=== PATIENT | male | born 1940 | race Caucasian/White ===

== ENCOUNTER → 2017-03-16 | Outpatient (CLI) | payer OTHER ==
[~2017-03-16] MED LIST: ACET-1256 PO; AMLO-114 PO; ASCAUNK PO; ASPI81TA21 PO; ATOR-24 PO; ATV/1 PO; CALCTAB5 PO; CYAN500T13 PO; FLUT0.0529 NAE; FURO20TA PO; GARL705C PO; LISI-789 PO; LPR25 PO; METF-384 PO; MULT1CHW18 PO; PANT1TAB48 PO; RRNITROTAB SL; RXC5 PO; SPIR25TA89 PO; TAMS0.4C59 PO; VITA100C4 PO; WARF10TA PO; cinnamon PO; tizanidine PO
== END | disposition home or self-care (01) ==
LOC: C.LAB 09:38
PROVIDERS: ATTEND Urology
DX: N13.9 Obstructive and reflux uropathy, unspecified (principal)

== ENCOUNTER → 2018-02-18 | Outpatient (CLI) | payer OTHER ==
[~2018-02-18] MED LIST changes: +ASPI-319 PO; -ASPI81TA21 PO; +PANT1TAB3 PO; -PANT1TAB48 PO
== END | disposition home or self-care (01) ==
LOC: C.LAB 07:58
PROVIDERS: ATTEND Urology
DX: N39.0 Urinary tract infection, site not specified (principal)

== ENCOUNTER → 2018-03-16 | Outpatient (CLI) | payer OTHER ==
--- NOTE | 2018-03-16 08:35 | DIAGNOSTIC IMAGING REPORT ---
KUB CLINICAL HISTORY: N20.1 [id number] [id number] BPH COMPARISON STUDY: 11/21/2013 FINDINGS: There are postsurgical changes of a total left hip arthroplasty. There are postsurgical changes of the lower lumbar spine. There is no pathologic bowel dilatation. No urinary tract calculi are visualized. Pelvic basin calcifications are felt to represent phleboliths. IMPRESSION: 1. No evidence of pathologic bowel dilatation 2. No urinary tract calculi identified Electronically signed by: Yariel Ibarra M.D. 03/16/2018 8:33 AM Dictated Date/Time: 03/16/2018 8:32 AM
== END | disposition home or self-care (01) ==
LOC: C.RAD 07:50
PROVIDERS: ATTEND Urology
DX: N40.1 Benign prostatic hyperplasia with lower urinary tract symptoms (principal); N39.0 Urinary tract infection, site not specified; R30.0 Dysuria; R35.0 Frequency of micturition; R39.15 Urgency of urination; B96.4 Proteus (mirabilis) (morganii) as the cause of diseases classified elsewhere

== ENCOUNTER 2019-07-16 23:34 | Inpatient (IN) ==
[2019-07-17] MEDS ORDERED: LIDOCAINE HCL 4% w/ Afrin 4 ML VIAL ONE (00:11)
--- NOTE | 2019-07-17 00:24 | Emergency Department Note ---
History of Present Illness General Chief complaint: Nose Bleed (Major) Stated complaint: NOSE BLEED - CANT GET TO STOP Time Seen by Provider: 07/17/19 00:03 History of Present Illness This is a 79-year-old male the presents to the emergency department via private vehicle with complaints of "nosebleed, cannot get to stop". The patient states that around 11:15 PM without any trauma or injury he began with a spontaneous left-sided nosebleed. He notes that it is going down the back of his throat and also out of his nose. He notes he is on Coumadin for A. fib but also notes that he has some sort of blockage as well. He follows locally with Dr. Velasco. He denies any pain at this time. He does not that he felt quite warm as he began to lose blood and some minimal dizziness. Home Medications Home Medications Medication Instructions Recorded Confirmed Type ascorbic acid (vitamin C) [Vitamin 500 mg PO DAILY 07/17/19 07/17/19 History C] aspirin 81 mg PO DAILY 07/17/19 07/17/19 History atorvastatin 80 mg PO DAILY 07/17/19 07/17/19 History celecoxib 200 mg PO DAILY PRN 07/17/19 07/17/19 History cinnamon bark [Cinnamon] 500 mg PO BID 07/17/19 07/17/19 History cyanocobalamin (vitamin B-12) 500 mcg PO DAILY 07/17/19 07/17/19 History [Vitamin B-12] finasteride 5 mg PO DAILY 07/17/19 07/17/19 History fluticasone propionate [Flonase 2 spray INTRANASAL DAILY PRN 07/17/19 07/17/19 History Allergy Relief] furosemide [Lasix] 40 mg PO DAILY 07/17/19 07/17/19 History garlic 500 mg PO DAILY 07/17/19 07/17/19 History glimepiride 1 mg PO QAM 07/17/19 07/17/19 History glucose 4 g PO DIRECTED PRN 07/17/19 07/17/19 History lisinopril 2.5 mg PO DAILY 07/17/19 07/17/19 History magnesium oxide 400 mg PO DAILY 07/17/19 07/17/19 History metformin 1,000 mg PO BID 07/17/19 07/17/19 History metoprolol tartrate 12.5 mg PO BID 07/17/19 07/17/19 History multivitamin 1 tab PO DAILY 07/17/19 07/17/19 History nitroglycerin 0.4 mg SUBLINGUAL DIRECTED PRN 07/17/19 07/17/19 History pantoprazole 40 mg PO BID 07/17/19 07/17/19 History sildenafil [Viagra] 50 mg PO DAILY PRN 07/17/19 07/17/19 History spironolactone 25 mg PO DAILY 07/17/19 07/17/19 History tamsulosin 0.4 mg PO DAILY 07/17/19 07/17/19 History tizanidine 4 mg PO TID PRN 07/17/19 07/17/19 History tramadol 50 mg PO Q6H PRN 07/17/19 07/17/19 History warfarin 5 mg PO DAILY 07/17/19 07/17/19 History Allergies Allergy/AdvReac Type Severity Reaction Status Date / Time No Known Allergies Allergy Unknown Verified 07/17/19 00:54 Past Med/Surg History Medical History Anemia Diastolic heart failure Hx of coronary artery disease Type 2 diabetes mellitus Surgical History History of lithotripsy Social History Preferred Language: Syriac Communication Ability: Effective Sewage Screen Operator Required: No Beliefs That Will Affect Care: None Current Living Situation: Spouse Other Information That Helps Us Care for You: No Feels Safe at Home: Yes Safety Concerns: Feels Safe At This Time Smoking Status: Former smoker Do You Dip or Chew Tobacco: No ; Second Hand Exposure: No ; Tobacco Cessation Education Requested by Patient: No Hx Alcohol Use: Yes Hx Substance Use: No Review of Systems A total of 10 systems reviewed and were otherwise negative Physical Exam Vital Signs Vital Signs - 24 hr 07/16/19 23:46 07/17/19 00:58 07/17/19 02:13 Temperature 36.9 C Temperature Source Oral Sepsis Recent Fever Within 48 Hours No Sepsis Action Taken by Nursing No Action Required Pulse Rate 82 71 Pulse Rate [Right Finger] 73 68 Respiratory Rate 18 20 20 Respiratory Effort / Characteristics Non-Labored Spontaneous Non-Labored Spontaneous Non-Labored Spontaneous Respiratory Depth Normal Normal Normal Respiratory Pattern Regular Regular Regular Blood Pressure 159/84 H Blood Pressure [Right Arm] 126/73 132/76 Blood Pressure Mean 109 Blood Pressure Mean [Right Arm] 90 94 Blood Pressure Position Sitting Pulse Oximetry 94 94 94 Oxygen Delivery Method Room Air Room Air Room Air 07/17/19 04:03 Temperature Temperature Source Sepsis Recent Fever Within 48 Hours Sepsis Action Taken by Nursing Pulse Rate Pulse Rate [Right Finger] 71 Respiratory Rate 20 Respiratory Effort / Characteristics Non-Labored Spontaneous Respiratory Depth Normal Respiratory Pattern Regular Blood Pressure Blood Pressure [Right Arm] 98/61 L Blood Pressure Mean Blood Pressure Mean [Right Arm] 73 Blood Pressure Position Pulse Oximetry 95 Oxygen Delivery Method Room Air VITAL SIGNS - Vital signs and nursing notes were reviewed. Stable and afebrile. GENERAL - 79-year-old male appearing his stated age who is in no acute distress. Communicates well with provider and answers questions appropriately. SKIN - Without rashes. HEAD - NC/AT. EYES - PERRL with EOMI bilaterally. Sclera anicteric. EARS - No deformities of external structures noted on gross examination bilaterally. NOSE - Midline and without cyanosis. Left-sided arterial vessel on the septal region posteriorly that is actively pulsating and bleeding. MOUTH/OROPHARYNX - Without perioral cyanosis. Buccal mucosa pink and moist and without leukoplakia. NECK - Neck with FROM. Supple to palpation. No lymphadenopathy noted. No nuchal rigidity. LUNGS: CTA. EXTREMITIES - No clubbing or peripheral cyanosis+5/5 strength noted in UE/LE bilaterally. NEUROLOGIC - Cranial nerves II through XII grossly intact. Sensory intact to light touch throughout. PSYCH - A&Ox3 and cooperates fully with examiner. Pt is very pleasant and interacts well with examiner. Course Administered Medications Discontinued Medications Phytonadione 2.5 mg/ Sodium (Chloride) 50.25 mls @ 100.5 mls/hr IV ONE ONE Stop: 07/17/19 04:02 Last Infusion: 07/17/19 04:31 Dose: 0 mls/hr Documented by: [id number] Admin: 07/17/19 04:01 Dose: 100.5 mls/hr Documented by: [id number] Sodium Chloride (Nss) 250 mls @ 250 mls/hr IV .Q1H ONE Stop: 07/17/19 05:32 Last Admin: 07/17/19 05:29 Dose: Not Given Documented by: [id number] Lidocaine HCl (Afrin W/Lidocaine 4%) Confirm Administered Dose 4 ml .ROUTE .STK- MED ONE Stop: 07/17/19 00:12 Last Admin: 07/17/19 00:14 Dose: 4 ml Documented by: [id number] Medical Decision Making Laboratory Data Result diagrams: 07/17/19 07:10 07/17/19 00:12 Lab Results 07/17/19 07/17/19 07/17/19 Range/Units 00:12 00:12 00:12 WBC 6.72 (4.8-10.8) K/uL RBC 4.10 L (4.7-6.1) M/uL Hgb 13.5 L (14.0-18.0) g/dL Hct 40.4 L (42-52) % MCV 98.5 (80-100) fL MCH 32.9 (25-34) pg MCHC 33.4 (32-36) g/dL RDW Std Deviation 48.8 H (36.4-46.3) fL RDW Coeff of [place] 13.8 (11.5-14.5) % Plt Count 146 (130-400) K/uL MPV 9.9 (7.4-10.4) fL Immature Gran % (Auto) 0.1 % Neut % (Auto) 58.9 % Lymph % (Auto) 27.1 % Ray % (Auto) 7.9 % Eos % (Auto) 5.4 % Baso % (Auto) 0.6 % Immature Gran # (Auto) 0.01 (0.00-0.02) K/uL Neut # (Auto) 3.96 (1.4-6.5) K/uL Lymph # (Auto) 1.82 (1.2-3.4) K/uL Ray # (Auto) 0.53 (0.11-0.59) K/uL Eos # (Auto) 0.36 (0-0.5) K/uL Baso # (Auto) 0.04 (0-0.2) K/uL PT 43.4 H (9.0-12.0) Seconds INR 4.7 H (0.9-1.1) APTT 39.1 H (21.0-31.0) Seconds PTT Ratio 1.4 Sodium 142 (136-145) mmol/L Potassium 3.7 (3.5-5.1) mmol/L Chloride 105 (98-107) mmol/L Carbon Dioxide 30 (21-32) mmol/L Anion Gap 7.0 (3-11) BUN 26 H (7-18) mg/dl Creatinine 1.13 (0.6-1.4) mg/dl Est Cr Clr Drug Dosing 53.2 ml/min Est GFR ( Amer) 71.8 Est GFR (Non-Af Amer) 61.9 BUN/Creatinine Ratio 22.6 H (10-20) Glucose 232 H (70-99) mg/dl Calcium 8.9 (8.5-10.1) mg/dl Magnesium 1.7 L (1.8-2.4) mg/dl Total Bilirubin 0.5 (0.2-1) mg/dl AST 20 (15-37) U/L ALT 36 (12-78) U/L Alkaline Phosphatase 75 (45-117) U/L Total Protein 6.8 (6.4-8.2) gm/dl Albumin 3.6 (3.4-5.0) gm/dl Globulin 3.2 (2.5-4.0) gm/dl Albumin/Globulin Ratio 1.1 (0.9-2) MDM Narrative Patient was seen and evaluated as above in room C5. Review was performed of nursing notes and vital signs. After obtaining a thorough history and physical examination the above work up was performed. He presents to us today with spontaneous epistaxis. He is actively bleeding upon my examination in the room. This is an arterial bleed from the left nostril. Consent was obtained. Afrin and lidocaine was sprayed in the left nostril. A 7.5 cm rapid Rhino was placed in the left nostril without any difficulty. This was inflated with 8 cc of air. There was still a very small amount of posterior pharyngeal trickle of blood from the nose, and decision was then made at that time with and his INR was found to be supratherapeutic to provide 2.5 mg of vitamin K. CBC reveals no leukocytosis. There is an anemia noted but he does not need to be transfused at this time. INR is supratherapeutic at 4.7. No emergent metabolic disturbance. I then discussed this with the on-call ENT doctor, Dr. Dillon. We agreed that decreasing the INR from its supratherapeutic state would be of benefit and will likely successfully achieve hemostasis. I reevaluated the patient after providing medication to lower the INR and there was decrease of blood but still minimal persistence. He was observed here for several hours and then Dr. Dillon came to evaluate the patient and there was successful hemostasis. Given the patient's complex past medical history, need for vitamin K, the size of the initial bleed, I do believe that he would benefit from inpatient management to trend his lab values and ensure hemostasis. Case discussed with the hospitalist. Please refer to further documentation regarding his stay. Case was discussed with the attending physician. I attest that I have personally reviewed the patient medication list. I attest that I have reviewed the patient's blood pressure and it was found to be elevated likely secondary to presentation here today. He will be admitted. GCS: 15 In the evaluation and treatment of this patient the following differential diagnoses were entertained: Trauma, injury, supratherapeutic INR, among others Impression & Plan Epistaxis, Supratherapeutic INR Discharge Plan Visit Data *Final* Discharge Date/Time: 07/17/19 07:00 Chief Complaint: Nose Bleed (Major) Stated Complaint: NOSE BLEED - CANT GET TO STOP ED Provider: Maritza Adam ED Midlevel Provider: Yogi Reveles Discharge Problem: Epistaxis, Supratherapeutic INR Patient Disposition: Admitted As Inpatient Condition: Good Discharge Instructions Interventions: ED Discharge Assessment Last Done: 07/17/19 07:00
[2019-07-17 00:27] LABS: Basophils # (auto) 0.04 K/uL (0-0.2); Basophils % (auto) 0.6 %; Eosinophils # (auto) 0.36 K/uL (0-0.5); Eosinophils % (auto) 5.4 %; Hematocrit (blood only) 40.4 % (42-52); Hemoglobin 13.5 g/dL (14.0-18.0); Immature Granulocytes # (auto) 0.01 K/uL (0.00-0.02); Immature Granulocytes % (auto) 0.1 %; Lymphocytes # (auto) 1.82 K/uL (1.2-3.4); Lymphocytes % (auto) 27.1 %; Mean Corpuscular Hgb Conc 33.4 g/dL (32-36); Mean Corpuscular Volume 98.5 fL (80-100); Mean Platelet Volume 9.9 fL (7.4-10.4); Monocytes # (auto) 0.53 K/uL (0.11-0.59); Monocytes % (auto) 7.9 %; Neutrophils # (auto) 3.96 K/uL (1.4-6.5); Neutrophils % (auto) 58.9 %; Platelet Count 146 K/uL (130-400); RDW Coefficient of Variation 13.8 % (11.5-14.5); RDW Standard Deviation 48.8 fL (36.4-46.3); White Blood Count 6.72 K/uL (4.8-10.8)
[2019-07-17 00:42] LABS: Partial Thromboplastin Ratio 1.4; Partial Thromboplastin Time 39.1 Seconds (21.0-31.0); Prothrombin Time 43.4 Seconds (9.0-12.0)
[2019-07-17 00:49] LABS: Albumin Level 3.6 gm/dl (3.4-5.0); BUN Creatinine Ratio 22.6 (10-20); Calcium 8.9 mg/dl (8.5-10.1); Creatinine Clr Calc Pharmacy 53.2 ml/min; Est GFR (African American) 71.8; Est GFR (Non-African American) 61.9; INR 4.7 (0.9-1.1); Potassium 3.7 mmol/L (3.5-5.1)
[2019-07-17 00:51] LABS: Albumin Globulin Ratio 1.1 (0.9-2); Bilirubin,Total 0.5 mg/dl (0.2-1); Globulin 3.2 gm/dl (2.5-4.0); Total Protein 6.8 gm/dl (6.4-8.2)
[2019-07-17] MEDS ORDERED: PHYTONADIONE 2.5 MG in SODIUM CHLORIDE 0.9% 50 ML IV ONE (03:33)
[2019-07-17] MEDS ORDERED: SODIUM CHLORIDE 0.9% 250 ML IV ONE (04:33)
[2019-07-17 04:45] LABS: Magnesium 1.7 mg/dl (1.8-2.4)
--- NOTE | 2019-07-17 05:03 | History & Physical Report ---
Date of Service July 17, 2019 Assessment & Plan (1) Coagulopathy: hx PAF status post pulmonary vein isolation on Coumadin Patient NSR INR supratherapeutic chronic diastolic heart failure (EF 55 to 60%, TTE 2018), patient euvolemic to dry hx CAD status post unsuccessful PCI on aspirin hypertension, BP on the lower side DM 2 on oral medications, well-controlled as of recent outpatient hemoglobin A1c of 6.09 Mar 2019 chronic anemia, hemoglobin at baseline history oropharyngeal dysphagia on aspiration precautions past tobacco abuse Medical telemetry Appropriate to hold Coumadin, aspirin for now until bleeding controlled and hemoglobin stable Trend H&H, transfuse PRBC if hemoglobin less than 8 and/or for symptomatic anemia May need additional vitamin K to reverse INR if with significant hemoglobin drop from baseline. Maintain nasal packing done at the ER, Augmentin course for antibacterial prophylaxis ENT consultation Re: Epistaxis status post packing (ER provider already in touch with Dr. Dillon.) ISS BG goal 1 40-1 80 DVT prophylaxis. SCDs if INR less than 2 while Coumadin on hold RE epistaxis Full code History of Present Illness Chief Complaint: epistaxis Primary Care Provider: Giacomo Morgan, DO History obtained from patient, family, and records. Medical history significant for chronic diastolic heart failure (EF 55 to 60%, TTE 2018), CAD status post unsuccessful PCI, PAF status post pulmonary vein isolation on Coumadin, hypertension, hyperlipidemia, DM 2 on oral medications, chronic anemia baseline hemoglobin of 13, history oropharyngeal dysphagia, past tobacco abuse. Recent confinement 2013 under Orthopedics service for elective left hip surgery. Last night, patient experienced cough/runny nose symptoms which sometimes happens with food/water intake. Patient subsequently noted epistaxis from the left nares. No unusual headache symptoms. No chest pain. Some shortness of breath, denies fluid retention. At the ER, topical decongestant administered intranasally followed by anterior/posterior packing of the left nasal cavity. Vitamin K administered for INR of 4.7. Decreased epistaxis as per patient. Medical History as above Surgical History : Cataract surgery, back surgery, hip surgery, knee surgery Family History : Leukemia, heart disease Personal/Social history : Past tobacco abuse, occasional EtOH intake Allergies Allergy/AdvReac Type Severity Reaction Status Date / Time No Known Allergies Allergy Unknown Verified 07/17/19 00:54 Home Medications Home Medications Medication Instructions Recorded Confirmed Type ascorbic acid (vitamin C) [Vitamin 500 mg PO DAILY 07/17/19 07/17/19 History C] aspirin 81 mg PO DAILY 07/17/19 07/17/19 History atorvastatin 80 mg PO DAILY 07/17/19 07/17/19 History celecoxib 200 mg PO DAILY PRN 07/17/19 07/17/19 History cinnamon bark [Cinnamon] 500 mg PO BID 07/17/19 07/17/19 History cyanocobalamin (vitamin B-12) 500 mcg PO DAILY 07/17/19 07/17/19 History [Vitamin B-12] finasteride 5 mg PO DAILY 07/17/19 07/17/19 History fluticasone propionate [Flonase 2 spray INTRANASAL DAILY PRN 07/17/19 07/17/19 History Allergy Relief] furosemide [Lasix] 40 mg PO DAILY 07/17/19 07/17/19 History garlic 500 mg PO DAILY 07/17/19 07/17/19 History glimepiride 1 mg PO QAM 07/17/19 07/17/19 History glucose 4 g PO DIRECTED PRN 07/17/19 07/17/19 History lisinopril 2.5 mg PO DAILY 07/17/19 07/17/19 History magnesium oxide 400 mg PO DAILY 07/17/19 07/17/19 History metformin 1,000 mg PO BID 07/17/19 07/17/19 History metoprolol tartrate 12.5 mg PO BID 07/17/19 07/17/19 History multivitamin 1 tab PO DAILY 07/17/19 07/17/19 History nitroglycerin 0.4 mg SUBLINGUAL DIRECTED PRN 07/17/19 07/17/19 History pantoprazole 40 mg PO BID 07/17/19 07/17/19 History sildenafil [Viagra] 50 mg PO DAILY PRN 07/17/19 07/17/19 History spironolactone 25 mg PO DAILY 07/17/19 07/17/19 History tamsulosin 0.4 mg PO DAILY 07/17/19 07/17/19 History tizanidine 4 mg PO TID PRN 07/17/19 07/17/19 History tramadol 50 mg PO Q6H PRN 07/17/19 07/17/19 History warfarin 5 mg PO DAILY 07/17/19 07/17/19 History Past Med/Surg History Medical History Anemia Diastolic heart failure Hx of coronary artery disease Type 2 diabetes mellitus Surgical History History of lithotripsy Social History Preferred Language: Slovenian Communication Ability: Effective Chief Supply Chain Officer Required: No Beliefs That Will Affect Care: None Current Living Situation: Spouse Other Information That Helps Us Care for You: No Feels Safe at Home: Yes Safety Concerns: Feels Safe At This Time Smoking Status: Former smoker Do You Dip or Chew Tobacco: No ; Second Hand Exposure: No ; Tobacco Cessation Education Requested by Patient: No Hx Alcohol Use: Yes Hx Substance Use: No Review of Systems Review of Systems: As per HPI, all 10 systems reviewed, all other ROS negative Physical Exam Physical Exam: GENERAL: Comfortable, obese, no respiratory distress SKIN: Pallor, warm HEENT: Alopecia, pale palpebral conjunctivae, no ptosis, nasal packing left anterior nasal cavity, dry buccal mucosa with dried blood clots per orem NECK : Supple, short, no tenderness CHEST : CTA, no tenderness HEART : RRR, systolic murmurs ABDOMEN: distention, nontender EXTREMITIES : No LE swelling/tenderness, no other conspicuous deformities noted NEUROLOGIC : Coherent, no facial asymmetry, no other gross focality Results & Data Vital Signs (Past 12 Hours) Vital Signs Temp Pulse Pulse Resp BP BP Pulse Ox 07/17/19 04:03 71 20 98/61 L 95 07/17/19 02:13 68 20 132/76 94 07/17/19 00:58 71 73 20 126/73 94 07/16/19 23:46 36.9 C 82 18 159/84 H 94 Laboratory Results Laboratory Results WBC 6.72 K/uL (4.8-10.8) 07/17/19 00:12 RBC 4.10 M/uL (4.7-6.1) L 07/17/19 00:12 Hgb 13.5 g/dL (14.0-18.0) L 07/17/19 00:12 Hct 40.4 % (42-52) L 07/17/19 00:12 MCV 98.5 fL (80-100) 07/17/19 00:12 MCH 32.9 pg (25-34) 07/17/19 00:12 MCHC 33.4 g/dL (32-36) 07/17/19 00:12 RDW Std Deviation 48.8 fL (36.4-46.3) H 07/17/19 00:12 RDW Coeff of [place] 13.8 % (11.5-14.5) 07/17/19 00:12 Plt Count 146 K/uL (130-400) 07/17/19 00:12 MPV 9.9 fL (7.4-10.4) 07/17/19 00:12 Immature Gran % (Auto) 0.1 % 07/17/19 00:12 Neut % (Auto) 58.9 % 07/17/19 00:12 Lymph % (Auto) 27.1 % 07/17/19 00:12 [place] % (Auto) 7.9 % 07/17/19 00:12 Eos % (Auto) 5.4 % 07/17/19 00:12 Baso % (Auto) 0.6 % 07/17/19 00:12 Immature Gran # (Auto) 0.01 K/uL (0.00-0.02) 07/17/19 00:12 Neut # (Auto) 3.96 K/uL (1.4-6.5) 07/17/19 00:12 Lymph # (Auto) 1.82 K/uL (1.2-3.4) 07/17/19 00:12 [place] # (Auto) 0.53 K/uL (0.11-0.59) 07/17/19 00:12 Eos # (Auto) 0.36 K/uL (0-0.5) 07/17/19 00:12 Baso # (Auto) 0.04 K/uL (0-0.2) 07/17/19 00:12 PT 43.4 Seconds (9.0-12.0) H 07/17/19 00:12 INR 4.7 (0.9-1.1) H 07/17/19 00:12 APTT 39.1 Seconds (21.0-31.0) H 07/17/19 00:12 PTT Ratio 1.4 07/17/19 00:12 Sodium 142 mmol/L (136-145) 07/17/19 00:12 Potassium 3.7 mmol/L (3.5-5.1) 07/17/19 00:12 Chloride 105 mmol/L (98-107) 07/17/19 00:12 Carbon Dioxide 30 mmol/L (21-32) 07/17/19 00:12 Anion Gap 7.0 (3-11) 07/17/19 00:12 BUN 26 mg/dl (7-18) H 07/17/19 00:12 Creatinine 1.13 mg/dl (0.6-1.4) 07/17/19 00:12 Est Cr Clr Drug Dosing 53.2 ml/min 07/17/19 00:12 Est GFR ( Amer) 71.8 07/17/19 00:12 Est GFR (Non-Af Amer) 61.9 07/17/19 00:12 BUN/Creatinine Ratio 22.6 (10-20) H 07/17/19 00:12 Glucose 232 mg/dl (70-99) H 07/17/19 00:12 Calcium 8.9 mg/dl (8.5-10.1) 07/17/19 00:12 Magnesium 1.7 mg/dl (1.8-2.4) L 07/17/19 00:12 Total Bilirubin 0.5 mg/dl (0.2-1) 07/17/19 00:12 AST 20 U/L (15-37) 07/17/19 00:12 ALT 36 U/L (12-78) 07/17/19 00:12 Alkaline Phosphatase 75 U/L (45-117) 07/17/19 00:12 Total Protein 6.8 gm/dl (6.4-8.2) 07/17/19 00:12 Albumin 3.6 gm/dl (3.4-5.0) 07/17/19 00:12 Globulin 3.2 gm/dl (2.5-4.0) 07/17/19 00:12 Albumin/Globulin Ratio 1.1 (0.9-2) 07/17/19 00:12 Diagnostic Findings Chest x-ray as per my interpretation cardiomegaly, atelectasis EKG as per my interpretation rate 70, NSR, RBBB, T wave abnormalities inferior leads,
--- NOTE | 2019-07-17 07:04 | ENT Consultation ---
Date of Consultation July 17, 2019 Assessment & Plan (1) Epistaxis: No further bleeding after vitamin K , packing in good position, comfortable, would leave packing in x 48 hours, hold coumadin if OK with medical History of Present Illness Reason for Consultation: epistaxis History of Present Illness 79 yo with sudden onset episaxis last night, on coumadin, INR 4.7, for afib. Allergies Allergy/AdvReac Type Severity Reaction Status Date / Time No Known Allergies Allergy Unknown Verified 07/17/19 00:54 Home Medications Home Medications Medication Instructions Recorded Confirmed Type ascorbic acid (vitamin C) [Vitamin 500 mg PO DAILY 07/17/19 07/17/19 History C] aspirin 81 mg PO DAILY 07/17/19 07/17/19 History atorvastatin 80 mg PO DAILY 07/17/19 07/17/19 History celecoxib 200 mg PO DAILY PRN 07/17/19 07/17/19 History cinnamon bark [Cinnamon] 500 mg PO BID 07/17/19 07/17/19 History cyanocobalamin (vitamin B-12) 500 mcg PO DAILY 07/17/19 07/17/19 History [Vitamin B-12] finasteride 5 mg PO DAILY 07/17/19 07/17/19 History fluticasone propionate [Flonase 2 spray INTRANASAL DAILY PRN 07/17/19 07/17/19 History Allergy Relief] furosemide [Lasix] 40 mg PO DAILY 07/17/19 07/17/19 History garlic 500 mg PO DAILY 07/17/19 07/17/19 History glimepiride 1 mg PO QAM 07/17/19 07/17/19 History glucose 4 g PO DIRECTED PRN 07/17/19 07/17/19 History lisinopril 2.5 mg PO DAILY 07/17/19 07/17/19 History magnesium oxide 400 mg PO DAILY 07/17/19 07/17/19 History metformin 1,000 mg PO BID 07/17/19 07/17/19 History metoprolol tartrate 12.5 mg PO BID 07/17/19 07/17/19 History multivitamin 1 tab PO DAILY 07/17/19 07/17/19 History nitroglycerin 0.4 mg SUBLINGUAL DIRECTED PRN 07/17/19 07/17/19 History pantoprazole 40 mg PO BID 07/17/19 07/17/19 History sildenafil [Viagra] 50 mg PO DAILY PRN 07/17/19 07/17/19 History spironolactone 25 mg PO DAILY 07/17/19 07/17/19 History tamsulosin 0.4 mg PO DAILY 07/17/19 07/17/19 History tizanidine 4 mg PO TID PRN 07/17/19 07/17/19 History tramadol 50 mg PO Q6H PRN 07/17/19 07/17/19 History warfarin 5 mg PO DAILY 07/17/19 07/17/19 History Patient History Social History Feels Safe at Home: Yes Smoking Status: Former smoker Physical Exam Constitutional: WD/WN, vitals as above Eyes: PERRL, conjunctivae normal, anicteric sclerae ENMT: Nose: + nasal mucous membrane abnormality (left nostril packing in place) and + nasal discharge (bleeding has stopped with IV vitamin K) Neck: trachea midline, no thyromegaly Respiratory: normal respiratory effort, lungs clear to auscultation Results & Data Vital Signs (Past 12 Hours) Vital Signs Temp Pulse Pulse Resp BP BP Pulse Ox 07/17/19 04:03 71 20 98/61 L 95 07/17/19 02:13 68 20 132/76 94 07/17/19 00:58 71 73 20 126/73 94 07/16/19 23:46 36.9 C 82 18 159/84 H 94
[2019-07-17 07:20] LABS: Hematocrit (blood only) 36.4 % (42-52)
--- NOTE | 2019-07-17 07:24 | XRay Report ---
XR chest 1V portable CLINICAL HISTORY: sob COMPARISON STUDY: Chest radiograph July 27, 2014. FINDINGS: The lungs are normal. There is no pneumothorax or pleural effusion. There is no consolidati on or evidence for pulmonary edema. Moderate cardiomegaly is noted. IMPRESSION: No acute cardiopulmonary findings. Moderate cardiomegaly. Electronically signed by: Keagan Atkinson M.D. 07/17/2019 7:23 AM
[2019-07-17] MEDS ORDERED: PHYTONADIONE 5 MG in SODIUM CHLORIDE 0.9% 50 ML IV ONE (08:00)
[2019-07-17] MEDS ORDERED: TRAMADOL HCL 50 MG TABLET PO PRN (08:03)
[2019-07-17] MEDS ORDERED: GLUCOSE 40% GEL 15 GM TUBE PO PRN (08:03)
[2019-07-17] MEDS ORDERED: GLUCOSE 10 TABS/TUBE PO PRN (08:03)
[2019-07-17] MEDS ORDERED: CARBOHYDRATES FOR HYPOGLYCEMIA PO PRN (08:03)
[2019-07-17] MEDS ORDERED: GLUCAGON FOR INJ 1 MG VIAL SQ PRN (08:03)
[2019-07-17] MEDS ORDERED: SODIUM CHLORIDE 0.9% 500 ML IV ONE (08:03)
[2019-07-17] MEDS ORDERED: TIZANIDINE HCL 4 MG TABLET PO PRN (08:03)
[2019-07-17] MEDS ORDERED: DEXTROSE 50% 50 ML SYRINGE IV PRN (08:03)
[2019-07-17] MEDS ORDERED: PROMETHAZINE HCL 12.5 MG in SODIUM CHLORIDE 0.9% 50 ML IV PRN (08:03)
[2019-07-17] MEDS ORDERED: ACETAMINOPHEN 325 MG TAB PO PRN (08:03)
[2019-07-17] MEDS ORDERED: NITROGLYCERIN SL 0.4 MG/TAB TAB SL PRN ×2 (08:03)
[2019-07-17] MEDS ORDERED: INSULIN GLARGINE SOLOSTAR 100 UNITS/ML 3 ML PEN SQ STA (08:08)
[2019-07-17] MEDS ORDERED: MAGNESIUM SULFATE / D5W 1 GM/100 ML BAG IV ONE ×2 (08:14→08:15)
[2019-07-17] MEDS: AMOXICILLIN/CLAVULANATE 875 MG TAB PO SCH ×2 (08:59→18:10)
[2019-07-17] MEDS: INSULIN ASPART 100 UNITS/ML 3 ML PEN SC SCH ×4 (09:01→21:17)
[2019-07-17] MEDS: FINASTERIDE 5 MG TAB PO SCH (09:12)
[2019-07-17] MEDS: CYANOCOBALAMIN 500 MCG TABLET (VITAMIN B-12) PO SCH (09:13)
[2019-07-17] MEDS: TAMSULOSIN HCL 0.4 MG CAP PO SCH (09:13)
[2019-07-17] MEDS: MULTIVITAMIN TAB PO SCH (09:13)
[2019-07-17] MEDS: PANTOprazole 40 MG TAB PO SCH ×2 (09:13→21:15)
[2019-07-17] MEDS: METOPROLOL TARTRATE 25 MG TAB PO SCH ×2 (09:15→21:15)
[2019-07-17] MEDS: LISINOPRIL 2.5 MG TAB PO SCH (09:16)
[2019-07-17 12:20] LABS: Hematocrit (blood only) 35.7 % (42-52); Hemoglobin 11.8 g/dL (14.0-18.0)
[2019-07-17 12:30] LABS: INR 2.1 (0.9-1.1); Prothrombin Time 20.3 Seconds (9.0-12.0)
--- NOTE | 2019-07-17 15:23 | Hospitalist Progress Note ---
Date of Service July 17, 2019 Assessment & Plan (1) Epistaxis: Present on admission spontaneous left-sided nosebleed. Mostly related to coumadin with supratherapeutic INR in the setting of Celebrex and Aspirin INR on admission 4.7 and received Vit K 2.5 mg IV Repeat INR 2.1 Hgb on admssion 13.5, dropped to 11.8 S/P left nostril packing done in the ER ENT dr. Dillon on board recommended to leave packing in x 48 hours Will continue hold coumadin and aspirin for now Continue Augmentin for prophylaxis Continue monitor H/H Supratherapeutic INR INR 4.7 on admission Received Vit K INR 2.1 for now Elevated Lactic acid Possible related no Epistaxis vs Metformin Lactic acid on admission 3.1 No sign of infection ( Afebrile and no leukocytosis) Repeat lactic acid 2.1 Continue holding Metformin Monitor lactic acid Chronic diastolic heart failure No sign of fluid overload Last ECHO in 2018 showed EF 55-60% Will resume lasix and spironolactone in am DM type 2 Last Hemoglobin A1c of 6.09 Mar 2019 Oral DM on hold Continue lantus and insulin sliding scale HbA1c pending CAD Denies any chest pain Continue metoprololol and statin Aspirin on hold due to epistaxis Hypomagnesemia Mg 1.7 , replaced Monitor Mag level Paroxysmal Afib rate control with metoprolol Coumadin and aspinrin on hold due to Epistaxis Continue monitor chronic anemia Hemoglobin on admission 13.5 hemoglobin today 11.8 Monitor H/H DVT px on SCDs due to Epistaxis CODE STATUS FULL CODE Subjective Pt was seen and examined. Lying in bed with no distress Pt said that he has been on coumadin and aspirin for about 10yrs with no episode of nose bleeding. He said he was prescribed celebrex that he has been taking for pain He said that he feels ok now He denies any fever, SOB, palpitation, dizziness and chest pain Physical Exam Physical Exam: General- No acute distress Head- atraumatic Eyes- PERRL, EOMI, ENT- left nostril packing in place Neck- supple, no JVD Lungs- clear to auscultation Heart- regular rhythm Abdomen- normal bowel sounds, soft, nontender Extremities- no calf tenderness Neuro- alert, oriented x 3; PERRL, EOMI; no facial palsy; no dysarthria Skin- warm & dry Results & Data Vital Signs (Past 12 Hours) Vital Signs Temp Pulse Resp BP BP Pulse Ox 07/17/19 11:41 36.6 C 79 18 158/79 H 92 07/17/19 07:00 130/79 95 07/17/19 06:58 95 07/17/19 06:30 127/80 94 07/17/19 04:03 71 20 98/61 L 95
[2019-07-17] MEDS ORDERED: HydrALAZINE HCL 20 MG/ML VIAL IV PRN (18:01)
[2019-07-17] MEDS: INSULIN GLARGINE SOLOSTAR 100 UNITS/ML 3 ML PEN SQ SCH (21:16)
[2019-07-18 06:51] LABS: Basophils # (auto) 0.03 K/uL (0-0.2); Basophils % (auto) 0.4 %; Eosinophils # (auto) 0.38 K/uL (0-0.5); Eosinophils % (auto) 4.7 %; Hematocrit (blood only) 35.3 % (42-52); Hemoglobin 11.8 g/dL (14.0-18.0); Immature Granulocytes # (auto) 0.01 K/uL (0.00-0.02); Immature Granulocytes % (auto) 0.1 %; Lymphocytes # (auto) 1.86 K/uL (1.2-3.4); Mean Corpuscular Hgb Conc 33.4 g/dL (32-36); Mean Corpuscular Volume 97.8 fL (80-100); Mean Platelet Volume 9.7 fL (7.4-10.4); Monocytes # (auto) 0.76 K/uL (0.11-0.59); Monocytes % (auto) 9.4 %; Neutrophils # (auto) 5.06 K/uL (1.4-6.5); Neutrophils % (auto) 62.4 %; Platelet Count 130 K/uL (130-400); RDW Coefficient of Variation 13.9 % (11.5-14.5); RDW Standard Deviation 49.7 fL (36.4-46.3); Red Blood Count 3.61 M/uL (4.7-6.1)
[2019-07-18 07:00] LABS: INR 1.3 (0.9-1.1); Prothrombin Time 12.8 Seconds (9.0-12.0)
[2019-07-18 07:14] LABS: Estimated Average Glucose 163 mg/dl; Hemoglobin A1C 7.3 % (4.5-5.6)
[2019-07-18] MEDS: INSULIN ASPART 100 UNITS/ML 3 ML PEN SC SCH ×3 (08:15→17:26)
[2019-07-18] MEDS: INSULIN GLARGINE SOLOSTAR 100 UNITS/ML 3 ML PEN SQ SCH (08:16)
[2019-07-18] MEDS: CYANOCOBALAMIN 500 MCG TABLET (VITAMIN B-12) PO SCH (08:17)
[2019-07-18] MEDS: METOPROLOL TARTRATE 25 MG TAB PO SCH (08:17)
[2019-07-18] MEDS: PANTOprazole 40 MG TAB PO SCH (08:17)
[2019-07-18] MEDS: AMOXICILLIN/CLAVULANATE 875 MG TAB PO SCH ×2 (08:18→16:18)
[2019-07-18] MEDS: FINASTERIDE 5 MG TAB PO SCH (08:18)
[2019-07-18] MEDS: TAMSULOSIN HCL 0.4 MG CAP PO SCH (08:18)
[2019-07-18] MEDS: LISINOPRIL 2.5 MG TAB PO SCH (08:18)
[2019-07-18] MEDS: MULTIVITAMIN TAB PO SCH (08:18)
[2019-07-18] MEDS ORDERED: INSULIN GLARGINE SOLOSTAR 100 UNITS/ML 3 ML PEN SQ SCH (09:00)
[2019-07-18] MEDS ORDERED: FUROSEMIDE 40 MG TAB PO SCH (09:00)
[2019-07-18] MEDS ORDERED: SPIRONOLACTONE 25 MG TAB PO SCH (14:00)
--- NOTE | 2019-07-18 17:26 | Hospitalist Progress Note ---
Date of Service July 18, 2019 Assessment & Plan (1) Epistaxis: Present on admission spontaneous left-sided nosebleed. Mostly related to coumadin with supratherapeutic INR in the setting of Celebrex and Aspirin INR on admission 4.7 and received Vit K 2.5 mg IV INR 1.3 today Hgb stable at 11.8 today S/P left nostril packing done in the ER ENT dr. Dillon on board recommended to leave packing in x 48 hours case discussed with Santana Rueda recommended to discharge with the nose packing today Follow up with ENT dr. Dillon on Thursday for packing removal Will resume coumadin tomorrow Continue to hold aspirin Continue Augmentin for prophylaxis Supratherapeutic INR INR 4.7 on admission Received Vit K INR 1.3 for today Follow up with the coumadin clinic Elevated Lactic acid Possible related no Epistaxis vs Metformin Lactic acid on admission 3.1 No sign of infection ( Afebrile and no leukocytosis) Repeat lactic acid 2.1 Continue holding Metformin Monitor lactic acid Chronic diastolic heart failure No sign of fluid overload Last ECHO in 2017 showed EF 55-60% Continue lasix and spironolactone DM type 2 Recent Hemoglobin A1c 7.3 Continue lantus and insulin sliding scale will resume oral diabetes me CAD Denies any chest pain Continue metoprololol and statin Aspirin on hold due to epistaxis Hypomagnesemia Mg 2.1 today Stable Paroxysmal Afib rate control with metoprolol Coumadin and aspinrin on hold due to Epistaxis Ok to resume coumadin Continue monitor chronic anemia Hemoglobin on admission 13.5 hemoglobin today 11.8 Monitor H/H Stable DVT px on SCDs due to Epistaxis CODE STATUS FULL CODE Disposition Follow up with your primary care provider Follow up with Dr. Torrez on 07/22 @ 10:45 AM Call to schedule for a follow up with Dr. Dillon on Thursday or earlier. (Call to schedule for the appt @ [phone]) Subjective Pt was seen and examined. Lying in bed with no distress Pt said that he feels fine. He said that he did not sleep well last night He said that too much activities in his room last night Denies any chest pain, palpitation, dizziness and SOB Physical Exam Physical Exam: General- No acute distress Head- atraumatic Eyes- PERRL, EOMI, ENT- left nostril packing in place Neck- supple, no JVD Lungs- clear to auscultation Heart- regular rhythm Abdomen- normal bowel sounds, soft, nontender Extremities- no calf tenderness Neuro- alert, oriented x 3; PERRL, EOMI; no facial palsy; no dysarthria Skin- warm & dry Results & Data Vital Signs (Past 12 Hours) Vital Signs Temp Pulse Pulse Resp BP Pulse Ox 07/18/19 16:10 36.6 C 69 20 117/76 95 07/18/19 15:06 74 07/18/19 11:22 36.9 C 72 16 158/85 H 97 07/18/19 07:22 36.5 C 62 16 142/79 H 97
--- NOTE | 2019-07-19 10:21 | Discharge Summary ---
Date of Service July 19, 2019 Admission HPI Per Admitting Provider History obtained from patient, family, and records. Medical history significant for chronic diastolic heart failure (EF 55 to 60%, TTE 2018), CAD status post unsuccessful PCI, PAF status post pulmonary vein isolation on Coumadin, hypertension, hyperlipidemia, DM 2 on oral medications, chronic anemia baseline hemoglobin of 13, history oropharyngeal dysphagia, past tobacco abuse. Recent confinement 2013 under Orthopedics service for elective left hip surgery. Last night, patient experienced cough/runny nose symptoms which sometimes happens with food/water intake. Patient subsequently noted epistaxis from the left nares. No unusual headache symptoms. No chest pain. Some shortness of breath, denies fluid retention. At the ER, topical decongestant administered intranasally followed by anterior/posterior packing of the left nasal cavity. Vitamin K administered for INR of 4.7. Decreased epistaxis as per patient. Medical History as above Surgical History : Cataract surgery, back surgery, hip surgery, knee surgery Family History : Leukemia, heart disease Personal/Social history : Past tobacco abuse, occasional EtOH intake Admission Exam Per Admitting Provider GENERAL: Comfortable, obese, no respiratory distress SKIN: Pallor, warm HEENT: Alopecia, pale palpebral conjunctivae, no ptosis, nasal packing left anterior nasal cavity, dry buccal mucosa with dried blood clots per [place]rem NECK : Supple, short, no tenderness CHEST : CTA, no tenderness HEART : RRR, systolic murmurs ABDOMEN: distention, nontender EXTREMITIES : No LE swelling/tenderness, no other conspicuous deformities noted NEUROLOGIC : Coherent, no facial asymmetry, no other gross focality Principal Diagnosis Epistaxis Supratherapeutic INR Elevated Lactic acid Chronic diastolic heart failure DM type 2 CAD Hypomagnesemia Paroxysmal Atrial fibrillation chronic anemia Discharge Exam General- No acute distress Head- atraumatic Eyes- PERRL, EOMI, ENT- left nostril packing in place Neck- supple, no JVD Lungs- clear to auscultation Heart- regular rhythm Abdomen- normal bowel sounds, soft, nontender Extremities- no calf tenderness Neuro- alert, oriented x 3; PERRL, EOMI; no facial palsy; no dysarthria Skin- warm & dry Discharge Data Allergies Allergy/AdvReac Type Severity Reaction Status Date / Time No Known Allergies Allergy Unknown Verified 07/17/19 00:54 Consultations 07/17/19 04:27 ED Decision to Admit Stat 07/17/19 08:03 Consult Otolaryngology (Head and Neck) Routine Ordered Studies XR chest 1V portable CLINICAL HISTORY: sob COMPARISON STUDY: Chest radiograph July 27, 2014. FINDINGS: The lungs are normal. There is no pneumothorax or pleural effusion. There is no consolidation or evidence for pulmonary edema. Moderate cardiomegaly is noted. IMPRESSION: No acute cardiopulmonary findings. Moderate cardiomegaly. Electronically signed by: Keagan Atkinson M.D. 07/17/2019 7:23 AM Dictated: 07/17/19721 Transcribed: 07/17/19721 Hospital Course (1) Epistaxis: Present on admission spontaneous left-sided nosebleed. Mostly related to coumadin with supratherapeutic INR in the setting of Celebrex and Aspirin INR on admission 4.7 and received Vit K 2.5 mg IV INR 1.3 today Hgb stable at 11.8 today S/P left nostril packing done in the ER ENT dr. Dillon on board recommended to leave packing in x 48 hours case discussed with Santana Rueda recommended to discharge with the nose packing today Follow up with ENT dr. Dillon on Thursday for packing removal Will resume coumadin tomorrow Continue to hold aspirin Continue Augmentin for prophylaxis Supratherapeutic INR INR 4.7 on admission Received Vit K INR 1.3 for today Follow up with the coumadin clinic Elevated Lactic acid Possible related no Epistaxis vs Metformin Lactic acid on admission 3.1 No sign of infection ( Afebrile and no leukocytosis) Repeat lactic acid 2.1 Continue holding Metformin Monitor lactic acid Chronic diastolic heart failure No sign of fluid overload Last ECHO in 2017 showed EF 55-60% Continue lasix and spironolactone DM type 2 Recent Hemoglobin A1c 7.3 Continue lantus and insulin sliding scale will resume oral diabetes me CAD Denies any chest pain Continue metoprololol and statin Aspirin on hold due to epistaxis Hypomagnesemia Mg 2.1 today Stable Paroxysmal Afib rate control with metoprolol Coumadin and aspinrin on hold due to Epistaxis Ok to resume coumadin Continue monitor chronic anemia Hemoglobin on admission 13.5 hemoglobin today 11.8 Monitor H/H Stable DVT px on SCDs due to Epistaxis CODE STATUS FULL CODE Disposition Follow up with your primary care provider Follow up with Dr. Torrez on 07/22 @ 10:45 AM Call to schedule for a follow up with Dr. Dillon on Thursday or earlier. (Call to schedule for the appt @ [phone]) Total Time Total Time Spent Total Time Spent (In Minutes): 35 minutes Total Time Includes: Examination of the Patient, Discharge Planning, Medication Reconciliation, Communication With Other Providers and Other Discharge Plan Discharge Items Patient Disposition: Home - Self-Care Reason For Visit: COAGULOPATHY,SOB Discharge Diagnosis: Epistaxis Supratherapeutic INR Elevated Lactic acid Chronic diastolic heart failure DM type 2 CAD Hypomagnesemia Paroxysmal Atrial fibrillation chronic anemia Condition on Discharge: Good Activity: Resume your previous activity Activity Comment: As tolerated Non-emergency contact: Primary Care Provider and Specialist Call non-emergency contact if: your temperature is above 101 Follow-up/Referrals: Giacomo Morgan, DO [Primary Care Provider] - Diet: Carb Consistent or DM2 and Heart Healthy Addtl Attending Provider Instructions: Follow up with your primary care provider Dr. Torrez on 07/22 @ 10:45 AM Call to schedule for a follow up with Otolaryngology Dr. Dillon on Thursday or earlier. (Call to schedule for the appt @ [phone]) Follow up with the coumadin clinic OK to resume coumadin tomorrow (Check INR on or Thursday) Hold Aspirin for now (Your physician will instruct you when to resume it). Please ask your physician or your cardiology when to resume the aspirin Hold Flonase for now Complete antibiotic course Discontinue Celebrex Avoid any NSAIDS such as (Aleve, Naproxen, Motrin, Advil, Ibuprofen, Celebrex, Meloxicam) due to increase risk of bleeding Coumadin decreased from 5 mg to 4 mg ( Please follow coumadin clinic instructions) Pending Studies at Discharge: No Stand-Alone Forms: My [facility] [employer] Medications and DC Order Prescriptions: New amoxicillin-pot clavulanate 875-125 mg Tablet 1 tab PO BIDM 7 Days Qty: 14 RF: 0 warfarin [Coumadin] 4 mg tablet 4 mg PO DAILY Qty: 30 RF: 0 Continued glucose 4 gram Tablet,Chewable 4 g PO DIRECTED PRN (Reason: low sugar) RF: 0 nitroglycerin 0.4 mg Tablet, Sublingual 0.4 mg sublingual DIRECTED PRN (Reason: Chest Pain) RF: 0 sildenafil [Viagra] 50 mg Tablet 50 mg PO DAILY PRN (Reason: Erectile Dysfunction) RF: 0 finasteride 5 mg Tablet 5 mg PO DAILY RF: 0 fluticasone propionate [Flonase Allergy Relief] 50 mcg/actuation [place],Suspension 2 spray INTRANASAL DAILY PRN (Reason: dryness) RF: 0 cyanocobalamin (vitamin B-12) [Vitamin B-12] 500 mcg Tablet 500 mcg PO DAILY RF: 0 cinnamon bark [Cinnamon] 500 mg Capsule 500 mg PO BID RF: 0 ascorbic acid (vitamin C) [Vitamin C] 500 mg Tablet 500 mg PO DAILY RF: 0 multivitamin Tablet,Chewable 1 tab PO DAILY RF: 0 garlic 500 mg Capsule 500 mg PO DAILY RF: 0 tamsulosin 0.4 mg Capsule 0.4 mg PO DAILY RF: 0 metoprolol tartrate 25 mg Tablet 12.5 mg PO BID RF: 0 magnesium oxide 400 mg magnesium Tablet 400 mg PO DAILY RF: 0 glimepiride 1 mg Tablet 1 mg PO QAM RF: 0 metformin 1,000 mg Tablet 1,000 mg PO BID RF: 0 pantoprazole 40 mg Tablet,Delayed Release (Dr/Ec) 40 mg PO BID RF: 0 furosemide [Lasix] 40 mg Tablet 40 mg PO DAILY RF: 0 lisinopril 2.5 mg Tablet 2.5 mg PO DAILY RF: 0 spironolactone 25 mg Tablet 25 mg PO DAILY RF: 0 atorvastatin 80 mg Tablet 80 mg PO DAILY RF: 0 tramadol 50 mg Tablet 50 mg PO Q6H PRN (Reason: Pain) RF: 0 tizanidine 4 mg Tablet 4 mg PO TID PRN (Reason: muscle spasms) RF: 0 Discontinued aspirin 81 mg Tablet,Delayed Release (Dr/Ec) 81 mg PO DAILY RF: 0 celecoxib 200 mg Capsule 200 mg PO DAILY PRN (Reason: Pain) RF: 0 warfarin 5 mg Tablet 5 mg PO DAILY RF: 0 Discharge Orders: Discharge Order (Routine); Ordered 07/18/19 Ordered By: Lenard Gardner Admission Data Admit Date/Time: 07/17/19 05:07 Attending Provider: Lenard Gardner Admit Provider: Raul Huerta Primary Care Provider: Giacomo Morgan Other Providers: Raul Huerta ; Santana,Sinhala How Other Interventions: Discharge Summary Assessment (RN) Last Done: 07/18/19 18:05 DC Date/Time DO NOT enter until pt leaves facility: 07/18/19 18:40
== END 2019-07-18 18:40 | disposition home or self-care (01) | DRG 813 ==
LOC: ED 23:34 → 2N 07-17 05:07

== ENCOUNTER 2025-01-22 03:49 | Inpatient (IN) ==
--- OUTSIDE RECORDS SUMMARY | 2025-01-22 03:53 | External Medical Summary | Summary of Care ---
Author Name Unknown Organization [facility] Address [address] [place] [address] Phone [phone] Care Team Providers Care Marriage Therapist Name Role Phone Giacomo Morgan DO Primary Care Provider [phone] Reason for Visit * Reason Onset Date Comments Advice 01/20/2025 Encounter Details Date Type Department Care Team (Late st Contact Info) Description 01/20/2025 Telephone Family Practice [facility] [address] [place] [phone] Giacomo Morgan [address] [place], [place] [phone] Advice Allergies Active Allergy Reactions Criticality Noted Date Comments Lisinopril Cough 06/19/2020 documented as of this encounter (statuses as of 01/20/2025) Medications VITAMIN B-12 500 MCG PO TABS Take 1 Tablet by mouth in the morning. Active ASPIRIN 81 MG PO TABS Take 1 Tablet by mouth in the morning. Active Blood Glucose Monitoring Suppl (ONETOUCH ULTRA SYSTEM) w/Device KITIndications:DM type 2 nursing care encounter (HCC) Test once daily; dx E11.9 1 Kit 12/23/19 18 Active Vitamin D3 250 MCG (41985 UT) Oral Capsule Take 1,000 Units by mouth in the morning. Active ONETOUCH DELICA LANCETS 33G MISCIndications:Ty pe 2 diabetes mellitus with hemoglobin A1c goal of less than 8.0% ([facility]) Test once daily; dx E11.9 100 Each 11 08/18/20 Active Acetaminophen 325 MG Oral Tablet (TYLENOL) Take 3 Tabs by mouth every 6 hours. 30 Tab 08/09/20 Active Additional Information Patient taking differently: 650 mgOralDaily(AM), Reported on 01/17/2025 Apixaban 5 MG Oral Tablet (ELIQUIS) Take 1 Tablet by mouth in the morning and 1 Tablet before bedtime. 06/21/20 Active Vitamin C 1000 MG Oral Tablet Take 1 Tablet by mouth in the morning. 03/20/20 Active Garlic 1000 MG Oral Capsule Take 1 Capsule by mouth daily. 03/20/20 Active Neuriva Oral Capsule Take 1 Capsule by mouth in the morning. 06/22/20 Active Ondansetron HCl 4 MG Oral TabletIndications: Gastroenteritis Take 1 Tablet by mouth every 8 hours as needed for Nausea. 15 Tablet 12/10/19 24 Active Fluticasone Propionate 50 MCG/ACT Nasal Suspension (Flonase) administer 1 spray intranasally twice a day for dryness 48 g 3 4 12:47 PM EST 12/24/19 24 Active Glimepiride 1 MG Oral Tablet (Amaryl) Take 1 Tablet by mouth in the morning and 1 Tablet before bedtime. with the meals. 200 Tablet 3 5 5:47 PM EST 01/22/20 24 Active Pantoprazole Sodium 40 MG Oral Tablet Delayed Release (Protonix) Take 1 Tablet by mouth 2 times a day. 180 Tablet 3 5 8:39 AM EST 02/29/20 24 Active Magnesium Oxide -Mg Supplement 400 (240 Mg) MG Oral Tablet (Mag-Ox) Take 1 Tablet by mouth daily. 90 Tablet 3 03/20/20 24 Active Atorvastatin Calcium 80 MG Oral Tablet (Lipitor)Indicatio ns:Dyslipidemia, goal LDL below 100 take one tablet by mouth daily 100 Tablet 3 4 4:11 PM EST 04/05/20 24 Active Metoprolol Succinate ER 25 MG Oral Tablet Extended Release 24 Hour (toPROL XL) TAKE ONE TABLET BY MOUTH EVERY DAY IN THE MORNING (REPLACES METOPROLOL TARTRATE) 100 Tablet 3 4 1:56 PM EST 04/10/20 24 025 Active Finasteride 5 MG Oral Tablet (Proscar)Indicatio ns:BPH with obstruction/lower urinary tract symptoms Take 1 Tablet by mouth in the morning. 90 Tablet 2 08/10/20 24 Active Tamsulosin HCl 0.4 MG Oral Capsule (Flomax) Take 1 Capsule by mouth daily. 90 Capsule 2 08/26/20 24 Active Gabapentin 600 MG Oral Tablet (Neurontin) Take 1 Tablet by mouth in the morning and 1 Tablet at noon and 1 Tablet before bedtime. 08/23/20 24 Active Mirabegron ER 50 MG Oral Tablet Extended Release 24 Hour (Myrbetriq) Take 1 Tablet by mouth. 08/12/20 24 Active Nystatin-Triamcino lone 809670-5.1 UNIT/GM-% External Cream (Mycolog) Apply topically to affected area. 08/12/20 24 Active traMADol HCl 50 MG Oral Tablet (Ultram)Indication s:Degeneration of intervertebral disc of lumbar region with discogenic back pain and lower extremity pain Take 1 Tablet by mouth every 6 hours as needed for Pain, Severe. 30 Tablet 08/26/20 24 Active Empagliflozin 25 MG Oral Tablet (Jardiance)Indicat ions:Type 2 diabetes mellitus with hemoglobin A1c goal of less than 8.0% ([facility]) Take 1 Tablet by mouth in the morning. 100 Tablet 3 08/30/20 24 Active Carpal Tunnel Wrist Stabilizer Bl per va 09/15/20 24 Active Glucose Blood In Vitro StripIndications:D M type 2 nursing care encounter ([facility]) Test once daily 100 Strip 3 10/04/20 24 Active metFORMIN HCl 1000 MG Oral Tablet (Glucophage) TAKE ONE TABLET BY MOUTH TWO TIMES A DAY 180 Tablet 3 5 4:37 PM EST 12/21/19 25 026 Active tiZANidine HCl 4 MG Oral Tablet (Zanaflex) Take 1 Tablet by mouth every 8 hours as needed. 10/17/20 24 Active Amoxicillin-Pot Clavulanate 875-125 MG Oral Tablet (Augmentin)Indicat ions:Upper respiratory tract infection, unspecified type Take 1 Tablet by mouth in the morning and 1 Tablet before bedtime. Do all this for 10 days. 20 Tablet 01/15/20 25 025 Active documented as of this encounter (statuses as of 01/20/2025) Active Problems Problem Noted Date Diagnosed Date LVH (left ventricular hypertrophy) 10/02/2024 Normocytic normochromic anemia 10/02/2024 Thyroid nodule 10/02/2024 Renal cyst, right 10/02/2024 Atherosclerosis of aorta 10/02/2024 Right inguinal hernia 10/02/2024 Diverticulosis of large intestine without hemorr elvia 10/02/2024 Dysphagia 10/02/2024 Essential tremor 10/02/2024 Lumbar degenerative disc disease 03/20/2023 History of lumbar spinal fusion 03/20/2023 Moderate aortic valve stenosis 03/20/2023 Carpal tunnel syndrome of right wrist 12/11/2021 Paroxysmal atrial fibrillation 04/18/2019 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 Type 2 diabetes mellitus wit h hemoglobin A1c goal of less than 8.0% 08/30/2009 Overview (02/28/2016): Per Diabetes Taxonomy. ICD-10 update of inactive term long term care phlebotomist current use of anticoagulant therapy 0 11/10/2003 Overview (08/03/2017): ICD-10 update of inactive term documented as of this encounter (statuses as of 01/20/2025) Resolved Problems Problem Noted Date Diagnosed Date Resolved Date Trace tricuspid regurgitatio n by prior echocardiogram 10/02/2024 01/17/2025 Trace mitral regurgitation b y prior echocardiogram 10/02/2024 01/17/2025 Pulmonary nodules 10/02/2024 12/28/2024 Fall 08/09/2020 06/22/2023 Radius fracture 08/09/2020 06/22/2023 Osteoarthritis of left hip 07/19/2014 0 07/22/2019 SOB (shortness of breath) 01/18/2013 Pulmonary vein stenosis 01/18/201301/31 Cough 01/11/2013 06/14/2014 ACEI/ARB contraindicated 01/11/2013 Overview (01/11/2013): Cough with ACEI and Losartan Sinus bradycardia 09/16/2012 10/02/2024 HTN, goal below 140/80 01/28/201211/06 Impotence of organic origin 02/23/2008 04/15/2017 Benign neoplasm of colon 11/25/2007 Overview (12/02/2007): 1-2mm polyps--adenomatous polyps and carcinoid lesion (EUS recommended) Type 2 diabetes mellitus wit h hemoglobin A1c goal of less than 7.0% 05/02/2005 08/30/2009 Overview (02/26/2016): Per Diabetes Taxonomy. ICD-10 update of inactive term ADVANCE DIRECTIVE INFORMATION 04/09/2005 04/15/2017 Overview (01/03/2009): No, Advance Directive brochure offered , patient declined. 12/17/07 No, Advance Directive brochure given to patient at prior appointment. PURE HYPERCHOLESTEROLEM 10/21/200410/02 Overview (10/11/2009): Per Lipid Taxonomy. Acute bronchitis, antibiotics not indicated 09/20/2004 02/23/2008 Atrial fibrillation 03/10/2003 04/18/20 Anticoagulation management encounter 02/16/2003 01/13/2024 HYPERTENSION NOS 09/25/2009 Overview (09/25/2009): Modified per HTN protocol #16. Hemorrhoids 04/18/2019 documented as of this encounter (statuses as of 01/20/2025) Immunizations Name Administration Dates Next Due COVID-19 mRNA, LNP-s, No Pre serve, 2-Dose Series (Incuboom) 09/19/2021,12/31/2020,12/08/2020 COVID-19, LNP-s, No Preserve , Harshal-sucrose, Ages 12+ (Pfizer) 06/06/2022 COVID-19, MRNA-LNP, PF, 30 M CG/0.3 mL, 12 YRS AND ABOVE, IM ([facility] 08/21/2023 Covid-19, Mrna, Lnp-s, Pf, B ivalent, 30 Mcg, IM, 12 yrs and above (Incuboom) 09/17/2022 H1N1 2009 Influenza, IM 11/15/2009 Pneumococcal Conjugate Vacc, 13 Valent (Prevnar) 03/14/2015 Pneumococcal Conjugate Vacci ne, 20-valent ([id number]) 12/28/2024 Pneumococcal Polysaccharide PPV23 (Pneumovax) 10/25/2007 RSV Vac., Recomb, Adjuvant, PF,0.5 Ml (Arexvy) 11/11/2024 Seasonal Influenza Vac., MDV , IM, 0.5 mL (Fluzone) 07/21/2017,07/03/2015,07/19/2014,07/20,07/28/2012,07/22/2011,07/24/2010 ,07/04/2009,08/24/2008,08/05/2007 Seasonal Influenza Virus Vac cine, Unspecified Formulation 08/02/2022,08/02/2021,06/02/2019 Seasonal Influenza, High Dos e, Trivalent, PF, IM (Fluzone HD) 07/19/2024 Seasonal Influenza, PF, 6 M & above, IM , (FluLaval or Fluzone) 07/14/2023,08/24/2018 Seasonal Influenza, Quadriva lent Hd, 65+ Yrs 07/24/2020 Seasonal Influenza, Quadriva lent, No Preserve, IM 07/16/2016 Seasonal Influenza, Trivalen t, Adjuvanted, 65+ YRS, PF, (Fluad) 07/22/2019 TD - Tetanus/Diptheria (ADULT) 11/13/2022,2007 TDAP (age 10 and older)(Boostrix) 03/16/2013 Varicella Zoster Vaccine (Adult) 06/02/2012 Zoster Vaccine Recombinant (Shingrix) 06/18/2021 ,06/19/2020 documented as of this encounter Social History Tobacco Use Types Packs/Day Years Used Date Smoking Tobacco: Former Cigarettes 0 01/09/1968 - 01/09/1988 Passive Smoke Exposure: Past Smokeless Tobacco: Never Alcohol Use Standard Drinks/Week Comments Yes 0 (1 standard drink = 0.6 oz pur e alcohol) social PHQ-2 Answer Date Recorded PHQ Adult Total Score 0 10/02/2024 Hunger Vital Sign Answer Date Recorded Within the past 12 months, y ou worried that your food would run out before you got the money to buy more. Never true 10/02/20 24 Within the past 12 months, t he food you bought just didn't last and you didn't have money to get more. Never true 10/02/2024 Childcare Answer Date Recorded Do you feel overwhelmed with taking care of a child, family member or friend? No 10/02/2024 Does your family need help f inding childcare? (Household - for ages 0-17 years) Not on file 10/02/2024 Clothing Answer Date Recorded Have you been unable to get clothing when it was really needed? No 10/02/2024 Is your family able to get c lothes or diapers when needed? (Household - for ages 0-17 years) Not on file 10/02/2024 Personal Safety Answer Date Recorded Do you feel unsafe or have concerns for your saf ety? No 10/02/2024 Do you have concerns for you r family's safety? (Household - for ages 0-17 years) Not on file 10/02/2024 Utilities Answer Date Recorded Do you have trouble paying y our heating, water, or electric bill? No 10/02/2024 Is your family able to pay t he heat, water, or electric bill? (Household - for ages 0-17 years) Not on file 10/02/2024 Does your family have access to good internet? (Household - for ages 0-17 years) Not on file 10/02/2024 Employment Status Answer Date Recorded Are you unemployed or without regular income? No 10/02/2024 Does the household have a re gular source of income? (Household - for ages 0-17 years) Not on file 10/02/2024 Social Connections Answer Date Recorded How often do you feel lonely or isolated from th ose around you? Never 10/02/2024 Financial Resource Strain Answer Date R ecorded Do you have any trouble payi ng for your medications, or do you think you might in the future? No 10/02/2024 Does your family have troubl e paying for medicine? (Household - for ages 0-17 years) Not on file 10/02/2024 Transportation Needs Answer Date Record ed Do you have trouble getting a ride to medical visits or work? (Adult - for ages 18 years and over) Not on file 10/02/2024 Does your family have a hard time getting a ride to doctors visits? (Household - for ages 0-17 years) Not on file 10/02/2024 Has lack of transportation k ept you from medical appointments, meetings, work, or from getting things needed for daily living? Check all that apply. No 10/02/2024 Do you (or your family) have trouble finding or paying for a ride (transportation)? (Household - for ages 0-17 years) Not on file 10/02/2024 Housing Stability Answer Date Recorded Do you currently live in a s helter or have no steady place to sleep at night? No 10/02/2024 Do you think you are at risk of becoming homeless? (Adult - for ages 18 years and over) Not on file 10/02/2024 Does your family worry about paying for your home or becoming homeless? (Household - for ages 0-17 years) Not on file 1 12/03/2023 Are you homeless or worried that you might be in the future? No 10/02/2024 Are you (or your family) zamzam eless or worried that you might be in the future? (Household - for ages 0-17 years) Not on file Food Insecurity Answer Date Recorded Do you need food for this week? No 10/02/2024 Are you able to get enough f ood for your family? (Household - for ages 0-17 years) Not on file 10/02/2024 Does your family need food t his week? (Household - for ages 0-17 years) Not on file 10/02/2024 Do you always have enough fo od for your family? (Household - for ages 0-17 years) Not on file 10/02/2024 Food Insecurity Answer Date Recorded Within the past 12 months, y ou worried that your food would run out before you got the money to buy more. Never true 10/02/20 24 Within the past 12 months, t he food you bought just didn't last and you didn't have money to get more. Never true 10/02/2024 Do you need food for this week? No 10/02/2024 Education Answer Date Recorded What is the highest level of school you have completed or the highest degree you have received? 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 Answer Date of Assessment Author No 08/08/2020 6:14 AM Kelli Rico RN * Are you blind or do you have serious difficulty seeing, even when wearing glasses? Answer Date of Assessment Author No 08/08/2020 6:14 AM Kelli Rico RN * Do you have serious difficulty walking or climbing stairs? (5 years old or older) Answer Date of Assessment Author No 08/08/2020 6:14 AM Kelli Rico RN * Do you have difficulty dressing or bathing? (5 years old or older) Answer Date of Assessment Author No 08/08/2020 6:14 AM Kelli Rico RN * Because of a physical, mental, or emotional condition, do you have difficulty doing errands alone such as visiting a doctors office or shopping? (15 years old or older) Answer Date of Assessment Author No 08/08/2020 6:14 AM Kelli Rico RN documented as of this encounter Mental Status * Because of a physical, mental, or emotional condition, do you have serious difficulty concentrating, remembering, or making decisions? (5 years old or older) Answer Entry Date Author No 08/08/2020 6:14 AM EDT Kelli Harrison RN documented in this encounter Miscellaneous Notes * Telephone Encounter - Kelli Chapa LPN - 01/20/2025 11:24 AM EDT Patient requested appt today, placed Dr Canas, * Telephone Encounter - Giacomo Morgan DO - 01/20/2025 9:31 AM EDT Tizanidine can cause dizziness as well as Gabapentin See if patient is taking Tizanidine. See if patient is agreeable to decreasing gabapentin. Schedule visit. * Telephone Encounter - Kelli Chapa LPN - 01/20/2025 8:23 AM EDT States dizziness has shown no improvement, states dizziness happens anytime. States happens anytime, not necessarily when standing. States was recently diagnosed with parkinson's disease. When he gets dizzy is it fleeting. Sates is sob. Thank you * Telephone Encounter - Yodit Cardenas OSA - 01/20/2025 8:09 AM EDT Dizziness DIZZINESS: Yes Additional Comment(s) Additional Comments: Patient has been having dizziness x2wks. He says he's on medication for it butits not working. He wants to talk with Kelli and says " tell her not to take all day to get back to me, this is serious" Patient Request Patient Requesting: Advice documented in this encounter Plan of Treatment Upcoming Encounters Date Type Department Care Team (Late st Contact Info) Description 01/23/2025 10:40 AM EDT Office Visit Family Practice [facility] [address] [place] [phone] College, Pharmacist [address] [place] [address] 01/23/2025 1:00 PM EDT Scheduled Telephone Family Practice [facility] [address] [place] [phone] College, Nurse Fam Prac [address] [place] [address] 04/27/2025 9:20 AM EDT Office Visit Family Practice [facility] [address] [place] [phone] Giacomo Morgan, [address] [place] [address] 07/26/2025 10:40 AM EDT Office Visit Neurology [facility] [address] [facility] [place] [place] [address] Katie Aranda MD [address] [facility] [place] [place] [address] 09/27/2025 9:00 AM EST Home Visit Care at Home [address] [place] [address] Sandra Villarreal PA-C [address], [place] [phone] Health Maintenance Due Date Last Done Comments COVID-19 Vaccine ( season) 2025 08/21/2023, 09/17/2022, 06/06/2022, Additional history exists Postponed from 07/03/2024 (Patient Declined After Education) HbA1c 07/16/2025 01/13/2025, 02/2 04/2025, 08/26/2024, Additional history exists Albumin/Creatinine Ratio 08/26/202508/26/2 024, 09/02/2023, 05/04/2023, Additional history exists Diabetic Foot Exam 08/26/2025 08/26/2024, 0 03/20/2023, 07/22/2019, Additional history exists Adult Wellness Visit 09/28/2025 09/28/2024, 08/03/20 23 Depression Screening 10/02/2025 10/02/2024 Diabetic Eye Exam 12/28/2025 12/28/2024, , 11/11/2023, Additional history exists GFR 01/13/2026 01/13/2025, 09/02, 08/26/2024, Additional history exists DTap/Tdap Vaccines (3 - Td or Tdap) 11/13/2032 11/13/2022, 03/16/2013, 02/23/2008 Zoster Vaccines Completed 06/18/2021, 06/02, 06/02/2012 Influenza Vaccine (FLU shot) Completed 07/19/2024, 07/14/2023, 08/02/2022, Additional history exists B-12 Discontinued 09/19/2024, 07/0 12/2022, 04/19/2019, Additional history exists Pneumococcal Vaccine: 50+ Years Completed 12/28/2024, 03/14/2015, 10/25/2007, Additional history exists HPV (Gardasil) Vaccine Aged Out No lo nger eligible based on patient's age to complete this topic Hepatitis B Vaccine Aged Out No longe r eligible based on patient's age to complete this topic MENINGOCOCCAL (MENACTRA/MENVEO) Aged Out No longer eligible based on patient's age to complete this topic Meningitis B Vaccine (Bexsero/Trumemba) Aged Out No longer eligible based on patient's age to complete this topic documented as of this encounter Medical Devices Implanted Type Area Php Lamp Developer Device Identifier Shelf Expiration Date Model / Serial / Lot Lens 24.5 Mx60e - [id number] - [id number] Implanted:Qty: 1 on 03/31/2019 by Pablo Diaz MD at OR [facility] Right: Eye [employer] 09/01/2020 [id number]-34.5 / [id number] / [id number] Lens 24.5 Mx60e - [id number] - [id number] Implanted:Qty: 1 on 04/14/2019 by Pablo Diaz MD at OR [facility] Left: Eye [employer] 06/01/2021 [id number]-52.5 / [id number] / [id number] Plate Lcp Metap 3.5mm 7h - [id number] Implanted:Qty: 1 on 08/08/2020 by Pineda Bob [place] [facility] [place] Lower Arm SYNTHES 223.407 / / Description:from set Screw Selftap 3.5x16 204.816 - [id number] Implanted:Qty: 4 on 08/08/2020 by Pineda Bob [place] [facility]: Lower Arm SYNTHES 204.816 / / Description:from set documented as of this encounter Visit Diagnoses Diagnosis SOB (shortness of breath)- Primary Shortness of breath documented in this encounter Advance Directives * Limited Code (Latest Code Status on File) Date Activated Date Inactivated Comments 08/08/2020 1:18 AM 08/10/2020 2:34 AM Patient okay with resuscitation measures if would be for possible reversible causes Question Answer Comments Discussion of Advance Directives occurred with: Patient Bag Valve Device? Yes Intubation? Yes Cardiac Compressions? Yes Defibrillation? Yes Synchronized Cardioversion? Yes External Pacemaker? Yes Cardiac Drugs? Yes * Full Code Date Activated Date Inactivated Comments 12/15/2012 2:06 PM 12/16/2012 2:18 PM This order r eflects the patients wishes and were consensually agreed upon. Question Answer Comments Discussion of Advance Directives occurred with: Not Discussed Does the patient have a Living Will? No Does the patient have Health Care Power of Attor magali? No Care Teams Marriage Therapist Relationship Specialty Start Date End Date Giacomo Morgan DO [address] [facility] [place] [address] PCP - General Internal Medicine 05/06/24 documented as of this encounter
--- OUTSIDE RECORDS SUMMARY | 2025-01-22 03:53 | External Medical Summary | Summary of Care ---
Author Name Unknown Organization [facility] Address [address] [place] [address] Phone [phone] Care Team Providers Care Vacuum Extractor Operator Name Role Phone Giacomo Morgan DO Primary Care Provider [phone] Reason for Visit * Reason Onset Date Comments Referral 12/29/2024 [facility] DM Encounter Details Date Type Department Care Team (Late st Contact Info) Description 12/29/2024 Telephone Family Practice [facility] [address] [place] [phone] College, Pharmacist [address] [phone] Referral ([facility] DM) Allergies Active Allergy Reactions Criticality Noted Date Comments Lisinopril Cough 06/19/2020 documented as of this encounter (statuses as of 01/17/2025) Medications VITAMIN B-12 500 MCG PO TABS Take 1 Tablet by mouth in the morning. Active ASPIRIN 81 MG PO TABS Take 1 Tablet by mouth in the morning. Active Blood Glucose Monitoring Suppl (ONETOUCH ULTRA SYSTEM) w/Device KITIndications:DM type 2 nursing care encounter (HCC) Test once daily; dx E11.9 1 Kit 12/23/19 Active Vitamin D3 250 MCG (78640 UT) Oral Capsule Take 1,000 Units by mouth in the morning. Active ONETOUCH DELICA LANCETS 33G MISCIndications:Ty pe 2 diabetes mellitus with hemoglobin A1c goal of less than 8.0% ([facility]) Test once daily; dx E11.9 100 Each 11 08/18/20 Active Acetaminophen 325 MG Oral Tablet (TYLENOL) Take 3 Tabs by mouth every 6 hours. 30 Tab 08/09/20 Active Additional Information Patient taking differently: 650 mgOralDaily(AM), Reported on 01/14/2025 Apixaban 5 MG Oral Tablet (ELIQUIS) Take [...] by mouth. 08/12/20 24 Active Nystatin-Triamcino lone 819627-2.1 UNIT/GM-% External Cream (Mycolog) Apply topically to [...] hemoglobin A1c goal of less than 8.0% ([facility]) Take 1 Tablet by mouth in the morning. 100 Tablet 3 08/30/20 24 Active Carpal Tunnel Wrist Stabilizer Bl per va 09/15/20 24 Active Glucose Blood In Vitro StripIndications:D M type 2 nursing care encounter ([facility]) Test once daily 100 Strip 3 10/04/20 24 Active metFORMIN HCl 1000 MG Oral Tablet (Glucophage) TAKE ONE TABLET BY MOUTH TWO TIMES A DAY 180 Tablet 3 5 4:37 PM EST 12/21/19 25 026 Active tiZANidine HCl 4 MG Oral Tablet (Zanaflex) Take 1 Tablet by mouth every 8 hours as needed. 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 Hemorrhoids 04/18/2019 documented as of this encounter (statuses as of 01/17/2025) Immunizations Name Administration Dates Next Due COVID-19 mRNA, LNP-s, No Pre serve, 2-Dose Series ([employer]) 09/19/2021,12/31/2020,12/08/2020 COVID-19, LNP-s, No Preserve , Harshal-sucrose, Ages 12+ (Pfizer) 06/06/2022 COVID-19, MRNA-LNP, PF, 30 M CG/0.3 mL, 12 YRS AND ABOVE, IM ([facility]) 08/21/2023 Covid-19, Mrna, Lnp-s, Pf, B ivalent, 30 Mcg, IM, 12 yrs and above (Pfizer) 09/17/2022 H1N1 2009 Influenza, IM 11/15/2009 Pneumococcal Conjugate Vacc, 13 Valent (Prevnar) 03/14/2015 Pneumococcal Conjugate Vacci ne, 20-valent ([id number]) 12/28/2024 Pneumococcal Polysaccharide PPV23 (Pneumovax) 10/25/2007 RSV [...] 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 Sen Valdez, JANIECP Clinical Pharmacist [address] [facility] 01/16/2025, 4:02 PM . [phone] * Telephone Encounter - Geena Dunn RP - 01/03/2025 9:33 PM EST [facility] - [facility] before [facility]. Sen Valdez, BRENDEN Clinical Pharmacist [address] [facility] 01/03/2025, 9:33 PM . [phone] * Telephone Encounter - Nano Gautam CPhT - 12/29/2024 2:14 PM EST Procedure: PHARMACIST MEDS THERAPY MGMT REFERRAL OP Status: Needs Scheduling (Qpwn-ys-Tarcxhj Pending) Requested appt date: Authorizing: Giacomo Morgan DO in [address] Referral: [id number] (Pending Review) Priority: Within 10 days (routine) Diagnosis: Type 2 diabetes mellitus with hemoglobin A1c goal of less than 8.0% ([facility]) [E11.9... Comments Pharmacist Medication Therapy Management: Minimum frequency patient should be seen in person for medication management: as appropriate per clinical condition and patient status By my signature, I understand that my patient Doron Perez will have his medication therapy managed by the [facility] Medication Therapy Disease [facility] Clinic ([facility]) per established policies, procedures, and protocols. I also certify that this referral may serve as an initiation of service for the management of drug therapy in the above noted patient. [facility] providers will be responsible for scheduling patient visits, obtaining appropriate laboratory studies, and adjusting medication management therapy per patient's need, in addition to those roles spelled out in the clinic policy, procedures, and drug management protocols. I understand that the service provided by the [facility] is voluntary and have informed patient that they can refuse the service at their discretion. I am aware that the [facility] Clinic will provide me with a copy of the patient encounter via my [employer]. I authorize the [facility] Clinic to carry out these activities on my behalf. I consider this program to be a necessary part of the patient's medical care. Pretty Treviño LPN Order Specific Questions Referral Priority Within 10 days (routine) Where should this appointment be scheduled? [facility] Referring Provider Role: Primary Care Reason for Referral: DM Target A1c: < 8 documented in this encounter Plan of Treatment Upcoming Encounters Date Type Department Care Team (Late st Contact Info) Description 01/17/2025 11:20 AM EDT Office Visit Family [address] [place] [address] Giacomo Morgan, [address] [place] [phone] 04/27/2025 9:20 AM EDT Office Visit [address] [place] [address] Giacomo Morgan, DO [address] [place] [address] 07/26/2025 10:40 AM EDT Office Visit Neurology [facility] [address] [facility] [place] [address] Katie Aranda MD [address] [facility] [place] [address] 09/27/2025 9:00 AM EST Home Visit Care at Home [address], [place] [phone] Sandra Villarreal PA-C [address], [place] [phone] Health Maintenance Due Date Last Done Comments COVID-19 Vaccine ( season) 2024 08/21/2023, 09/17/2022, 06/06/2022, Additional history exists HbA1c 07/16/2025 01/13/2025, 0204/2025, 08/26/2024, Additional history exists Albumin/Creatinine Ratio 08/26/2025 024, 09/02/2023, 05/04/2023, Additional history exists Diabetic [...] this encounter Medical Devices Implanted Type Area Graduate Nurse Device Identifier Shelf Expiration Date Model / Serial / Lot Lens 24.5 Mx60e - [id number] - [id number] Implanted:Qty: 1 on 03/31/2019 by Pablo Diaz MD at [facility] Right: Eye [employer] 09/01/2020 PU11T-05.5 / [id number] / [id number] Lens 24.5 Mx60e - [id number] - [id number] Implanted:Qty: 1 on 04/14/2019 by Pablo Diaz MD at OR [facility] Left: Eye [employer] 06/01/2021 AX13D-97.5 / [id number] / [id number] Plate Lcp Metap 3.5mm 7h - [id number] Implanted:Qty: 1 on 08/08/2020 by Pineda Bob MD [place] [facility] [place]: Lower Arm SYNTHES 223.407 / / Description:from set Screw Selftap 3.5x16 204.816 - [id number] Implanted:Qty: 4 on 08/08/2020 by Pineda Bob MD [place] [facility] [place]: Lower Arm SYNTHES 204.816 / / Description:from set documented as of this encounter Advance Directives * Limited Code [...] Power of Attor magali? No Care Teams Vacuum Extractor Operator Relationship Specialty Start Date End Date Giacomo Morgan DO [address] [place] [address] PCP - General Internal Medicine 05/06/24 documented as of this encounter
--- OUTSIDE RECORDS SUMMARY | 2025-01-22 03:53 | External Medical Summary | Summary of Care ---
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 [facility] Referring Provider Role: Primary Care Reason for Referral: DM Target A1c: < 8 Comments Pharmacist Medication Therapy Management: Minimum frequency patient should be seen in person for medication management: as appropriate per clinical condition and patient status By my signature, I understand that my patient Doron Perez will have his medication therapy managed by the [facility] ([facility]) per established policies, procedures, and protocols. I also certify that this referral may serve as an initiation of service for the management of drug therapy in the above noted patient. [facility] providers will be responsible for scheduling patient visits, obtaining appropriate laboratory studies, and adjusting medication management therapy per patient's need, in addition to those roles spelled out in the clinic policy, procedures, and drug management protocols. I understand that the service provided by the [facility] is voluntary and have informed patient that they can refuse the service at their discretion. I am aware that the [facility] Clinic will provide me with a copy of the patient encounter via my [employer] In[employer]-Bot[employer]. I authorize the [facility] to carry out these activities on my behalf. I consider this program to be a necessary part of the patient's medical care. 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, without long-term current use of insulin ([facility]); Paroxysmal atrial fibrillation ([facility]); BPH with obstruction/lower urinary tract symptoms; Moderate aortic valve stenosis; Coronary artery disease involving [place] coronary artery of [place] heart without angina pectoris; DM peripheral angiopathy ([facility]); Dyslipidemia, goal LDL below 100; Essential tremor; Gastroesophageal reflux disease without esophagitis; History of lumbar spinal fusion; HTN, goal below 140/90; Risk and functional assessment Allergies Active Allergy Reactions Criticality Noted Date [...] Kit 12/23/19 Active Vitamin D3 250 MCG (73457 UT) Oral Capsule Take 1,000 Units by mouth in the morning. Active ONETOUCH DELICA LANCETS 33G MISCIndications:Ty pe 2 diabetes mellitus with hemoglobin A1c goal of less than 8.0% ([facility]) Test once daily; dx E11.9 100 [...] Take 1 Capsule by mouth daily. 03/20/20 23 Active Neuriva Oral Capsule Take 1 Capsule by mouth in the morning. 06/22/20 23 Active Ondansetron HCl 4 MG Oral TabletIndications: [...] tablet by mouth daily 100 Tablet 3 12/17/202 4 4:11 PM EST 04/05/20 24 Active [...] by mouth. 08/12/20 24 Active Nystatin-Triamcino lone 672035-9.1 UNIT/GM-% External Cream (Mycolog) Apply topically to [...] hemoglobin A1c goal of less than 8.0% ([facility]) Take 1 Tablet by mouth in the morning. 100 Tablet 3 08/30/20 24 Active Carpal Tunnel Wrist Stabilizer Bl per [place] 09/15/20 24 Active Glucose Blood In Vitro StripIndications:D M type 2 nursing care encounter ([facility]) Test once daily 100 Strip 3 [...] Diabetes Taxonomy. ICD-10 update of inactive term nursing home current use of anticoagulant therapy 0 11/10/2003 [...] mRNA, LNP-s, No Pre serve, 2-Dose Series ([employer]) 09/19/2021,12/31/2020,12/08/2020 COVID-19, LNP-s, No Preserve , Harshal-sucrose, Ages 12+ ([employer]) 06/06/2022 COVID-19, MRNA-LNP, PF, 30 M CG/0.3 mL, 12 YRS AND ABOVE, IM ([facility]) 08/21/2023 Covid-19, Mrna, Lnp-s, Pf, B ivalent, 30 Mcg, IM, 12 yrs and above ([employer]) 09/17/2022 H1N1 2009 Influenza, IM 11/15/2009 Pneumococcal Conjugate Vacc, 13 Valent (Prevnar) 03/14/2015 Pneumococcal Conjugate Vacci ne, 20-valent ([id number]) 12/28/2024 Pneumococcal Polysaccharide PPV23 (Pneumovax) 10/25/2007 RSV [...] Passive Smoke Exposure: Past Smokeless Tobacco: Never Tobacco Cessation:Counseling Given: Yes Alcohol Use Standard Drinks/Week Comments Yes 0 [...] 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 Not on file Not on file Not on file documented as of this encounter Last Filed Vital Signs Vital Sign Reading Time Taken Comments Blood Pressure 128/72 01/17/2025 11:36 AM EDT Pulse 72 01/17/2025 11:36 AM EDT Temperature 35.9 C (96.7 F) 01/17/2025 11:36 AM E DT Respiratory Rate 16 01/17/2025 11:36 AM EDT Oxygen Saturation 93% 01/17/2025 11:36 AM EDT Inhaled Oxygen Concentration - - Weight 81.2 kg (179 lb 1.6 oz) 01/17/2025 11:36 AM EDT Height 162.6 cm (5' 4") 01/17/2025 11:36 AM EDT Body Mass Index 30.74 01/17/2025 11:36 AM EDT documented in this encounter Functional Status * Are you deaf or do you have serious difficulty hearing? Answer Date of Assessment Author No 08/08/2020 6:14 AM EDT Kelli Harrison RN * Are you blind or do you have serious difficulty seeing, even when wearing glasses? Answer Date of Assessment Author No 08/08/2020 6:14 AM DOMENICAT Kelli Harrison RN * Do you have serious difficulty walking or climbing stairs? (5 years old or older) Answer Date of Assessment Author No 08/08/2020 6:14 AM DOMENICAT Kelli Harrison RN * Do you have difficulty dressing or bathing? (5 years old or older) Answer Date of Assessment Author No 08/08/2020 6:14 AM DOMENICAT Kleli Harrison RN * Because of a physical, mental, or emotional condition, do you have difficulty doing errands alone such as visiting a doctors office or shopping? (15 years old or older) Answer Date of Assessment Author No 08/08/2020 6:14 AM DOMENICAT Kelli Harrison RN documented as of this encounter Mental Status * Because of a physical, mental, or emotional condition, do you have serious difficulty concentrating, remembering, or making decisions? (5 years old or older) Answer Entry Date Author No 08/08/2020 6:14 AM DOMENICAT Kelli Harrison RN documented in this encounter Patient Instructions * Patient Instructions* Kelli Chapa, NICOLE - 01/17/2025 11:33 AM EDT Patient Instructions - Fall Prevention (This education is for all patients over 65 regardless of symptoms) Remember to take your current medications as prescribed. In order to prevent falls, you are encouraged to: Exercise Utilize assistive/adaptive devices Avoid multifocal lenses when walking Avoid hazards in home Maintain a regular toileting schedule Any questions please contact our office. Preventing Falls in the Home (This education is for all patients over 65 regardless of symptoms) As you get older, falls are more likely. Thats because your reaction time slows. Your muscles and joints may also get stiffer, making them less flexible. Illness, medications, and vision changes can also affect your balance. A fall could leave you unable to live on your own. To make your home safer, follow these tips: Floors Put nonskid pads under area rugs Remove throw rugs Replace worn floor coverings Tack carpets firmly to each step on carpeted stairs. Put nonskid strips on the edges of uncarpeted stairs Keep floors and stairs free of clutter and cords Arrange furniture so there are clear pathways Clean up any spills right away Bathrooms Install grab bars in the tub or shower Apply nonskid strips or put a nonskid rubber mat in the tub or shower Sit on a bath chair to bathe Use bathmats with nonskid backing Lighting Keep a flashlight in each room Put a nightlight along the pathway between the bedroom and the bathroom [employer] Patient Education Copyright 2008 - 2010 [employer] except where otherwise noted Preventing Falls: Exercises to Improve Balance, Flexibility, Strength, and Staying Power (This education is for all patients over 65 regardless of symptoms) Certain types of exercises may help make you less likely to fall. Try the ones below. Or do other exercises that your healthcare provider suggests. Depending on your health, you may need to start slowly. Dont let that stop you. Even small amounts of exercise can help you. Be sure to talk to yourhealthcare provider before starting any exercise program. Improve Balance Many types of exercise can help improve balance. José Miguel chi and yoga are good examples. Heres another one to try. You can do it anytime and almost anywhere. Stand next to a counter or solid support. Push yourself up onto your tiptoes. Hold for 5 seconds. If you start to lose your balance, hold on to the counter. Rest and repeat 5 times. Work up to holding for 20 to 30 seconds, if you can. Increase Flexibility Being more flexible makes it easier for you to move around safely. Try exercises like the seated hamstring stretch. Sit in a chair and put one foot on a stool. Straighten your leg and reach with both hands down either side of your leg. Reach as far down your leg as you can. Hold for about 20 seconds. Go back to the starting position. Then repeat 5 times. Switch legs. Build Strength Resistance exercises help build strength. You can do them without equipment. Or you can use weights, elastic bands, or special machines. One such exercise is called the biceps curl. You can hold a 1 pound weight or even a can of soup. Do this exercise at least 3 times a week. Strive for everyday. Sit up straight in a chair. Keep your elbow close to your body and your wrist straight. Bend your arm, moving your hand up to your shoulder. Then slowly lower your arm. Repeat 5 times. Switch to the other arm. Build Your Staying Power Aerobic exercises make your heart and lungs stronger so you can keep moving longer. Walking and swimming are two of the best types of exercises you can do. Using a stationary bike is great, too. Find an aerobic exercise that you enjoy. Start slowly and build up. Even 5 minutes is helpful. Aimfor a goal of 30 minutes, at least 3 times a week. You dont have to do 30 minutes in one session. Break it up and walk a little throughout the day. More Helpful Tips Start easy. Slowly work up to doing more. Talk with your healthcare provider about the best exercises for you. Call senior centers or health clubs about exercise programs. If needed, have a family member watch you walk every so often to check your stability. Exercise with a friend. Choose an activity you both enjoy. Try exercises that you can do anytime, anywhere. Here are two examples. Have someone with you when you first try these: Practice walking by placing one foot right in front of the other. Stand up and sit down 10 times. Repeat this throughout the day. [employer] Patient Education Copyright 2008 - 2010 [employer] except where otherwise noted. Preventing Falls: Moving Safely Using a Cane or Walker (This education is for all patients over 65 regardless of symptoms) Keep the cane away from your feet so you dont trip. A walking aid, such as a cane or walker, can help you stay more independent and avoid falls. Remember to keep your walking aid within easy reach when youre in a chair or in bed. And learn how to use it safely so you dont injure yourself. Using a Cane If you have a stronger side, hold the cane on that side. Get your balance. Move the cane and your weaker leg forward. Support your weight on both the cane and your weaker side. Step with your stronger leg. Start again from step 1. If youre using a folding walker, be sure you know how to lock it open. Check that its locked open before each use. Using a Walker Roll the walker (or lift it, if youre using one without wheels) forward about 12 inches. Step forward with your weaker leg first. Use the walker to help keep your balance. Bring your other foot forward to the center of the walker. Start again from step 1. Helpful Tips Check with your healthcare provider about the right walking aid to use. Ask about a walker with a seat attached. Check the tips of your cane or walker to make sure they have nonskid covers. Move slowly from room to room. Dont horton. Sit down to get dressed. Use a prema pack or backpack to keep your hands free. Get help for jobs that mean climbing, even on a stepstool. [employer] Patient Education Copyright 2008 - 2010 [employer] except where otherwise noted. Treating Urinary Incontinence in Men (This education is for all patients over 65 regardless of symptoms) You can't always control the release of urine. You may leak urine. Or you may not be able to hold your urine until you can get to a bathroom. This is called urinary incontinence. The problem can be managed. Talk to your doctor about your treatment options. Taking Medications Prescription medications may help you. They may: Help the sphincter to work better. (This is the muscle that closes to keep urine from leaking out of the bladder.) Help stop the bladder from nereyda too often to push urine out. Help the bladder muscles contract with more force. Help relax the sphincter muscle and allow urine to flow more freely. Making Changes to Your Routine Certain changes in your daily routine may help. These include: Avoiding caffeine and alcohol. Using timed voiding. This is following a schedule for drinking fluids and urinating. Doing Kegel exercises daily. These exercises involve tightening the muscles in your sphincter and around your bladder to help strengthen them. Your doctor can explain how to do them. Using a Catheter A catheter is a narrow tube that is inserted through the urethra into the bladder. It drains urine.A condom catheter covers the penis. It channels urine into a collection bag. It is worn most of thetime. Intermittent catheterization means inserting a catheter to drain the bladder, then removing it. This is done on a regular schedule. Having Surgery If other options don't work, surgery may be recommended. If surgery is an option, your healthcare provider can discuss it with you and explain its risks and benefits. Healing After Prostate Surgery Surgery on the prostate gland can cause incontinence. Most often, the incontinence is only for a short time. It clears up when healing is complete. Very rarely, prostate surgery can result in permanent incontinence. documented in this encounter Progress Notes * Giacomo Morgan DO - 01/17/2025 12:56 PM EDT SUBJECTIVE: Doron Perez is a 84 year old male. Chief Complaint Patient presents with Acute HPI: Patient is an 84 year old male with a history of atrial fibrillation, PVI in 12/2022, coronary artery disease, GERD, DM type II, PVD, HTN, hyperlipidemia, BPH, moderate aortic valve stenosis, tremor, and lumbar disc disease that is seen for follow up on respiratory infection. The patient has cough and dizziness for 6 weeks. He was seen at [facility] on 01/13/2025 and CXR was negative. He was seen on01/14 at weekend clinic and Augmentin was started. Cough is improving and dizziness has improved. Appetite is fair and weight is stable. No chest pain or shortness of breath are present. Right hand tremor is unchanged. 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 Type 2 diabetes mellitus with hemoglobin A1c goal of less than 8.0% ([facility]) Dyslipidemia, goal LDL below 100 Obesity, Class I, BMI 30-34.9 CAD (coronary artery disease) Pulmonary nodule GERD (gastroesophageal reflux disease) History of tobacco use HTN, goal below 140/90 BPH with obstruction/lower urinary tract symptoms Erectile dysfunction DM peripheral angiopathy (HCC) Paroxysmal atrial fibrillation (HCC) Type 2 diabetes mellitus with mild nonproliferative diabetic retinopathy without macular edema, left eye (HCC) Carpal tunnel syndrome of right wrist Lumbar degenerative disc disease History of lumbar spinal fusion Moderate aortic valve stenosis LVH (left ventricular hypertrophy) Normocytic normochromic anemia Thyroid nodule Renal cyst, right Atherosclerosis of aorta (HCC) Right inguinal hernia Diverticulosis of large intestine without hemorrhage Dysphagia Essential tremor Current Outpatient Medications Medication Sig Dispense Refill VITAMIN B-12 500 MCG PO TABS Take 1 Tablet by mouth in the morning. ASPIRIN 81 MG PO TABS Take 1 Tablet by mouth in the morning. Vitamin D3 250 MCG (68125 UT) Oral Capsule Take 1,000 Units by mouth in the morning. Acetaminophen 325 MG Oral Tablet (TYLENOL) Take 3 Tabs by mouth every 6 hours. (Patient taking differently: Take 2 Tablets by mouth in the morning.) 30 Tab 0 Apixaban 5 MG Oral Tablet (ELIQUIS) Take 1 Tablet by mouth in the morning and 1 Tablet before bedtime. Vitamin C 1000 MG Oral Tablet Take 1 Tablet by mouth in the morning. Garlic 1000 MG Oral Capsule Take 1 Capsule by mouth daily. Neuriva Oral Capsule Take 1 Capsule by mouth in the morning. Ondansetron HCl 4 MG Oral Tablet Take 1 Tablet by mouth every 8 hours as needed for Nausea. 15 Tablet 0 Fluticasone Propionate 50 MCG/ACT Nasal Suspension (Flonase) administer 1 spray intranasally twice a day for dryness 48 g 3 Glimepiride 1 MG Oral Tablet (Amaryl) Take 1 Tablet by mouth in the morning and 1 Tablet before bedtime. with the meals. 200 Tablet 3 Pantoprazole Sodium 40 MG Oral Tablet Delayed Release (Protonix) Take 1 Tablet by mouth 2 times a day. 180 Tablet 3 Atorvastatin Calcium 80 MG Oral Tablet (Lipitor) take one tablet by mouth daily 100 Tablet 3 Metoprolol Succinate ER 25 MG Oral Tablet Extended Release 24 Hour (toPROL XL) TAKE ONE TABLET BY MOUTH EVERY DAY IN THE MORNING (REPLACES METOPROLOL TARTRATE) 100 Tablet 3 Finasteride 5 MG Oral Tablet (Proscar) Take 1 Tablet by mouth in the morning. 90 Tablet 2 Tamsulosin HCl 0.4 MG Oral Capsule (Flomax) Take 1 Capsule by mouth daily. 90 Capsule 2 Gabapentin 600 MG Oral Tablet (Neurontin) Take 1 Tablet by mouth in the morning and 1 Tablet at noon and 1 Tablet before bedtime. Mirabegron ER 50 MG Oral Tablet Extended Release 24 Hour (Myrbetriq) Take 1 Tablet by mouth. traMADol HCl 50 MG Oral Tablet (Ultram) Take 1 Tablet by mouth every 6 hours as needed for Pain, Severe. 30 Tablet 0 Empagliflozin 25 MG Oral Tablet (Jardiance) Take 1 Tablet by mouth in the morning. 100 Tablet 3 metFORMIN HCl 1000 MG Oral Tablet (Glucophage) TAKE ONE TABLET BY MOUTH TWO TIMES A DAY 180 Tablet 3 tiZANidine HCl 4 MG Oral Tablet (Zanaflex) Take 1 Tablet by mouth every 8 hours as needed. Amoxicillin-Pot Clavulanate 875-125 MG Oral Tablet (Augmentin) Take 1 Tablet by mouth in the morning and 1 Tablet before bedtime. Do all this for 10 days. 20 Tablet 0 Blood Glucose Monitoring Suppl ([employer] SYSTEM) w/Device KIT Test once daily; dx E11.9 1 Kit0 ONETOUCH DELICA LANCETS 33G MISC Test once daily; dx E11.9 100 Each 11 Magnesium Oxide -Mg Supplement 400 (240 Mg) MG Oral Tablet (Mag-Ox) Take 1 Tablet by mouth daily. 90 Tablet 3 Nystatin-Triamcinolone 483544-8.1 UNIT/GM-% External Cream (Mycolog) Apply topically to affected area. Carpal Tunnel Wrist Stabilizer Bl per ar Glucose Blood In Vitro Strip Test once daily 100 Strip 3 No current facility-administered medications for this visit. The patient's medication list was reviewed and updated as needed. Past Medical History: Diagnosis Date Atrial fibrillation (HCC) Benign neoplasm of colon 11/25/07 1-2mm polyps--adenomatous polyps and rectal polyp showed carcinoid lesion (EUS recommended) BPH with obstruction/lower urinary tract symptoms 03/14/2015 CAD (coronary artery disease) 09/08/2012 DM type 2, goal A1C below 8.0 08/30/2009 Per Diabetes Taxonomy. Dyslipidemia, goal LDL below 100 10/11/2009 Per Lipid Taxonomy. Erectile dysfunction 06/22/2015 GERD (gastroesophageal reflux disease) 01/21/2013 Hemorrhoids History of lumbar spinal fusion 03/20/2023 History of tobacco use 07/23/2013 HTN, goal below 140/80 01/28/2012 HTN, goal below 140/90 09/14/2013 Lumbar degenerative disc disease 03/20/2023 Moderate aortic valve stenosis 03/20/2023 Pain medication agreement Past Surgical History: Procedure Laterality Date ANESTH, UPPER GI ENDOSCOPIC PROCS 01/03/09 ANESTHESIA FOR UPPER GI ENDOSCOPIC PROCEDURES (ERCP OR UPPER GI) performed by CODY TORRES at [facility] CARPAL TUNNEL SURGERY Right 01/29/2022 NEUROPLASTY MEDIAN NERVE AT CARPAL TUNNEL performed by Jean Maldonado MD at [facility] COLONOSCOPY 03/18/2002 hemorrhoids/kiya COLONOSCOPY W/ BIOPSY (RECTUM) 11/25/07 1-2mm polyps--adenomatous polyps and rectal polyp showed carcinoid lesion (EUS recommended) COLONOSCOPY, DIAGNOSTIC (RECTUM) 01/09/2014 COLONOSCOPY FLEXIBLE PROXIMAL DIAGNOSTIC performed by Den Espinoza MD at ENDOSCOPY [facility] COLONOSCOPY, DIAGNOSTIC (RECTUM) 03/23/2019 diverticulosis/COLONOSCOPY FLEXIBLE PROXIMAL DIAGNOSTIC performed by Den Espinoza MD at ENDOSCOPY [facility] EGD, FLEXIBLE, DIAGNOSTIC 12/06/2013 ESOPHAGOGASTRODUODENOSCOPY (EGD), FLEXIBLE, TRANSORAL, DIAGNOSTIC performed by Gregorio Saleh MD at ENDOSCOPY [facility] EGD, FLEXIBLE, DIAGNOSTIC 05/19/2019 normal bx / ESOPHAGOGASTRODUODENOSCOPY (EGD), FLEXIBLE, TRANSORAL, DIAGNOSTIC performed by Den Lara MD at ENDOSCOPY [facility] ELECTROPHYSIOLOGY EVAL, ATRIAL FIB, PULMONARY VEIN ISOL 12/15/2012 ELECTROPHYSIOLOGY EVAL, ATRIAL FIB, PULMONARY VEIN ISOL performed by Shelia Vigil IV, MD at [facility] MISCELLANEOUS ORDER ([facility] ONLY) Knee replacement RADIUS OR ULNA FX W/FIXATION Right 08/08/2020 OPEN TREATMENT OF RADIUS performed by Pineda Bob MD at OR [facility] REMOVE CATARACT, INSERT LENS PROSTH Right 03/31/2019 right EXTRACAPSULAR CATARACT REMOVAL WITH INTRAOCULAR LENS performed by Pablo Diaz MD at [facility] REMOVE CATARACT, INSERT LENS PROSTH Left 04/14/2019 left EXTRACAPSULAR CATARACT REMOVAL WITH INTRAOCULAR LENS performed by Pablo Diaz MD at [facility] SPINAL FUSION, LUMBAR, COMBINED 12/12/2013 Dr. Horton TOTAL HIP REPLACEMENT & PROSTHESIS 08/11/2014 Left hip - Dr. Chawla Review of patient's allergies indicates: Allergen Reactions Lisinopril Cough Review of Systems Constitutional: Positive for fatigue. Negative for appetite change, chills, fever and unexpected weight change. HENT: Positive for congestion and postnasal drip. Negative for sinus pressure, sore throat and trouble swallowing. Respiratory: Positive for cough. Negative for shortness of breath and wheezing. Cardiovascular: Negative for chest pain, palpitations and leg swelling. Gastrointestinal: Negative for abdominal pain, blood in stool, constipation, diarrhea, nausea and vomiting. Genitourinary: Negative for dysuria and hematuria. Musculoskeletal: Positive for back pain and gait problem (ambulates with a cane). Neurological: Positive for dizziness and tremors. Negative for seizures, syncope and weakness. Psychiatric/Behavioral: Negative for confusion, decreased concentration and sleep disturbance. OBJECTIVE: BP 128/72 | Pulse 72 | Temp 96.7 F (35.9 C) | Resp 16 | Ht 5' 4" (1.626 m) | Wt 179 lb 1.6 oz (81.2 kg) | SpO2 93% | BMI 30.74 kg/m | BSA 1.92 m Physical Exam Vitals and nursing note reviewed. Constitutional: General: He is not in acute distress. Appearance: Normal appearance. He is not toxic-appearing. HENT: Head: Normocephalic and atraumatic. Cardiovascular: Rate and Rhythm: Normal rate and regular rhythm. Heart sounds: Murmur heard. Systolic murmur is present with a grade of 2/6. No gallop. Pulmonary: Effort: Pulmonary effort is normal. Breath sounds: Normal breath sounds. No wheezing, rhonchi or rales. Abdominal: General: Bowel sounds are normal. There is no distension. Palpations: Abdomen is soft. Tenderness: There is no abdominal tenderness. Musculoskeletal: Right lower leg: No edema. Left lower leg: No edema. Neurological: Mental Status: He is alert and oriented to person, place, and time. Mental status is at baseline. Motor: No weakness. Gait: Gait abnormal. Psychiatric: Mood and Affect: Mood normal. Behavior: Behavior normal. Thought Content: Thought content normal. Component Latest Ref Rng 01/13/2025 BUN 6 - 20 mg/dL 20 CREATININE 0.6 - 1.2 mg/dL 0.7 EGFR >=60 mL/min >90 SODIUM 135 - 146 mmol/L 138 POTASSIUM 3.5 - 5.1 mmol/L 4.3 CHLORIDE 98 - 107 mmol/L 101 CO2 22 - 32 mmol/L 26 ANION GAP 7 - 15 mmol/L 11 GLUCOSE 70 - 120 mg/dL 322 (H) Albumin 3.8 - 5.0 g/dL 3.9 AST 10 - 50 U/L 20 Alkaline Phosphatase 35 - 130 U/L 88 Bilirubin, Total <=1.2 mg/dL 0.5 CALCIUM 8.4 - 10.2 mg/dL 9.3 Protein 6.0 - 8.3 g/dL 6.5 ALT 10 - 50 U/L 24 WBC 4.00 - 10.80 K/uL 10.43 Neutrophils % 40.0 - 75.0 % 72.4 Lymphocytes % 18.0 - 42.0 % 18.3 Monocytes % 1.0 - 11.0 % 5.8 Eosinophils % 0.0 - 6.0 % 2.8 Basophils % 0.0 - 2.0 % 0.5 Immature Granulocytes % 0.0 - 2.0 % 0.2 Absolute Neutrophils 1.80 - 7.70 K/uL 7.56 Absolute Lymphocytes 1.00 - 4.80 K/ul 1.91 Absolute Monocytes 0.00 - 1.10 K/uL 0.60 Absolute Eosinophils 0.00 - 0.70 K/uL 0.29 Absolute Basophils 0.00 - 0.20 K/uL 0.05 Absolute Immature Granulocytes 0.00 - 0.20 K/uL 0.02 WBC 4.00 - 10.80 K/uL 10.43 RBC 4.50 - 5.25 M/uL 4.23 HGB 14.0 - 16.8 g/dL 12.1 (L) HCT 40.0 - 48.4 % 39.8 (L) MCV 82.0 - 99.5 fL 94.1 MCH 27.0 - 34.0 pg 28.6 MCHC 32.0 - 36.0 g/dL 30.4 RDW 11.5 - 15.5 % 15.9 PLT 140 - 400 K/uL 206 MPV 6.6 - 11.1 fL 10.3 nRBCs <=0 /100 WBCs 0 Hemoglobin A1C 4.0 - 5.6 % 9.0 (H) Estimated Average Glucose <126 mg/dL 212 (H) Legend: (H) High (L) Low PLAN AND ASSESSMENT: Bronchitis, complicated (Primary) Finish Augmentin Improving 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 Coronary artery disease involving [place] coronary artery of [place] heart without angina pectoris Continue ASA, Metoprolol ER, DM peripheral angiopathy ([facility]) - PHARMACIST MEDS THERAPY MGMT REFERRAL OP Dyslipidemia, goal LDL below 100 Continue Atorvastatin Essential tremor Gastroesophageal reflux disease without esophagitis Continue Pantoprazole History of lumbar spinal fusion HTN, goal below 140/90 Risk and functional assessment Follow Up: Return in about 3 months (around 04/27/2025), or if symptoms worsen or fail to improve. Giacomo Morgan DO 12:56 PM 01/17/2025 documented in this encounter Nursing Notes * Kelli Chapa LPN - 01/17/2025 11:35 AM EDT Here to follow up on augmentin treatment, was seen at [facility]. documented in this encounter Plan of Treatment Upcoming Encounters Date Type Department Care Team (Late st Contact Info) Description 04/27/2025 9:20 AM EDT Office Visit Family Practice [address] [facility] [address] [place] [address] Giacomo Morgan DO [address] [place] [address] 07/26/2025 10:40 AM EDT Office Visit Neurology [facility] [address] [place] [address] Katie Aranda MD [address] [place] [address] 09/27/2025 9:00 AM EST Home Visit Care at Home [address], [place] [phone] Sandra Villarreal PA-C [address] [place], [place] [phone] Scheduled Referrals Name Type Priority Associated Diagnoses Orde r Schedule PHARMACIST MEDS THERAPY MGMT REFERRAL OP Referral Within 10 days (routine) 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, without long-term current use of insulin (HCC) DM peripheral angiopathy (HCC) Ordered: 01/17/2025 Health Maintenance Due Date Last Done Comments COVID-19 Vaccine ( season) 2024 08/21/2023, 09/17/2022, 06/06/2022, Additional history exists HbA1c 07/16/2025 01/13/2025, 12/04, 08/26/2024, Additional history exists Albumin/Creatinine Ratio 08/26/2025 [...] 08/02/2022, Additional history exists B-12 Discontinued 09/19/2024, 07/12/2022, 04/19/2019, Additional history exists Pneumococcal Vaccine: 50+ [...] this encounter Medical Devices Implanted Type Area Medical Aides Teacher Device Identifier Shelf Expiration Date Model / Serial / Lot Lens 24.5 Mx60e - [id number] - [id number] Implanted:Qty: 1 on 03/31/2019 by Pablo Diaz MD at OR [facility] Right: Eye [employer] LOMB 09/01/2020 [id number]-95.5 / [id number] / [id number] Lens 24.5 Mx60e - [id number] - [id number] Implanted:Qty: 1 on 04/14/2019 by Pablo Diaz MD at OR [facility] Left: Eye [employer]CH [employer] LOMB 06/01/2021 [id number]-56.5 / [id number] / [id number] Plate Lcp Metap 3.5mm 7h - [id number] Implanted:Qty: 1 on 08/08/2020 by Pineda Bob MD at OR [facility] Right: Lower Arm SYNTHES 223.407 / / Description:from set Screw Selftap 3.5x16 204.816 - [id number] Implanted:Qty: 4 on 08/08/2020 by Pineda Bob MD at OR [facility] Right: Lower Arm SYNTHES 204.816 / / Description:from set documented as of this encounter Visit Diagnoses Diagnosis Bronchitis, complicated- Primary Bronchitis, not specified as acute or chronic 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, without long-term current use of insulin (HCC) Paroxysmal atrial fibrillation (HCC) Atrial fibrillation BPH with obstruction/lower urinary tract symptoms Hypertrophy of prostate with urinary obstruction and other lower urinary tract symptoms (LUTS) Moderate aortic valve stenosis Aortic valve disorders Coronary artery disease involving [place] coronary artery of [place] heart without angina pectoris DM peripheral angiopathy (HCC) Type II or unspecified type diabetes mellitus with peripheral circulatory disorders, not stated as uncontrolled Dyslipidemia, goal LDL below 100 Other and unspecified hyperlipidemia Essential tremor Essential and other specified forms of tremor Gastroesophageal reflux disease without esophagitis Esophageal reflux History of lumbar spinal fusion HTN, goal below 140/90 Unspecified essential hypertension Risk and functional assessment Screening for unspecified condition documented in this encounter Advance Directives * [...] Power of Attor magali? No Care Teams Dianeticist Relationship Specialty Start Date End Date Giacomo Morgan DO [address] [place] [address] PCP - General Internal Medicine 05/06/24 documented as of this encounter
--- OUTSIDE RECORDS SUMMARY | 2025-01-22 03:54 | External Medical Summary | Summary of Care ---
Author Name Unknown Organization [facility] Address [address] [place] [address] Phone [phone] Care Team Providers Care Rehab Department Manager Name Role Phone Giacomo Morgan DO Primary Care Provider [phone] Reason for Visit * Reason Comments Outpatient Testing Encounter Details Date Type Department Care Team (Late st Contact Info) Description 01/13/2025 12:20 PM EDT Laboratory Laboratory, [facility] [address] [place] [address] [facility] [address] [place] [address] LRTI (lower respiratory tract infection); Acute sinusitis, recurrence not specified, unspecified location Allergies Active Allergy Reactions Criticality Noted Date Comments Lisinopril Cough 06/19/2020 documented as of this encounter (statuses as of 01/13/2025) Medications VITAMIN B-12 500 MCG PO TABS Take 1 Tablet by mouth in the morning. Active ASPIRIN 81 MG PO TABS Take 1 Tablet by mouth in the morning. Active Blood Glucose Monitoring Suppl (Alchimer ULTRA SYSTEM) w/Device KITIndications:DM type 2 nursing care encounter (HCC) Test once daily; dx E11.9 1 Kit 12/23/19 18 Active Vitamin D3 250 MCG (77304 UT) Oral Capsule Take 1,000 Units by mouth in the morning. Active JESUSTOUCH PAOLO LANCMERVAT 33G MISCIndications:Ty pe 2 diabetes mellitus with hemoglobin A1c goal of less than 8.0% ([facility]) Test once daily; dx E11.9 100 Each 11 08/18/20 Active Additional Information Patient not taking.Informant: Pharmacy, Reported on 01/13/2025 Acetaminophen 325 MG Oral Tablet (TYLENOL) Take 3 Tabs by mouth every 6 hours. 30 Tab 08/09/20 Active Additional Information Patient taking differently: 650 mgOralDaily(AM), Reported on 01/13/2025 Apixaban 5 MG Oral Tablet (ELIQUIS) Take [...] by mouth. 08/12/20 24 Active Nystatin-Triamcino lone 093694-0.1 UNIT/GM-% External Cream (Mycolog) Apply topically to [...] hemoglobin A1c goal of less than 8.0% ([facility]) Take 1 Tablet by mouth in the morning. 100 Tablet 3 08/30/20 24 Active Carpal Tunnel Wrist Stabilizer Bl per va 09/15/20 24 Active Glucose Blood In Vitro StripIndications:D M type 2 nursing care encounter ([facility]) Test once daily 100 Strip 3 10/04/20 [...] as of this encounter (statuses as of 01/13/2025) Active Problems Problem Noted Date Diagnosed Date [...] Diabetes Taxonomy. ICD-10 update of inactive term [facility] current use of anticoagulant therapy 0 11/10/2003 Overview (08/03/2017): ICD-10 update of inactive term documented as of this encounter (statuses as of 01/13/2025) Resolved Problems Problem Noted Date Diagnosed Date [...] as of this encounter (statuses as of 01/13/2025) Immunizations Name Administration Dates Next Due COVID-19 mRNA, LNP-s, No Pre serve, 2-Dose Series (Dynex) 09/19/2021,12/31/2020,12/08/2020 COVID-19, LNP-s, No Preserve , Harshal-sucrose, Ages 12+ (Pfizer) 06/06/2022 COVID-19, MRNA-LNP, PF, 30 M CG/0.3 mL, 12 YRS AND ABOVE, IM ([facility]Comirnat) 08/21/2023 Covid-19, Mrna, Lnp-s, Pf, B ivalent, 30 Mcg, IM, 12 yrs and above (Pfizer) 09/17/2022 H1N1 2009 Influenza, IM 11/15/2009 Pneumococcal Conjugate Vacc, 13 Valent (Prevnar) 03/14/2015 Pneumococcal Conjugate Vacci ne, 20-valent ([id number]) 12/28/2024 Pneumococcal Polysaccharide PPV23 (Pneumovax) 10/25/2007 RSV [...] 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 Not on file Not on file Not [...] Kelli Rico RN documented in this encounter Plan of Treatment Upcoming Encounters Date Type Department Care Team (Late st Contact Info) Description 01/14/2025 10:40 AM EDT Office Visit Family [facility] [address] [place] [address] Betty Robbins DO [address] [address] 04/27/2025 9:20 AM EDT Office Visit [facility] [address] [place] [address] Giacomo Morgan, [address] [place] [address] 07/26/2025 10:40 AM EDT Office Visit Neurology [facility] [address] [place] [address] Katie Aranda MD [address] [place] [address] 09/27/2025 9:00 AM EST Home Visit Care at Home [address] [place] [address] Sandra Villarrela PA-C [address] [place], [place] [phone] Pending Results Name Type Priority Associated Diagnoses Date /Time COMPREHENSIVE METABOLIC PANEL Lab Routine LRTI (lower respiratory tract infection) Acute sinusitis, recurrence not specified, unspecified location 01/13/2025 12:17 PM EDT HEMOGLOBIN A1C Lab Routine LRTI (lower respiratory tract infection) Acute sinusitis, recurrence not specified, unspecified location 01/13/2025 12:17 PM EDT CULTURE, URINE, QUANTITATIVE Lab STAT LRTI (lower respiratory tract infection) Acute sinusitis, recurrence not specified, unspecified location 01/13/2025 12:17 PM EDT Health Maintenance Due Date Last Done Comments COVID-19 Vaccine ( season) 2024 08/21/2023, 09/17/2022, 06/06/2022, Additional history exists HbA1c 06/27/2025 12/28/2024, 08/03, 01/21/2024, Additional history exists Albumin/Creatinine Ratio 08/26/2025 024, 09/02/2023, 05/04/2023, Additional history exists Diabetic Foot Exam 08/26/2025 08/26/2024, 0 03/20/2023, 07/22/2019, Additional history exists GFR 09/19/2025 09/19/2024, 08/03, 09/22/2023, Additional history exists Adult Wellness Visit 09/28/2025 09/28/2024, 08/03/20 Depression Screening 10/02/2025 10/02/2024 Diabetic Eye Exam 12/28/2025 12/28/2024, , 11/11/2023, Additional history exists DTap/Tdap Vaccines (3 - [...] this encounter Medical Devices Implanted Type Area Unemployment Specialist Device Identifier Shelf Expiration Date Model / Serial / Lot Lens 24.5 Mx60e - [id number] - [id number] Implanted:Qty: 1 on 03/31/2019 by Pablo Diaz MD at OR [facility] Right: Eye [employer]USCH [employer] LOMB 09/01/2020 [id number]-81.5 / [id number] / [id number] Lens 24.5 Mx60e - [id number] - [id number] Implanted:Qty: 1 on 04/14/2019 by Pablo Diaz MD at OR [facility] Left: Eye BAUSCH & LOMB 06/01/2021 [id number]-35.5 / [id number] / [id number] Plate Lcp Metap 3.5mm 7h - [id number] Implanted:Qty: 1 on 08/08/2020 by Pineda Bob MD [place] [facility] [place]: Lower Arm SYNTHES 223.407 / / Description:from set Screw Selftap 3.5x16 204.816 - [id number] Implanted:Qty: 4 on 08/08/2020 by Pineda Bob MD [place] [facility] Right: Lower Arm SYNTHES 204.816 / / Description:from set documented as of this encounter Procedures Procedure Name Priority Date/Time Associated Diagnosis Comments URINALYSIS, REFLEX TO CULTURE STAT 01/13/2025 12:17 PM EDT LRTI (lower respiratory tract infection) Acute sinusitis, recurrence not specified, unspecified location URINALYSIS, REFLEX TO CULTURE (CUP ONLY) STAT 01/13/2025 12:17 PM EDT LRTI (lower respiratory tract infection) Acute sinusitis, recurrence not specified, unspecified location DIFFERENTIAL, AUTOMATED Routine 01/13/2025 12:17 PM EDT LRTI (lower respiratory tract infection) Acute sinusitis, recurrence not specified, unspecified location URINALYSIS, REFLEX TO CULTURE (NOT FOR NEUTROPENIC PATIENTS) STAT 01/13/2025 12:17 PM EDT LRTI (lower respiratory tract infection) Acute sinusitis, recurrence not specified, unspecified location CBC Routine 01/13/2025 12:17 PM EDT LRTI (lower respiratory tract infection) Acute sinusitis, recurrence not specified, unspecified location CBC Routine 01/13/2025 12:17 PM EDT LRTI (lower respiratory tract infection) Acute sinusitis, recurrence not specified, unspecified location documented in this encounter Results * (ABNORMAL) URINALYSIS, REFLEX TO CULTURE (01/13/2025 12:17 PM EDT) Color, Urine Light Yellow Colorless, Light Yellow, Yellow, Dark Yellow 01/13/2025 10:06 PM EDT LABORATORY C Clarity, Urine Clear Clear 01/13/2025 10:06 PM EDT LABORATORY C Glucose, Urine >=1000(A) Negative mg/dL 01/13/2025 10:06 PM EDT LABORATORY [facility] Bilirubin, Urine Negative Negative 01/13/2025 10:06 PM EDT LABORATORY C Ketone, Urine Negative Negative mg/dL 01/13/2025 10:06 PM EDT LABORATORY [facility] Specific [place], Urine 1.024 1.003 - 1.030 01/13/2025 10:06 PM EDT LABORATORY [facility] Blood, Urine Small(A) Negative 01/13/2025 10:06 PM EDT LABORATORY [facility] pH, Urine 6.0 5.0 - 7.5 Units 01/13/2025 10:06 PM EDT LABORATORY [facility] Protein, Urine Negative Negative mg/dL 01/13/2025 10:06 PM EDT LABORATORY [facility] Urobilinogen, Urine Normal Normal mg/dL 01/13/2025 10:06 PM EDT LABORATORY [facility] Nitrite, Urine Negative Negative 01/13/2025 10:06 PM EDT LABORATORY C Esterase, Urine Trace(A) Negative 01/13/2025 10:06 PM EDT LABORATORY C RBC, Urine 3-5(A) 0 - 2 /HPF 01/13/2025 10:06 PM EDT LABORATORY [facility] WBC, Urine 10-19(A) 0 - 2 /HPF 01/13/2025 10:06 PM EDT LABORATORY C Bacteria, Urine 51-100(A) 0 - 25 /HPF 01/13/2025 10:06 PM EDT LABORATORY C Yeast, Urine Present(A) None /HPF 01/13/2025 10:06 PM EDT LABORATORY [facility] Culture, Urine 01/13/2025 10:06 PM EDT LABORATORY [facility] Comment:Quantitative urine c ulture to be performed Urine Urine specimen obtained by clean catch procedure / Unknown Non-blood Collection / Unknown 01/13/2025 12:17 PM EDT 01/13/2025 12:17 PM EDT Kelvin Morales PA-C LAB URINE ORDERABLES Final Result Performing Organization Address [facility] Co de Phone Number LABORATORY [facility] [address] [place] [address] * URINALYSIS, REFLEX TO CULTURE (CUP ONLY) (01/13/2025 12:17 PM EDT) Urinalysis, Reflex to Culture Specimen Specimen collected and received 01/13/2025 2:01 PM EDT LABORATORY [facility] Urine Urine specimen obtained by clean catch procedure / Unknown Non-blood Collection / Unknown 01/13/2025 12:17 PM EDT 01/13/2025 12:17 PM EDT Kelvin Morales PA-C LAB URINE ORDERABLES Final Result Performing Organization Address [facility] Co de Phone Number LABORATORY [address] [address] * DIFFERENTIAL, AUTOMATED (01/13/2025 12:17 PM EDT) WBC 10.43 4.00 - 10.80 K/uL 01/13/2025 10:32 PM EDT LABORATORY [facility] Neutrophils % 72.4 40.0 - 75.0 % 01/13/2025 10:32 PM EDT LABORATORY [facility] Lymphocytes % 18.3 18.0 - 42.0 % 01/13/2025 10:32 PM EDT LABORATORY [facility] Monocytes % 5.8 1.0 - 11.0 % 01/13/2025 10:32 PM EDT LABORATORY [facility] Eosinophils % 2.8 0.0 - 6.0 % 01/13/2025 10:32 PM EDT LABORATORY [facility] Basophils % 0.5 0.0 - 2.0 % 01/13/2025 10:32 PM EDT LABORATORY [facility] Immature Granulocytes % 0.2 0.0 - 2.0 % 01/13/2025 10:32 PM EDT LABORATORY [facility] Absolute Neutrophils 7.56 1.80 - 7.70 K/uL 01/13/2025 10:32 PM EDT LABORATORY [facility] Absolute Lymphocytes 1.91 1.00 - 4.80 K/ul 01/13/2025 10:32 PM EDT LABORATORY [facility] Absolute Monocytes 0.60 0.00 - 1.10 K/uL 01/13/2025 10:32 PM EDT LABORATORY [facility] Absolute Eosinophils 0.29 0.00 - 0.70 K/uL 01/13/2025 10:32 PM EDT LABORATORY [facility] Absolute Basophils 0.05 0.00 - 0.20 K/uL 01/13/2025 10:32 PM EDT LABORATORY [facility] Absolute Immature Granulocytes 0.02 0.00 - 0.20 K/uL 01/13/2025 10:32 PM EDT LABORATORY [facility] Blood Venous blood specimen / Unknown Venipuncture / Unknown 01/13/2025 12:17 PM EDT 01/13/2025 12:17 PM EDT Kelvin Morales PA-C LAB BLOOD ORDERABLES Final Result LABORATORY [facility] [address] [place], [place] [id number] * (ABNORMAL) CBC (01/13/2025 12:17 PM EDT) Pathologist [facility] WBC 10.43 4.00 - 10.80 K/uL 01/13/2025 10:32 PM EDT LABORATORY [facility] RBC 4.23 4.50 - 5.25 M/uL 01/13/2025 10:32 PM EDT LABORATORY [facility] HGB 12.1(L) 14.0 - 16.8 g/dL 01/13/2025 10:32 PM EDT LABORATORY [facility] HCT 39.8(L) 40.0 - 48.4 % 01/13/2025 10:32 PM EDT LABORATORY [facility] MCV 94.1 82.0 - 99.5 fL 01/13/2025 10:32 PM EDT LABORATORY [facility] MCH 28.6 27.0 - 34.0 pg 01/13/2025 10:32 PM EDT LABORATORY [facility] MCHC 30.4 32.0 - 36.0 g/dL 01/13/2025 10:32 PM EDT LABORATORY [facility] RDW 15.9 11.5 - 15.5 % 01/13/2025 10:32 PM EDT LABORATORY [facility] PLT 206 140 - 400 K/uL 01/13/2025 10:32 PM EDT LABORATORY [facility] MPV 10.3 6.6 - 11.1 fL 01/13/2025 10:32 PM EDT LABORATORY [facility] nRBCs 0 <=0 /100 WBCs 01/13/2025 10:32 PM EDT LABORATORY [facility] Blood Venous blood specimen / Unknown Venipuncture / Unknown 01/13/2025 12:17 PM EDT 01/13/2025 12:17 PM EDT Kelvin Morales PA-C LAB BLOOD ORDERABLES Final Result LABORATORY [facility] [address] [place], [place] [phone] documented in this encounter Visit Diagnoses Diagnosis LRTI (lower respiratory tract infection) Other diseases of respiratory system, not elsewhere classified Acute sinusitis, recurrence not specified, unspecified location documented in this encounter Advance Directives * [...] Power of Attor magali? No Care Teams Rehab Department Manager Relationship Specialty Start Date End Date Giacomo Morgan DO [address] [place] [address] PCP - General Internal Medicine 05/06/24 documented as of this encounter
--- OUTSIDE RECORDS SUMMARY | 2025-01-22 03:54 | External Medical Summary ---
Author Name Unknown Address Unknown Organization [id number]:[facility]ATORY [facility] - [address] [facility] [id number] Laboratory Report Ordering Provider Test Date Status JHOANA COLVIN 01/13/2025 12:17:13 Final Observation Date Value Abnormality Reference (Units ) Status HbA1C 01/13/2025 12:17:13 9.0 Above high normal 4. 0-5.6 (%) Final The use of HbA1c to monitor glycemic status is based on normal hemoglobin and HbA composition. This test should not be used in patients with abnormal hemoglobin that affects the half life of the red blood cell or the in vivo glycation rates. Glucose, estimated average 01/13/2025 12:17:13 212 Above high normal <126 (mg/dL) Chepe moran Performing Location LAB[facility]ATORY [facility] - [address] [facility] [id number]
--- OUTSIDE RECORDS SUMMARY | 2025-01-22 03:54 | External Medical Summary ---
Author Name Unknown Address Unknown Organization [id number]:[facility] [place] [address] [facility] [address] Laboratory Report Ordering Provider Test Date Status JHOANA COLVIN 01/13/2025 12:17:13 Final Observation Date Value Abnormality Reference (Units ) Status Color of Urine by Auto 01/13/2025 12:17:13 Light Yellow Colorless, Light Yellow, Yellow, Dark Yellow Final Clarity, Urine 01/13/2025 12:17:13 Clear Clear Final Glucose [Mass/volume] in Urine by Automated test strip 01/13/2025 12:17:13 >=1000 Abnormal Negative (mg/dL) Final Bilirubin.total [Presence] in Urine by Automated test strip 01/13/2025 12:17:13 Negative Negative Final Ketones [Mass/volume] in Urine by Automated test strip 01/13/2025 12:17:13 Negative Negative (mg/dL) Final Specific gravity, Urine 01/13/2025 12:17:13 1.024 1.003-1.030 Final Hemoglobin [Presence] in Urine by Automated test strip 01/13/2025 12:17:13 Small Abnormal Negative Final pH, Urine 01/13/2025 12:17:13 6.0 5.0-7.5 (Units) Final Protein [Mass/volume] in Urine by Automated test strip 01/13/2025 12:17:13 Negative Negative (mg/dL) Final Urobilinogen [Mass/volume] in Urine by Automated test strip 01/13/2025 12:17:13 Normal Normal (mg/dL) Final Nitrite [Presence] in Urine by Automated test strip 01/13/2025 12:17:13 Negative Negative Final Leukocyte esterase [Presence] in Urine by Automated test strip 01/13/2025 12:17:13 Trace Abnormal Negative Final RBC, Urine 01/13/2025 12:17:13 3-5 Abnormal 0-2 (/HPF) Final WBC, Urine 01/13/2025 12:17:13 10-19 Abnormal 0-2 (/HPF) Final Bacteria [#/area] in Urine sediment by Microscopy high power field 01/13/2025 12:17:13 51-100 Abnormal 0-25 (/HPF) Final Yeast [#/area] in Urine sediment by Microscopy high power field 01/13/2025 12:17:13 Present Abnormal None (/HPF) Final CULTURE, URINE - [facility] 01/13/2025 12:17:13 Final Quantitative urine culture t o be performed Performing Location LABORATORY [facility] - [address] [facility] [address]
--- OUTSIDE RECORDS SUMMARY | 2025-01-22 03:54 | External Medical Summary | Summary of Care ---
Author Name Unknown Organization [facility] Address [address] [place] [address] Phone [phone] Care Team Providers Care Relief Salesperson Name Role Phone Giacomo Morgan DO Primary Care Provider [phone] Reason for Visit * Reason Onset Date Comments Other Intermittent per iods of dizziness/flashes of light over past week Congestion Chest congestion x 3 weeks with some cough Cough Cold Symptoms Sinus congestion as well Cold Symptoms 01/13/2025 Encounter Details Date Type Department Care Team (Latest Contact Info) Description 01/13/2025 11:00 AM EDT Convenient Care Visit [facility] [address] [place] [address] Kelvin Morales PA-C [address] [place] [address] LRTI (lower respiratory tract infection)*; Acute sinusitis, recurrence not specified, unspecified location [...] 12/23/19 18 Active Vitamin D3 250 MCG (07690 UT) Oral Capsule Take 1,000 Units by mouth in the morning. Active ONETOUCH DELICA LANCETS 33G MISCIndications:Ty pe 2 diabetes mellitus with hemoglobin A1c goal of less than 8.0% ([facility]) Test once daily; dx E11.9 100 [...] Tablet by mouth in the morning. 03/20/20 23 Active Garlic 1000 MG Oral Capsule Take [...] by mouth. 08/12/20 24 Active Nystatin-Triamcino lone 726736-0.1 UNIT/GM-% External Cream (Mycolog) Apply topically to [...] goal of less than 8.0% ([facility]) Take 1 Tablet by mouth in the morning. 100 Tablet 3 08/30/20 24 Active Carpal Tunnel Wrist Stabilizer Bl per va 09/15/20 24 Active Glucose Blood In Vitro StripIndications:D M type 2 nursing care encounter ([facility]) Test once daily 100 Strip 3 [...] Diabetes Taxonomy. 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 use of anticoagulant therapy 0 11/10/2003 [...] mRNA, LNP-s, No Pre serve, 2-Dose Series ([employer]) 09/19/2021,12/31/2020,12/08/2020 COVID-19, LNP-s, No Preserve , Harshal-sucrose, Ages 12+ (Pfizer) 06/06/2022 COVID-19, MRNA-LNP, PF, 30 M CG/0.3 mL, 12 YRS AND ABOVE, IM ([facility]) 08/21/2023 Covid-19, Mrna, Lnp-s, Pf, B ivalent, 30 Mcg, IM, 12 yrs and above ([employer]) 09/17/2022 H1N1 2009 Influenza, IM 11/15/2009 Pneumococcal Conjugate Vacc, 13 Valent (Prevnar) 03/14/2015 Pneumococcal Conjugate Vacci ne, 20-valent ([id number]) 12/28/2024 Pneumococcal Polysaccharide PPV23 (Pneumovax) 10/25/2007 RSV [...] Past Smokeless Tobacco: Never Tobacco Cessation:Counseling Given: Not Answered Alcohol Use Standard Drinks/Week Comments Yes 0 [...] 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 Not on file Not on file Not on file documented as of this encounter Last Filed Vital Signs Vital Sign Reading Time Taken Comments Blood Pressure 152/80 01/13/2025 10:57 AM EDT Pulse 75 01/13/2025 10:57 AM EDT Temperature 36.3 C (97.3 F) 01/13/2025 10:57 AM E DT Respiratory Rate 16 01/13/2025 10:57 AM EDT Oxygen Saturation 96% 01/13/2025 10:57 AM EDT Inhaled Oxygen Concentration - - Weight 83 kg (183 lb) 01/13/2025 10:57 AM EDT Height 162.6 cm (5' 4") 01/13/2025 10:57 AM EDT Body Mass Index 31.41 01/13/2025 10:57 AM EDT documented in this encounter Functional Status * Are you deaf or do you have serious difficulty hearing? Answer Date of Assessment Author No 08/08/2020 6:14 AM EDT Kelli Harrison RN * Are you blind or do you have serious difficulty seeing, even when wearing glasses? Answer Date of Assessment Author No 08/08/2020 6:14 AM EDT Kelli Harrison RN * Do you have serious difficulty walking or climbing stairs? (5 years old or older) Answer Date of Assessment Author No 08/08/2020 6:14 AM EDT Kelli Harrison RN * Do you have difficulty dressing or bathing? (5 years old or older) Answer Date of Assessment Author No 08/08/2020 6:14 AM EDT Kelli Harrison RN * Because of a physical, mental, or emotional condition, do you have difficulty doing errands alone such as visiting a doctors office or shopping? (15 years old or older) Answer Date of Assessment Author No 08/08/2020 6:14 AM EDT Kelli Harrison RN documented as of this encounter Mental Status * Because of a physical, mental, or emotional condition, do you have serious difficulty concentrating, remembering, or making decisions? (5 years old or older) Answer Entry Date Author No 08/08/2020 6:14 AM EDT Kelli Harrison RN documented in this encounter Patient Instructions * Patient Instructions* Kelvin Morales PA-C - 01/13/2025 11:37 AM EDT Start Augmentin today. Stop at lab for labwork and urine. Check your sugar over the next few days. If you are seeing continually increasing sugars and/or your symptoms worsen, go to ER. Start a daily nasal spray such as Flonase, Nasacort, OR Nasonex. They work best if used consistently. In addition to one of these medicated nasal sprays use saline nasal spray to avoid dryness and thinout mucous Over the Counter (OTC) antihistamine (claritin, zyrtec, xyzal or alena) can also be helpful for sinus symptoms. OTC decongestants: Sudafed, Mucinex-D (may have to get from behind pharmacy counter; you have to show your ID) can be used for nasal/sinus congestion for just a few days. If you have high blood pressure, you can use Coricidin. OTC cough suppressants as needed, including delsym, robitussin, cough drops, honey. Continue supportive measures: Increase clear, non-sugary fluid intake. Get plenty of rest Use a cool mist vaporizer or humidifier daily and you can take hot showers for steam therapy. Do warm salt water gargles and/or chloraseptic throat spray, throat lozenges (Cepacol) for any sorethroat. Honey, if not concerned about diabetes or elevated blood sugar levels, can also be very helpful forsorethroat. You may also use ibuprofen or acetaminophen OTC for relief of pain or fevers. If you had a negative rapid strep test, we will inform you if your PCR ("the send out") comes back positive, and start you on antibiotics. Otherwise, you may assume the PCR was also negative. If you had a viral swab (e.g. COVID, Flu, RSV, or otherwise), we will notify you if you test positive. If you do not hear from us, assume your test was negative. Follow up with PCP or return if no improvement in a 3 days, or sooner if worse. Go to the ED if any severe symptoms appear acutely documented in this encounter Progress Notes * Kelvin Morales PA-C - 01/13/2025 11:32 AM EDT Nursing Notes: Cathleen lBake LPN 01/13/25 1108 Signed Doron Perez is a 84 year old male who presents to walk-in clinic today complaining of Chief Complaint Patient presents with Other Intermittent periods of dizziness/flashes of light over past week Congestion Chest congestion x 3 weeks with some cough Cough Cold Symptoms Sinus congestion as well OTC treatments tried:coricidin/cough syrup Effectiveness: temporary relief Patient is accompanied by no one for today's visit. Doron Perez is a 84 year old male with a PMH of DM2, DLD, CAD, atherosclerosis, h/o tobacco use, LVH, GERD, ho presents with upper and lower respiratory symptoms for 3 week(s) Patient was accompanied by Self. HPI Severity of Symptoms: Moderate Modifying Factors (what was done since onset of symptoms): see nurse note Timing (how often does it occur): constant Quality (feels like): sinus, cough, sputum that he can't get up, lightheaded spells Other associated Signs and Symptoms: head pressure, worse when bends forward. Denies n/v/d/c, sob, wheezing, cp, palp, f/s/ch His sugars have been around 200 or less at home. ROS See HPI HISTORY Past Medical History: Diagnosis Date Atrial fibrillation [...] UPPER GI) performed by CODY TORRES at [facility] CARPAL TUNNEL SURGERY Right 01/29/2022 NEUROPLASTY MEDIAN NERVE AT CARPAL TUNNEL performed by Jean Maldonado MD at [facility] COLONOSCOPY 03/18/2002 hemorrhoids/kiya COLONOSCOPY W/ BIOPSY (RECTUM) 11/25/07 1-2mm polyps--adenomatous polyps and rectal polyp showed carcinoid lesion (EUS recommended) COLONOSCOPY, DIAGNOSTIC (RECTUM) 01/09/2014 COLONOSCOPY FLEXIBLE PROXIMAL DIAGNOSTIC performed by Den Espinoza MD at [facility] COLONOSCOPY, DIAGNOSTIC (RECTUM) 03/23/2019 diverticulosis/COLONOSCOPY FLEXIBLE PROXIMAL DIAGNOSTIC performed by Den Espinoza MD at [facility] EGD, FLEXIBLE, DIAGNOSTIC 12/06/2013 ESOPHAGOGASTRODUODENOSCOPY (EGD), FLEXIBLE, TRANSORAL, DIAGNOSTIC performed by Gregorio Saleh MD at [facility] EGD, FLEXIBLE, DIAGNOSTIC 05/19/2019 normal bx / ESOPHAGOGASTRODUODENOSCOPY (EGD), FLEXIBLE, TRANSORAL, DIAGNOSTIC performed by Den Lara MD at [facility] ELECTROPHYSIOLOGY EVAL, ATRIAL FIB, PULMONARY VEIN ISOL 12/15/2012 ELECTROPHYSIOLOGY EVAL, ATRIAL FIB, PULMONARY VEIN ISOL performed by Shelia Vigil IV, MD at [facility]ISCELLANEOUS ORDER ([facility] ONLY) Knee replacement RADIUS OR ULNA FX W/FIXATION Right 08/08/2020 OPEN TREATMENT OF RADIUS performed by Pineda Bob MD at [facility] REMOVE CATARACT, INSERT LENS PROSTH Right 03/31/2019 right EXTRACAPSULAR CATARACT REMOVAL WITH INTRAOCULAR LENS performed by Pablo Diaz MD at [facility] REMOVE CATARACT, INSERT LENS PROSTH Left 04/14/2019 left EXTRACAPSULAR CATARACT REMOVAL WITH INTRAOCULAR LENS performed by Pablo Diaz MD at [facility] SPINAL FUSION, LUMBAR, COMBINED 12/12/2013 Dr. Horton TOTAL HIP REPLACEMENT & PROSTHESIS 08/11/2014 Left hip - Dr. Chawla Social History Tobacco Use Smoking status: Former Current packs/day: 0.00 Types: Cigarettes Start date: 01/09/1968 Quit date: 01/09/1988 Years since quittin.0 Passive exposure: Past Smokeless tobacco: Never Substance Use Topics Alcohol use: Yes Comment: social Vaping/E-Cigarette Use Vaping/E-Cigarette Use Never User Vaping/E-Cigarette Substances Vaping/E-Cigarette Devices Current Outpatient Medications Medication Sig Dispense Refill VITAMIN B-12 500 MCG PO TABS Take 1 Tablet by mouth in the morning. ASPIRIN 81 MG PO TABS Take 1 Tablet by mouth in the morning. Vitamin D3 250 MCG (29493 UT) Oral Capsule Take 1,000 Units by [...] 2 times a day. 180 Tablet 3 Magnesium Oxide -Mg Supplement 400 (240 Mg) MG Oral Tablet (Mag-Ox) Take 1 Tablet by mouth daily. 90 Tablet 3 Atorvastatin Calcium 80 MG Oral [...] Hour (Myrbetriq) Take 1 Tablet by mouth. Nystatin-Triamcinolone 009206-0.1 UNIT/GM-% External Cream (Mycolog) Apply topically to affected area. traMADol HCl 50 MG Oral Tablet (Ultram) Take 1 Tablet by mouth every 6 hours as needed for Pain, Severe. 30 Tablet 0 Empagliflozin 25 MG Oral Tablet (Jardiance) Take 1 Tablet by mouth in the morning. 100 Tablet 3 metFORMIN HCl 1000 MG Oral Tablet (Glucophage) TAKE ONE TABLET BY MOUTH TWO TIMES A DAY 180 Tablet 3 Blood Glucose Monitoring Suppl ([employer] ULTRA SYSTEM) w/Device KIT Test once daily; dx E11.9 1 Kit0 PixtronixUCH DELICA LANCETS 33G MISC Test once daily; dx E11.9 (Patient not taking: Reported on 01/13/2025) 100 Each 11 Carpal Tunnel Wrist Stabilizer Bl per de Glucose Blood In Vitro Strip Test once daily 100 Strip 3 tiZANidine HCl 4 MG Oral Tablet (Zanaflex) Take 1 Tablet by mouth every 8 hours as needed. No current facility-administered medications for this visit. Review of patient's allergies indicates: Allergen Reactions Lisinopril Cough Family History Problem Relation Name Age of Onset Cancer Mother leukemia Cancer Father Heart Disorder Father Parkinsonism Brother Other (respiratory failure) Brother OBJECTIVE BP 152/80 | Pulse 75 | Temp 36.3 C (97.3 F) (Tympanic) | Resp 16 | Ht 1.626 m (5' 4") | Wt 83 kg (183 lb) | SpO2 96% | BMI 31.41 kg/m | BSA 1.94 m Wt Readings from Last 1 Encounters: 01/13/25 83 kg (183 lb) General Appearance: awake, alert, no apparent distress HEENT: perrl and eomi tms - clear, normal light reflex, no erythema oral pharynx clear, mucus membranes moist + sinus tenderness Pain and pressure and LH with leaning forward/down No turbinate engorgement or discharge Neck: normal, supple, no adenopathy Respiratory: clear to auscultation, no rhonchi, no wheezes, and no crackles Heart: regular rate, regular rhythm, no rubs, no gallops, and +systolic murmur Skin: skin color, texture, turgor are normal, no rashes or significant lesions Neuro: CN intact, no facial droop, negative rhomberg, negative pronator drift, coordination normal,gait WNL, no tremors, no confusion, no amnesia Patient Instructions Start Augmentin today. Stop at lab for labwork and urine. Check your sugar over the next few days. If you are seeing continually increasing sugars and/or your symptoms worsen, go to ER. Start a daily nasal spray such as Flonase, Nasacort, OR Nasonex. They work best if used consistently. In addition to one of these medicated nasal sprays use saline nasal spray to avoid dryness and thinout mucous Over the Counter (OTC) antihistamine (claritin, zyrtec, xyzal or alena) can also be helpful for sinus symptoms. OTC decongestants: Sudafed, Mucinex-D (may have to get from behind pharmacy counter; you have to show your ID) can be used for nasal/sinus congestion for just a few days. If you have high blood pressure, you can use Coricidin. OTC cough suppressants as needed, including delsym, robitussin, cough drops, honey. Continue supportive measures: Increase clear, non-sugary fluid intake. Get plenty of rest Use a cool mist vaporizer or humidifier daily and you can take hot showers for steam therapy. Do warm salt water gargles and/or chloraseptic throat spray, throat lozenges (Cepacol) for any sorethroat. Honey, if not concerned about diabetes or elevated blood sugar levels, can also be very helpful forsorethroat. You may also use ibuprofen or acetaminophen OTC for relief of pain or fevers. If you had a negative rapid strep test, we will inform you if your PCR ("the send out") comes back positive, and start you on antibiotics. Otherwise, you may assume the PCR was also negative. If you had a viral swab (e.g. COVID, Flu, RSV, or otherwise), we will notify you if you test positive. If you do not hear from us, assume your test was negative. Follow up with PCP or return if no improvement in a 3 days, or sooner if worse. Go to the ED if any severe symptoms appear acutely ASSESSMENT AND PLAN LRTI (lower respiratory tract infection) (Primary) - GLUCOSE METER, POINT OF CARE (ENTER/EDIT) - XR CHEST 2 VIEWS - CBC WITH WBC DIFFERENTIAL; Future; Expected date: 01/13/2025 - COMPREHENSIVE METABOLIC PANEL; Future; Expected date: 01/13/2025 - HEMOGLOBIN A1C; Future; Expected date: 01/13/2025 - BLOOD GAS, VENOUS; Future; Expected date: 01/13/2025 - URINALYSIS, REFLEX TO CULTURE (NOT FOR NEUTROPENIC PATIENTS); Future; Expected date: 01/13/2025 Acute sinusitis, recurrence not specified, unspecified location - GLUCOSE METER, POINT OF CARE (ENTER/EDIT) - XR CHEST 2 VIEWS - CBC WITH WBC DIFFERENTIAL; Future; Expected date: 01/13/2025 - COMPREHENSIVE METABOLIC PANEL; Future; Expected date: 01/13/2025 - HEMOGLOBIN A1C; Future; Expected date: 01/13/2025 - BLOOD GAS, VENOUS; Future; Expected date: 01/13/2025 - URINALYSIS, REFLEX TO CULTURE (NOT FOR NEUTROPENIC PATIENTS); Future; Expected date: 01/13/2025 Results for orders placed or performed in visit on 01/13/25 GLUCOSE METER, POINT OF CARE (ENTER/EDIT) Result Value Ref Range Glucose - POCT 288 (A) 70 - 120 mg/dL *Note: Due to a large number of results and/or encounters for the requested time period, some results have not been displayed. A complete set of results can be found in Results Review. Suspect sinusitis is causing some lh/dizziness Not positional Lungs with diffuse rales. Will get CXR and start meds PCP follow-up on Thursday POC glucose 288 He is in stable condition with stable labs. Elevated sugar may be d/t DM vs his infection or both. Follow-up: Return if symptoms worsen or fail to improve. | Check-out note: If symtoms worsen or fail to improve Patient goals for plan of care were discussed Kelvin Morales PA-C [facility] [address] [facility] [facility] [place] [address] documented in this encounter Nursing Notes * Cathleen Blake LPN - 01/13/2025 11:07 AM EDT Doron Perez is a 84 year old male who presents to walk-in clinic today complaining of Chief Complaint Patient presents with Other Intermittent periods of dizziness/flashes of light over past week Congestion Chest congestion x 3 weeks with some cough Cough Cold Symptoms Sinus congestion as well OTC treatments tried:coricidin/cough syrup Effectiveness: temporary relief Patient is accompanied by no one for today's visit. documented in this encounter Plan of Treatment Upcoming Encounters Date Type Department Care Team (Late st Contact Info) Description 01/14/2025 10:40 AM EDT Office Visit [facility] [address] [facility] [place] [address] Betty Robbins, DO [address] [place] [address] 04/27/2025 9:20 AM EDT Office Visit Family Practice [address] [place] [address] [address] [facility] [place] [address] Giacomo Morgan, DO [address] [facility] [place] [address] 07/26/2025 10:40 AM EDT Office Visit [facility] [address] [facility] [place] [address] Katie Aranda MD [address] [place] [address] 09/27/2025 9:00 AM EST Home Visit Care at Home [address], [place] [id number] Sandra Villarreal PA-C [address], [place] [id number] Pending Results Name Type Priority Associated Diagnoses Date /Time CBC WITH WBC DIFFERENTIAL Lab Routine LRTI (lower respiratory tract infection) Acute sinusitis, recurrence not specified, unspecified location 01/13/2025 12:17 PM EDT COMPREHENSIVE METABOLIC PANEL Lab Routine LRTI (lower respiratory tract infection) Acute sinusitis, recurrence not specified, unspecified location 01/13/2025 12:17 PM EDT HEMOGLOBIN A1C Lab Routine LRTI (lower respiratory tract infection) Acute sinusitis, recurrence not specified, unspecified location 01/13/2025 12:17 PM EDT URINALYSIS, REFLEX TO CULTURE (NOT FOR NEUTROPENIC PATIENTS) Lab STAT LRTI (lower respiratory tract infection) Acute sinusitis, recurrence not specified, unspecified location 01/13/2025 12:17 PM EDT Scheduled Orders Name Type Priority Associated Diagnoses Orde r Schedule CBC WITH WBC DIFFERENTIAL Lab Routine LRTI (lower respiratory tract infection) Acute sinusitis, recurrence not specified, unspecified location Expected: 01/13/2025, Expires: 01/13/2026 COMPREHENSIVE METABOLIC PANEL Lab Routine LRTI (lower respiratory tract infection) Acute sinusitis, recurrence not specified, unspecified location Expected: 01/13/2025, Expires: 01/13/2026 HEMOGLOBIN A1C Lab Routine LRTI (lower respiratory tract infection) Acute sinusitis, recurrence not specified, unspecified location Expected: 01/13/2025, Expires: 01/13/2026 BLOOD GAS, VENOUS Lab Routine LRTI (lower respiratory tract infection) Acute sinusitis, recurrence not specified, unspecified location Expected: 01/13/2025, Expires: 01/13/2026 URINALYSIS, REFLEX TO CULTURE (NOT FOR NEUTROPENIC PATIENTS) Lab STAT LRTI (lower respiratory tract infection) Acute sinusitis, recurrence not specified, unspecified location Expected: 01/13/2025, Expires: 02/13/2025 Health Maintenance Due Date Last Done Comments [...] this encounter Medical Devices Implanted Type Area Equipment Maintenance Technician Device Identifier Shelf Expiration Date Model / Serial / Lot Lens 24.5 Mx60e - [id number] - [id number] Implanted:Qty: 1 on 03/31/2019 by Pablo Diaz MD at [facility] Right: Eye [employer]CH [employer] LOMB 09/01/2020 [id number]-68.5 / [id number] / [id number] Lens 24.5 Mx60e - [id number] - [id number] Implanted:Qty: 1 on 04/14/2019 by Pablo Diaz MD at [facility] Left: Eye BAUSCH [employer] LOMB 06/01/2021 SN31O-44.5 / [id number] / [id number] Plate Lcp Metap 3.5mm 7h - [id number] Implanted:Qty: 1 on 08/08/2020 by Pineda Bob MD at [facility] Right: Lower Arm SYNTHES 223.407 / / Description:from set Screw Selftap 3.5x16 204.816 - [id number] Implanted:Qty: 4 on 08/08/2020 by Pineda Bob MD at [facility] Right: Lower Arm SYNTHES 204.816 / / Description:from set documented as of this encounter Procedures Procedure Name Priority Date/Time Associated Diagnosis Comments XR CHEST 2 VIEWS STAT 01/13/2025 11:5 0 AM EDT LRTI (lower respiratory tract infection) Acute sinusitis, recurrence not specified, unspecified location GLUCOSE METER, POINT OF CARE (ENTER/EDIT) Routine 01/13/2025 11:35 AM EDT LRTI (lower respiratory tract infection) Acute sinusitis, recurrence not specified, unspecified location documented in this encounter Results * XR CHEST 2 VIEWS (01/13/2025 11:50 AM EDT) Anatomical Region Laterality Modality Chest Digital Radiogra phy 01/13/2025 12:0 0 PM EDT Impressions 01/13/2025 11:57 AM EDT IMPRESSION No active cardiopulmonary disease seen. Narrative 01/13/2025 11:57 AM EDT EXAM XR CHEST 2 VIEWS - 01/13/2025 11:50 am HISTORY rales bilat, cough, sputum production TECHNIQUE Frontal and lateral radiographs of the chest were obtained. COMPARISON CT 08/08/2020. FINDINGS FOREIGN BODIES, SUPPORT TUBES, LINES, DEVICES: None. LUNGS, PLEURA: No consolidation. No pneumothorax or effusion. CARDIOVASCULAR, MEDIASTINUM: Stable cardiomediastinal silhouette. Atherosclerotic calcifications. OTHER: Severe osteoarthritis of the glenohumeral joints. The bones appear demineralized. Procedure Note Javon Burden MD - 01/13/2025 EXAM XR CHEST 2 VIEWS - 01/13/2025 11:50 am HISTORY rales bilat, cough, sputum production TECHNIQUE Frontal and lateral radiographs of the chest were obtained. COMPARISON CT 08/08/2020. FINDINGS FOREIGN BODIES, SUPPORT TUBES, LINES, DEVICES: None. LUNGS, PLEURA: No consolidation. No pneumothorax or effusion. CARDIOVASCULAR, MEDIASTINUM: Stable cardiomediastinal silhouette.Atherosclerotic calcifications. OTHER: Severe osteoarthritis of the glenohumeral joints. The bones appeardemineralized. IMPRESSION IMPRESSION No active cardiopulmonary disease seen. Kelvin Morales PA-C RADIOLOGY (RAD GENER AL) Final Result * (ABNORMAL) GLUCOSE METER, POINT OF CARE (ENTER/EDIT) (01/13/2025 11:35 AM EDT) Glucose - POCT 288(A) 70 - 120 mg/dL Blood 01/13/2025 11:3 5 AM EDT Kelvin Morales PA-C LAB POINT OF CARE TEST ENTER/EDIT ORDERABLES Final Result documented in this encounter Visit Diagnoses Diagnosis LRTI (lower respiratory tract infection)- Primary Other diseases of respiratory system, not elsewhere classified Acute sinusitis, recurrence not specified, unspecified location documented in this encounter Advance Directives * Limited Code (Latest Code Status on File) Date Activated Date Inactivated Comments 08/08/2020 1:18 AM 08/10/2020 2:34 AM Patient oka y with resuscitation measures if would be for [...] Power of Attor magali? No Care Teams Relief Salesperson Relationship Specialty Start Date End Date Giacomo Morgan DO [address] [facility] [place] [address] PCP - General Internal Medicine 05/06/24 documented as of this encounter
--- OUTSIDE RECORDS SUMMARY | 2025-01-22 03:54 | External Medical Summary | Summary of Care ---
Author Name Unknown Organization [facility] Address [address] [place] [address] Phone [phone] Care Team Providers Care Centrifugal Extractor Operator Name Role Phone Giacomo Morgan DO Primary Care Provider [phone] Reason for Visit * Reason Onset Date Comments Referral 12/29/2024 [facility] DM Encounter Details Date Type Department Care Team (Late st Contact Info) Description 12/29/2024 Telephone Family Practice [facility] [address] [place] [phone] College, Pharmacist [address] [phone] Referral ([facility] DM) Allergies Active Allergy Reactions Criticality Noted [...] Kit 12/23/19 Active Vitamin D3 250 MCG (07074 UT) Oral Capsule Take 1,000 Units by mouth in the morning. Active ONETOUCH DELICA LANCETS 33G MISCIndications:Ty pe 2 diabetes mellitus with hemoglobin A1c goal of less than 8.0% ([facility]) Test once daily; dx E11.9 100 [...] by mouth. 08/12/20 24 Active Nystatin-Triamcino lone 713201-7.1 UNIT/GM-% External Cream (Mycolog) Apply topically to [...] hemoglobin A1c goal of less than 8.0% ([facility]) Take 1 Tablet by mouth in the morning. 100 Tablet 3 08/30/20 24 Active Carpal Tunnel Wrist Stabilizer Bl per [place] 09/15/20 24 Active Glucose Blood In Vitro StripIndications:D M type 2 nursing care encounter ([facility]) Test once daily 100 Strip 3 [...] mRNA, LNP-s, No Pre serve, 2-Dose Series ([email or web address]) 09/19/2021,12/31/2020,12/08/2020 COVID-19, LNP-s, No Preserve , Harshal-sucrose, Ages 12+ (Pfizer) 06/06/2022 COVID-19, MRNA-LNP, PF, 30 M CG/0.3 mL, 12 YRS AND ABOVE, IM ([facility]) 08/21/2023 Covid-19, Mrna, Lnp-s, Pf, B ivalent, 30 Mcg, IM, 12 yrs and above (Pfizer) 09/17/2022 H1N1 2009 Influenza, IM 11/15/2009 Pneumococcal Conjugate Vacc, 13 Valent (Prevnar) 03/14/2015 Pneumococcal Conjugate Vacci ne, 20-valent ([id number]) 12/28/2024 Pneumococcal Polysaccharide PPV23 (Pneumovax) 10/25/2007 RSV [...] 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 Sen Valdez, JANIECP Clinical Pharmacist [address] [facility] 01/16/2025, 4:02 PM . [phone] * Telephone Encounter - Geena Dunn RP - 01/03/2025 9:33 PM EST Patient reports [facility] - [facility] with [facility] before accepting referral. Sen Valdez, BRENDEN Clinical Pharmacist [address] [facility] 01/03/2025, 9:33 PM . [phone] * Telephone Encounter - Nano Gautam CPhT - 12/29/2024 2:14 PM EST Procedure: PHARMACIST MEDS THERAPY MGMT REFERRAL OP Status: Needs Scheduling (Huhf-[id number]-[id number] Pending) Requested appt date: Authorizing: Giacomo Morgan DO in [address] Referral: [id number] (Pending Review) Priority: Within 10 days (routine) Diagnosis: Type 2 diabetes mellitus with hemoglobin A1c goal of less than 8.0% ([facility]) [E11.9... Comments Pharmacist Medication Therapy Management: Minimum frequency patient should be seen in person for medication management: as appropriate per clinical condition and patient status By my signature, I understand that my patient Doron Perez will have his medication therapy managed by the [facility] Medication Therapy Disease Management [facility] ([facility]) per established policies, procedures, and protocols. I also certify that this referral may serve as an initiation of service for the management of drug therapy in the above noted patient. [facility] providers will be responsible for scheduling patient visits, obtaining appropriate laboratory studies, and adjusting medication management therapy per patient's need, in addition to those roles spelled out in the clinic policy, procedures, and drug management protocols. I understand that the service provided by the [facility] is voluntary and have informed patient that they can refuse the service at their discretion. I am aware that the [facility] Clinic will provide me with a copy of the patient encounter via my eReceipts InExosect. I authorize the [facility] Clinic to carry out these activities on [...] 01/17/2025 11:20 AM EDT Office Visit Family [address] [place] [address] Giacomo Morgan, [address] [place] [address] 04/27/2025 9:20 AM EDT Office Visit [address] [place] [address] Giacomo Morgan, DO [address] [place] [address] 07/26/2025 10:40 AM EDT Office Visit Neurology [facility] 200 [facility] [place] [address] Katie Aranda MD 200 [facility] [place] [address] 09/27/2025 9:00 AM EST Home Visit Care at Home [address] [place], [place] [phone] Sandra Villarreal PA-C [address] [place], [place] [phone] Health Maintenance Due Date Last Done Comments [...] this encounter Medical Devices Implanted Type Area Gym Supervisor Device Identifier Shelf Expiration Date Model / Serial / Lot Lens 24.5 Mx60e - [id number] - [id number] Implanted:Qty: 1 on 03/31/2019 by Pablo Diaz MD at OR [facility] Right: Eye BAUSCH & LOMB 09/01/2020 [id number]-06.5 / [id number] / [id number] Lens 24.5 Mx60e - [id number] - [id number] Implanted:Qty: 1 on 04/14/2019 by Pablo Diaz MD at OR [facility] Left: Eye BAUSCH & LOMB 06/01/2021 [id number]-63.5 / [id number] / [id number] Plate Lcp Metap 3.5mm 7h - [id number] Implanted:Qty: 1 on 08/08/2020 by Pineda Bob MD at [place] [facility] Right: Lower Arm SYNTHES 223.407 / / Description:from set Screw Selftap 3.5x16 204.816 - [id number] Implanted:Qty: 4 on 08/08/2020 by Pineda Bob MD at [place] [facility] Right: Lower Arm SYNTHES 204.816 / / [...] Power of Attor magali? No Care Teams Centrifugal Extractor Operator Relationship Specialty Start Date End Date Giacomo Morgan DO [address] [place] [address] PCP - General Internal Medicine 05/06/24 documented as of this encounter
--- OUTSIDE RECORDS SUMMARY | 2025-01-22 03:54 | External Medical Summary | Summary of Care ---
Author Name Unknown Organization [facility] Address [address] [place] [address] Phone [phone] Care Team Providers Care Action Installer Name Role Phone Giacomo Morgan DO Primary Care Provider [phone] Reason for Visit * Reason Comments Outpatient Testing Encounter Details Date Type Department Care Team (Late st Contact Info) Description 01/13/2025 12:20 PM EDT Laboratory Laboratory, [facility] [address] [place] [address] [facility] [address] [place] [address] LRTI (lower respiratory tract infection); Acute sinusitis, [...] the morning. Active Blood Glucose Monitoring Suppl (UTOPY ULTRA SYSTEM) w/Device KITIndications:DM type 2 nursing care encounter (HCC) Test once daily; dx E11.9 1 Kit 12/23/19 18 Active Vitamin D3 250 MCG (15078 UT) Oral Capsule Take 1,000 Units by mouth in the morning. Active JESUSTOUCH PAOLO LANCMERVAT 33G MISCIndications:Ty pe 2 diabetes mellitus with hemoglobin A1c goal of less than 8.0% ([facility]) Test once daily; dx E11.9 100 [...] by mouth. 08/12/20 24 Active Nystatin-Triamcino lone 143000-4.1 UNIT/GM-% External Cream (Mycolog) Apply topically to [...] hemoglobin A1c goal of less than 8.0% ([facility]) Take 1 Tablet by mouth in the morning. 100 Tablet 3 08/30/20 24 Active Carpal Tunnel Wrist Stabilizer Bl per [place] 09/15/20 24 Active Glucose Blood In Vitro StripIndications:D M type 2 nursing care encounter ([facility]) Test once daily 100 Strip 3 [...] Diabetes Taxonomy. ICD-10 update of inactive term custodial current use of anticoagulant therapy 0 11/10/2003 [...] mRNA, LNP-s, No Pre serve, 2-Dose Series ([employer]) 09/19/2021,12/31/2020,12/08/2020 COVID-19, LNP-s, No Preserve , Harshal-sucrose, Ages 12+ (Pfizer) 06/06/2022 COVID-19, MRNA-LNP, PF, 30 M CG/0.3 mL, 12 YRS AND ABOVE, IM ([facility]) 08/21/2023 Covid-19, Mrna, Lnp-s, Pf, B ivalent, 30 Mcg, IM, 12 yrs and above (Pfizer) 09/17/2022 H1N1 2009 Influenza, IM 11/15/2009 Pneumococcal Conjugate Vacc, 13 Valent (Prevnar) 03/14/2015 Pneumococcal Conjugate Vacci ne, 20-valent ([id number]) 12/28/2024 Pneumococcal Polysaccharide PPV23 (Pneumovax) 10/25/2007 RSV [...] 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 65 [facility] 293 [place] [address] Giacomo Morgan, 293 [place] [address] 07/26/2025 10:40 AM EDT Office Visit Neurology [facility] 200 [facility] [place] [address] Katie Aranda MD 200 [facility] [place] [address] 09/27/2025 9:00 AM EST Home Visit Care at Home [address] [place] [address] Sandra Villarreal PA-C [address] [place], [place] [phone] Pending Results Name Type Priority Associated Diagnoses [...] specified, unspecified location 01/13/2025 12:17 PM EDT CBC Lab Routine LRTI (lower respiratory tract infection) Acute sinusitis, recurrence not specified, unspecified location 01/13/2025 12:17 PM EDT DIFFERENTIAL, AUTOMATED Lab Routine LRTI (lower respiratory tract infection) Acute sinusitis, recurrence not specified, unspecified location 01/13/2025 12:17 PM EDT URINALYSIS, REFLEX TO CULTURE Lab STAT LRTI (lower respiratory tract infection) [...] this encounter Medical Devices Implanted Type Area Dedicated Regional Driver Device Identifier Shelf Expiration Date Model / Serial / Lot Lens 24.5 Mx60e - [id number] - [id number] Implanted:Qty: 1 on 03/31/2019 by Pablo Diaz MD at OR [facility] Right: Eye BAUSCH & LOMB 09/01/2020 [id number]-39.5 / [id number] / [id number] Lens 24.5 Mx60e - [id number] - [id number] Implanted:Qty: 1 on 04/14/2019 by Pablo Diaz MD at OR [facility] Left: Eye BAUSCH & LOMB 06/01/2021 [id number]-93.5 / [id number] / [id number] Plate Lcp Metap 3.5mm 7h - [id number] Implanted:Qty: 1 on 08/08/2020 by Pineda Bob MD at [place] [facility] Right: Lower Arm SYNTHES 223.407 / / Description:from set Screw Selftap 3.5x16 204.816 - [id number] Implanted:Qty: 4 on 08/08/2020 by Pineda Bob MD at [place] [facility] [place] Right: Lower Arm SYNTHES 204.816 / / Description:from set documented as of this encounter Procedures Procedure Name Priority Date/Time Associated Diagnosis Comments URINALYSIS, REFLEX TO CULTURE (CUP ONLY) STAT 01/13/2025 12:17 PM EDT LRTI (lower respiratory tract infection) Acute sinusitis, recurrence not specified, unspecified location documented in this encounter Results * URINALYSIS, REFLEX TO CULTURE (CUP ONLY) (01/13/2025 12:17 PM EDT) Urinalysis, Reflex to Culture Specimen Specimen collected and received 01/13/2025 2:01 PM EDT LABORATORY GM Urine Urine specimen obtained by clean catch procedure / Unknown Non-blood Collection / Unknown 01/13/2025 12:17 PM EDT 01/13/2025 12:17 PM EDT Kelvin Morales PA-C LAB URINE ORDERABLES Final Result Performing Organization Address City/State/[facility] Co de Phone Number LABORATORY [facility] [address] [place] [address] documented in this encounter Visit Diagnoses Diagnosis [...] Power of Attor magali? No Care Teams Action Installer Relationship Specialty Start Date End Date Giacomo Morgan DO [address] [place] [address] PCP - General Internal Medicine 05/06/24 documented as of this encounter
--- OUTSIDE RECORDS SUMMARY | 2025-01-22 03:54 | External Medical Summary | Summary of Care ---
Author Name Unknown Organization [facility] Address [address] [place] [address] Phone [phone] Care Team Providers Care Truck Body Builder Apprentice Name Role Phone Giacomo Morgan DO Primary Care Provider [phone] Reason for Visit * Reason Onset Date Comments Dizziness 01/16/2025 Encounter Details Date Type Department Care Team (Late st Contact Info) Description 01/16/2025 Telephone Family Practice 65 [facility] [address] [place] [phone] Giacomo Morgan DO [address] [place], [place] [phone] Dizziness Allergies Active Allergy Reactions Criticality Noted Date Comments Lisinopril Cough 06/19/2020 documented as of this encounter (statuses as of 01/16/2025) Medications VITAMIN B-12 500 MCG PO TABS Take 1 Tablet by mouth in the morning. Active ASPIRIN 81 MG PO TABS Take 1 Tablet by mouth in the morning. Active Blood Glucose Monitoring Suppl (ONETOUCH ULTRA SYSTEM) w/Device KITIndications:DM type 2 nursing care encounter (HCC) Test once daily; dx E11.9 1 Kit 12/23/19 18 Active Vitamin D3 250 MCG (39310 UT) Oral Capsule Take 1,000 Units by [...] by mouth. 08/12/20 24 Active Nystatin-Triamcino lone 969426-0.1 UNIT/GM-% External Cream (Mycolog) Apply topically to [...] as of this encounter (statuses as of 01/16/2025) Active Problems Problem Noted Date Diagnosed Date [...] Diabetes Taxonomy. ICD-10 update of inactive term detention current use of anticoagulant therapy 0 11/10/2003 Overview (08/03/2017): ICD-10 update of inactive term documented as of this encounter (statuses as of 01/16/2025) Resolved Problems Problem Noted Date Diagnosed Date Resolved Date Pulmonary nodules 10/02/2024 12/28/2024 Fall 08/09/2020 06/22/2023 Radius fracture 08/09/2020 06/22/2023 Osteoarthritis of left hip 07/19/2014 0 07/22/2019 SOB (shortness of breath) 01/18/2013 Pulmonary vein stenosis 01/18/2013 0404/2014 Cough 01/11/2013 06/14/2014 ACEI/ARB contraindicated 01/11/2013 Overview [...] as of this encounter (statuses as of 01/16/2025) Immunizations Name Administration Dates Next Due COVID-19 mRNA, LNP-s, No Pre serve, 2-Dose Series ([employer]There) 09/19/2021,12/31/2020,12/08/2020 COVID-19, LNP-s, No Preserve , Harshal-sucrose, Ages 12+ (Pfizer) 06/06/2022 COVID-19, MRNA-LNP, PF, 30 M CG/0.3 mL, 12 YRS AND ABOVE, IM (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 Thank you * Telephone Encounter - Giacomo Morgan DO - 01/16/2025 1:18 PM EDT Schedule visit * Telephone Encounter - Kelli New RN - 01/16/2025 10:04 AM EDT Spoke with pt-states he went to [facility] on Thursday in [place]. He was having intermittentperiods of dizziness/flashes of lightheadedness for past week. On going cough for about 3 weeks. Cough productive of yellow muc. Was using coricidin and cough syrup with only temporary relief. They did a CXR and it was negative for pneumonia. His glucose was elevated. Urine showed yeast and sugar-culture was negative. URI and lower respiratory infections. He was told to f/u in weekend clinic on Thursday. He saw Dr Robbins on Thursday, Dr Major sent in Augmentin 875-125 mg bid x 10 days. Pt continues with ongoing dizziness/lightheadedness-states is almost constant now. Feels off balance-dis cussed safety measures and to use cane/walker at all times. He is eating and drinking and no known fever. SOB at times. He is taking the Augmentin as ordered. Coughing on and off-productive of yellowish muc. . Pt was to call Dr Morgan for on going dziiness/lightheadedness. MTM referral was placed for his diabetes. Pt using flonase at home. Message forwarded to Dr Morgan for his recommendations. * Telephone Encounter - Rosetta Stringer OSA - 01/16/2025 9:53 AM EDT Pt calling complaining of being lightheaded and dizzy. States that it comes and goes about every 5 minutes. documented in this encounter Plan of Treatment Upcoming Encounters Date Type Department Care Team (Late st Contact Info) Description 01/17/2025 11:20 AM EDT Office Visit Family Practice [address] [place] [address] [address] [place] [phone] Giacomo Morgan, [address] [place] [address] 04/27/2025 9:20 AM EDT Office Visit [address] [place] [address] Giacomo Morgan, [address] [place] [address] 07/26/2025 10:40 AM EDT Office Visit Neurology [facility] [address] [place] [address] Katie Aranda MD [address] [place] [address] 09/27/2025 9:00 AM EST Home Visit Care at Home [address] [place], [place] [phone] Sandra Villarreal PA-C [address] [place], [place] [phone] Health Maintenance Due Date Last Done Comments COVID-19 Vaccine (2023- season) 2024 08/21/2023, 09/17/2022, 06/06/2022, Additional history exists HbA1c 07/16/2025 01/13/2025, 022 04/2025, 08/26/2024, Additional history exists Albumin/Creatinine Ratio 08/26/2025 [...] this encounter Medical Devices Implanted Type Area Health Informatics Instructor Device Identifier Shelf Expiration Date Model / Serial / Lot Lens 24.5 Mx60e - [id number] - [id number] Implanted:Qty: 1 on 03/31/2019 by Pablo Diaz MD at OR [facility] Right: Eye BAUSCH & LOMB 09/01/2020 FG81G-40.5 / [id number] / [id number] Lens 24.5 Mx60e - [id number] - [id number] Implanted:Qty: 1 on 04/14/2019 by Pablo Diaz MD at OR [facility] Left: Eye BAUSCH & LOMB 06/01/2021 [id number]-45.5 / [id number] / [id number] Plate Lcp Metap 3.5mm 7h - [id number] Implanted:Qty: 1 on 08/08/2020 by Pineda Bob MD [place] [facility] Right: Lower Arm SYNTHES 223.407 / / Description:from set Screw Selftap 3.5x16 204.816 - [id number] Implanted:Qty: 4 on 08/08/2020 by Pineda Bob MD [place] [facility] Right: Lower Arm SYNTHES 204.816 / / [...] Power of Attor magali? No Care Teams Truck Body Builder Apprentice Relationship Specialty Start Date End Date Giacomo Morgan DO [address] [place] [address] PCP - General Internal Medicine 05/06/24 documented as of this encounter
--- OUTSIDE RECORDS SUMMARY | 2025-01-22 03:54 | External Medical Summary ---
Author Name Unknown Address Unknown Organization [id number]:[facility] [place] [address] [place] [address] Laboratory Report Ordering Provider Test Date Status JHOANA COLVIN 01/13/2025 12:17:13 Final Observation Date Value Abnormality Reference (Units) Status Bacteria identified in Specimen by Culture 01/13/2025 12:17:13 No significant growth Final Test: Culture, Urine, Quanti tative
Specimen Source: Urine, Clean Catch
Specimen Type: Urine
Specimen Date: 01/13/2025 1217
Result Date: 01/14/2025 1717
Result Status: Final result
Resulting Lab: [facility]
[address]
[place] [address]

CULTURE

No significant growth

null Performing Location [facility] [address] [place] [address]
--- OUTSIDE RECORDS SUMMARY | 2025-01-22 03:54 | External Medical Summary ---
Author Name Unknown Address Unknown Organization [id number]:[facility] - 100 [facility] [address] Laboratory Report Ordering Provider Test Date Status JHOANA COLVIN 01/13/2025 12:17:13 Final Observation Date Value Abnormality Reference (Units ) Status SYNC LEUKOCYTES IN BLOOD BY AUTOMATED COUNT 01/13/2025 12:17:13 10.43 4.00-10.80 (K/uL) Final Segs 01/13/2025 12:17:13 72.4 40.0-75.0 (%) Final Lymphs % 01/13/2025 12:17:13 18.3 18.0-42.0 (%) Final Monos 01/13/2025 12:17:13 5.8 1.0-11.0 (%) Final Eosinophils 01/13/2025 12:17:13 2.8 0.0-6.0 (%) Final Basos 01/13/2025 12:17:13 0.5 0.0-2.0 (%) Final Immature Granulocyte, Percent 01/13/2025 12:17:13 0.2 0.0-2.0 (%) Final Absolute Segs 01/13/2025 12:17:13 7.56 1.80-7.70 (K/uL) Final Lymphs, absolute 01/13/2025 12:17:13 1.91 1.00-4.80 (K/ul) Final Monos, Abs 01/13/2025 12:17:13 0.60 0.00-1.10 (K/uL) Final Eos, Abs 01/13/2025 12:17:13 0.29 0.00-0.70 (K/uL) Final Basos, Abs 01/13/2025 12:17:13 0.05 0.00-0.20 (K/uL) Final Immature Granulocytes, Number 01/13/2025 12:17:13 0.02 0.00-0.20 (K/uL) Final Performing Location LABOR[facility]ORY [facility] - [facility] [address] [facility] [address]
--- OUTSIDE RECORDS SUMMARY | 2025-01-22 03:54 | External Medical Summary | Summary of Care ---
Author Name Unknown Organization [facility] Address [address] [place] [address] Phone [phone] Care Team Providers Care Client Support Administrator Name Role Phone Giacomo Morgan DO Primary Care Provider [phone] Reason for Visit * Reason Comments Outpatient Testing Encounter Details Date Type Department Care Team (Late st Contact Info) Description 01/13/2025 12:20 PM EDT Laboratory Laboratory, [facility] [address] [place] [address] [facility] [address] [place] [address] LRTI (lower respiratory tract infection); Acute sinusitis, [...] the morning. Active Blood Glucose Monitoring Suppl (Overwolf ULTRA SYSTEM) w/Device KITIndications:DM type 2 nursing care encounter (HCC) Test once daily; dx E11.9 1 Kit 12/23/19 18 Active Vitamin D3 250 MCG (50648 UT) Oral Capsule Take 1,000 Units by mouth in the morning. Active JESUSTOUCH PAOLO LANCMERVAT 33G MISCIndications:Ty pe 2 diabetes mellitus with hemoglobin A1c goal of less than 8.0% ([facility]) Test once daily; dx E11.9 100 Each [...] by mouth. 08/12/20 24 Active Nystatin-Triamcino lone 356182-0.1 UNIT/GM-% External Cream (Mycolog) Apply topically to [...] hemoglobin A1c goal of less than 8.0% ([facility]) Take 1 Tablet by mouth in the morning. 100 Tablet 3 08/30/20 24 Active Carpal Tunnel Wrist Stabilizer Bl per [place] 09/15/20 24 Active Glucose Blood In Vitro StripIndications:D M type 2 nursing care encounter ([facility]) Test once daily 100 Strip 3 10/04/20 [...] Diabetes Taxonomy. ICD-10 update of inactive term FCI current use of anticoagulant therapy 0 11/10/2003 [...] mRNA, LNP-s, No Pre serve, 2-Dose Series ([employer]) 09/19/2021,12/31/2020,12/08/2020 COVID-19, LNP-s, No Preserve , Harshal-sucrose, Ages 12+ (Pfizer) 06/06/2022 COVID-19, MRNA-LNP, PF, 30 M CG/0.3 mL, 12 YRS AND ABOVE, IM (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 on file Not on file [...] 01/14/2025 10:40 AM EDT Office Visit Family [facility] [address] [place] [address] Betty Robbins DO [address] [place] [address] 04/27/2025 9:20 AM EDT Office Visit Community [facility] [address] [facility] [address] [place] [address] Giacomo Morgan, [address] [place] [address] 07/26/2025 10:40 AM EDT Office Visit Neurology [facility] [address] [place] [address] Katie Aranda MD [address] [place] [address] 09/27/2025 9:00 AM EST Home Visit Care at Home [address] [place] [address] Sandra Villarreal PA-C [address], [place] [phone] Pending Results Name Type Priority Associated Diagnoses [...] this encounter Medical Devices Implanted Type Area Music Cataloguer Device Identifier Shelf Expiration Date Model / Serial / Lot Lens 24.5 Mx60e - [id number] - [id number] Implanted:Qty: 1 on 03/31/2019 by Pablo Diaz MD at OR [facility] Right: Eye BAUSCH & LOMB 09/01/2020 IQ75T-40.5 / [id number] / [id number] Lens 24.5 Mx60e - [id number] - [id number] Implanted:Qty: 1 on 04/14/2019 by Pablo Diaz MD at OR [facility] Left: Eye BAUSCH & LOMB 06/01/2021 [id number]-09.5 / [id number] / [id number] Plate Lcp Metap 3.5mm 7h - [id number] Implanted:Qty: 1 on 08/08/2020 by Pineda Bob MD at [place] [facility] Right: Lower Arm SYNTHES 223.407 / / Description:from set Screw Selftap 3.5x16 204.816 - [id number] Implanted:Qty: 4 on 08/08/2020 by Pineda Bob MD at [place] [facility] Right: Lower Arm SYNTHES 204.816 / / [...] Negative mg/dL 01/13/2025 10:06 PM EDT LABORATORY [facility] Bilirubin, Urine Negative Negative 01/13/2025 10:06 PM EDT LABORATORY C Ketone, Urine Negative Negative mg/dL 01/13/2025 10:06 PM EDT LABORATORY [facility] Specific [place], Urine 1.024 1.003 - 1.030 01/13/2025 10:06 PM EDT LABORATORY [facility] Blood, Urine Small(A) Negative 01/13/2025 10:06 PM EDT LABORATORY [facility] pH, Urine 6.0 5.0 - 7.5 Units 01/13/2025 10:06 PM EDT LABORATORY [facility] Protein, Urine Negative Negative mg/dL 01/13/2025 10:06 PM EDT LABORATORY [facility] Urobilinogen, Urine Normal Normal mg/dL 01/13/2025 10:06 PM EDT LABORATORY [facility] Nitrite, Urine Negative Negative 01/13/2025 10:06 PM [...] Culture, Urine 01/13/2025 10:06 PM EDT LABORATORY [facility] Comment:Quantitative urine c ulture to be performed Urine Urine specimen obtained by clean catch procedure / Unknown Non-blood Collection / Unknown 01/13/2025 12:17 PM EDT 01/13/2025 12:17 PM EDT Kelvin Morales PA-C LAB URINE ORDERABLES Final Result Performing Organization Address [facility] Co de Phone Number LABORATORY [facility] [address] [place] [address] * URINALYSIS, REFLEX TO CULTURE (CUP ONLY) (01/13/2025 12:17 PM EDT) Urinalysis, Reflex to Culture Specimen Specimen collected and received 01/13/2025 2:01 PM EDT LABORATORY [facility] Urine Urine specimen obtained by clean catch procedure / Unknown Non-blood Collection / Unknown 01/13/2025 12:17 PM EDT 01/13/2025 12:17 PM EDT Kelvin Morales PA-C LAB URINE ORDERABLES Final Result Performing Organization Address [facility] Co de Phone Number LABORATORY [address] [address] * DIFFERENTIAL, AUTOMATED (01/13/2025 12:17 PM EDT) [...] BLOOD ORDERABLES Final Result LABORATORY [facility] [address] [place], [place] [phone] * (ABNORMAL) CBC (01/13/2025 12:17 PM EDT) Pathologist [facility] WBC 10.43 4.00 - 10.80 K/uL 01/13/2025 10:32 PM EDT LABORATORY [facility] RBC 4.23 4.50 - 5.25 M/uL 01/13/2025 10:32 PM EDT LABORATORY [facility] HGB 12.1(L) 14.0 - 16.8 g/dL 01/13/2025 10:32 PM EDT LAB[facility]ATORY [facility] HCT 39.8(L) 40.0 - 48.4 % 01/13/2025 10:32 PM EDT LAB[facility]ATORY [facility] MCV 94.1 82.0 - 99.5 fL 01/13/2025 10:32 PM EDT LABORATORY [facility] MCH 28.6 27.0 - 34.0 pg 01/13/2025 10:32 PM EDT LABORATORY [facility] MCHC 30.4 32.0 - 36.0 g/dL 01/13/2025 10:32 PM EDT LABORATORY [facility] RDW 15.9 11.5 - 15.5 % 01/13/2025 10:32 PM EDT LABORATORY [facility] PLT 206 140 - 400 K/uL 01/13/2025 10:32 PM EDT LABORATORY [facility] MPV 10.3 6.6 - 11.1 fL 01/13/2025 10:32 PM EDT LABORATORY [facility] nRBCs 0 <=0 /100 WBCs 01/13/2025 10:32 PM EDT LABORATORY [facility] Blood Venous blood specimen / Unknown Venipuncture / Unknown 01/13/2025 12:17 PM EDT 01/13/2025 12:17 PM EDT Kelvin Morales PA-C LAB BLOOD ORDERABLES Final Result LABORATORY [facility] [address], [place] [phone] documented in this encounter Visit Diagnoses Diagnosis [...] Power of Attor magali? No Care Teams Client Support Administrator Relationship Specialty Start Date End Date Giacomo Morgan DO [address] [place] [address] PCP - General Internal Medicine 05/06/24 documented as of this encounter
--- OUTSIDE RECORDS SUMMARY | 2025-01-22 03:54 | External Medical Summary | Summary of Care ---
Author Name Unknown Organization [facility] Address [address] [place] [address] Phone [phone] Care Team Providers Care Content Administrator Name Role Phone Giacomo Morgan DO Primary Care Provider [phone] Reason for Visit * Reason Comments Dizzy/Weakness Cough Encounter Details Date Type Department Care Team (Late st Contact Info) Description 01/14/2025 10:40 AM EDT Office Visit Family Practice [facility] [address] [facility] [place] [address] Betty Robbins DO [address] [facility] [place] [phone] Upper respiratory tract infection, unspecified type*; Type 2 diabetes mellitus with hemoglobin A1c goal of less than 8.0% ([facility]); HTN, goal below 140/90 Allergies Active Allergy Reactions Criticality Noted Date Comments Lisinopril Cough 06/19/2020 documented as of this encounter (statuses as of 01/14/2025) Medications VITAMIN B-12 500 MCG PO TABS Take 1 Tablet by mouth in the morning. Active ASPIRIN 81 MG PO TABS Take 1 Tablet by mouth in the morning. Active Blood Glucose Monitoring Suppl (EMOSpeech ULTRA SYSTEM) w/Device KITIndications:DM type 2 nursing care encounter (HCC) Test once daily; dx E11.9 1 Kit 02/21/20 18 Active Vitamin D3 250 MCG (60003 UT) Oral Capsule Take 1,000 Units by mouth in the morning. Active JESUSRADHATAMARA CAMARILLO 33G MISCIndications:Ty pe 2 diabetes mellitus with hemoglobin A1c goal of less than 8.0% ([facility]) Test once daily; dx E11.9 100 Each 11 08/18/20 19 Active Acetaminophen 325 MG Oral Tablet (TYLENOL) [...] by mouth. 08/12/20 24 Active Nystatin-Triamcino lone 137337-8.1 UNIT/GM-% External Cream (Mycolog) Apply topically to [...] hemoglobin A1c goal of less than 8.0% ([facility]) Take 1 Tablet by mouth in the morning. 100 Tablet 3 08/30/20 24 Active Carpal Tunnel Wrist Stabilizer Bl per va 09/15/20 24 Active Glucose Blood In Vitro StripIndications:D M type 2 nursing care encounter ([facility]) Test once daily 100 Strip [...] as of this encounter (statuses as of 01/14/2025) Active Problems Problem Noted Date Diagnosed Date [...] Diabetes Taxonomy. 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 Hemorrhoids 04/18/2019 documented as of this encounter (statuses as of 01/14/2025) Immunizations Name Administration Dates Next Due COVID-19 mRNA, LNP-s, No Pre serve, 2-Dose Series ([employer]) 09/19/2021,12/31/2020,12/08/2020 COVID-19, LNP-s, No Preserve , Harshal-sucrose, Ages 12+ (Pfizer) 06/06/2022 COVID-19, MRNA-LNP, PF, 30 M CG/0.3 mL, 12 YRS AND ABOVE, IM ([facility] 08/21/2023 Covid-19, Mrna, Lnp-s, Pf, B ivalent, 30 Mcg, IM, 12 yrs and above ([employer]) 09/17/2022 H1N1 2009 Influenza, IM 11/15/2009 Pneumococcal Conjugate Vacc, 13 Valent (Prevnar) 03/14/2015 Pneumococcal Conjugate Vacci ne, 20-valent (Infljsm03) 12/28/2024 Pneumococcal Polysaccharide PPV23 (Pneumovax) 10/25/2007 RSV [...] 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 Not on file Not on file documented as of this encounter Last Filed Vital Signs Vital Sign Reading Time Taken Comments Blood Pressure 130/66 01/14/2025 10:24 AM EDT Pulse 70 01/14/2025 10:24 AM EDT Temperature 36.6 C (97.8 F) 01/14/2025 10:24 AM E DT Respiratory Rate 16 01/14/2025 10:24 AM EDT Oxygen Saturation - - Inhaled Oxygen Concentration - - Weight 82.3 kg (181 lb 6.4 oz) 01/14/2025 10:24 AM EDT Height - - Body Mass Index 31.14 01/13/2025 10:57 AM EDT documented in this [...] Kelli Harrison RN documented in this encounter Progress Notes * Betty Robbins, - 01/14/2025 10:34 AM EDT Subjective: Doron Perez is a 84 year old male. Chief Complaint Patient presents with Dizzy/Weakness Cough HPI: 84 year old male presents today at weekend clinic for cough, and dizziness. He has hx of type 2 diabetes, HTN, Aortic stenosis, Atrial fibrillation, on Eliquis, and BPH. He was seen at the urgent care yesterday. For URI symptoms over 3 weeks. He was prescribed Augmentin. Although it was never sent in. He has not started this. He has a chest xray completed and this was negative for pneumonia. Labs completed and significant for a glucose of 322. Yeast and sugar in his urine. Culture is pending. For his diabetes he is on Jardiance, Metformin, Amaryl, and he reports he is taking them. He is mixing 3 sugar cereals in the am. And he states these are high in sugars. 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 Type 2 diabetes mellitus with hemoglobin A1c goal of less than 8.0% (HCC) Dyslipidemia, goal LDL below 100 Obesity, Class [...] aortic valve stenosis LVH (left ventricular hypertrophy) Trace tricuspid regurgitation by prior echocardiogram Trace mitral regurgitation by prior echocardiogram Normocytic normochromic anemia Thyroid nodule Renal cyst, right Atherosclerosis of aorta (HCC) Right inguinal hernia Diverticulosis of large intestine without hemorrhage Dysphagia Essential tremor Current Outpatient Medications Medication Sig Dispense Refill VITAMIN B-12 500 MCG PO TABS Take 1 Tablet by mouth in the morning. ASPIRIN 81 MG PO TABS Take 1 Tablet by mouth in the morning. Blood Glucose Monitoring Suppl (EMOSpeech ULTRA SYSTEM) w/Device KIT Test once daily; dx E11.9 1 Kit0 Vitamin D3 250 MCG (09686 UT) Oral Capsule Take 1,000 Units by mouth in the morning. [place] Shellfish[employer] DELICA LANCETS 33G MISC Test once daily; dx E11.9 100 Each 11 Acetaminophen 325 MG Oral Tablet (TYLENOL) Take [...] mouth in the morning. 90 Tablet 2 Gabapentin 600 MG Oral Tablet (Neurontin) Take 1 Tablet by mouth in the morning and 1 Tablet at noon and 1 Tablet before bedtime. Mirabegron ER 50 MG Oral Tablet Extended Release 24 Hour (Myrbetriq) Take 1 Tablet by mouth. Nystatin-Triamcinolone 752921-5.1 UNIT/GM-% External Cream (Mycolog) Apply topically to affected area. Empagliflozin 25 MG Oral Tablet (Jardiance) Take 1 Tablet by mouth in the morning. 100 Tablet 3 Carpal Tunnel Wrist Stabilizer Bl per co Glucose Blood In Vitro Strip Test once daily 100 Strip 3 metFORMIN HCl 1000 MG Oral Tablet (Glucophage) TAKE ONE TABLET BY MOUTH TWO TIMES A DAY 180 Tablet 3 tiZANidine HCl 4 MG Oral Tablet (Zanaflex) Take 1 Tablet by mouth every 8 hours as needed. Tamsulosin HCl 0.4 MG Oral Capsule (Flomax) Take 1 Capsule by mouth daily. 90 Capsule 2 traMADol HCl 50 MG Oral Tablet (Ultram) Take 1 Tablet by mouth every 6 hours as needed for Pain, Severe. 30 Tablet 0 No current facility-administered medications for this visit. Review of patient's allergies indicates: Allergen Reactions Lisinopril Cough Objective: BP 130/66 | Pulse 70 | Temp 97.8 F (36.6 C) | Resp 16 | Wt 181 lb 6.4 oz (82.3 kg) | BMI 31.14 kg/m | BSA 1.93 m Physical Exam: General: alert, healthy, and no distress Ears: External ears normal, Canals clear, TM's Normal Heart: regular rate & rhythm and 3/6 GILMAR at LSB. Lungs: chest symmetric with normal AP diameter, no chest deformities noted, no chest wall tenderness, lungs clear to auscultation Extremities: no edema ASSESSMENT/PLAN: Upper respiratory tract infection, unspecified type (Primary) - Amoxicillin-Pot Clavulanate 875-125 MG Oral Tablet (Augmentin); Take 1 Tablet by mouth in the morning and 1 Tablet before bedtime. Do all this for 10 days. Sent med in. To start Ongoing dizziness to call his PCP. Type 2 diabetes mellitus with hemoglobin A1c goal of less than 8.0% (HCC) Looks like a referral was sent for MTM at 66 forward. To get this arranged. BG is elevated. HTN, goal below 140/90 --stable. Betty Robbins DO documented in this encounter Nursing Notes * Maggie Whyte LPN - 01/14/2025 10:23 AM EDT Chief Complaint Patient presents with Dizzy/Weakness Cough Sugar was 300, then 288, yesterday 160 documented in this encounter Plan of Treatment Upcoming Encounters Date Type Department Care Team (Late st Contact Info) Description 04/27/2025 9:20 AM EDT Office Visit Family Practice [address] [place] [address] [address] [place] [address] Giacomo Morgan DO [address] [place] [address] 07/26/2025 10:40 AM EDT Office Visit Neurology [facility] [address] [place] [address] Katie Aranda MD [address] [place] [address] 09/27/2025 9:00 AM EST Home Visit Care at Home [address] [place] [address] Sandra Villarreal PA-C [address] [place], [place] [phone] Health Maintenance Due Date Last Done Comments [...] this encounter Medical Devices Implanted Type Area Packing Tractor Machine Operator Device Identifier Shelf Expiration Date Model / Serial / Lot Lens 24.5 Mx60e - [id number] - [id number] Implanted:Qty: 1 on 03/31/2019 by Pablo Diaz MD at OR [facility] Right: Eye BAUSCH & LOMB 09/01/2020 [id number]-30.5 / [id number] / [id number] Lens 24.5 Mx60e - [id number] - [id number] Implanted:Qty: 1 on 04/14/2019 by Pablo Diaz MD at OR [facility] Left: Eye BAUSCH & LOMB 06/01/2021 RM70Y-55.5 / [id number] / [id number] Plate Lcp Metap 3.5mm 7h - [id number] Implanted:Qty: 1 on 08/08/2020 by Pineda Bob MD at OR [facility] Right: Lower Arm SYNTHES 223.407 / / Description:from set Screw Selftap 3.5x16 204.816 - [id number] Implanted:Qty: 4 on 08/08/2020 by Pineda Bob MD at OR [facility] Right: Lower Arm SYNTHES 204.816 / / Description:from set documented as of this encounter Visit Diagnoses Diagnosis Upper respiratory tract infection, unspecified type- Primary Type 2 diabetes mellitus with hemoglobin A1c goal of less than 8.0% (HCC) HTN, goal below 140/90 Unspecified essential hypertension documented in this encounter Advance Directives * [...] Power of Attor magali? No Care Teams Content Administrator Relationship Specialty Start Date End Date Giacomo Morgan DO [address] [place] [address] PCP - General Internal Medicine 05/06/24 documented as of this encounter"
--- OUTSIDE RECORDS SUMMARY | 2025-01-22 03:54 | External Medical Summary ---
Author Name Unknown Address Unknown Organization K01:[facility] [address] [facility] [address] Laboratory Report Ordering Provider Test Date Status JHOANA COLVIN 01/13/2025 12:17:13 Final Observation Date Value Abnormality Reference (Units ) Status WBC, Total 01/13/2025 12:17:13 10.43 4.00-10.80 (K/uL) Final RBC 01/13/2025 12:17:13 4.23 4.50-5.25 (M/uL) Final Hemoglobin 01/13/2025 12:17:13 12.1 Below low normal 14.0-16.8 (g/dL) Final HCT 01/13/2025 12:17:13 39.8 Below low normal 40.0-48.4 (%) Final MCV 01/13/2025 12:17:13 94.1 82.0-99.5 (fL) Final MCH 01/13/2025 12:17:13 28.6 27.0-34.0 (pg) Final MCHC 01/13/2025 12:17:13 30.4 32.0-36.0 (g/dL) Final RDW 01/13/2025 12:17:13 15.9 11.5-15.5 (%) Final Platelets 01/13/2025 12:17:13 206 140-400 (K/uL) Final MPV 01/13/2025 12:17:13 10.3 6.6-11.1 (fL) Final Nucleated erythrocytes/100 leukocytes [Ratio] in Blood by Automated count 01/13/2025 12:17:13 0 <=0 (/100 WBCs) Final Performing Location [facility] - [address] [place] [address]
--- OUTSIDE RECORDS SUMMARY | 2025-01-22 03:55 | External Medical Summary | Summary of Care ---
Author Name Unknown Organization [facility] Address [address] [place] [address] Phone [phone] Care Team Providers Care Ferry Terminal Agent Name Role Phone Giacomo Morgan DO Primary Care Provider [phone] Reason for Visit * Reason Onset Date Comments Advice 12/08/2024 Encounter Details Date Type Department Care Team (Late st Contact Info) Description 12/08/2024 Telephone Family Practice [address] [facility] [address] [place] [phone] Giacomo Morgan [address] [place], [place] [id number] Advice Allergies Active Allergy Reactions Criticality Noted Date Comments Lisinopril Cough 06/19/2020 documented as of this encounter (statuses as of 12/08/2024) Medications VITAMIN B-12 500 MCG PO TABS Take 1 Tablet by mouth in the morning. Active ASPIRIN 81 MG PO TABS Take 1 Tablet by mouth in the morning. Active Blood Glucose Monitoring Suppl (ONETOUCH ULTRA SYSTEM) w/Device KITIndications:DM type 2 nursing care encounter (HCC) Test once daily; dx E11.9 1 Kit 12/23/19 18 Active Vitamin D3 250 MCG (46790 UT) Oral Capsule Take 1,000 Units by mouth in the morning. Active ONETOUCH DELICA LANCETS 33G MISCIndications:Ty pe 2 diabetes mellitus with hemoglobin A1c goal of less than 8.0% ([facility]) Test once daily; dx E11.9 100 Each 11 08/18/20 Active Acetaminophen 325 MG Oral Tablet (TYLENOL) Take 3 Tabs by mouth every 6 hours. 30 Tab 08/09/20 Active Additional Information Patient taking differently: 650 mgOralDaily(AM), Reported on 09/26/2024 Apixaban 5 MG Oral Tablet (ELIQUIS) Take 1 Tablet by mouth in the morning and 1 Tablet before bedtime. 06/21/20 Active Oxybutynin Chloride ER 5 MG Oral Tablet Extended Release 24 Hour (Ditropan XL) Take 1 Tablet by mouth at bedtime. 05/27/20 Active Vitamin C 1000 MG Oral Tablet [...] 4 12:47 PM EST 12/24/19 24 Active metFORMIN HCl 1000 MG Oral Tablet (Glucophage) TAKE ONE TABLET BY MOUTH TWO TIMES A DAY 180 Tablet 3 4 7:19 AM EST 01/01/20 24 025 Active Glimepiride 1 MG Oral Tablet (Amaryl) [...] by mouth. 08/12/20 24 Active Nystatin-Triamcino lone 048687-4.1 UNIT/GM-% External Cream (Mycolog) Apply topically to [...] goal of less than 8.0% ([facility]) Take 1 Tablet by mouth in the morning. 100 Tablet 3 08/30/20 24 Active Carpal Tunnel Wrist Stabilizer Bl per [place] 09/15/20 24 Active Glucose Blood In Vitro StripIndications:D M type 2 nursing care encounter ([facility]) Test once daily 100 Strip 3 10/04/20 24 Active documented as of this encounter (statuses as of 12/08/2024) Active Problems Problem Noted Date Diagnosed Date LVH (left ventricular hypertrophy) 10/02/2024 Trace tricuspid regurgitation by prior echocardi ogram 10/02/2024 Trace mitral regurgitation by prior echocardiogr am 10/02/2024 Normocytic normochromic anemia 10/02/2024 Thyroid nodule 10/02/2024 Pulmonary nodules 10/02/2024 Renal cyst, right 10/02/2024 Atherosclerosis of [...] Diabetes Taxonomy. ICD-10 update of inactive term group home current use of anticoagulant therapy 0 11/10/2003 Overview (08/03/2017): ICD-10 update of inactive term documented as of this encounter (statuses as of 12/08/2024) Resolved Problems Problem Noted Date Diagnosed Date Resolved Date Fall 08/09/2020 06/22/2023 Radius fracture 08/09/2020 06/22/2023 [...] as of this encounter (statuses as of 12/08/2024) Immunizations Name Administration Dates Next Due COVID-19 mRNA, LNP-s, No Pre serve, 2-Dose Series ([employer]) 09/19/2021,12/31/2020,12/08/2020 COVID-19, LNP-s, No Preserve , Harshal-sucrose, Ages 12+ ([employer]) 06/06/2022 COVID-19, MRNA-LNP, PF, 30 M CG/0.3 mL, 12 YRS AND ABOVE, IM ([facility]) 08/21/2023 Covid-19, Mrna, Lnp-s, Pf, B ivalent, 30 Mcg, IM, 12 yrs and above (Pfizer) 09/17/2022 H1N1 2009 Influenza, IM 11/15/2009 Pneumococcal Conjugate Vacc, 13 Valent (Prevnar) 03/14/2015 Pneumococcal Polysaccharide PPV23 (Pneumovax) 10/25/2007 Seasonal Influenza Vac., MDV , IM, 0.5 [...] 10/02/2024 Does the household have a re lar source of income? 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 Cough, productive at times. Unsure if fever. Denies N/V/D. Gets a little sob when coughing. Advised nasal saline, flonase, mucinex. Thank you documented in this encounter Plan of Treatment Upcoming Encounters Date Type Department Care Team (Late st Contact Info) Description 12/28/2024 10:40 AM EST Office Visit Family Practice [facility] [address] [place] [address] Giacomo Morgan, [address] [place] [address] 01/12/2025 9:20 AM EDT Office Visit Neurology [facility] [address] [facility] [place] [address] Katie Aranda MD [address] [place] [address] 09/27/2025 9:00 AM EST Home Visit Care at Home [address] [place] [address] Sandra Villarreal PA-C [address] [place] [address] Health Maintenance Due Date Last Done Comments COVID-19 Vaccine ( season) 2024 08/21/2023, 09/17/2022, 06/06/2022, Additional history exists Diabetic Eye Exam 11/11/2024 11/11/2023, , 10/21/2022, Additional history exists HbA1c 02/24/2025 08/26/2024, 0311/2023, 09/22/2023, Additional history exists Albumin/Creatinine Ratio 08/26/2025 024, 09/02/2023, 05/04/2023, Additional history exists Diabetic Foot Exam 08/26/2025 08/26/2024, 0 03/20/2023, 07/22/2019, Additional history exists GFR 09/19/2025 09/19/2024, 10/2 03/2024, 09/22/2023, Additional history exists Adult Wellness Visit 09/28/2025 09/28/2024, 08/03/20 23 Depression Screening 10/02/2025 10/02/2024 DTap/Tdap Vaccines (3 - Td or Tdap) 11/13/2032 11/13/2022, 03/16/2013, 02/23/2008 Pneumococcal Vaccine: 50+ Years Completed 03/14/2015, 10/25/2007, 10/31/2004 Zoster Vaccines Completed 06/18/2021, 06/02, 06/02/2012 Influenza Vaccine (FLU shot) Completed 07/19/2024, 07/14/2023, 08/02/2022, Additional history exists B-12 Discontinued 09/19/2024, 07/0 12/2022, 04/19/2019, Additional history exists HPV (Gardasil) Vaccine Aged Out No lo nger eligible based on patient's age to complete this topic Hepatitis B Vaccine Aged Out No longe r eligible based on patient's age to complete this topic MENINGOCOCCAL (MENACTRA/MENVEO) Aged Out No longer eligible based on patient's age to complete this topic documented as of this encounter Medical Devices Implanted Type Area Bank Teller Device Identifier Shelf Expiration Date Model / Serial / Lot Lens 24.5 Mx60e - [id number] - [id number] Implanted:Qty: 1 on 03/31/2019 by Pablo Diaz MD at OR [facility] Right: Eye [employer]USCH [employer] LOMB 09/01/2020 [id number]-61.5 / [id number] / [id number] Lens 24.5 Mx60e - [id number] - [id number] Implanted:Qty: 1 on 04/14/2019 by Pablo Diaz MD at OR [facility] Left: Eye BAUSCH [employer] LOMB 06/01/2021 [id number]-44.5 / [id number] / [id number] Plate Lcp Metap 3.5mm 7h - [id number] Implanted:Qty: 1 on 08/08/2020 by Pineda Bob MD at OR [facility] Right: Lower Arm SYNTHES 223.407 / / Description:from set Screw Selftap 3.5x16 204.816 - [id number] Implanted:Qty: 4 on 08/08/2020 by Pineda Bob MD at OR [facility] Right: Lower Arm SYNTHES [...] Power of Attor magali? No Care Teams Ferry Terminal Agent Relationship Specialty Start Date End Date Giacomo Morgan DO [address] [place] [address] PCP - General Internal Medicine 05/06/24 documented as of this encounter
--- OUTSIDE RECORDS SUMMARY | 2025-01-22 03:55 | External Medical Summary | Summary of Care ---
Author Name Unknown Organization [facility] Address [address] [place] [address] Phone [phone] Care Team Providers Care Email Operations Manager Name Role Phone Eliud Morgan DO Primary Care Provider [phone] Reason for Visit * Reason Comments Medication Refill Encounter Details Date Type Department Care Team (Late st Contact Info) Description 12/20/2024 Refill Family Practice [address] [facility] [place] [address] [place] [address] Eliud Morgan, [address] [place] [address] Allergies Active Allergy Reactions Criticality Noted Date Comments Lisinopril Cough 06/19/2020 documented as of this encounter (statuses as of 12/21/2024) Medications VITAMIN B-12 500 MCG PO TABS Take 1 Tablet by mouth in the morning. Active ASPIRIN 81 MG PO TABS Take 1 Tablet by mouth in the morning. Active Blood Glucose Monitoring Suppl (AsokaUCH ULTRA SYSTEM) w/Device KITIndications:DM type 2 nursing care encounter (HCC) Test once daily; dx E11.9 1 Kit 12/23/19 18 Active Vitamin D3 250 MCG (26631 UT) Oral Capsule Take 1,000 Units by [...] by mouth. 08/12/20 24 Active Nystatin-Triamcino lone 473260-4.1 UNIT/GM-% External Cream (Mycolog) Apply topically to [...] TWO TIMES A DAY 180 Tablet 3 12/21/19 25 026 Active metFORMIN HCl 1000 MG Oral Tablet (Glucophage) TAKE ONE TABLET BY MOUTH TWO TIMES A DAY 180 Tablet 3 4 7:19 AM EST 01/01/20 24 025 Discontin ued(Refil l) documented as of this encounter (statuses as of 12/21/2024) Active Problems Problem Noted Date Diagnosed Date [...] Taxonomy. ICD-10 update of inactive term termite renewal inspector current use of anticoagulant therapy 0 11/10/2003 Overview (08/03/2017): ICD-10 update of inactive term documented as of this encounter (statuses as of 12/21/2024) Resolved Problems Problem Noted Date Diagnosed Date [...] as of this encounter (statuses as of 12/21/2024) Immunizations Name Administration Dates Next Due COVID-19 mRNA, LNP-s, No Pre serve, 2-Dose Series ([employer]) 09/19/2021,12/31/2020,12/08/2020 COVID-19, LNP-s, No Preserve , Harshal-sucrose, Ages 12+ (Pfizer) 06/06/2022 COVID-19, MRNA-LNP, PF, 30 M CG/0.3 mL, 12 YRS AND ABOVE, IM (PFIZER-Comirnat) 08/21/2023 Covid-19, Mrna, Lnp-s, Pf, B ivalent, [...] 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 - 12/21/2024 8:35 AM ESTSigned Prescriptions: Disp Refills metFORMIN HCl 1000 MG Oral Tablet (Glucoph*180 Ta*3 Sig: TAKE ONE TABLET BY MOUTH TWO TIMES A DAYAuthorizing Provider: ELIUD MORGAN AOrdering User: VERONICA GRIJALVA Electronically signed by Veronica Grijalva [facility], [facility] at 12/21/2024 8:35 AM EST documented in this encounter Plan of Treatment Upcoming Encounters Date Type Department Care Team (Late st Contact Info) Description 12/28/2024 10:40 AM EST Office Visit Family Practice [address] [place] [address] [address] [place] [address] Eliud Morgan, [address] [place] [address] 01/12/2025 9:20 AM EDT Office Visit Neurology [facility] [address] [place] [address] Katie Aranda MD [address] [place] [address] 09/27/2025 9:00 AM EST Home Visit Care at Home [address] [place], [place] [id number] Sandra Villarreal PA-C [address] [place] [address] Health Maintenance Due Date Last Done Comments COVID-19 Vaccine ( season) 2024 08/21/2023, 09/17/2022, 06/06/2022, Additional history exists Diabetic Eye Exam 11/11/2024 11/11/2023, , 10/21/2022, Additional history exists HbA1c 02/24/2025 08/26/2024, 03/2 11/2023, 09/22/2023, Additional history exists Albumin/Creatinine Ratio 08/26/2025 [...] this encounter Medical Devices Implanted Type Area Audio Visual Production Specialist Device Identifier Shelf Expiration Date Model / Serial / Lot Lens 24.5 Mx60e - [id number] - [id number] Implanted:Qty: 1 on 03/31/2019 by Pablo Diaz MD at OR [facility] Right: Eye [employer]USCH [employer] LOMB 09/01/2020 [id number]-15.5 / [id number] / [id number] Lens 24.5 Mx60e - [id number] - [id number] Implanted:Qty: 1 on 04/14/2019 by Pablo Diaz MD at OR [facility] Left: Eye BAUSCH & LOMB 06/01/2021 [id number]-52.5 / [id number] / [id number] Plate Lcp Metap 3.5mm 7h - [id number] Implanted:Qty: 1 on 08/08/2020 by Pineda Bob MD at OR [facility] Right: Lower Arm SYNTHES 223.407 / / Description:from set Screw Selftap 3.5x16 204.816 - [id number] Implanted:Qty: 4 on 08/08/2020 by Pineda Bob MD at OR [facility] Right: Lower Arm SYNTHES 204.816 / / [...] Power of Attor magali? No Care Teams Email Operations Manager Relationship Specialty Start Date End Date Eliud Morgan DO [address] [place] [address] PCP - General Internal Medicine 05/06/24 documented as of this encounter
--- OUTSIDE RECORDS SUMMARY | 2025-01-22 03:55 | External Medical Summary | Summary of Care ---
Author Name Unknown Organization [facility] Address [address] [place] [address] Phone [phone] Care Team Providers Care Direct Sales Representative Name Role Phone Giacomo Morgan DO Primary Care Provider [phone] Reason for Visit * Reason Comments Return Neuro Encounter Details Date Type Department Care Team (Late st Contact Info) Description 01/12/2025 9:20 AM EDT Office Visit Neurology [facility] [address] [facility] [place] [address] Katie Aranda MD [address] [place] [address] Tremor* Allergies Active Allergy Reactions Criticality Noted Date Comments Lisinopril Cough 06/19/2020 documented as of this encounter (statuses as of 01/12/2025) Medications VITAMIN B-12 500 MCG PO TABS Take 1 Tablet by mouth in the morning. Active ASPIRIN 81 MG PO TABS Take 1 Tablet by mouth in the morning. Active Blood Glucose Monitoring Suppl (PCS EdventuresUCH ULTRA SYSTEM) w/Device KITIndications:DM type 2 nursing care encounter (HCC) Test once daily; dx E11.9 1 Kit 12/23/19 18 Active Vitamin D3 250 MCG (64051 UT) Oral Capsule Take 1,000 Units by mouth in the morning. Active ONETOUCH DELICA LANCETS 33G MISCIndications:Ty pe 2 diabetes mellitus with hemoglobin A1c goal of less than 8.0% ([facility]) Test once daily; dx E11.9 100 Each 11 08/18/20 Active Acetaminophen 325 MG Oral Tablet (TYLENOL) Take 3 Tabs by mouth every 6 hours. 30 Tab 08/09/20 Active Additional Information Patient taking differently: 650 mgOralDaily(AM), Reported on 12/28/2024 Apixaban 5 MG Oral Tablet (ELIQUIS) Take [...] (Myrbetriq) Take 1 Tablet by mouth. 08/12/20 Active Nystatin-Triamcino lone 771096-4.1 UNIT/GM-% External Cream (Mycolog) Apply topically to [...] hemoglobin A1c goal of less than 8.0% ([facility]) Take 1 Tablet by mouth in the morning. 100 Tablet 3 08/30/20 24 Active Carpal Tunnel Wrist Stabilizer Bl per va 09/15/20 24 Active Glucose Blood In Vitro StripIndications:D M type 2 nursing care encounter ([facility]) Test once daily 100 Strip [...] as of this encounter (statuses as of 01/12/2025) Active Problems Problem Noted Date Diagnosed Date [...] Diabetes Taxonomy. ICD-10 update of inactive term alf current use of anticoagulant therapy 0 11/10/2003 Overview (08/03/2017): ICD-10 update of inactive term documented as of this encounter (statuses as of 01/12/2025) Resolved Problems Problem Noted Date Diagnosed Date [...] as of this encounter (statuses as of 01/12/2025) Immunizations Name Administration Dates Next Due COVID-19 mRNA, LNP-s, No Pre serve, 2-Dose Series ([employer]) 09/19/2021,12/31/2020,12/08/2020 COVID-19, LNP-s, No Preserve , Harshal-sucrose, Ages 12+ ([employer]) 06/06/2022 COVID-19, MRNA-LNP, PF, 30 M CG/0.3 mL, 12 YRS AND ABOVE, IM (PFIZER-Comirnaty) 08/21/2023 Covid-19, Mrna, Lnp-s, Pf, B ivalent, 30 Mcg, IM, 12 yrs and above (Pfizer) 09/17/2022 H1N1 2009 Influenza, IM 11/15/2009 Pneumococcal Conjugate Vacc, 13 Valent (Prevnar) 03/14/2015 Pneumococcal Conjugate Vacci ne, 20-valent ([id number]) 12/28/2024 Pneumococcal Polysaccharide PPV23 (Pneumovax) 10/25/2007 RSV [...] Job 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.] documented in this encounter Progress Notes * Katie Aranda MD - 01/12/2025 9:34 AM EDT Progress Note [place] [address] NAME: Doron Perez Date of : 1940 Date of Visit: 01/12/25 Chief Complaint: Chief Complaint Patient presents with Return Neuro Subjective: f/u tremor Neuro ROS: neg for stroke sx HOME MEDICATIONS : Current Outpatient Medications Medication Sig Dispense Refill VITAMIN B-12 500 MCG PO TABS Take 1 Tablet by mouth in the morning. ASPIRIN 81 MG PO TABS Take 1 Tablet by mouth in the morning. Blood Glucose Monitoring Suppl (Dragon [employer]s ULTRA SYSTEM) w/Device KIT Test once daily; dx E11.9 1 Kit0 Vitamin D3 250 MCG (10789 UT) Oral Capsule Take 1,000 Units by mouth in the morning. ONETOUCH DELICA LANCETS 33G MISC Test once [...] (Myrbetriq) Take 1 Tablet by mouth. Nystatin-Triamcinolone 732145-2.1 UNIT/GM-% External Cream (Mycolog) Apply topically to affected area. traMADol HCl 50 MG Oral Tablet (Ultram) Take 1 Tablet by mouth every 6 hours as needed for Pain, Severe. 30 Tablet 0 Empagliflozin 25 MG Oral Tablet (Jardiance) Take 1 Tablet by mouth in the morning. 100 Tablet 3 Carpal Tunnel Wrist Stabilizer Bl per vt Glucose Blood In Vitro Strip Test once daily 100 Strip 3 metFORMIN HCl 1000 MG Oral Tablet (Glucophage) TAKE ONE TABLET BY MOUTH TWO TIMES A DAY 180 Tablet 3 tiZANidine HCl 4 MG Oral Tablet (Zanaflex) Take 1 Tablet by mouth every 8 hours as needed. No current facility-administered medications for this visit. Review of patient's allergies indicates: Allergen Reactions Lisinopril Cough PHYSICAL EXAMINATION: Vital Signs: BP 136/80 | Pulse 83 | Temp 35.7 C (96.3 F) (Tympanic) | Resp 16 | Wt 80.7 kg (177 lb 14.4 oz) | SpO2 94% | BMI 31.76 kg/m | BSA 1.89 m EXAM: Constitutional: appearance normally developed, well nourished. Head and Face: normocephalic and atraumatic Cardiovascular: heart sounds 4/6 shankar. Rhythm is sinus NEUROLOGIC EXAM Higher integrative is obviously intact. Cranial Nerves: CN 2 - no visual defect on confrontation and pupils round, equal, reactive to light CN 3, 4, 6 - extra-ocular movements intact and no nystagmus CN 7 - no facial asymmetry CN 9, 10 - palate symmetric CN 12 - tongue midline Motor: Normal, without pronator drift Coordination: Normal finger to nose and rapid alternating movement of lower extremities Gait: turns 3-4 steps; no pulsion PD tremor rue IMPRESSION / PLAN: Parkinson's ds; stable; no meds; RTO 6 mo documented in this encounter Nursing Notes * Alice Magaña MED ASSIST - 01/12/2025 9:23 AM EDT Chief Complaint Patient presents with Return Neuro documented in this encounter Plan of Treatment Upcoming Encounters Date Type Department Care Team (Late st Contact Info) Description 04/27/2025 9:20 AM EDT Office Visit Family Practice [address] [place] [address] [address] [place] [address] Giacomo Morgan DO [address] [place] [address] 07/26/2025 10:40 AM EDT Office Visit Neurology [facility] [address] [facility] [place] [address] Katie Aranda MD [address] [facility] [address] 09/27/2025 9:00 AM EST Home Visit Care at Home [address] [place], [place] [address] Sandra Villarreal PA-C [address] [place] [address] Health Maintenance Due Date Last Done Comments COVID-19 Vaccine (7 - 2024-25 season) 2024 08/21/2023, 09/17/2022, 06/06/2022, Additional history [...] this encounter Medical Devices Implanted Type Area Company Miner Blasting Device Identifier Shelf Expiration Date Model / Serial / Lot Lens 24.5 Mx60e - [id number] - [id number] Implanted:Qty: 1 on 03/31/2019 by Pablo Diaz MD at OR [facility] Right: Eye BAUSCH & LOMB 09/01/2020 [id number]-56.5 / [id number] / [id number] Lens 24.5 Mx60e - [id number] - [id number] Implanted:Qty: 1 on 04/14/2019 by Pablo Diaz MD at OR [facility] Left: Eye BAUSCH & LOMB 06/01/2021 [id number]-14.5 / [id number] / [id number] Plate Lcp Metap 3.5mm 7h - [id number] Implanted:Qty: 1 on 08/08/2020 by Pineda Bob MD at OR [facility] Right: Lower Arm SYNTHES 223.407 / / Description:from set Screw Selftap 3.5x16 204.816 - [id number] Implanted:Qty: 4 on 08/08/2020 by Pineda Bob MD at OR [facility] Right: Lower Arm SYNTHES 204.816 / / Description:from set documented as of this encounter Visit Diagnoses Diagnosis Tremor- Primary Abnormal involuntary movements documented in this encounter Advance Directives * [...] 2:06 PM 12/16/2012 2:18 PM This order reflects the patients wishes and were consensually agreed upon. Question Answer Comments Discussion of Advance Directives occurred with: Not Discussed Does the patient have a Living Will? No Does the patient have Health Care Power of Attor magali? No Care Teams Direct Sales Representative Relationship Specialty Start Date End Date Giacomo Morgan DO [address] [place] [address] PCP - General Internal Medicine 05/06/24 documented as of this encounter"
--- OUTSIDE RECORDS SUMMARY | 2025-01-22 03:55 | External Medical Summary | Summary of Care ---
Author Name Unknown Organization [facility] Address [address] [place] [address] Phone [phone] Care Team Providers Care Development Professional Name Role Phone Giacomo Morgan DO Primary Care Provider [phone] Reason for Referral * Evaluate & Treat - Unlimited Visits (Within 10 days (routine)) - Pending Review Specialty Diagnoses / Procedures Referred By Contderian t Referred To Contact Pharmacist / Pharmacy Diagnoses Type 2 diabetes mellitus with hemoglobin A1c goal of less than 8.0% ([facility]) Giacomo Morgan DO [address] [place] [address] Phone: tel: fax: Referral ID Status Reason Start Date Expiration Date Visits Requested Visits Authorized [id number] Pending Review Specialty Services Required 12/29/2024 06/27/2025 99 99 Question Answer Referral Priority Within 10 days (routine) Where should this [facility] be scheduled? [facility] Referring Provider Role: Primary Care Reason for Referral: DM Target A1c: < 8 Comments Pharmacist Medication Therapy Management: Minimum frequency patient should be seen in person for medication management: as appropriate per clinical condition and patient status By my signature, I understand that my patient Doron Perez will have his medication therapy managed by the [facility] ([facility]) per established policies, procedures, and protocols. I also certify that this referral may serve as an initiation of service for the management of drug therapy in the above noted patient. [facility] providers will be responsible for scheduling patient visits, obtaining appropriate laboratory studies, and adjusting medication management therapy per patient's need, in addition to those roles spelled out in the clinic policy, procedures, and drug management protocols. I understand that the service provided by the [facility] is voluntary and have informed patient that they can refuse the service at their discretion. I am aware that the [facility] Clinic will provide me with a copy of the patient encounter via my [employer] InBasket. I authorize the [facility] to carry out these activities on my behalf. I consider this program to be a necessary part of the patient's medical care. Pretty Treviño LPN Reason for Visit * Reason Onset Date Comments Test Results 12/29/202412/29 Encounter Details Date Type Department Care Team (Late st Contact Info) Description 12/29/2024 [facility]phone [facility] [address] [place] [phone] Giacomo Morgan DO [address] [place] [address] Test Results (12/29) Allergies Active Allergy Reactions Criticality Noted Date Comments Lisinopril Cough 06/19/2020 documented as of this encounter (statuses as of 12/31/2024) Medications VITAMIN B-12 500 MCG PO TABS Take 1 Tablet by mouth in the morning. Active ASPIRIN 81 MG PO TABS Take 1 Tablet by mouth in the morning. Active Blood Glucose Monitoring Suppl (ONETOShipping Easy ULTRA SYSTEM) w/Device KITIndications:DM type 2 nursing care encounter (HCC) Test once daily; dx E11.9 1 Kit 12/23/19 18 Active Vitamin D3 250 MCG (71699 UT) Oral Capsule Take 1,000 Units by mouth in the morning. Active ONETOUCH DELICA LANCETS 33G MISCIndications:Ty pe 2 diabetes mellitus with hemoglobin A1c goal of less than 8.0% (HCC) Test once daily; dx E11.9 100 Each [...] Active Atorvastatin Calcium 80 MG Oral Tablet (Lipitor)Vivianao ns:Dyslipidemia, goal LDL below 100 take one tablet by mouth daily 100 Tablet 3 4 4:11 PM EST 04/05/20 24 Active Metoprolol Succinate ER 25 MG Oral Tablet Extended Release 24 Hour (toPROL XL) TAKE ONE TABLET BY MOUTH EVERY DAY IN THE MORNING (REPLACES METOPROLOL TARTRATE) 100 Tablet 3 4 1:56 PM EST 04/10/20 24 025 Active Finasteride 5 MG Oral Tablet (Proscar)Vivianao ns:BPH with obstruction/lower urinary tract symptoms Take [...] Tablet by mouth. 08/12/20 Active Nystatin-Triamcino lone 988662-5.1 UNIT/GM-% External Cream (Mycolog) Apply topically to affected area. 08/12/20 Active traMADol HCl 50 MG Oral Tablet (Ultram)Indication s:Degeneration of intervertebral disc of lumbar region with discogenic back pain and lower extremity pain Take 1 Tablet by mouth every 6 hours as needed for Pain, Severe. 30 Tablet 08/26/20 24 Active Empagliflozin 25 MG Oral Tablet (Jardiance)Indicat ions:Type 2 diabetes mellitus with hemoglobin A1c goal of less than 8.0% ([facility]) Take 1 Tablet by mouth in the morning. 100 Tablet 3 08/30/20 24 Active Carpal Tunnel Wrist Stabilizer Bl per va 09/15/20 24 Active Glucose Blood In Vitro StripIndications:D M type 2 nursing care encounter ([facility]) Test once daily 100 Strip 3 [...] as of this encounter (statuses as of 12/31/2024) Active Problems Problem Noted Date Diagnosed Date [...] as of this encounter (statuses as of 12/31/2024) Resolved Problems Problem Noted Date Diagnosed Date [...] as of this encounter (statuses as of 12/31/2024) Immunizations Name Administration Dates Next Due COVID-19 mRNA, LNP-s, No Pre serve, 2-Dose Series (Catavolt) 09/19/2021,12/31/2020,12/08/2020 COVID-19, LNP-s, No Preserve , Harshal-sucrose, Ages 12+ (Pfizer) 06/06/2022 COVID-19, MRNA-LNP, PF, 30 M CG/0.3 mL, 12 YRS AND ABOVE, IM ([facility]) 08/21/2023 Covid-19, Mrna, Lnp-s, Pf, B ivalent, 30 Mcg, IM, 12 yrs and above (Pfizer) 09/17/2022 H1N1 2009 Influenza, IM 11/15/2009 Pneumococcal Conjugate Vacc, 13 Valent (Prevnar) 03/14/2015 Pneumococcal Conjugate Vacci ne, 20-valent ([id number]) 12/28/2024 Pneumococcal Polysaccharide PPV23 (Pneumovax) 10/25/2007 RSV [...] 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 * Telephone Encounter - Pretty Treviño LPN - 12/29/2024 12:39 PM EST Call placed to patient and relayed information from Dr. Morgan. Pt acknowledged understanding. MTM referral pended. desk representative - please reach out and check to see if he follows with [facility] for [facility] before scheduling. * Telephone Encounter - Pretty Treviño LPN - 12/29/2024 12:34 PM EST ----- Message from Giacomo Morgan DO sent at 12/29/2024 7:54 AM EST ----- Hgba1c has worsened. DM is poorly controlled Refer to MTM documented in this encounter Plan of Treatment Upcoming Encounters Date Type Department Care Team (Late st Contact Info) Description 01/12/2025 9:20 AM EDT Office Visit Neurology [facility] [address] [place] [address] Katie Aranda MD [address] [place] [address] 04/27/2025 9:20 AM EDT Office Visit Family Practice [address] [facility] [address] [place] [address] Giacomo Morgan DO [address] [place] [address] 09/27/2025 9:00 AM EST Home Visit Care at Home [address] [place] [address] Sandra Villarreal PA-C [address] [place] [address] Scheduled Referrals Name Type Priority Associated Diagnoses Orde r Schedule PHARMACIST MEDS THERAPY MGMT REFERRAL OP Referral Within 10 days (routine) Type 2 diabetes mellitus with hemoglobin A1c goal of less than 8.0% ([facility]) Ordered: 12/29/2024 Health Maintenance Due Date Last Done Comments [...] 10/02/2024 Diabetic Eye Exam 12/28/2025 12/28/2024, , 10/13/2023, Additional history exists DTap/Tdap Vaccines (3 - [...] this encounter Medical Devices Implanted Type Area Chlorination Operator Device Identifier Shelf Expiration Date Model / Serial / Lot Lens 24.5 Mx60e - [id number] - [id number] Implanted:Qty: 1 on 03/31/2019 by Pablo Diaz MD at OR [facility] Right: Eye [employer]CH [employer] LOMB 09/01/2020 [id number]-81.5 / [id number] / [id number] Lens 24.5 Mx60e - [id number] - [id number] Implanted:Qty: 1 on 04/14/2019 by Pablo Diaz MD at OR [facility] Left: Eye BAUSCH & LOMB 06/01/2021 [id number]-15.5 / [id number] / [id number] Plate Lcp Metap 3.5mm 7h - [id number] Implanted:Qty: 1 on 08/08/2020 by Pineda Bob MD at [place] [facility] Right: Lower Arm SYNTHES 223.407 / / Description:from set Screw Selftap 3.5x16 204.816 - [id number] Implanted:Qty: 4 on 08/08/2020 by Pineda Bob MD at [place] [facility] Right: Lower Arm SYNTHES 204.816 / / Description:from set documented as of this encounter Visit Diagnoses Diagnosis Type 2 diabetes mellitus with hemoglobin A1c goal of less than 8.0% (HCC)- Primary documented in this encounter Advance Directives * [...] Power of Attor magali? No Care Teams Development Professional Relationship Specialty Start Date End Date Giacomo Morgan DO [address] [place] [address] PCP - General Internal Medicine 05/06/24 documented as of this encounter
--- OUTSIDE RECORDS SUMMARY | 2025-01-22 03:55 | External Medical Summary | Summary of Care ---
Author Name Unknown Organization [facility] Address [address] [place] [address] Phone [phone] Care Team Providers Care Visual Communications Instructor Name Role Phone Giacomo Morgan DO Primary Care Provider [phone] Encounter Details Date Type Department Care Team (Late st Contact Info) Description 01/09/2025 Orders Only Family Practice [facility] [address] [place] [address] Giacomo Morgan DO [address] [place] [address] Allergies Active Allergy Reactions Criticality Noted Date Comments Lisinopril Cough 06/19/2020 documented as of this encounter (statuses as of 01/10/2025) Medications VITAMIN B-12 500 MCG PO TABS Take 1 Tablet by mouth in the morning. Active ASPIRIN 81 MG PO TABS Take 1 Tablet by mouth in the morning. Active Blood Glucose Monitoring Suppl (TaggableTOUCH ULTRA SYSTEM) w/Device KITIndications:DM type 2 nursing care encounter (HCC) Test once daily; dx E11.9 1 Kit 12/23/19 18 Active Vitamin D3 250 MCG (98577 UT) Oral Capsule Take 1,000 Units by mouth in the morning. Active ONETOUCH DELICA LANCETS 33G MISCIndications:Ty pe 2 diabetes mellitus with hemoglobin A1c goal of less than 8.0% ([facility]) Test once daily; dx E11.9 100 [...] by mouth. 08/12/20 24 Active Nystatin-Triamcino lone 038588-0.1 UNIT/GM-% External Cream (Mycolog) Apply topically to [...] goal of less than 8.0% ([facility]) Take 1 Tablet by mouth in the morning. 100 Tablet 3 08/30/20 24 Active Carpal Tunnel Wrist Stabilizer Bl per [place] 09/15/20 24 Active Glucose Blood In Vitro StripIndications:D M type 2 nursing care encounter ([facility]) Test once daily 100 Strip 3 [...] as of this encounter (statuses as of 01/10/2025) Active Problems Problem Noted Date Diagnosed Date [...] Diabetes Taxonomy. 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 0 11/10/2003 Overview (08/03/2017): ICD-10 update of inactive term documented as of this encounter (statuses as of 01/10/2025) Resolved Problems Problem Noted Date Diagnosed Date [...] as of this encounter (statuses as of 01/10/2025) Immunizations Name Administration Dates Next Due COVID-19 mRNA, LNP-s, No Pre serve, 2-Dose Series (Quri) 09/19/2021,12/31/2020,12/08/2020 COVID-19, LNP-s, No Preserve , Harshal-sucrose, Ages 12+ (Quri) 06/06/2022 COVID-19, MRNA-LNP, PF, 30 M CG/0.3 mL, 12 YRS AND ABOVE, IM (PFIZER-Comirnaty) 08/21/2023 Covid-19, Mrna, Lnp-s, Pf, B ivalent, 30 Mcg, IM, 12 yrs and above (Pfizer) 09/17/2022 H1N1 2009 Influenza, IM 11/15/2009 Pneumococcal Conjugate Vacc, 13 Valent (Prevnar) 03/14/2015 Pneumococcal Conjugate Vacci ne, 20-valent ([id number]) 12/28/2024 Pneumococcal Polysaccharide PPV23 (Pneumovax) 10/25/2007 RSV [...] 6:14 AM DOMENICAT Kelli Harrison RN * Are you blind or do you have serious difficulty seeing, even when wearing glasses? Answer Date of Assessment Author No 08/08/2020 6:14 AM Kelli iRco RN * Do you have serious difficulty walking or climbing stairs? (5 years old or older) Answer Date of Assessment Author No 08/08/2020 6:14 AM Kelli Rico RN * Do you have difficulty dressing or bathing? (5 years old or older) Answer Date of Assessment Author No 08/08/2020 6:14 AM DOMENICAT Kelli Harrison RN * Because of a [...] 01/12/2025 9:20 AM EDT Office Visit Neurology [facility] [place] [address] [facility] [place] [address] Katie Aranda MD [address] [facility] [place] [address] 04/27/2025 9:20 AM EDT Office Visit Family Practice [address] [place] [address] [facility] [place] [phone] Giacomo Morgan, [address] [place] [address] 09/27/2025 9:00 AM EST Home Visit Care at Home [address] [place] [address] Sandra Villarreal PA-C [address] [place] [address] Health Maintenance Due Date Last [...] 08/02/2022, Additional history exists B-12 Discontinued 09/19/2024, 12/2022, 04/19/2019, Additional history exists Pneumococcal Vaccine: [...] this encounter Medical Devices Implanted Type Area Library Page Device Identifier Shelf Expiration Date Model / Serial / Lot Lens 24.5 Mx60e - [id number] - [id number] Implanted:Qty: 1 on 03/31/2019 by Pablo Diaz MD at OR [facility] Right: Eye [employer]CH [employer] LOMB 09/01/2020 [id number]-99.5 / [id number] / [id number] Lens 24.5 Mx60e - [id number] - [id number] Implanted:Qty: 1 on 04/14/2019 by Pablo Diaz MD at OR [facility] Left: Eye BAUSCH & LOMB 06/01/2021 [id number]-87.5 / [id number] / [id number] Plate Lcp Metap 3.5mm 7h - [id number] Implanted:Qty: 1 on 08/08/2020 by Pineda Bob MD at [place] [facility] [place] Right: Lower Arm SYNTHES 223.407 / / Description:from set Screw Selftap 3.5x16 204.816 - [id number] Implanted:Qty: 4 on 08/08/2020 by Pineda Bob MD at [place] [facility] [place] Right: Lower Arm SYNTHES 204.816 / / Description:from set documented as of this encounter Procedures Procedure Name Priority Date/Time Associated Diagnosis Comments DIABETIC EYE EXAM Routine 10/04/2024 documented in this encounter Results * DIABETIC EYE EXAM (10/04/2024) 10/04/2024 us History Per Patient OTHER Final Result OUTSIDE LAB (SEE SCANNED REPORT) documented in this encounter Advance Directives * [...] Power of Attor magali? No Care Teams Visual Communications Instructor Relationship Specialty Start Date End Date Giacomo Morgan DO [address] [place] [address] PCP - General Internal Medicine 05/06/24 documented as of this encounter
--- OUTSIDE RECORDS SUMMARY | 2025-01-22 03:55 | External Medical Summary | Summary of Care ---
Author Name Unknown Organization [facility] Address [address] [place] [address] Phone [phone] Care Team Providers Care School Cleaner Name Role Phone Giacomo Morgan DO Primary Care Provider [phone] Reason for Referral * Evaluate & Treat - Unlimited Visits (Within 30 days (routine)) - Pending Review Specialty Diagnoses / Procedures Referred By Keely chaidez Referred To Contact Ophthalmology Diagnoses Type 2 diabetes mellitus with mild nonproliferative diabetic retinopathy without macular edema, left eye (HCC) Giacomo Morgan DO [address] [place] [address] Phone: tel: fax: Referral ID Status Reason Start Date Expiration Date Visits Requested Visits Authorized [id number] Pending Review Specialty Services Required 12/28/2024 1 1 Question Answer Referring for: Ophthalmology Conditions Ophthalmology Conditions Other Ophthalmology (comment) Referral Priority Within 30 days (routine) Where should this appointment be scheduled? External Comments Diabetic retinopathy [facility] Reason for Visit * Reason Comments Follow Up Encounter Details Date Type Department Care Team (Latest Contact Info) Description 12/28/2024 10:40 AM EST Office Visit Family Practice [facility] [address] [place] [address] Giacomo Morgan DO [address] [place] [address] 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, without long-term current use of insulin ([facility])*; Paroxysmal atrial fibrillation (HCC); Coronary artery disease involving [place] coronary artery of [place] heart without angina pectoris; HTN, goal below 140/90; Thyroid nodule; Dyslipidemia, goal LDL below 100; Type 2 diabetes mellitus with hemoglobin A1c goal of less than 8.0% ([facility]); DM peripheral angiopathy ([facility]); Essential tremor; History of lumbar spinal fusion; Gastroesophageal reflux disease without esophagitis; Moderate aortic valve stenosis; BPH with obstruction/lower urinary tract symptoms; Need for pneumococcal vaccination; Risk and functional assessment; DM type 2 nursing care encounter ([facility]) Allergies Active Allergy Reactions Criticality Noted Date Comments Lisinopril Cough 06/19/2020 documented as of this encounter (statuses as of 12/28/2024) Medications VITAMIN B-12 500 MCG PO TABS Take 1 Tablet by mouth in the morning. Active ASPIRIN 81 MG PO TABS Take 1 Tablet by mouth in the morning. Active Blood Glucose Monitoring Suppl ([employer] ULTRA SYSTEM) w/Device KITIndications:DM type 2 nursing care encounter ([facility]) Test once daily; dx E11.9 1 Kit 018 Active Vitamin D3 250 MCG (37294 UT) Oral Capsule Take 1,000 Units by mouth in the morning. Active ONETOUCH DELICA LANCETS 33G MISCIndications:T ype 2 diabetes mellitus with hemoglobin A1c goal of less than 8.0% ([facility]) Test once daily; dx E11.9 100 Each 11 019 Active Acetaminophen 325 MG Oral Tablet (TYLENOL) Take 3 Tabs by mouth every 6 hours. 30 Tab 020 Active Additional Information Patient taking differently: 650 mgOralDaily(AM), Reported on 12/28/2024 Apixaban 5 MG Oral Tablet (ELIQUIS) Take 1 Tablet by mouth in the morning and 1 Tablet before bedtime. 020 Active Vitamin C 1000 MG Oral Tablet Take 1 Tablet by mouth in the morning. 023 Active Garlic 1000 MG Oral Capsule Take 1 Capsule by mouth daily. Active Neuriva Oral Capsule Take 1 Capsule by mouth in the morning. Active Ondansetron HCl 4 MG Oral TabletIndications :Gastroenteritis Take 1 Tablet by mouth every 8 hours as needed for Nausea. 15 Tablet Active Fluticasone Propionate 50 MCG/ACT Nasal Suspension (Flonase) administer 1 spray intranasally twice a day for dryness 48 g 3 09/14/20 24 12:47 PM EST Active Glimepiride 1 MG Oral Tablet (Amaryl) Take 1 Tablet by mouth in the morning and 1 Tablet before bedtime. with the meals. 200 Tablet 3 11/14/19 5:47 PM EST Active Pantoprazole Sodium 40 MG Oral Tablet Delayed Release (Protonix) Take 1 Tablet by mouth 2 times a day. 180 Tablet 3 11/23/19 8:39 AM EST Active Magnesium Oxide -Mg Supplement 400 (240 Mg) MG Oral Tablet (Mag-Ox) Take 1 Tablet by mouth daily. 90 Tablet 3 024 Active Atorvastatin Calcium 80 MG Oral Tablet (Lipitor)Indicati ons:Dyslipidemia, goal LDL below 100 take one tablet by mouth daily 100 Tablet 3 10/18/20 24 4:11 PM EST Active Metoprolol Succinate ER 25 MG Oral Tablet Extended Release 24 Hour (toPROL XL) TAKE ONE TABLET BY MOUTH EVERY DAY IN THE MORNING (REPLACES METOPROLOL TARTRATE) 100 Tablet 3 10/25/20 24 1:56 PM EST 024 2024 Active Finasteride 5 MG Oral Tablet (Proscar)Indicati ons:BPH with obstruction/lower urinary tract symptoms Take 1 Tablet by mouth in the morning. 90 Tablet 2 Active Tamsulosin HCl 0.4 MG Oral Capsule (Flomax) Take 1 Capsule by mouth daily. 90 Capsule 2 024 Active Gabapentin 600 MG Oral Tablet (Neurontin) Take 1 Tablet by mouth in the morning and 1 Tablet at noon and 1 Tablet before bedtime. Active Mirabegron ER 50 MG Oral Tablet Extended Release 24 Hour (Myrbetriq) Take 1 Tablet by mouth. 10/11/2 024 Active Nystatin-Triamcin olone 880670-4.1 UNIT/GM-% External Cream (Mycolog) Apply topically to affected area. 024 Active traMADol HCl 50 MG Oral Tablet (Ultram)Indicatio ns:Degeneration of intervertebral disc of lumbar region with discogenic back pain and lower extremity pain Take 1 Tablet by mouth every 6 hours as needed for Pain, Severe. 30 Tablet 024 Active Empagliflozin 25 MG Oral Tablet (Jardiance)Indica tions:Type 2 diabetes mellitus with hemoglobin A1c goal of less than 8.0% ([facility]) Take 1 Tablet by mouth in the morning. 100 Tablet 3 024 Active Carpal Tunnel Wrist Stabilizer Bl per va 024 Active Glucose Blood In Vitro StripIndications: DM type 2 nursing care encounter ([facility]) Test once daily 100 Strip 3 024 Active metFORMIN HCl 1000 MG Oral Tablet (Glucophage) TAKE ONE TABLET BY MOUTH TWO TIMES A DAY 180 Tablet 3 12/23/19 25 4:37 PM EST 025 2025 Active tiZANidine HCl 4 MG Oral Tablet (Zanaflex) Take 1 Tablet by mouth every 8 hours as needed. 024 Active Oxybutynin Chloride ER 5 MG Oral Tablet Extended Release 24 Hour (Ditropan XL) Take 1 Tablet by mouth at bedtime. 022 2024 Discontinued documented as of this encounter (statuses as of 12/28/2024) Active Problems Problem Noted Date Diagnosed Date [...] Diabetes Taxonomy. ICD-10 update of inactive term [facility] current use of anticoagulant therapy 0 11/10/2003 Overview (08/03/2017): ICD-10 update of inactive term documented as of this encounter (statuses as of 12/28/2024) Resolved Problems Problem Noted Date Diagnosed Date Resolved Date Pulmonary nodules 10/02/2024 12/28/2024 Fall 08/09/2020 06/22/2023 Radius fracture 08/09/2020 06/22/2023 Osteoarthritis of left hip 07/19/2014 0 07/22/2019 SOB (shortness of breath) 01/18/2013 Pulmonary vein stenosis 01/18/2013 04/04/2014 Cough 01/11/2013 06/14/2014 ACEI/ARB contraindicated 01/11/2013 Overview [...] as of this encounter (statuses as of 12/28/2024) Immunizations Name Administration Dates Next Due COVID-19 mRNA, LNP-s, No Pre serve, 2-Dose Series ([employer]) 09/19/2021,12/31/2020,12/08/2020 COVID-19, LNP-s, No Preserve , Harshal-sucrose, Ages 12+ (Pfizer) 06/06/2022 COVID-19, MRNA-LNP, PF, 30 M CG/0.3 mL, 12 YRS AND ABOVE, IM ([facility] 08/21/2023 Covid-19, Mrna, Lnp-s, Pf, B ivalent, 30 Mcg, IM, 12 yrs and above ([employer]) 09/17/2022 H1N1 2009 Influenza, IM 11/15/2009 Pneumococcal Conjugate Vacc, 13 Valent (Prevnar) 03/14/2015 Pneumococcal Conjugate Vacci ne, 20-valent ([id number]) 12/28/2024 Pneumococcal Polysaccharide PPV23 (Pneumovax) 10/25/2007 RSV [...] 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 Not on file Not on file Not on file documented as of this encounter Last Filed Vital Signs Vital Sign Reading Time Taken Comments Blood Pressure 130/68 12/28/2024 10:37 AM EST Pulse 70 12/28/2024 10:37 AM EST Temperature 36.4 C (97.6 F) 12/28/2024 1 0:37 AM EST Respiratory Rate 14 12/28/2024 10:3 7 AM EST Oxygen Saturation 95% 12/28/2024 10: 37 AM EST Inhaled Oxygen Concentration - - Weight 83.3 kg (183 lb 11.2 oz) 025 10:37 AM EST Height 159.4 cm (5' 2.76") 12/28/2024 1 0:37 AM EST Body Mass Index 32.79 12/28/2024 10:37 AM EST documented in this [...] Kelli Rico RN documented in this encounter Patient Instructions * Patient Instructions* ChapaKelli murillo, AUTOMATION CLERK - 12/28/2024 10:29 AM EST Images from the original note were not included. Treating Urinary Incontinence in Men (This education [...] prostate surgery can result in permanent incontinence. Diabetic Retinopathy: Evaluating Your Eyes Diabetic retinopathy is a condition that happens when diabetes damages blood vessels in the rear ofthe eye. It can lead to vision loss. To help catch it early, have a complete dilated eye exam at least once a year. During the exam, the eye healthcare provider will review your medical history, examine your eyes, and check your vision. Women who are and have pre-existing type 1 or type 2 diabetes have an increased risk of retinopathy. Women with diabetes should have an eye exam before or in the first trimester. They should continue to be monitored every trimester and for 1 year after delivery, depending on the severity of the retinopathy. The retina is the light-sensitive part of the eye that allows you to see. High blood sugar can damage blood vessels of the retina and cause them to leak or bleed. This damage can lead to abnormal blood vessel growth. This condition is called diabetic retinopathy. You may not have symptoms early in the disease. Later, there may be floaters, blurred vision, or poor night vision. There may also be partial or complete vision loss. Early cases of diabetic retinopathy can be treated by carefully controlling blood sugar, blood pressure, and cholesterol. Surgery or laser treatments may help restore lost vision. Laser surgery can shrink abnormal blood vessels or close ones that are leaking. Medicines injected in the eye can help decrease swelling of the retina. Home care Take all medicines, including insulin or oral diabetic medicine, exactly as prescribed. Follow the diet advised by your healthcare provider. If you have high cholesterol, follow a low-fat, low-cholesterol diet. Monitor blood sugars as advised. Try to achieve your ideal weight. If you smoke, quit smoking. Tobacco use worsens the effect of diabetes on your blood vessels. If you have high blood pressure, consider buying an automatic blood pressure machine. These are available at most pharmacies. Use this to monitor your blood pressure. Report your blood pressure readings to your healthcare provider. Exercise regularly. Follow-up care Follow up with your healthcare provider, or as advised. You must have a complete eye exam at least once a year, more often if needed. Untreated diabetic retinopathy can lead to complete loss of vision. Occupational therapists can help you adapt to any vision loss you have, including learning techniques to safely administer insulin. When to seek medical advice Call your healthcare provider right away if any of these occur. Increasing blurriness or any sudden changes in your vision Sudden flashes of light inside your eye New floaters (small dots or strings that seem to be moving across your field of vision) Eye pain, redness, or discharge from your eyelid New dark spots appearing in your field of vision Halos around lights Dimness of vision Partial or complete loss of vision Women with diabetes should have a complete eye exam before becoming , or as soon as possible when they find out they are . Retinopathy sometimes worsens during . Your eye exam Your eye healthcare provider uses an eye chart and other tools to check your vision. Then he or sheexamines your eyes for signs of disease. You are given eye drops to widen (dilate) your pupils. Youmay have one or more of the following tests: Tonometry to measure fluid pressure inside the eye. Slit lamp exam to allow the healthcare provider to view the structures of your eye. Ultrasound to create an image of the eye using sound waves. Ultrasound may be used if blood is found in the clear gel that fills the eye (vitreous). Ocular coherence tomography (OCT) to create an image of the retina using light waves. This shows ifthere is fluid leaking into certain parts of the eye. It can also measure the thickness of the retina. Fluorescein angiography This test may be done to check the health of the inside lining of the eye (retina). It also checks the tiny blood vessels (capillaries) that carry blood to the retina. During the test: Photographs are taken of the retina. A dye is then injected into the bloodstream through the arm or hand. The dye travels to the capillaries in the eye. More photographs are taken of the retina. The dye causes the capillaries to stand out on the photographs. You may feel brief nausea during the procedure. For a few hours after the test, your skin, eyes, and urine may appear yellow. Talk with your healthcare provider for more information about this test. Date Last Reviewed: 04/02/201619992262-6445 [employer]. [address] [place] [address], [place] [address]. All rights reserved. This information is not intended as a substitute for professional medical care. Always follow your healthcare professional's instructions. documented in this encounter Progress Notes * Kelli Chapa LPN - 12/28/2024 11:53 AM EST Images from the original note were not included. The importance of having a yearly diabetic eye exam has been discussed with patient. Order and/or Referral placed along with patient instructions. Provider made aware. Kelli Chapa LPN The importance of having a yearly diabetic eye exam has been discussed with patient. Order and/or Referral placed along with patient instructions. Provider made aware. Kelli Chapa LPN Diabetic Retinopathy: Evaluating Your Eyes Diabetic retinopathy is a condition that happens when diabetes damages blood vessels in the rear ofthe eye. It can lead to vision loss. To help catch it early, have a complete dilated eye exam at least once a year. During the exam, the eye healthcare provider will review your medical history, examine your eyes, and check your vision. Women who are and have pre-existing type 1 or type 2 diabetes have an increased risk of retinopathy. Women with diabetes should have an eye exam before or in the first trimester. They should continue to be monitored every trimester and for 1 year after delivery, depending on the severity of the retinopathy. The retina is the light-sensitive part of the eye that allows you to see. High blood sugar can damage blood vessels of the retina and cause them to leak or bleed. This damage can lead to abnormal blood vessel growth. This condition is called diabetic retinopathy. You may not have symptoms early in the disease. Later, there may be floaters, blurred vision, or poor night vision. There may also be partial or complete vision loss. Early cases of diabetic retinopathy can be treated by carefully controlling blood sugar, blood pressure, and cholesterol. Surgery or laser treatments may help restore lost vision. Laser surgery can shrink abnormal blood vessels or close ones that are leaking. Medicines injected in the eye can help decrease swelling of the retina. Home care Take all medicines, including insulin or oral diabetic medicine, exactly as prescribed. Follow the diet advised by your healthcare provider. If you have high cholesterol, follow a low-fat, low-cholesterol diet. Monitor blood sugars as advised. Try to achieve your ideal weight. If you smoke, quit smoking. Tobacco use worsens the effect of diabetes on your blood vessels. If you have high blood pressure, consider buying an automatic blood pressure machine. These are available at most pharmacies. Use this to monitor your blood pressure. Report your blood pressure readings to your healthcare provider. Exercise regularly. Follow-up care Follow up with your healthcare provider, or as advised. You must have a complete eye exam at least once a year, more often if needed. Untreated diabetic retinopathy can lead to complete loss of vision. Occupational therapists can help you adapt to any vision loss you have, including learning techniques to safely administer insulin. When to seek medical advice Call your healthcare provider right away if any of these occur. Increasing blurriness or any sudden changes in your vision Sudden flashes of light inside your eye New floaters (small dots or strings that seem to be moving across your field of vision) Eye pain, redness, or discharge from your eyelid New dark spots appearing in your field of vision Halos around lights Dimness of vision Partial or complete loss of vision Women with diabetes should have a complete eye exam before becoming , or as soon as possible when they find out they are . Retinopathy sometimes worsens during . Your eye exam Your eye healthcare provider uses an eye chart and other tools to check your vision. Then he or sheexamines your eyes for signs of disease. You are given eye drops to widen (dilate) your pupils. Youmay have one or more of the following tests: Tonometry to measure fluid pressure inside the eye. Slit lamp exam to allow the healthcare provider to view the structures of your eye. Ultrasound to create an image of the eye using sound waves. Ultrasound may be used if blood is found in the clear gel that fills the eye (vitreous). Ocular coherence tomography (OCT) to create an image of the retina using light waves. This shows ifthere is fluid leaking into certain parts of the eye. It can also measure the thickness of the retina. Fluorescein angiography This test may be done to check the health of the inside lining of the eye (retina). It also checks the tiny blood vessels (capillaries) that carry blood to the retina. During the test: Photographs are taken of the retina. A dye is then injected into the bloodstream through the arm or hand. The dye travels to the capillaries in the eye. More photographs are taken of the retina. The dye causes the capillaries to stand out on the photographs. You may feel brief nausea during the procedure. For a few hours after the test, your skin, eyes, and urine may appear yellow. Talk with your healthcare provider for more information about this test. Date Last Reviewed: 04/02/201619998255-5302 [employer]. [address] [place] [address], [place] [address]. All rights reserved. This information is not intended as a substitute for professional medical care. Always follow your healthcare professional's instructions. * Giacomo Morgan DO - 12/28/2024 10:56 AM EST SUBJECTIVE: Doron Perez is a 84 year old male. Chief Complaint Patient presents with Follow Up HPI: Patient is an 84 year old male with a history of Atrial Fibrillation, PVI in 12/2022, CAD, GERD, DM type II, PVD, HTN, Hyperlipidemia, BPH, Moderate Aortic Valve Stenosis, Tremor and Lumbar Disc Disease that is seen for follow up. No chest pain or shortness of breath are present. Weight is stable and appetite is good. Chronic back pain is unchanged. He ambulates with a cane. right hand tremor is unchanged. He has nasal drainage and cough for 1 month that is improving. He is taking OTC Coricidin for cough. 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 Vitamin D3 250 MCG (69707 UT) Oral Capsule Take 1,000 Units by [...] by mouth every 8 hours as needed. Blood Glucose Monitoring Suppl ([employer] ULTRA SYSTEM) w/Device KIT Test once daily; dx E11.9 1 Kit0 CazoodleTOUCH DELICA LANCETS 33G MISC Test once daily; dx E11.9 100 Each 11 Nystatin-Triamcinolone 251772-3.1 UNIT/GM-% External Cream (Mycolog) Apply topically to affected area. Carpal Tunnel Wrist Stabilizer Bl per dc Glucose Blood In Vitro Strip Test once [...] UPPER GI) performed by CODY TORRES at [facility] CARPAL TUNNEL SURGERY Right 01/29/2022 NEUROPLASTY MEDIAN NERVE AT CARPAL TUNNEL performed by Jean Maldonado MD at [facility] COLONOSCOPY 03/18/2002 hemorrhoids/kiya COLONOSCOPY W/ BIOPSY (RECTUM) 11/25/07 1-2mm polyps--adenomatous polyps and rectal polyp showed carcinoid lesion (EUS recommended) COLONOSCOPY, DIAGNOSTIC (RECTUM) 01/09/2014 COLONOSCOPY FLEXIBLE PROXIMAL DIAGNOSTIC performed by Den Espinoza MD at ENDOSCOPY [facility] COLONOSCOPY, DIAGNOSTIC (RECTUM) 03/23/2019 diverticulosis/COLONOSCOPY FLEXIBLE PROXIMAL DIAGNOSTIC performed by Den Espinoza MD at ENDOSCOPY [facility] EGD, FLEXIBLE, DIAGNOSTIC 12/06/2013 ESOPHAGOGASTRODUODENOSCOPY (EGD), FLEXIBLE, TRANSORAL, DIAGNOSTIC performed by Gregorio Saleh MD at ENDOSCOPY [facility] EGD, FLEXIBLE, DIAGNOSTIC 05/19/2019 normal bx / ESOPHAGOGASTRODUODENOSCOPY (EGD), FLEXIBLE, TRANSORAL, DIAGNOSTIC performed by Den Lara MD at ENDOSCOPY [facility] ELECTROPHYSIOLOGY EVAL, ATRIAL FIB, PULMONARY VEIN ISOL 12/15/2012 ELECTROPHYSIOLOGY EVAL, ATRIAL FIB, PULMONARY VEIN ISOL performed by Shelia Vigil IV, MD at [facility]ARDIAC [facility] MISCELLANEOUS ORDER ([facility] ONLY) Knee replacement RADIUS OR ULNA FX W/FIXATION Right 08/08/2020 OPEN TREATMENT OF RADIUS performed by Pineda Bob MD at OR [facility] REMOVE CATARACT, INSERT LENS PROSTH Right 03/31/2019 right EXTRACAPSULAR CATARACT REMOVAL WITH INTRAOCULAR LENS performed by Pablo Diaz MD at [facility] REMOVE CATARACT, INSERT LENS PROSTH Left 04/14/2019 left EXTRACAPSULAR CATARACT REMOVAL WITH INTRAOCULAR LENS performed by Pablo Diaz MD at [facility] SPINAL FUSION, LUMBAR, COMBINED 12/12/2013 Dr. Horton TOTAL HIP REPLACEMENT & PROSTHESIS 08/11/2014 Left hip - Dr. Chawla Review of patient's allergies indicates: Allergen Reactions Lisinopril Cough Review of Systems Constitutional: Negative for appetite change, fatigue and unexpected weight change. HENT: Positive for hearing loss and rhinorrhea. Negative for sinus pressure, sore throat and trouble swallowing. Respiratory: Positive for cough. Negative for shortness of breath and wheezing. Cardiovascular: Negative for chest pain, palpitations and leg swelling. Gastrointestinal: Negative for abdominal pain, blood in stool, constipation, diarrhea, nausea and vomiting. Genitourinary: Negative for dysuria, frequency and hematuria. Musculoskeletal: Positive for back pain and gait problem (ambulates with a cane). Neurological: Positive for tremors. Negative for dizziness, syncope and headaches. Psychiatric/Behavioral: Negative for confusion, decreased concentration and sleep disturbance. OBJECTIVE: BP 130/68 | Pulse 70 | Temp 97.6 F (36.4 C) | Resp 14 | Ht 5' 2.76" (1.594 m) | Wt 183 lb 11.2 oz (83.3 kg) | SpO2 95% | BMI 32.79 kg/m | BSA 1.92 m Physical Exam [...] and time. Mental status is at baseline. Gait: Gait abnormal. Psychiatric: Mood and Affect: Mood normal. Behavior: Behavior normal. Thought Content: Thought content normal. Component Latest Ref [facility] 09/19/2024 BUN 6 - 20 mg/dL 27 (H) CREATININE 0.6 - 1.2 mg/dL 0.9 EGFR >=60 mL/min 81 SODIUM 135 - 146 mmol/L 141 POTASSIUM 3.5 - 5.1 mmol/L 4.1 CHLORIDE 98 - 107 mmol/L 103 CO2 22 - 32 mmol/L 27 ANION GAP 7 - 15 mmol/L 11 GLUCOSE 70 - 120 mg/dL 83 Albumin 3.8 - 5.0 g/dL 4.2 AST 10 - 50 U/L 19 Alkaline Phosphatase 35 - 130 U/L 57 Bilirubin, Total <=1.2 mg/dL 0.5 CALCIUM 8.4 - 10.2 mg/dL 9.8 Protein 6.0 - 8.3 g/dL 6.3 ALT 10 - 50 U/L 24 LDL Cholesterol (Direct Measure) <=129 mg/dL T4, Free 0.9 - 1.7 ng/dL 1.3 TSH 0.27 - 4.20 uIU/mL 1.54 Vitamin B12 232 - 1,245 pg/mL 425 Legend: (H) High PLAN AND ASSESSMENT: 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, without long-term current use of insulin (HCC) (Primary) - ADULT/PEDS OPHTHALMOLOGY/OPTOMETRY REFERRAL OP - HEMOGLOBIN A1C; Future; Expected date: 12/28/2024 Continue Metformin, Empagliflozin, and Glimepiride Paroxysmal atrial fibrillation (HCC) Continue Metoprolol and Apixaban Continue to follow with Cardiology at [facility] Coronary artery disease involving [place] coronary artery of [place] heart without angina pectoris Continue ASA, and Metoprolol HTN, goal below 140/90 Continue Metoprolol Thyroid nodule Dyslipidemia, goal LDL below 100 Continue Atorvastatin Type 2 diabetes mellitus with hemoglobin A1c goal of less than 8.0% (HCC) DM peripheral angiopathy (HCC) Continue ASA Essential tremor Continue to follow with Neurology History of lumbar spinal fusion Continue Tramadol Gastroesophageal reflux disease without esophagitis Moderate aortic valve stenosis Echo per Cardiology BPH with obstruction/lower urinary tract symptoms Continue Tamsulosin, and Finasteride Need for pneumococcal vaccination - PNEUMOCOCCAL VACC, PCV20, IM ([id number]) Risk and functional assessment Follow Up: Return in about 4 months (around 04/27/2025), or if symptoms worsen or fail to improve. Giacomo Morgan DO 11:14 AM 12/28/2024 documented in this encounter Nursing Notes * Kelli Chapa LPN - 12/28/2024 10:35 AM EST Here for follow up, does have ongoing uri documented in this encounter Plan of Treatment Upcoming Encounters Date Type Department Care Team (Late st Contact Info) Description 01/12/2025 9:20 AM EDT Office Visit Neurology [facility] [address] [facility] [place] [address] Katie Aranda MD [address] [facility] [place] [address] 04/27/2025 9:20 AM EDT Office Visit Family Practice [address] [place] [address] [address] [place] [address] Giacomo Morgan DO [address] [place] [address] 09/27/2025 9:00 AM EST Home Visit Care at Home [address] [place] [address] Sandra Villarreal PA-C [address] [place] [address] Pending Results Name Type Priority Associated Diagnoses Date /Time HEMOGLOBIN A1C Lab Routine 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, without long-term current use of insulin (HCC) 12/28/2024 11:25 AM EST Scheduled Orders Name Type Priority Associated Diagnoses Orde r Schedule HEMOGLOBIN A1C Lab Routine 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, without long-term current use of insulin (HCC) Expected: 12/28/2024 (Approximate), Expires: 12/28/2025 Scheduled Referrals Name Type Priority Associated Diagnoses Orde r Schedule ADULT/PEDS OPHTHALMOLOGY/OPT OMETRY REFERRAL OP Referral Within 30 days (routine) 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, without long-term current use of insulin (HCC) Ordered: 12/28/2024 Health Maintenance Due Date Last Done Comments COVID-19 Vaccine ( season) 2024 08/21/2023, 09/17/2022, 06/06/2022, Additional history exists HbA1c 02/24/2025 08/26/2024, 01/01, 09/22/2023, Additional history exists Albumin/Creatinine Ratio 08/26/2025 [...] this encounter Medical Devices Implanted Type Area Rigging Slinger Device Identifier Shelf Expiration Date Model / Serial / Lot Lens 24.5 Mx60e - [id number] - [id number] Implanted:Qty: 1 on 03/31/2019 by Pablo Diaz MD at OR [facility] Right: Eye BAUSCH & LOMB 09/01/2020 [id number]-87.5 / [id number] / [id number] Lens 24.5 Mx60e - [id number] - [id number] Implanted:Qty: 1 on 04/14/2019 by Pablo Diaz MD at OR [facility] Left: Eye BAUSCH & LOMB 06/01/2021 [id number]-40.5 / [id number] / [id number] Plate Lcp Metap 3.5mm 7h - [id number] Implanted:Qty: 1 on 08/08/2020 by Pineda oBb MD at OR [facility] Right: Lower Arm SYNTHES 223.407 / / Description:from set Screw Selftap 3.5x16 204.816 - [id number] Implanted:Qty: 4 on 08/08/2020 by Pineda Bob MD at OR 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, without long-term current use of insulin (HCC)- Primary Paroxysmal atrial fibrillation (HCC) Atrial fibrillation Coronary artery disease involving [place] coronary artery of [place] heart without angina pectoris HTN, goal below 140/90 Unspecified essential hypertension Thyroid nodule Nontoxic uninodular goiter Dyslipidemia, goal LDL below 100 Other and unspecified hyperlipidemia Type 2 diabetes mellitus with hemoglobin A1c goal of less than 8.0% ([facility]) DM peripheral angiopathy (HCC) Type II or unspecified type diabetes mellitus with peripheral circulatory disorders, not stated as uncontrolled Essential tremor Essential and other specified forms of tremor History of lumbar spinal fusion Gastroesophageal reflux disease without esophagitis Esophageal reflux Moderate aortic valve stenosis Aortic valve disorders BPH with obstruction/lower urinary tract symptoms Hypertrophy of prostate with urinary obstruction and other lower urinary tract symptoms (LUTS) Need for pneumococcal vaccination Need for prophylactic vaccination against streptococcus pneumoniae (pneumococcus) Risk and functional assessment Screening for unspecified condition DM type 2 nursing care encounter (HCC) Type II or unspecified type diabetes mellitus without mention of complication, not stated as uncontrolled documented in this encounter Advance Directives * [...] Power of Attor magali? No Care Teams School Cleaner Relationship Specialty Start Date End Date Giacomo Morgan DO [address] [place] [address] PCP - General Internal Medicine 05/06/24 documented as of this encounter
--- OUTSIDE RECORDS SUMMARY | 2025-01-22 03:55 | External Medical Summary | Summary of Care ---
Author Name Unknown Organization [facility] Address [address] [place] [address] Phone [phone] Care Team Providers Care Regional Maintenance Manager Name Role Phone Giacomo Morgan DO Primary Care Provider [phone] Encounter Details Date Type Department Care Team (Late st Contact Info) Description 12/29/2024 Orders Only Family Practice [address] [facility] [address] [place] [phone] Giacomo Morgan DO [address] [place] [address] Allergies Active Allergy Reactions Criticality Noted Date Comments Lisinopril Cough 06/19/2020 documented as of this encounter (statuses as of 12/29/2024) Medications VITAMIN B-12 500 MCG PO TABS Take 1 Tablet by mouth in the morning. Active ASPIRIN 81 MG PO TABS Take 1 Tablet by mouth in the morning. Active Blood Glucose Monitoring Suppl (SmartDocs ([employer]ek[employer])TOUCH ULTRA SYSTEM) w/Device KITIndications:DM type 2 nursing care encounter (HCC) Test once daily; dx E11.9 1 Kit 12/23/19 18 Active Vitamin D3 250 MCG (91839 UT) Oral Capsule Take 1,000 Units by mouth in the morning. Active ONETOUCH DELICA LANCETS 33G MISCIndications:Ty pe 2 diabetes mellitus with hemoglobin A1c goal of less than 8.0% ([facility]) Test once daily; dx E11.9 100 [...] by mouth. 08/12/20 24 Active Nystatin-Triamcino lone 749854-4.1 UNIT/GM-% External Cream (Mycolog) Apply topically to [...] hemoglobin A1c goal of less than 8.0% ([facility]) Take 1 Tablet by mouth in the morning. 100 Tablet 3 08/30/20 24 Active Carpal Tunnel Wrist Stabilizer Bl per va 09/15/20 24 Active Glucose Blood In Vitro StripIndications:D M type 2 nursing care encounter ([facility]) Test once daily 100 Strip 3 [...] as of this encounter (statuses as of 12/29/2024) Active Problems Problem Noted Date Diagnosed Date [...] as of this encounter (statuses as of 12/29/2024) Resolved Problems Problem Noted Date Diagnosed Date [...] as of this encounter (statuses as of 12/29/2024) Immunizations Name Administration Dates Next Due COVID-19 mRNA, LNP-s, No Pre serve, 2-Dose Series ([employer]) 09/19/2021,12/31/2020,12/08/2020 COVID-19, LNP-s, No Preserve , Harshal-sucrose, Ages 12+ ([employer]) 06/06/2022 COVID-19, MRNA-LNP, PF, 30 M CG/0.3 mL, 12 YRS AND ABOVE, IM (PFIZER-Comirnaty) 08/21/2023 Covid-19, Mrna, Lnp-s, Pf, B ivalent, 30 Mcg, IM, 12 yrs and above (Pfizer) 09/17/2022 H1N1 2009 Influenza, IM 11/15/2009 Pneumococcal Conjugate Vacc, 13 Valent (Prevnar) 03/14/2015 Pneumococcal Conjugate Vacci ne, 20-valent ([id number]) 12/28/2024 Pneumococcal Polysaccharide PPV23 (Pneumovax) 10/25/2007 RSV [...] 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 Not on file [...] AM EDT Office Visit Neurology [facility] [place] [address] [facility] [place] [address] Katie Aranda MD [address] [facility] [place] [address] 04/27/2025 9:20 AM EDT Office Visit Family Practice [address] [place] [address] [facility] [place] [phone] Giacomo Morgan, 293 [facility] [place] [address] 09/27/2025 9:00 AM EST Home Visit Care at Home [address] [place] [address] Sandra Villarreal PA-C [address] [place] [address] Health Maintenance Due Date Last [...] this encounter Medical Devices Implanted Type Area Wood Milling Machine Tender Device Identifier Shelf Expiration Date Model / Serial / Lot Lens 24.5 Mx60e - [id number] - [id number] Implanted:Qty: 1 on 03/31/2019 by Pablo Diaz MD at OR [facility] [address] Right: Eye BAUSCH & LOMB 09/01/2020 [id number]-66.5 / [id number] / [id number] Lens 24.5 Mx60e - [id number] - [id number] Implanted:Qty: 1 on 04/14/2019 by Pablo Diaz MD at OR [facility] [address] Left: Eye BAUSCH & LOMB 06/01/2021 [id number]-08.5 / [id number] / [id number] Plate Lcp Metap 3.5mm 7h - [id number] Implanted:Qty: 1 on 08/08/2020 by Pineda Bob MD at [place] [facility] Right: Lower Arm SYNTHES 223.407 / / Description:from set Screw Selftap 3.5x16 204.816 - [id number] Implanted:Qty: 4 on 08/08/2020 by Pineda Bob MD at [place] [facility] Right: Lower Arm SYNTHES 204.816 / / Description:from set documented as of this encounter Procedures Procedure Name Priority Date/Time Associated Diagnosis Comments DIABETIC EYE EXAM Routine 10/13/2023 documented in this encounter Results * DIABETIC EYE EXAM (10/13/2023) 10/13/2023 us History Per Patient OTHER Final Result [...] Power of Attor magali? No Care Teams Regional Maintenance Manager Relationship Specialty Start Date End Date Giacomo Morgan DO [address] [facility] [place] [address] PCP - General Internal Medicine 05/06/24 documented as of this encounter
--- OUTSIDE RECORDS SUMMARY | 2025-01-22 03:55 | External Medical Summary | Summary of Care ---
Author Name Unknown Organization [facility] Address [address] [place] [address] Phone [phone] Care Team Providers Care Cloth Finishing Range Operator Name Role Phone Giacomo Morgan DO Primary Care Provider [phone] Reason for Visit * Reason Onset Date Comments Advice 12/19/2024 Encounter Details Date Type Department Care Team (Late st Contact Info) Description 12/19/2024 Telephone Family Practice [address] [facility] [address] [place] [phone] Giacomo Morgan [address] [place], [place] [phone] Advice Allergies Active Allergy Reactions Criticality Noted Date Comments Lisinopril Cough 06/19/2020 documented as of this encounter (statuses as of 12/22/2024) Medications VITAMIN B-12 500 MCG PO TABS Take 1 Tablet by mouth in the morning. Active ASPIRIN 81 MG PO TABS Take 1 Tablet by mouth in the morning. Active Blood Glucose Monitoring Suppl (ONETOUCH ULTRA SYSTEM) w/Device KITIndications:DM type 2 nursing care encounter (HCC) Test once daily; dx E11.9 1 Kit 12/23/19 18 Active Vitamin D3 250 MCG (99613 UT) Oral Capsule Take 1,000 Units by mouth in the morning. Active ONETOUCH DELICA LANCETS 33G MISCIndications:Ty pe 2 diabetes mellitus with hemoglobin A1c goal of less than 8.0% ([facility]) Test once daily; dx E11.9 [...] by mouth. 08/12/20 24 Active Nystatin-Triamcino lone 808661-4.1 UNIT/GM-% External Cream (Mycolog) Apply topically to [...] goal of less than 8.0% ([facility]) Take 1 Tablet by mouth in the morning. 100 Tablet 3 08/30/20 24 Active Carpal Tunnel Wrist Stabilizer Bl per va 09/15/20 Active Glucose Blood In Vitro StripIndications:D M type 2 nursing care encounter ([facility]) Test once daily 100 Strip 3 10/04/20 24 Active documented as of this encounter (statuses as of 12/22/2024) Active Problems Problem Noted Date Diagnosed Date [...] Diabetes Taxonomy. ICD-10 update of inactive term snf current use of anticoagulant therapy 0 11/10/2003 Overview (08/03/2017): ICD-10 update of inactive term documented as of this encounter (statuses as of 12/22/2024) Resolved Problems Problem Noted Date Diagnosed Date [...] as of this encounter (statuses as of 12/22/2024) Immunizations Name Administration Dates Next Due COVID-19 mRNA, LNP-s, No Pre serve, 2-Dose Series ([employer]) 09/19/2021,12/31/2020,12/08/2020 COVID-19, LNP-s, No Preserve , Harshal-sucrose, Ages 12+ ([employer]) 06/06/2022 COVID-19, MRNA-LNP, PF, 30 M CG/0.3 mL, 12 YRS AND ABOVE, IM [facility] 08/21/2023 Covid-19, Mrna, Lnp-s, Pf, B ivalent, [...] the money to buy more. 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 No other details given. documented in this encounter Plan of Treatment Upcoming Encounters Date Type Department Care Team (Late st Contact Info) Description 12/28/2024 10:40 AM EST Office Visit Family Practice [address] [place] [address] Giacomo Morgan, DO [address] [place] [address] 01/12/2025 9:20 AM EDT Office Visit Neurology [facility] [place] [address] [place] [address] Katie Aranda MD [address] [place] [address] 09/27/2025 9:00 AM EST Home Visit Care at Home [address] [place] [address] Sandra Villarreal PA-C [address] [place] [address] Health Maintenance Due Date Last Done Comments COVID-19 Vaccine ( season) 2024 08/21/2023, 09/17/2022, 06/06/2022, Additional history exists Diabetic Eye Exam 11/11/2024 11/11/2023, , 10/21/2022, Additional history exists HbA1c 02/24/2025 08/26/2024, 01/01, [...] Discontinued 09/19/2024, 12/2022, 04/19/2019, Additional history exists HPV (Gardasil) [...] this encounter Medical Devices Implanted Type Area Msw Device Identifier Shelf Expiration Date Model / Serial / Lot Lens 24.5 Mx60e - [id number] - [id number] Implanted:Qty: 1 on 03/31/2019 by Pablo Diaz MD at OR [facility] Right: Eye BAUSCH & LOMB 09/01/2020 [id number]-62.5 / [id number] / [id number] Lens 24.5 Mx60e - [id number] - [id number] Implanted:Qty: 1 on 04/14/2019 by Pablo Diaz MD at OR [facility] Left: Eye BAUSCH & LOMB 06/01/2021 [id number]-53.5 / [id number] / [id number] Plate Lcp Metap 3.5mm 7h - [id number] Implanted:Qty: 1 on 08/08/2020 by Pineda Bob MD at [place] [facility] Right: Lower Arm SYNTHES 223.407 / / Description:from set Screw Selftap 3.5x16 204.816 - [id number] Implanted:Qty: 4 on 08/08/2020 by Pineda Bob MD at [place] [facility] Right: Lower Arm SYNTHES 204.816 / / [...] Power of Attor magali? No Care Teams Cloth Finishing Range Operator Relationship Specialty Start Date End Date Giacomo Morgan DO [address] [place] [address] PCP - General Internal Medicine 05/06/24 documented as of this encounter
--- OUTSIDE RECORDS SUMMARY | 2025-01-22 03:55 | External Medical Summary ---
Author Name Unknown Address Unknown Organization K01:[facility] [place] [address] [facility] [address] Laboratory Report Ordering Provider Test Date Status LORA KLINE 12/28/2024 11:25:20 Final Observation Date Value Abnormality Reference (Units ) Status HbA1C 12/28/2024 11:25:20 9.0 Above high normal 4. 0-5.6 (%) Final The use of HbA1c to monitor glycemic status is based on normal hemoglobin and HbA composition. This test should not be used in patients with abnormal hemoglobin that affects the half life of the red blood cell or the in vivo glycation rates. Glucose, estimated average 12/28/2024 11:25:20 212 Above high normal <126 (mg/dL) Chepe moran Performing Location [facility] [place] [address] [facility] [address]
[2025-01-22] MEDS: ATROPINE SULFATE 0.1 MG/ML 10ML SYR IV STA (04:01)
[2025-01-22] MEDS: ATROPINE SO4 1 MG/ML 1ML VIAL ONE (04:08)
[2025-01-22 04:10] LABS: iSTAT Creatinine 0.7 mg/dl (0.6-1.3); iSTAT Hemoglobin 14.3 g/dl (14.0-18.0); iSTAT Ionized Calcium 1.17 mmol/l (1.12-1.32); iSTAT Potassium 3.8 mmol/L (3.3-5.0)
[2025-01-22 04:25] LABS: Basophils # (auto) 0.04 K/uL (0.00-0.20); Basophils % (auto) 0.3 %; Eosinophils # (auto) 0.18 K/uL (0.00-0.50); Eosinophils % (auto) 1.4 %; Hematocrit (blood only) 42.5 % (42.0-52.0); Hemoglobin 13.1 g/dl (14.0-18.0); Immature Granulocytes # (auto) 0.07 K/uL (0.01-0.20); Immature Granulocytes % (auto) 0.6 %; Lymphocytes # (auto) 2.33 K/uL (1.20-3.40); Lymphocytes % (auto) 18.5 %; Mean Corpuscular Hemoglobin 27.6 pg (25.0-34.0); Mean Corpuscular Hgb Conc 30.8 g/dL (32.0-36.0); Mean Corpuscular Volume 89.7 fL (80.0-100.0); Monocytes # (auto) 0.81 K/uL (0.11-0.59); Monocytes % (auto) 6.4 %; Neutrophils # (auto) 9.19 K/uL (1.40-6.50); Neutrophils % (auto) 72.8 %; Platelet Count 189 K/uL (130-400); RDW Coefficient of Variation 15.9 % (11.5-14.5); RDW Standard Deviation 51.9 fL (36.4-46.3); Red Blood Count 4.74 M/uL (4.70-6.10); White Blood Count 12.62 K/ul (4.8-10.8)
[2025-01-22 04:30] LABS: Albumin Globulin Ratio 1.5 (0.9-2); Albumin Level 4.4 gm/dl (3.4-5.0); BUN Creatinine Ratio 31.9 (10-20); Bilirubin,Total 0.7 mg/dl (0.2-1.0); Calcium 9.7 mg/dl (8.6-10.3); Creatinine Clr Calc Pharmacy 83.8 ml/min; Globulin 2.9 gm/dl (2.5-4.0); Magnesium 1.9 mg/dl (1.7-2.4); Potassium 3.9 mmol/L (3.5-5.1); Total Protein 7.3 gm/dl (6.0-8.3)
[2025-01-22 04:31] LABS: INR 1.1 (0.9-1.1); Prothrombin Time 11.6 Seconds (9.0-12.0)
[2025-01-22 04:35] LABS: Troponin I High Sensitivity 7.4 pg/ml (0-20)
[2025-01-22] MEDS: GLUCAGON 2 MG in SYRINGE 0 ML IV ONE (04:38)
[2025-01-22] MEDS: SODIUM CHLORIDE 0.9% 1,000 ML IV SCH (04:38)
[2025-01-22 04:45] LABS: Thyroid Stimulating Hormone 1.473 uIu/ml (0.300-4.500)
[2025-01-22] MEDS: ATROPINE SULFATE 0.1 MG/ML 10ML SYR IV PRN (04:59)
[2025-01-22] MEDS: DOPamine 400MG / 250ML D5W IV ONE (05:03)
[2025-01-22] MEDS: DOPamine / D5W 400 MG/250 ML BAG IV SCH (05:03)
--- NOTE | 2025-01-22 05:09 | XRay Report ---
EXAM: XR chest 1V portable CLINICAL HISTORY: Trauma TECHNIQUE: An X-ray image of the chest is obtained in AP projection. COMPARISON: Compared to the previous study dated 07/17/2019. FINDINGS: Pulmonary Parenchyma: Progressive course regarding multiple reticulonodular opacities are seen with accentuated hilar and broncho vascular lung markings. Lungs are clear bilaterally. No evidence of consolidation, collapse, or focal opacities. No pulmonary nodules are identified. No evidence of pleural effusion or pleural thickening. Heart and Mediastinum: Mediastinal widening is seen No hilar or mediastinal lymphadenopathy. The heart is enlarged in size. Bony Thorax: The bony thorax appears intact without fractures or deformities. 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 IMPRESSION: 1. No traumatic injuries were seen. 2. Progressive course regarding multiple reticulonodular opacities are seen with accentuated hilar and broncho vascular lung markings, suggesting coarsened pulmonary interstitium ( ILD ). 3. Cardiomegaly. 4. No evidence of consolidation or pleural effusion. Electronically signed by Frankie Wells 01-22-2025 05:09 AM
[2025-01-22] MEDS: STAT IV Infusion **Titration per Protocol STA (05:41)
--- NOTE | 2025-01-22 06:09 | Emergency Department Note ---
Impression & Plan Syncope, Dysrhythmia, CHI (closed head injury) ED Provider Note ED Provider Note NAME: SAADIA JEFFERSON AGE:84 SEX: Male : 1940 ARRIVES VIA: EMS INFORMANT: Patient ED PROVIDER(s): Maritza Adam DO CHIEF COMPLAINT: syncope HPI: This is an 84-year-old male presents emergency department via EMS due to concern for recent dizziness and syncope. Patient reported he has had intermittent dizziness over the course of the last 2 weeks and this weekend had episodes of passing out. EMS reported he apparently sustained a head injury during 1 of these episodes. Patient denied any chest pain, shortness of breath, recent change in medications, or recent illness. On arrival here when patient was transferred over to our bed and telemetry he sustained a prolonged pause and was unresponsive. PAST MEDICAL HISTORY:See Below PAST SURGICAL HISTORY:See Below FAMILY HISTORY:See Below SOCIAL HISTORY:See Below HOME MEDICATIONS:See Below ALLERGIES:See Below VITALS:See Below PHYSICAL EXAMINATION: GENERAL: alert, well appearing, well nourished, no distress, non-toxic HEAD: nc, abrasions and mild contusions noted at forehead L>R EYE EXAM: normal conjunctiva, PERRL and EOM's grossly intact OROPHARYNX: no exudate, no erythema, lips, buccal mucosa, and tongue normal and mucous membranes are moist NECK: supple, no nuchal rigidity, no adenopathy, non-tender, FROM LUNGS: Clear to auscultation. Normal chest wall mechanics, no w/r/r HEART: no murmurs, S1 normal and S2 normal ABDOMEN: abdomen soft, non-tender, normo-active bowel sounds, no masses, no rebound or guarding. BACK: Back is symmetrical on inspection and there is no deformity, no midline tenderness, no CVA tenderness. SKIN: no rashes, petechiae, orbruising UPPER EXTREMITIES: upper extremities are grossly normal. FROM, nml pulses b/l. No evidence of trauma or deformity. LOWER EXTREMITIES: No pitting edema. FROM, nml pulses b/l. No evidence of trauma or deformity. NEURO EXAM: Normal sensorium, cranial nerves II-XII grossly intact, normal speech, no facial droop,nogross weakness of arms, no gross weakness of legs. Gross sensation intact. No ataxia. Vital Signs: reviewed and remarkable Differential Diagnosis: vasovagal event, infection, hypoglycemia, electrolyte abnormalities, toxidrome, substance abuse, dysrhythmia, ACS, as well as others were entertained. MEDICAL DECISION MAKING: THis is an 84 yo male who presents to the ER due to concern for several syncopal events after 2 weeks of dizziness. Patient does have a hx of a.fib and does take Eliquis daily. Patient stable en route per EMS however noted to have intermittent pauses. Labs drawn and sent, IV established, EKG and CXR performed and interpreted at bedside, and patient placed on telemetry. Patient noted to have several long pauses here during which the patient would be unconscious and lose pulses. Patient started on IVF and given several doses of atropine intermittently. AFter review of prior cardiology notes and medications, glucagon added and dopamine drip started. Patient continued to have pauses. Case discussed with Dr Zayas who recommended if sx do not stop with addition of dopamine, that contacting interventional cardiology for temporary pacemaker would be reasonable. Patient's episodes seemed to be less frequent and so he was taken for CT imaging due to the abrasions on the head and use of eliquis. Upon returning it was noted he required more atropine and was still having episodes despite titrating up the dopamine. Interventional cardiology contacted and advised to call a Heart Alert to activate the scientific laboratory supervisor team. Team came to bedside as did Dr. Holloway. I did update daughter and who came to bedside additionally. [facility] and the ICU SEISMOGRAPH CHIEF. Consultation(s): 0438: Discussed with Dr. Zayas. 0550: Discussed with Dr. Holloway. Will activate a heart alert. 0608: D[facility] Polo[facility], for additional evaluation and mgmt. ER Treatment Provided: See below Diagnostics Interpreted By Me: -ECG: Normal sinus at 79, leftward axis, right bundle branch block, prolonged QTc, with subsequent ventricular arrest -Cardiac Monitoring: An order was placed for continuous cardiac monitoring. The monitor shows a rate of 98 with normal sinus rhythm with frequent long pauses. -Laboratory studies: As stated above and show below. -Imaging studies: X-ray Chest: A single view study of the chest was reviewed and was negative for cardiomegaly, focal infiltrate, effusion, pulmonary edema, or wide mediastinum. Triage Nursing Note Reviewed Prior/Outside Records Reviewed Critical Care: Critical care of 68 min performed to assess and manage high likelihood of life-threatening dysrhythmia, involving labs and imaging performed with assessment to evaluate syncope diagnosis with frequent reassessment. This time includes bedside time, treatment discussions with patient/family/consultants, documentation time and excludes procedure time. 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, total left H/O lumbosacral spine surgery Aortic stenosis GERD (gastroesophageal reflux disease) Hyperlipidemia Hypertension (Acute) CAD (coronary artery disease) DJD (degenerative joint disease) of hip (Acute 08/10/14) Back pain (Acute) Type 2 diabetes mellitus Paroxysmal atrial fibrillation Chronic anticoagulation BPH with obstruction/lower urinary tract symptoms Medical History Urinary frequency Actinic keratosis Arthritis Squamous cell carcinoma of skin Viral warts Dysphagia Supratherapeutic INR Anemia Hx of coronary artery disease Diastolic heart failure Epistaxis Coagulopathy Hip pain Surgical History H/O carpal tunnel repair S/P ablation of atrial fibrillation S/P wisdom tooth extraction History of lithotripsy Family History Father Myocardial infarction Mother Leukemia Denies family history of Ovarian cancer Prostate cancer Breast cancer Colorectal cancer Social History Smoking Status: Never smoker Tobacco Type: Cigarettes Age Started Using Tobacco: 16; Age Quit Using Tobacco: 21; Cigarettes Per Day: a couple a day; Second Hand Exposure: Yes; Do You Dip or Chew Tobacco: No; Hx Alcohol Use: Yes Alcohol type: hard liquor Alcohol Intake Frequency: 2-3 x/Week Hx Substance Use: No Preferred Language: Belarusian Communication Ability: Effective Visual Impairment: No Limitations Hearing Ability: Use of Hearing Aid Drop Wire Stringer Required: No Beliefs That Will Affect Care: None marital status: Current Living Situation: Spouse current occupational status: retired How many Children do You have: 1 Other Information That Helps Us Care for You: No Feels Safe at Home: Yes Safety Concerns: Feels Safe At This Time Childhood Exposure to Second-Hand Smoke: Yes Diet: regular caffeine: No during the past year weight has: remained stable Dental Care, Regularly: Yes Physical Activity Frequency: Daily Seatbelt Use: always Sunscreen Use: Yes Assistive Devices: Cane and Walker Allergies Allergies Allergy/AdvReac Type Severity Reaction Status Date / Time lisinopril Allergy Cough Verified 11/16/24 13:00 Home Meds Home Medications Medication Instructions Recorded Confirmed ascorbic acid (vitamin C) 500 mg 500 mg PO DAILY 07/17/19 01/23/25 tablet (Vitamin C) cyanocobalamin (vitamin B-12) 500 500 mcg PO DAILY 07/17/19 01/22/25 mcg tablet (Vitamin B-12) apixaban 5 mg tablet (Eliquis) 5 mg PO BID 11/22/19 01/22/25 empagliflozin 10 mg tablet 25 mg PO DAILY 05/20/23 01/22/25 (Jardiance) metoprolol succinate 25 mg 25 mg PO DAILY 11/10/23 01/23/25 tablet,extended release 24 hr glimepiride 1 mg tablet 1 mg PO DAILY 07/20/24 01/22/25 amoxicillin 875 mg-potassium 1 tab PO BID 01/22/25 01/22/25 clavulanate 125 mg tablet carboxymethylcellulose sodium 0.5 1 drp ophthalmic (eye) TID dry eye 01/22/25 01/22/25 % eye drops carboxymethylcellulose sodium 1 % 1 drp ophthalmic (eye) HS Dry Eye 01/22/25 01/22/25 eye liquid gel drops finasteride 5 mg tablet 5 mg PO HS 01/22/25 01/22/25 fluorouracil 5 % topical cream 1 applic topical DAILY 01/22/25 01/22/25 furosemide 40 mg tablet 40 mg PO DAILY 01/22/25 01/22/25 gabapentin 600 mg tablet 600 mg PO BID 01/22/25 01/22/25 magnesium oxide 420 mg PO DAILY 01/22/25 01/22/25 mirabegron 25 mg tablet,extended 50 mg PO DAILY 01/22/25 01/22/25 release 24 hr (Myrbetriq) multivitamin 1 tab PO DAILY 01/22/25 01/22/25 nystatin-triamcinolone 100,000 1 applic topical DAILY Fungal 01/22/25 01/22/25 unit/gram-0.1 % topical ointment Infection sildenafil 50 mg tablet 50 mg PO DAILY PRN Erectile 01/22/25 01/22/25 Dysfunction spironolactone 25 mg tablet 25 mg PO DAILY 01/22/25 01/22/25 tizanidine 4 mg tablet 4 mg PO 3XD PRN Muscle Spasm 01/22/25 01/22/25 Previous Rx's Medication Instructions Recorded aspirin 81 mg chewable tablet 81 mg PO DAILY #30 tabs 05/30/20 blood sugar diagnostic #100 ea 08/26/21 nitroglycerin 0.4 mg sublingual 0.4 mg sublingual DIRECTED PRN 05/27/22 tablet Chest Pain #20 tabs metformin 1,000 mg tablet 1,000 mg PO BID #180 tabs 01/08/23 tramadol 50 mg tablet 50 mg PO Q6H PRN Pain #28 tabs 09/04/23 atorvastatin 80 mg tablet 80 mg PO DAILY #90 tabs 01/07/24 pantoprazole 40 mg tablet,delayed 40 mg PO BID #180 tabs 02/29/24 release tamsulosin 0.4 mg capsule 0.4 mg PO DAILY #90 caps 11/10/24 fluticasone propionate 50 1 spray intranasal BID dryness #48 12/14/24 mcg/actuation nasal grams spray,suspension (Flonase Allergy Relief) Results & Data (ED) Vital Signs Vital Signs - 24 hr 01/22/25 03:53 01/22/25 03:55 01/22/25 03:57 Temperature 36.6 C Temperature Source Oral Pulse Rate 73 73 0 L Pulse Rate from SpO2 Sensor Respiratory Rate 16 Respiratory Depth Normal Blood Pressure 172/89 H Blood Pressure Mean 116 Pulse Oximetry 91 Oxygen Delivery Method Room Air Sepsis Recent Fever Within 48 Hours No Sepsis New/Unexplained Change in Mental Status No Sepsis Action Taken by Nursing No Action Required Oxygen Flow Rate - Titration 01/22/25 03:57 01/22/25 04:03 01/22/25 04:07 Temperature Temperature Source Pulse Rate 72 78 Pulse Rate from SpO2 Sensor 78 Respiratory Rate 20 23 Respiratory Depth Blood Pressure 172/89 H 173/94 H 186/89 H Blood Pressure Mean 116 120 112 Pulse Oximetry 97 Oxygen Delivery Method Sepsis Recent Fever Within 48 Hours Sepsis New/Unexplained Change in Mental Status Sepsis Action Taken by Nursing Oxygen Flow Rate - Titration 01/22/25 04:09 01/22/25 04:11 01/22/25 04:13 Temperature Temperature Source Pulse Rate 0 L 77 Pulse Rate from SpO2 Sensor Respiratory Rate Respiratory Depth Blood Pressure Blood Pressure Mean Pulse Oximetry Oxygen Delivery Method Nasal Cannula Sepsis Recent Fever Within 48 Hours Sepsis New/Unexplained Change in Mental Status Sepsis Action Taken by Nursing Oxygen Flow Rate - Titration 2 01/22/25 04:18 01/22/25 04:36 01/22/25 04:42 Temperature Temperature Source Pulse Rate 76 72 76 Pulse Rate from SpO2 Sensor 74 77 76 Respiratory Rate 22 19 21 Respiratory Depth Blood Pressure 174/98 H Blood Pressure Mean 123 Pulse Oximetry 99 99 100 Oxygen Delivery Method Sepsis Recent Fever Within 48 Hours Sepsis New/Unexplained Change in Mental Status Sepsis Action Taken by Nursing Oxygen Flow Rate - Titration 01/22/25 04:54 01/22/25 05:06 01/22/25 05:09 Temperature Temperature Source Pulse Rate 77 79 77 Pulse Rate from SpO2 Sensor 79 79 77 Respiratory Rate 22 27 H 25 H Respiratory Depth Blood Pressure 146/115 H Blood Pressure Mean 125 Pulse Oximetry 100 97 99 Oxygen Delivery Method Sepsis Recent Fever Within 48 Hours Sepsis New/Unexplained Change in Mental Status Sepsis Action Taken by Nursing Oxygen Flow Rate - Titration 01/22/25 05:33 01/22/25 05:45 01/22/25 06:06 Temperature Temperature Source Pulse Rate 69 84 88 Pulse Rate from SpO2 Sensor 83 81 Respiratory Rate 28 H 24 Respiratory Depth Blood Pressure 171/104 H 171/104 H 159/75 H Blood Pressure Mean 112 126 103 Pulse Oximetry 98 92 Oxygen Delivery Method Sepsis Recent Fever Within 48 Hours Sepsis New/Unexplained Change in Mental Status Sepsis Action Taken by Nursing Oxygen Flow Rate - Titration 01/22/25 06:20 01/22/25 06:26 01/22/25 06:31 Temperature Temperature Source Pulse Rate 48 L Pulse Rate from SpO2 Sensor Respiratory Rate Respiratory Depth Blood Pressure 136/83 130/51 L Blood Pressure Mean 95 81 Pulse Oximetry Oxygen Delivery Method Sepsis Recent Fever Within 48 Hours Sepsis New/Unexplained Change in Mental Status Sepsis Action Taken by Nursing Oxygen Flow Rate - Titration 03/23/25 06:40 Temperature Temperature Source Pulse Rate Pulse Rate from SpO2 Sensor Respiratory Rate Respiratory Depth Blood Pressure Blood Pressure Mean Pulse Oximetry Oxygen Delivery Method Room Air Sepsis Recent Fever Within 48 Hours Sepsis New/Unexplained Change in Mental Status Sepsis Action Taken by Nursing Oxygen Flow Rate - Titration Laboratory Data 01/23/25 03:57 01/23/25 03:57 Lab Results 01/22/25 01/22/25 01/22/25 Range/Units 03:58 03:59 06:14 WBC 12.62 H (4.8-10.8) K/ul RBC 4.74 (4.70-6.10) M/uL Hgb 13.1 L (14.0-18.0) g/dl POC Hgb 14.3 (14.0-18.0) g/dl Hct 42.5 (42.0-52.0) % POC Hct 42 (42-52) % MCV 89.7 (80.0-100.0) fL MCH 27.6 (25.0-34.0) pg MCHC 30.8 L (32.0-36.0) g/dL RDW Std Deviation 51.9 H (36.4-46.3) fL RDW Coeff of [place] 15.9 H (11.5-14.5) % Plt Count 189 (130-400) K/uL MPV 10.0 (9.4-12.4) fL Immature Gran % (Auto) 0.6 % Neut % (Auto) 72.8 % Lymph % (Auto) 18.5 % Preble % (Auto) 6.4 % Eos % (Auto) 1.4 % Baso % (Auto) 0.3 % Neut # (Auto) 9.19 H (1.40-6.50) K/uL Lymph # (Auto) 2.33 (1.20-3.40) K/uL Preble # (Auto) 0.81 H (0.11-0.59) K/uL Eos # (Auto) 0.18 (0.00-0.50) K/uL Baso # (Auto) 0.04 (0.00-0.20) K/uL Immature Gran # (Auto) 0.07 (0.01-0.20) K/uL PT 11.6 (9.0-12.0) Seconds INR 1.1 (0.9-1.1) POC Sodium 140 (135-144) mmol/L Sodium 137 (136-145) mmol/L POC Potassium 3.8 (3.3-5.0) mmol/L Potassium 3.9 (3.5-5.1) mmol/L POC Chloride 103 (101-112) mmol/L Chloride 103 (98-107) mmol/L Carbon Dioxide 28 (21-32) mmol/L POC Total CO2 25 (24-31) mmol/L Anion Gap 6 (3-11) POC Anion Gap 18.0 (16-25) mmol/L POC BUN 23 H (7-18) mg/dl BUN 22 (6-23) mg/dl Creatinine 0.69 (0.6-1.4) mg/dl POC Creatinine 0.7 (0.6-1.3) mg/dl Est Cr Clr Drug Dosing 83.8 ml/min eGFR 91.82 BUN/Creatinine Ratio 31.9 H (10-20) Glucose 212 H (70-99(Fasting)) mg/dl POC Glucose (70-99) mg/dl POC Glucose (other) 204 H (70-99) mg/dl Calcium 9.7 (8.6-10.3) mg/dl POC Ioniz Calcium Shauna 1.17 (1.12-1.32) mmol/l Magnesium 1.9 (1.7-2.4) mg/dl Total Bilirubin 0.7 (0.2-1.0) mg/dl AST 26 (13-39) U/L ALT 19 (7-52) U/L Alkaline Phosphatase 66 (34-104) U/L Troponin I High Sens 7.4 (0-20) pg/ml Total Protein 7.3 (6.0-8.3) gm/dl Albumin 4.4 (3.4-5.0) gm/dl Globulin 2.9 (2.5-4.0) gm/dl Albumin/Globulin Ratio 1.5 (0.9-2) Lipase 51 (11-82) U/L TSH 1.473 (0.300-4.500) uIu/ml Ethyl Alcohol mg/dL < 10.0 (<10.0) mg/dl Adenovirus (PCR) Not Detected (NotDetected) B. pertussis DNA (PCR) Not Detected (NotDetected) B.parapertussis DNA PCR Not Detected (NotDetected) Lyme Disease Screen Negative (Negative) C. pneumoniae DNA (PCR) Not Detected (NotDetected) Coronavirus OC43 (PCR) Not Detected (NotDetected) Coronavirus HKU1 (PCR) Not Detected (NotDetected) Coronavirus 229E (PCR) Not Detected (NotDetected) SARS-CoV-2 (PCR) Not Detected (NotDetected) Coronavirus NL63 (PCR) Not Detected (NotDetected) Human Metapneumovir PCR Not Detected (NotDetected) Influenza Type A (PCR) Not Detected (NotDetected) Influenza Type B (PCR) Not Detected (NotDetected) M. pneumoniae (PCR) Not Detected (NotDetected) Parainfluenza 1 (PCR) Not Detected (NotDetected) Parainfluenza 2 (PCR) Not Detected (NotDetected) Parainfluenza 3 (PCR) Not Detected (NotDetected) Parainfluenza 4 (PCR) Not Detected (NotDetected) RSV (PCR) Not Detected (NotDetected) Entero/Rhino (PCR) Not Detected (NotDetected) 01/22/25 Range/Units 06:17 WBC (4.8-10.8) K/ul RBC (4.70-6.10) M/uL Hgb (14.0-18.0) g/dl POC Hgb (14.0-18.0) g/dl Hct (42.0-52.0) % POC Hct (42-52) % MCV (80.0-100.0) fL MCH (25.0-34.0) pg MCHC (32.0-36.0) g/dL RDW Std Deviation (36.4-46.3) fL RDW Coeff of Mer[place] (11.5-14.5) % Plt Count (130-400) K/uL MPV (9.4-12.4) fL Immature Gran % (Auto) % Neut % (Auto) % Lymph % (Auto) % Preble % (Auto) % Eos % (Auto) % Baso % (Auto) % Neut # (Auto) (1.40-6.50) K/uL Lymph # (Auto) (1.20-3.40) K/uL Preble # (Auto) (0.11-0.59) K/uL Eos # (Auto) (0.00-0.50) K/uL Baso # (Auto) (0.00-0.20) K/uL Immature Gran # (Auto) (0.01-0.20) K/uL PT (9.0-12.0) Seconds INR (0.9-1.1) POC Sodium (135-144) mmol/L Sodium (136-145) mmol/L POC Potassium (3.3-5.0) mmol/L Potassium (3.5-5.1) mmol/L POC Chloride (101-112) mmol/L Chloride (98-107) mmol/L Carbon Dioxide (21-32) mmol/L POC Total CO2 (24-31) mmol/L Anion Gap (3-11) POC Anion Gap (16-25) mmol/L POC BUN (7-18) mg/dl BUN (6-23) mg/dl Creatinine (0.6-1.4) mg/dl POC Creatinine (0.6-1.3) mg/dl Est Cr Clr Drug Dosing ml/min eGFR BUN/Creatinine Ratio (10-20) Glucose (70-99(Fasting)) mg/dl POC Glucose 223 H (70-99) mg/dl POC Glucose (other) (70-99) mg/dl Calcium (8.6-10.3) mg/dl POC Ioniz Calcium Shauna (1.12-1.32) mmol/l Magnesium (1.7-2.4) mg/dl Total Bilirubin (0.2-1.0) mg/dl AST (13-39) U/L ALT (7-52) U/L Alkaline Phosphatase (34-104) U/L Troponin I High Sens (0-20) pg/ml Total Protein (6.0-8.3) gm/dl Albumin (3.4-5.0) gm/dl Globulin (2.5-4.0) gm/dl Albumin/Globulin Ratio (0.9-2) Lipase (11-82) U/L TSH (0.300-4.500) uIu/ml Ethyl Alcohol mg/dL (<10.0) mg/dl Adenovirus (PCR) (NotDetected) B. pertussis DNA (PCR) (NotDetected) B.parapertussis DNA PCR (NotDetected) Lyme Disease Screen (Negative) C. pneumoniae DNA (PCR) (NotDetected) Coronavirus OC43 (PCR) (NotDetected) Coronavirus HKU1 (PCR) (NotDetected) Coronavirus 229E (PCR) (NotDetected) SARS-CoV-2 (PCR) (NotDetected) Coronavirus NL63 (PCR) (NotDetected) Human Metapneumovir PCR (NotDetected) Influenza Type A (PCR) (NotDetected) Influenza Type B (PCR) (NotDetected) M. pneumoniae (PCR) (NotDetected) Parainfluenza 1 (PCR) (NotDetected) Parainfluenza 2 (PCR) (NotDetected) Parainfluenza 3 (PCR) (NotDetected) Parainfluenza 4 (PCR) (NotDetected) RSV (PCR) (NotDetected) Entero/Rhino (PCR) (NotDetected) Administered Medications Acetaminophen (Acetaminophen 325 Mg Tab) 650 mg PO Q4H PRN PRN Reason: Fever/Mild Pain (Pain 1,2,3) Stop: 02/21/25 11:28 Last Admin: 01/23/25 08:10 Dose: 650 mg Documented By: KENIA Atorvastatin Calcium (Atorvastatin 40 Mg Tab) 80 mg PO DAILY [facility] Stop: 02/21/25 08:59 Last Admin: 01/23/25 08:12 Dose: 80 mg Documented By: Admin: 01/22/25 09:57 Dose: 80 mg Documented By: KENIA Cyanocobalamin (Cyanocobalamin (B-12) 500 Mcg Tablet) 500 mcg PO DAILY [facility] Stop: 02/21/25 08:59 Last Admin: 01/23/25 08:12 Dose: 500 mcg Documented By: Admin: 01/22/25 09:57 Dose: 500 mcg Documented By: KENIA Diclofenac Sodium (Diclofenac Sod 1% Gel 100 Gm Tube) 4 gm EXT QID PRN; Protocol PRN Reason: Calf pain Stop: 02/21/25 10:07 Last Admin: 01/23/25 08:21 Dose: 4 gm Documented By: KENIA Finasteride (Finasteride 5 Mg Tab) 5 mg PO DAILY SELVIN Stop: 02/21/25 08:59 Last Admin: 01/23/25 08:13 Dose: 5 mg Documented By: Admin: 01/22/25 09:58 Dose: 5 mg Documented By: KENIA Fluticasone Propionate (Fluticasone Propionate Na Spr 16 Gm Btl) 1 sprays NA BID SELVIN Stop: 02/21/25 08:59 Last Admin: 01/23/25 20:59 Dose: 1 sprays Documented By: Admin: 01/23/25 08:13 Dose: 1 sprays Documented By: Admin: 01/22/25 20:28 Dose: 1 sprays Documented By: Admin: 01/22/25 10:03 Dose: 1 sprays Documented By: KENIA Gabapentin (Gabapentin 600 Mg Tab) 600 mg PO BID SELVIN Stop: 02/21/25 20:59 Last Admin: 01/23/25 20:59 Dose: 600 mg Documented By: Admin: 01/23/25 08:14 Dose: 600 mg Documented By: Admin: 01/22/25 20:29 Dose: Not Given Documented By: SRIDEVI Insulin Aspart (Insulin Aspart Per Unit Charge) 0 units SC ACHS SELVIN Stop: 02/21/25 07:56 Last Admin: 01/23/25 21:02 Dose: 1 units Documented By: SRIDEVI Co-signed By: PANCHO Admin: 01/23/25 17:14 Dose: 6 units Documented By: KENIA Co-signed By: VANESSA Admin: 01/23/25 14:46 Dose: 3 units Documented By: KENIA Co-signed By: VANESSA Admin: 01/23/25 12:24 Dose: Not Given Documented By: Admin: 01/23/25 07:45 Dose: Not Given Documented By: Admin: 01/22/25 20:29 Dose: Not Given Documented By: Admin: 01/22/25 17:54 Dose: 3 units Documented By: KENIA Co-signed By: CA Admin: 01/22/25 11:51 Dose: 3 units Documented By: KENIA Co-signed By: KENYETTA Admin: 01/22/25 08:53 Dose: 3 units Documented By: KENIA Co-signed By: KENYETTA Insulin Glargine (Lantus Per Unit Charge) 5 units SQ DAILY [facility] Stop: 02/21/25 08:59 Last Admin: 01/23/25 14:46 Dose: 5 units Documented By: KENIA Co-signed By: VANESSA Admin: 01/23/25 13:24 Dose: Not Given Documented By: KENIA Pantoprazole Sodium (Pantoprazole 40 Mg Tab) 40 mg PO BID [facility] Stop: 02/21/25 08:59 Last Admin: 01/23/25 20:59 Dose: 40 mg Documented By: Admin: 01/23/25 08:14 Dose: 40 mg Documented By: Admin: 01/22/25 20:29 Dose: 40 mg Documented By: Admin: 01/22/25 09:58 Dose: 40 mg Documented By: KENIA Tamsulosin HCl (Tamsulosin Hcl 0.4 Mg Cap) 0.4 mg PO DAILY [facility] Stop: 02/21/25 08:59 Last Admin: 01/23/25 08:14 Dose: 0.4 mg Documented By: Admin: 01/22/25 09:59 Dose: 0.4 mg Documented By: KENIA Vibegron (Vibegron 75 Mg Tab) 75 mg PO DAILY [facility] Stop: 02/21/25 08:59 Last Admin: 01/23/25 10:12 Dose: 75 mg Documented By: Admin: 01/22/25 09:59 Dose: 75 mg Documented By: KENIA Discontinued Medications Amoxicillin/Clavulanate Potassium (Amoxicillin/Clavulanate 875 Mg Tab) 1 tab PO BIDM [facility]; Protocol Stop: 01/27/25 07:59 Last Admin: 01/23/25 08:11 Dose: 1 tab Documented By: Admin: 01/22/25 17:57 Dose: 1 tab Documented By: Admin: 01/22/25 09:57 Dose: 1 tab Documented By: KENIA Atropine Sulfate (Atropine So4 1 Mg/Ml 1ml Vial) Confirm Administered Dose 1 mg .ROUTE .STK-MED ONE Stop: 01/22/25 04:00 Last Admin: 01/22/25 04:08 Dose: 1 mg Documented By: Atropine Sulfate (Atropine Sulfate 0.1 Mg/Ml 10ml Syr) 1 mg IV NOW STA Stop: 01/22/25 04:09 Last Admin: 01/22/25 04:01 Dose: 1 mg Documented By: Atropine Sulfate (Atropine Sulfate 0.1 Mg/Ml 10ml Syr) 1 mg IV NOW PRN PRN Reason: Drowsiness Stop: 02/21/25 04:20 Last Admin: 01/22/25 05:49 Dose: 1 mg Documented By: Admin: 01/22/25 05:18 Dose: 1 mg Documented By: Admin: 01/22/25 04:59 Dose: 1 mg Documented By: Dopamine HCl/Dextrose (Dopamine 400mg / 250ml D5w) Confirm Administered Dose 400 mg IV .STK-MED ONE Stop: 01/22/25 04:08 Last Admin: 01/22/25 05:03 Dose: Not Given Documented By: Fentanyl Citrate (Fentanyl Citrate Pf 100 Mcg/2 Ml Vial) Confirm Administered Dose 100 mcg .ROUTE .STK-MED ONE Stop: 01/22/25 06:28 Last Admin: 01/22/25 07:11 Dose: Not Given Documented By: CRICKET Furosemide (Furosemide 40 Mg/4 Ml Vial) 100 mg IV ONE ONE Stop: 01/22/25 09:06 Last Admin: 01/22/25 10:06 Dose: Not Given Documented By: KENIA Gabapentin (Gabapentin 600 Mg Tab) 600 mg PO TID [facility] Stop: 02/21/25 08:59 Last Admin: 01/22/25 14:56 Dose: Not Given Documented By: Admin: 01/22/25 09:58 Dose: 600 mg Documented By: KENIA Heparin Sodium (Porcine) (Heparin (Porcine) 1000 Unit/Ml 10 Ml (Soap Grinder Use Only)) Confirm Administered Dose 10,000 units .ROUTE .STK-MED ONE Stop: 01/22/25 06:28 Last Admin: 01/22/25 07:11 Dose: Not Given Documented By: CRICKET Heparin Sodium/Sodium Chloride (Heparin In Nss Infusion 1000 Unit/500 Ml (2 U/Ml) Bag) Confirm Administered Dose 3,000 units IV .STK-MED ONE Stop: 01/22/25 06:28 Last Admin: 01/22/25 07:11 Dose: 3,000 units Documented By: CHAYO Sodium Chloride (Nss) 1,000 mls @ 125 mls/hr IV .Q8H [facility] Stop: 01/23/25 04:14 Last Infusion: 01/22/25 07:00 Dose: Infused Documented By: Admin: 01/22/25 04:38 Dose: 125 mls/hr Documented By: Glucagon 2 mg/ Syringe 2 mls @ 1 mls/min IV NOW ONE Stop: 01/22/25 04:09 Last Admin: 01/22/25 04:38 Dose: 1 mls/min Documented By: Dopamine HCl/Dextrose (Dopamine / D5w) 400 mg in 250 mls @ 22.8 mls/hr IV .[id number] [facility]; Protocol Stop: 02/21/25 05:14 Last Titration: 01/22/25 10:44 Dose: Infused Documented By: Titration: 01/22/25 09:15 Dose: 0 mcg/kg/min, 0 mls/hr Documented By: Titration: 01/22/25 06:32 Dose: 8 mcg/kg/min, 22.8 mls/hr Documented By: Titration: 01/22/25 05:50 Dose: 4.5 mcg/kg/min, 12.8 mls/hr Documented By: Admin: 01/22/25 05:03 Dose: 2.5 mcg/kg/min, 7.1 mls/hr Documented By: Co-signed By: DML Magnesium Sulfate/Dextrose (Magnesium Sulfate / D5w) 1 gm in 100 mls @ 50 mls/hr IV ONE ONE Stop: 01/22/25 08:10 Last Infusion: 01/22/25 10:34 Dose: Infused Documented By: Admin: 01/22/25 08:37 Dose: 50 mls/hr Documented By: KENIA Acetaminophen (Ofirmev) 1,000 mg in 100 mls @ 400 mls/hr IV NOW STA Stop: 01/22/25 06:48 Last Infusion: 01/22/25 08:57 Dose: Infused Documented By: Admin: 01/22/25 08:38 Dose: 400 mls/hr Documented By: KENIA Sodium Chloride (Nss) 1,000 mls @ 60 mls/hr IV .[id number] ONE Stop: 01/22/25 23:23 Last Infusion: 01/23/25 02:41 Dose: Infused Documented By: Admin: 01/22/25 08:37 Dose: 60 mls/hr Documented By: KENIA Magnesium Sulfate/Dextrose (Magnesium Sulfate / D5w) 1 gm in 100 mls @ 50 mls/hr IV Q2H SELVIN Stop: 01/23/25 11:59 Last Infusion: 01/23/25 12:25 Dose: Infused Documented By: Admin: 01/23/25 09:35 Dose: 50 mls/hr Documented By: Infusion: 01/23/25 09:35 Dose: Infused Documented By: Admin: 01/23/25 08:10 Dose: 50 mls/hr Documented By: KENIA Ioversol (Optiray 350) Confirm Administered Dose 1 ml .ROUTE .STK-MED ONE Stop: 01/22/25 06:29 Last Admin: 01/22/25 07:12 Dose: Not Given Documented By: CHAYO Lidocaine HCl (Lidocaine 2% Jelly 5 Ml Tube) Confirm Administered Dose 5 ml EXT .STK-MED ONE Stop: 01/22/25 08:34 Last Admin: 01/22/25 08:58 Dose: 5 ml Documented By: KENIA Midazolam HCl (Midazolam Hcl 1 Mg/Ml 2ml Vial) Confirm Administered Dose 2 mg .ROUTE .STK-MED ONE Stop: 01/22/25 06:28 Last Admin: 01/22/25 07:12 Dose: Not Given Documented By: CRICKET Miscellaneous (Stat Iv Infusion Titration Per Protocol) 1 each N/A NOW STA Stop: 01/22/25 05:03 Last Admin: 01/22/25 05:41 Dose: 1 each Documented By: Miscellaneous Information (Nursing To Pharmacy Communication) 1 each N/A TODAY [facility] Stop: 02/21/25 09:14 Last Admin: 01/22/25 10:07 Dose: Not Given Documented By: KENIA Nicardipine HCl (Nicardipine Hcl Inj 2.5 Mg/Ml 10 Ml Amp) Confirm Administered Dose 25 mg .ROUTE .STK-MED ONE Stop: 01/22/25 06:28 Last Admin: 01/22/25 07:12 Dose: Not Given Documented By: CRICKET Nitroglycerin/Dextrose (Nitroglycerin/D5w 100mcg/Ml 20ml Syr) Confirm Administered Dose 2,000 mcg .ROUTE .STK-MED ONE Stop: 01/22/25 06:29 Last Admin: 01/22/25 07:18 Dose: Not Given Documented By: Mister [employer] Imaging Data Radiologist's Impression: Cervical Spine CT 01/22/25 04:07 EXAM: CT cervical spine wo con CLINICAL HISTORY: Trauma. TECHNIQUE: CT scan of the cervical spine was performed without the administration of intravenous contrast. Contiguous axial images were obtained from the skull base to the upper thoracic spine. Coronal and sagittal reformatted images were also reviewed. One of the following dose-reduction techniques was utilized for this exam. Automated exposure control, adjustment of the mA and/or kV according to patient size, and use of iterative reconstruction. COMPARISON: No previous studies are available for comparison. FINDINGS: Vertebrae: Apparent mild right-sided cervical scoliosis. Grade 1 anterolisthesis of C4 over C5. Multilevel degenerative changes of the cervical spine are most severe at the C6-C7 level with decreased intervertebral joint space, subchondral sclerosis, subchondral cysts, and marginal osteophytes. Degenerative changes of the facet joints with fusion of C3-C4 facet joints on the left side. Multiple small corticated calcifications are noted adjacent to the spinous processes of C7 and T1, which could represent dystrophic versus ligamentous calcifications. Neural Foramina: Multilevel bony foraminal stenosis, exaggerated by facet joint hypertrophy and uncovertebral complex. Prevertebral Soft Tissues: The prevertebral soft tissues are normal in thickness without evidence of mass or abnormal fluid collection. Additional Findings: Arterial atherosclerotic changes is noted. IMPRESSION: 1. No acute displaced fracture or dislocation. 2. 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 3. Mild right-sided cervical scoliosis with fusion of the left C3-C4 facet joints. Electronically signed by Frankie Wells 01-22-2025 06:32 AM Chest X-Ray 01/22/25 04:07 EXAM: XR chest 1V portable CLINICAL HISTORY: Trauma TECHNIQUE: An X-ray image of the chest is obtained in AP projection. COMPARISON: Compared to the previous study dated 07/17/2019. FINDINGS: Pulmonary Parenchyma: Progressive course regarding multiple reticulonodular opacities are seen with accentuated hilar and broncho vascular lung markings. Lungs are clear bilaterally. No evidence of consolidation, collapse, or focal opacities. No pulmonary nodules are identified. No evidence of pleural effusion or pleural thickening. Heart and Mediastinum: Mediastinal widening is seen No hilar or mediastinal lymphadenopathy. The heart is enlarged in size. Bony Thorax: The bony thorax appears intact without fractures or deformities. 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 IMPRESSION: 1. No traumatic injuries were seen. 2. Progressive course regarding multiple reticulonodular opacities are seen with accentuated hilar and broncho vascular lung markings, suggesting coarsened pulmonary interstitium ( ILD ). 3. Cardiomegaly. 4. No evidence of consolidation or pleural effusion. Electronically signed by Frankie Wells 01-22-2025 05:[address] 01/22/25 04:07 EXAM: CT head/brain wo con CLINICAL HISTORY: Trauma. TECHNIQUE: Axial non-contrast CT scan of the brain was performed from the skull base to the high parietal region. One of the following dose reduction techniques were utilized for this exam: Automated exposure control, adjustment of the mA and/or kV according to patient size, use of iterative reconstruction. DLP: 1393.29 mGy.cm. COMPARISON: 08/07/2020 CT. FINDINGS: Brain Parenchyma: Normal attenuation of the cerebral hemispheres, cerebellum, and brainstem. Age-related parenchymal volume loss with capacious CSF spaces. Faint bilateral basal ganglia calcification. Mild periventricular hypodensities are likely related to periventricular small vessel disease. No acute brain hemorrhage. Ventricular System: Prominent ventricular system. No intraventricular hemorrhage. Subarachnoid Spaces: No evidence of subarachnoid hemorrhage or extra-axial fluid collections. Cerebellum and Brainstem: No masses, lesions, or areas of abnormal signal. Orbits: No evidence of orbital masses or abnormal densities. Sinuses: Minimal mucosal thickening in the maxillary antra (medial sweet) and ethmoid air cells. No air-fluid leveling. Mastoid Air Cells: Clear mastoid air cells. No evidence of mastoiditis. Skull: Normal skull morphology. Apparent mild soft tissue thickening at the high left frontal area is appreciated more on the axial views. IMPRESSION: 1. No acute brain hemorrhage. 2. No significant interval change since the previous study apart from minimal mucosal thickening of the maxillary and ethmoid sinuses. Electronically signed by Frankie Wells 01-22-2025 06:17 AM Discharge Plan Visit Data Chief Complaint: Syncope Stated Complaint: Syncope, Cardiac Assessment ED Provider: Maritza Adam Discharge Problem: Syncope, Dysrhythmia, CHI (closed head injury) Patient Disposition: Admitted As Inpatient Discharge Instructions Interventions: ED Discharge Assessment Last Done: 01/22/25 06:40
--- NOTE | 2025-01-22 06:17 | CT Scan Report ---
EXAM: CT head/brain wo con CLINICAL HISTORY: Trauma. TECHNIQUE: Axial non-contrast CT scan of the brain was performed from the skull base to the high parietal region. One of the following dose reduction techniques were utilized for this exam: Automated exposure control, adjustment of the mA and/or kV according to patient size, use of iterative reconstruction. DLP: 1393.29 mGy.cm. COMPARISON: 08/07/2020 CT. FINDINGS: Brain Parenchyma: Normal attenuation of the cerebral hemispheres, cerebellum, and brainstem. Age-related parenchymal volume loss with capacious CSF spaces. Faint bilateral basal ganglia calcification. Mild periventricular hypodensities are likely related to periventricular small vessel disease. No acute brain hemorrhage. Ventricular System: Prominent ventricular system. No intraventricular hemorrhage. Subarachnoid Spaces: No evidence of subarachnoid hemorrhage or extra-axial fluid collections. Cerebellum and Brainstem: No masses, lesions, or areas of abnormal signal. Orbits: No evidence of orbital masses or abnormal densities. Sinuses: Minimal mucosal thickening in the maxillary antra (medial sweet) and ethmoid air cells. No air-fluid leveling. Mastoid Air Cells: Clear mastoid air cells. No evidence of mastoiditis. Skull: Normal skull morphology. Apparent mild soft tissue thickening at the high left frontal area is appreciated more on the axial views. IMPRESSION: 1. No acute brain hemorrhage. 2. No significant interval change since the previous study apart from minimal mucosal thickening of the maxillary and ethmoid sinuses. Electronically signed by Frankie Wells 01-22-2025 06:17 AM
--- NOTE | 2025-01-22 06:34 | History & Physical Report ---
Date of Service January 22, 2025 Assessment & Plan (1) Symptomatic bradycardia: Plan: Symptomatic bradycardia Chronic bifascicular block History PAF status post pulmonary vein isolation on Eliquis Likely TBS Head trauma secondary to syncopal event Traumatic right chest wall pain rule out rib fractures chronic diastolic heart failure (EF 65-70%, TTE 2023), euvolemic hx CAD status post unsuccessful PCI valvular heart disease (moderate , mild MR/TR/CO, TTE 2023) hypertension, elevated secondary discomfort hyperlipidemia, on statin Rx DM 2 on oral medications, suboptimal control as of recent outpatient hemoglobin A1c of 9 December 2024 chronic anemia, hemoglobin at baseline BPH, on multiple bladder medications Parkinson disease Complicated bronchitis, improved cough symptoms on Augmentin Rx past tobacco abuse Admit to ICU Hold home beta-caryl for now Continue dopamine infusion Cardiology consult re: symptomatic bradycardia (ED provider already in touch with Dr. Holloway, heart alert called to facilitate emergent transvenous pacemaker placement) Appropriate to hold Eliquis, aspirin for now given bleeding from recent head trauma Repeat CT head after [address] chest re: traumatic chest wall pain Basal bolus insulin adjusted for n.p.o. status, ISS BG goal 1 40-1 80 DVT prophylaxis. SCDs while Eliquis on hold Full code Total critical time was 40 minutes. Text document was generated using [employer] voice recognition software. It may contain grammatical or spelling errors. Kindly contact undersigned for clarification of any documentation item in question. History of Present Illness Chief Complaint: Syncope Primary Care Provider: Giacomo Morgan DO History obtained from patient, family, and records. Medical history significant for chronic diastolic heart failure (EF 65-70%, TTE 2023), CAD status post unsuccessful PCI, PAF status post pulmonary vein isolation on Eliquis, valvular heart disease (moderate , mild MR/TR/CO, TTE 2023), hypertension, hyperlipidemia, DM 2 on oral medications, GERD, chronic anemia (baseline hemoglobin of 13), history oropharyngeal dysphagia, BPH, Parkinson disease, past tobacco abuse. Last confinement 2018 for epistaxis in the setting of Coumadin coagulopathy. Few weeks history of dizziness symptoms described as lightheadedness accompanied by flashes of light. Patient later noted chest and sinus congestion symptoms. Patient seen at urgent care last week. Prescribed Augmentin for bronchitis symptoms. Transient improvement of cough and dizziness symptoms on follow-up at PCP's office few days ago. Last night, patient had recurrent syncopal events witnessed by at home. Patient fell out of chair last night resulting in bleeding head wound. Patient complaining of achy left chest wall pain following fall. Some SOB. Patient brought to ER for evaluation. Syncopal events coinciding with bradycardic episodes, heart rate 40s and complete heart block. No improvement with atropine and dopamine infusion. Heart alert called for urgent transvenous pacemaker placement following consultation with diorama model maker on-call. Medical History as above Surgical History : Cataract surgery, back surgery, hip surgery, knee surgery, carpal tunnel surgery Family History : Leukemia, heart disease Personal/Social history : Past tobacco abuse, occasional EtOH intake, lives with Allergies Allergy/AdvReac Type Severity Reaction Status Date / Time lisinopril Allergy Cough Verified 11/16/24 13:00 Home Medications Medication Instructions Recorded Confirmed Type ascorbic acid (vitamin C) 500 mg 1,000 mg PO DAILY 07/17/19 11/16/24 History tablet (Vitamin C) cyanocobalamin (vitamin B-12) 500 500 mcg PO DAILY 07/17/19 11/16/24 History mcg tablet (Vitamin B-12) garlic 500 mg capsule 1,000 mg PO DAILY 07/17/19 11/16/24 History apixaban 5 mg tablet (Eliquis) 5 mg PO BID 11/22/19 11/16/24 History aspirin 81 mg chewable tablet 81 mg PO DAILY #30 tabs 05/30/20 11/16/24 Rx blood sugar diagnostic #100 ea 08/26/21 11/16/24 Rx nitroglycerin 0.4 mg sublingual 0.4 mg sublingual DIRECTED PRN 05/27/22 11/16/24 Rx tablet Chest Pain #20 tabs metformin 1,000 mg tablet 1,000 mg PO BID #180 tabs 01/08/23 11/16/24 Rx magnesium oxide 400 mg PO DAILY #90 tabs 01/16/23 11/16/24 Rx empagliflozin 10 mg tablet 25 mg PO DAILY 05/20/23 11/16/24 History (Jardiance) tizanidine 4 mg tablet See Rx Instructions .Route 06/16/23 11/16/24 Rx .COMPLEX #90 tabs finasteride 5 mg tablet 5 mg PO DAILY #90 tabs 07/13/23 11/16/24 Rx nystatin-triamcinolone 100,000 1 applic topical DAILY #15 grams 08/06/23 11/16/24 Rx unit/gram-0.1 % topical ointment tramadol 50 mg tablet 50 mg PO Q6H PRN Pain #28 tabs 09/04/23 11/16/24 Rx metoprolol succinate 25 mg 25 mg PO DAILY 11/10/23 11/16/24 History tablet,extended release 24 hr atorvastatin 80 mg tablet 80 mg PO DAILY #90 tabs 01/07/24 11/16/24 Rx pantoprazole 40 mg tablet,delayed 40 mg PO BID #180 tabs 02/29/24 11/16/24 Rx release glimepiride 1 mg tablet 1 mg PO BID 07/20/24 11/16/24 History tamsulosin 0.4 mg capsule 0.4 mg PO DAILY #90 caps 11/10/24 11/16/24 Rx fluticasone propionate 50 1 spray intranasal BID dryness #48 12/14/24 Rx mcg/actuation nasal grams spray,suspension (Flonase Allergy Relief) amoxicillin 875 mg-potassium 1 tab PO BID 01/22/25 01/22/25 History clavulanate 125 mg tablet gabapentin 600 mg tablet 600 mg PO TID 01/22/25 History mirabegron 25 mg tablet,extended 50 mg PO DAILY 01/22/25 History release 24 hr (Myrbetriq) Past Med/Surg History Problem List (Updated 01/22/25 @ 07:20 by Raul Huerta MD) Symptomatic bradycardia CHI (closed head injury) (Acute) Dysrhythmia (Acute) Syncope (Acute) Nephrolithiasis Adjacent segment disease of lumbar spine with history of fusion procedure Lumbar facet joint syndrome Moderate aortic stenosis Sinus bradycardia Spinal stenosis of lumbar region Lumbar radiculopathy History of lumbar spinal fusion Hx of total knee replacement left History of hip replacement, total left H/O lumbosacral spine surgery Aortic stenosis GERD (gastroesophageal reflux disease) Hyperlipidemia Hypertension (Acute) CAD (coronary artery disease) DJD (degenerative joint disease) of hip (Acute 08/10/14) Back pain (Acute) Type 2 diabetes mellitus Paroxysmal atrial fibrillation Chronic anticoagulation BPH with obstruction/lower urinary tract symptoms Medical History Urinary frequency Actinic keratosis Arthritis Squamous cell carcinoma of skin Viral warts Dysphagia Supratherapeutic INR Anemia Hx of coronary artery disease Diastolic heart failure Epistaxis Coagulopathy Hip pain Surgical History H/O carpal tunnel repair S/P ablation of atrial fibrillation S/P wisdom tooth extraction History of lithotripsy Family History Father Myocardial infarction Mother Leukemia Denies family history of Ovarian cancer Prostate cancer Breast cancer Colorectal cancer Social History Smoking Status: Never smoker Tobacco Type: Cigarettes Age Started Using Tobacco: 16; Age Quit Using Tobacco: 21; Cigarettes Per Day: a couple a day; Second Hand Exposure: Yes; Do You Dip or Chew Tobacco: No; Hx Alcohol Use: Yes Alcohol type: beer Alcohol Intake Frequency: 2-3 x/Week Hx Substance Use: No Preferred Language: Belgian Communication Ability: Effective Visual Impairment: No Limitations Hearing Ability: Use of Hearing Aid Home Management Supervisor Required: No Beliefs That Will Affect Care: None marital status: Current Living Situation: Spouse current occupational status: retired How many Children do You have: 1 Feels Safe at Home: Yes Childhood Exposure to Second-Hand Smoke: Yes Diet: regular caffeine: No during the past year weight has: remained stable Dental Care, Regularly: Yes Physical Activity Frequency: Daily Seatbelt Use: always Sunscreen Use: Yes Assistive Devices: Glasses, Hearing Aid - Left and Hearing Aid - Right Review of Systems Review of Systems: As per HPI, all other systems reviewed and negative Physical Exam Physical Exam: GENERAL: uncomfortable, slightly anxious, no respiratory distress SKIN: Pallor, warm HEENT: Alopecia, dried blood over scalp, pale palpebral conjunctivae, no ptosis, dry buccal mucosa with dried blood clots per orem NECK : Cervical collar in place CHEST : Decreased breath sounds, left chest wall tenderness HEART : Bradycardic, systolic murmur ABDOMEN: distention, nontender EXTREMITIES : No LE swelling/tenderness, no other conspicuous deformities noted NEUROLOGIC : Coherent, no facial asymmetry, gait and stance not assessed Results & Data Results & Data Vital Signs (Past 12 Hours) Vital Signs Temp Pulse Resp BP Pulse Ox O2 Del Method 03/23/25 06:31 130/51 L 01/22/25 06:26 48 L 01/22/25 06:20 136/83 01/22/25 06:06 88 24 159/75 H 92 01/22/25 05:45 84 28 H 171/104 H 98 01/22/25 05:33 69 171/104 H 01/22/25 05:09 77 25 H 99 01/22/25 05:06 79 27 H 97 01/22/25 04:54 77 22 146/115 H 100 01/22/25 04:42 76 21 100 01/22/25 04:36 72 19 99 01/22/25 04:18 76 22 174/98 H 99 01/22/25 04:13 Nasal Cannula 01/22/25 04:11 77 01/22/25 04:09 0 L 01/22/25 04:07 186/89 H 01/22/25 04:03 78 23 173/94 H 97 01/22/25 03:57 72 20 172/89 H 01/22/25 03:57 0 L 01/22/25 03:55 36.6 C 73 16 172/89 H 91 Room Air 01/22/25 03:53 73 Laboratory Results Laboratory Results WBC 12.62 K/ul (4.8-10.8) H 01/22/25 03:59 RBC 4.74 M/uL (4.70-6.10) 01/22/25 03:59 Hgb 13.1 g/dl (14.0-18.0) L 01/22/25 03:59 POC Hgb 14.3 g/dl (14.0-18.0) 01/22/25 03:58 Hct 42.5 % (42.0-52.0) 01/22/25 03:59 POC Hct 42 % (42-52) 01/22/25 03:58 MCV 89.7 fL (80.0-100.0) 01/22/25 03:59 MCH 27.6 pg (25.0-34.0) 01/22/25 03:59 MCHC 30.8 g/dL (32.0-36.0) L 01/22/25 03:59 RDW Std Deviation 51.9 fL (36.4-46.3) H 01/22/25 03:59 RDW Coeff of [place] 15.9 % (11.5-14.5) H 01/22/25 03:59 Plt Count 189 K/uL (130-400) 01/22/25 03:59 MPV 10.0 fL (9.4-12.4) 01/22/25 03:59 Immature Gran % (Auto) 0.6 % 01/22/25 03:59 Neut % (Auto) 72.8 % 01/22/25 03:59 Lymph % (Auto) 18.5 % 01/22/25 03:59 [place] % (Auto) 6.4 % 01/22/25 03:59 Eos % (Auto) 1.4 % 01/22/25 03:59 Baso % (Auto) 0.3 % 01/22/25 03:59 Neut # (Auto) 9.19 K/uL (1.40-6.50) H 01/22/25 03:59 Lymph # (Auto) 2.33 K/uL (1.20-3.40) 01/22/25 03:59 [place] # (Auto) 0.81 K/uL (0.11-0.59) H 01/22/25 03:59 Eos # (Auto) 0.18 K/uL (0.00-0.50) 01/22/25 03:59 Baso # (Auto) 0.04 K/uL (0.00-0.20) 01/22/25 03:59 Immature Gran # (Auto) 0.07 K/uL (0.01-0.20) 01/22/25 03:59 PT 11.6 Seconds (9.0-12.0) 01/22/25 03:59 INR 1.1 (0.9-1.1) 01/22/25 03:59 POC Sodium 140 mmol/L (135-144) 01/22/25 03:58 Sodium 137 mmol/L (136-145) 01/22/25 03:59 POC Potassium 3.8 mmol/L (3.3-5.0) 01/22/25 03:58 Potassium 3.9 mmol/L (3.5-5.1) 01/22/25 03:59 POC Chloride 103 mmol/L (101-112) 01/22/25 03:58 Chloride 103 mmol/L (98-107) 01/22/25 03:59 Carbon Dioxide 28 mmol/L (21-32) 01/22/25 03:59 POC Total CO2 25 mmol/L (24-31) 01/22/25 03:58 Anion Gap 6 (3-11) 01/22/25 03:59 POC Anion Gap 18.0 mmol/L (16-25) 01/22/25 03:58 POC BUN 23 mg/dl (7-18) H 01/22/25 03:58 BUN 22 mg/dl (6-23) 01/22/25 03:59 Creatinine 0.69 mg/dl (0.6-1.4) 01/22/25 03:59 POC Creatinine 0.7 mg/dl (0.6-1.3) 01/22/25 03:58 Est Cr Clr Drug Dosing 83.8 ml/min 01/22/25 03:59 eGFR 91.82 01/22/25 03:59 BUN/Creatinine Ratio 31.9 (10-20) H 01/22/25 03:59 Glucose 212 mg/dl (70-99(Fasting)) H 01/22/25 03:59 POC Glucose 223 mg/dl (70-99) H 01/22/25 06:17 POC Glucose (other) 204 mg/dl (70-99) H 01/22/25 03:58 Calcium 9.7 mg/dl (8.6-10.3) 01/22/25 03:59 POC Ioniz Calcium Shauna 1.17 mmol/l (1.12-1.32) 01/22/25 03:58 Magnesium 1.9 mg/dl (1.7-2.4) 01/22/25 03:59 Total Bilirubin 0.7 mg/dl (0.2-1.0) 01/22/25 03:59 AST 26 U/L (13-39) 01/22/25 03:59 ALT 19 U/L (7-52) 01/22/25 03:59 Alkaline Phosphatase 66 U/L (34-104) 01/22/25 03:59 Troponin I High Sens 7.4 pg/ml (0-20) 01/22/25 03:59 Total Protein 7.3 gm/dl (6.0-8.3) 01/22/25 03:59 Albumin 4.4 gm/dl (3.4-5.0) 01/22/25 03:59 Globulin 2.9 gm/dl (2.5-4.0) 01/22/25 03:59 Albumin/Globulin Ratio 1.5 (0.9-2) 01/22/25 03:59 Lipase 51 U/L (11-82) 01/22/25 03:59 TSH 1.473 uIu/ml (0.300-4.500) 01/22/25 03:59 Ethyl Alcohol mg/dL < 10.0 mg/dl (<10.0) 01/22/25 03:59 Lyme Disease Screen Negative (Negative) 01/22/25 03:[address] 01/22/25 04:07 EXAM: CT cervical spine wo con CLINICAL HISTORY: Trauma. TECHNIQUE: CT scan of the cervical spine was performed without the administration of intravenous contrast. Contiguous axial images were obtained from the skull base to the upper thoracic spine. Coronal and sagittal reformatted images were also reviewed. One of the following dose-reduction techniques was utilized for this exam. Automated exposure control, adjustment of the mA and/or kV according to patient size, and use of iterative reconstruction. COMPARISON: No previous studies are available for comparison. FINDINGS: Vertebrae: Apparent mild right-sided cervical scoliosis. Grade 1 anterolisthesis of C4 over C5. Multilevel degenerative changes of the cervical spine are most severe at the C6-C7 level with decreased intervertebral joint space, subchondral sclerosis, subchondral cysts, and marginal osteophytes. Degenerative changes of the facet joints with fusion of C3-C4 facet joints on the left side. Multiple small corticated calcifications are noted adjacent to the spinous processes of C7 and T1, which could represent dystrophic versus ligamentous calcifications. Neural Foramina: Multilevel bony foraminal stenosis, exaggerated by facet joint hypertrophy and uncovertebral complex. Prevertebral Soft Tissues: The prevertebral soft tissues are normal in thickness without evidence of mass or abnormal fluid collection. Additional Findings: Arterial atherosclerotic changes is noted. IMPRESSION: 1. No acute displaced fracture or dislocation. 2. 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 3. Mild right-sided cervical scoliosis with fusion of the left C3-C4 facet joints. Electronically signed by Frankie Wells 01-22-2025 06:32 AM Chest X-Ray 01/22/25 04:07 EXAM: XR chest 1V portable CLINICAL HISTORY: Trauma TECHNIQUE: An X-ray image of the chest is obtained in AP projection. COMPARISON: Compared to the previous study dated 07/17/2019. FINDINGS: Pulmonary Parenchyma: Progressive course regarding multiple reticulonodular opacities are seen with accentuated hilar and broncho vascular lung markings. Lungs are clear bilaterally. No evidence of consolidation, collapse, or focal opacities. No pulmonary nodules are identified. No evidence of pleural effusion or pleural thickening. Heart and Mediastinum: Mediastinal widening is seen No hilar or mediastinal lymphadenopathy. The heart is enlarged in size. Bony Thorax: The bony thorax appears intact without fractures or deformities. 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 IMPRESSION: 1. No traumatic injuries were seen. 2. Progressive course regarding multiple reticulonodular opacities are seen with accentuated hilar and broncho vascular lung markings, suggesting coarsened pulmonary interstitium ( ILD ). 3. Cardiomegaly. 4. No evidence of consolidation or pleural effusion. Electronically signed by Frankie Wells 01-22-2025 05:[address] 01/22/25 04:07 EXAM: CT head/brain wo con CLINICAL HISTORY: Trauma. TECHNIQUE: Axial non-contrast CT scan of the brain was performed from the skull base to the high parietal region. One of the following dose reduction techniques were utilized for this exam: Automated exposure control, adjustment of the mA and/or kV according to patient size, use of iterative reconstruction. DLP: 1393.29 mGy.cm. COMPARISON: 08/07/2020 CT. FINDINGS: Brain Parenchyma: Normal attenuation of the cerebral hemispheres, cerebellum, and brainstem. Age-related parenchymal volume loss with capacious CSF spaces. Faint bilateral basal ganglia calcification. Mild periventricular hypodensities are likely related to periventricular small vessel disease. No acute brain hemorrhage. Ventricular System: Prominent ventricular system. No intraventricular hemorrhage. Subarachnoid Spaces: No evidence of subarachnoid hemorrhage or extra-axial fluid collections. Cerebellum and Brainstem: No masses, lesions, or areas of abnormal signal. Orbits: No evidence of orbital masses or abnormal densities. Sinuses: Minimal mucosal thickening in the maxillary antra (medial sweet) and ethmoid air cells. No air-fluid leveling. Mastoid Air Cells: Clear mastoid air cells. No evidence of mastoiditis. Skull: Normal skull morphology. Apparent mild soft tissue thickening at the high left frontal area is appreciated more on the axial views. IMPRESSION: 1. No acute brain hemorrhage. 2. No significant interval change since the previous study apart from minimal mucosal thickening of the maxillary and ethmoid sinuses. Electronically signed by Frankie Wells 01-22-2025 06:17 AM Diagnostic Findings EKG as per my interpretation :Rate 70, NSR, LAD, LAFB, RBBB, nonspecific T wave abnormalities
[2025-01-22] MEDS ORDERED: PROMETHAZINE 6.25 MG/50.25 ML BAG IV PRN (06:45)
[2025-01-22] MEDS ORDERED: ACETAMINOPHEN 325 MG TAB PO PRN (06:45)
[2025-01-22] MEDS ORDERED: oxyCODONE HCL IR 5 MG TAB (IMMEDIATE RELEASE) PO PRN (06:45)
--- NOTE | 2025-01-22 06:55 | Cardiology Consultation ---
Date of Consultation January 22, 2025 Assessment & Plan (1) Syncope: (2) Symptomatic bradycardia: Proceed with transvenous temporary pacemaker. History of Present Illness Attending Physician: Lev Holloway MD History of Present Illness Mr. Perez is an 84-year-old man seen urgently in the ED today for transvenous temporary pacemaker due to complete heart block and recurrent syncope. He follows with Dr. Mercedes for his cardiac care. Has a history of moderate aortic stenosis (last echo 01/2024), paroxysmal atrial fibrillation post remote A-fib ablation/PVI on long-term Eliquis/metoprolol. Also with CAD post prior attempted ostial diagonal intervention, type 2 diabetes, dyslipidemia, GERD, spinal stenosis. Old EKGs have consistently shown sinus rhythm with bifascicular block RBBB/LAFB. Presented earlier this morning with recurrent syncopal episodes and falls. No preceding chest pain, palpitations. Initial ECG again showed sinus rhythm with RBBB. Repeated symptomatic episodes in ED with corresponding episode of CHB with prolonged ventricular pauses longest 20 seconds. Has continued to have pauses despite atropine and dopamine. Allergies Allergy/AdvReac Type Severity Reaction Status Date / Time lisinopril Allergy Cough Verified 11/16/24 13:00 Home Medications Medication Instructions Recorded Confirmed Type ascorbic acid (vitamin C) 500 mg 500 mg PO DAILY 07/17/19 11/16/24 History tablet (Vitamin C) cyanocobalamin (vitamin B-12) 500 500 mcg PO DAILY 07/17/19 11/16/24 History mcg tablet (Vitamin B-12) furosemide 40 mg tablet (Lasix) 40 mg PO DAILY 07/17/19 11/16/24 History garlic 500 mg capsule 500 mg PO DAILY 07/17/19 11/16/24 History multivitamin 1 tab PO DAILY 07/17/19 11/16/24 History sildenafil 50 mg tablet (Viagra) 50 mg PO DAILY PRN Erectile 07/17/19 11/16/24 History Dysfunction apixaban 5 mg tablet (Eliquis) 5 mg PO BID 11/22/19 11/16/24 History aspirin 81 mg chewable tablet 81 mg PO DAILY #30 tabs 05/30/20 11/16/24 Rx blood sugar diagnostic #100 ea 08/26/21 11/16/24 Rx glucose 4 gram chewable tablet 4 g PO DIRECTED PRN low sugar 05/27/22 11/16/24 Rx #30 tabs nitroglycerin 0.4 mg sublingual 0.4 mg sublingual DIRECTED PRN 05/27/22 11/16/24 Rx tablet Chest Pain #20 tabs azelastine 137 mcg (0.1 %) nasal 1 spray intranasal BID #30 mL 12/03/22 11/16/24 Rx spray metformin 1,000 mg tablet 1,000 mg PO BID #180 tabs 01/08/23 11/16/24 Rx magnesium oxide 400 mg PO DAILY #90 tabs 01/16/23 11/16/24 Rx empagliflozin 10 mg tablet 10 mg PO DAILY 05/20/23 11/16/24 History (Jardiance) tizanidine 4 mg tablet See Rx Instructions .Route 06/16/23 11/16/24 Rx .COMPLEX #90 tabs finasteride 5 mg tablet 5 mg PO DAILY #90 tabs 07/13/23 11/16/24 Rx nystatin-triamcinolone 100,000 1 applic topical DAILY #15 grams 08/06/23 11/16/24 Rx unit/gram-0.1 % topical ointment spironolactone 25 mg tablet 25 mg PO DAILY #90 tabs 08/24/23 11/16/24 Rx tramadol 50 mg tablet 50 mg PO Q6H PRN Pain #28 tabs 09/04/23 11/16/24 Rx metoprolol succinate 25 mg 12.5 mg PO DAILY 11/10/23 11/16/24 History tablet,extended release 24 hr atorvastatin 80 mg tablet 80 mg PO DAILY #90 tabs 01/07/24 11/16/24 Rx pantoprazole 40 mg tablet,delayed 40 mg PO BID #180 tabs 02/29/24 11/16/24 Rx release glimepiride 1 mg tablet 2 mg PO DAILY 07/20/24 11/16/24 History gabapentin 600 mg tablet 600 mg PO BID #60 tabs 10/17/24 11/16/24 Rx mirabegron 25 mg tablet,extended 25 mg PO DAILY #90 tabs 11/10/24 11/16/24 Rx release 24 hr (Myrbetriq) tamsulosin 0.4 mg capsule 0.4 mg PO DAILY #90 caps 11/10/24 11/16/24 Rx fluticasone propionate 50 1 spray intranasal BID dryness #48 12/14/24 Rx mcg/actuation nasal grams spray,suspension (Flonase Allergy Relief) Patient History Medical History Urinary frequency Actinic keratosis Arthritis Squamous cell carcinoma of skin Viral warts Dysphagia Supratherapeutic INR Anemia Hx of coronary artery disease Diastolic heart failure Epistaxis Coagulopathy Hip pain Surgical History H/O carpal tunnel repair S/P ablation of atrial fibrillation S/P wisdom tooth extraction History of lithotripsy Family History Father Myocardial infarction Mother Leukemia Denies family history of Ovarian cancer Prostate cancer Breast cancer Colorectal cancer Social History Smoking Status: Never smoker Tobacco Type: Cigarettes Age Started Using Tobacco: 16; Age Quit Using Tobacco: 21; Cigarettes Per Day: a couple a day; Second Hand Exposure: Yes; Do You Dip or Chew Tobacco: No; Hx Alcohol Use: Yes Alcohol type: beer Alcohol Intake Frequency: 2-3 x/Week Hx Substance Use: No Preferred Language: Taiwanese Communication Ability: Effective Visual Impairment: No Limitations Hearing Ability: Use of Hearing Aid Batch Heat Treat Operator Required: No Beliefs That Will Affect Care: None marital status: Current Living Situation: Spouse current occupational status: retired How many Children do You have: 1 Feels Safe at Home: Yes Childhood Exposure to Second-Hand Smoke: Yes Diet: regular caffeine: No during the past year weight has: remained stable Dental Care, Regularly: Yes Physical Activity Frequency: Daily Seatbelt Use: always Sunscreen Use: Yes Assistive Devices: Glasses, Hearing Aid - Left and Hearing Aid - Right Review of Systems Review of Systems: Not obtained in the setting of emergent situation Physical Exam Constitutional: well developed Respiratory: normal respiratory effort Cardiovascular: Rate/Rhythm: regular rhythm and + bradycardic Heart Sounds: + murmur Gastrointestinal (Abdomen): Percussion/Palpation: abdomen soft; abdomen nonten luz Musculoskeletal: Spine: + cervical collar present Skin: no rashes, warm and dry Psychiatric: Orientation: alert, oriented to person and oriented to place Results & Data Vital Signs (Past 12 Hours) Vital Signs Temp Pulse Resp BP Pulse Ox O2 Del Method 01/22/25 06:40 Room Air 01/22/25 06:31 130/51 L 01/22/25 06:26 48 L 01/22/25 06:20 136/83 01/22/25 06:06 88 24 159/75 H 92 01/22/25 05:45 84 28 H 171/104 H 98 01/22/25 05:33 69 171/104 H 01/22/25 05:09 77 25 H 99 01/22/25 05:06 79 27 H 97 01/22/25 04:54 77 22 146/115 H 100 01/22/25 04:42 76 21 100 01/22/25 04:36 72 19 99 01/22/25 04:18 76 22 174/98 H 99 01/22/25 04:13 Nasal Cannula 01/22/25 04:11 77 01/22/25 04:09 0 L 01/22/25 04:07 186/89 H 01/22/25 04:03 78 23 173/94 H 97 01/22/25 03:57 72 20 172/89 H 01/22/25 03:57 0 L 01/22/25 03:55 97.9 F 73 16 172/89 H 91 Room Air 01/22/25 03:53 73 PG Care Time/CCT Total # of Minutes Spent Total Time Spent with Patient: Total time spent is greater than 50% in coordination of care (as documented) at patient's floor/unit and/or counseling patient: Coding Level of Care Code 67616 ER DEPT VISIT MOD LVL 4 Diagnoses Syncope R55 Symptomatic bradycardia R00.1
[2025-01-22 07:08] LABS: Adenovirus PCR Not Detected (NotDetected); Bordetella parapertussis PCR Not Detected (NotDetected); Bordetella pertussis PCR Not Detected (NotDetected); Chlamydia pneumoniae PCR Not Detected (NotDetected); Coronavirus 229E PCR Not Detected (NotDetected); Coronavirus CoV-2 (COVID19)PCR Not Detected (NotDetected); Coronavirus HKU1 PCR Not Detected (NotDetected); Coronavirus NL63 PCR Not Detected (NotDetected); Coronavirus OC43PCR Not Detected (NotDetected); Human Metapneumovirus PCR Not Detected (NotDetected); Influenza A PCR Not Detected (NotDetected); Influenza B PCR Not Detected (NotDetected); Mycoplasma pneumoniae PCR Not Detected (NotDetected); Parainfluenza Virus 1 PCR Not Detected (NotDetected); Parainfluenza Virus 2 PCR Not Detected (NotDetected); Parainfluenza Virus 3 PCR Not Detected (NotDetected); Parainfluenza Virus 4 PCR Not Detected (NotDetected); Respiratory Syncytial VirusPCR Not Detected (NotDetected); Rhinovirus/Enterovirus PCR Not Detected (NotDetected)
[2025-01-22] MEDS: HEPARIN (PORCINE) 1000 UNIT/ML 10 ML (CATH LAB USE ONLY) ONE (07:11)
[2025-01-22] MEDS: fentaNYL citrate PF 100 MCG/2 ML VIAL ONE (07:11)
[2025-01-22] MEDS: OPTIRAY 350 ONE (07:12)
[2025-01-22] MEDS: niCARdipine HCL INJ 2.5 MG/ML 10 ML AMP ONE (07:12)
[2025-01-22] MEDS: MIDAZOLAM HCL 1 MG/ML 2ML VIAL ONE (07:12)
[2025-01-22] MEDS ORDERED: MoRPHine SULFATE 2 MG/ML CARP IV PRN (07:17)
[2025-01-22] MEDS: NITROGLYCERIN/D5W 100MCG/ML 20ML SYR ONE (07:18)
--- NOTE | 2025-01-22 07:31 | Cardiac Catheterization ---
ACC Data: Repairer General Cardiac Status Clinical evaluation leading to the procedure CAD Presenation: Sx unlikely to be ischemic Diagnostic Physicians Name: Lev Holloway MD Closure Device Recommendations: Management Recommendatons (Permanent pacemaker) Cardiac Cath Procedure Full Procedure Date January 22, 2025 Pre-Procedure Diagnosis Pre-Procedure Diagnosis: Arrhythmia (Complete heart block) AUC Score AUC Score: 7 Post-Procedure Diagnosis Post-Procedure Diagnosis: Cardiothoracic Finding (AV block) Procedure(s) Performed Procedure(s) Performed: Temporary Pacemaker and Ultrasound Guided Vascular Access Cardiac Technologist Lev Holloway MD Hydrate Control Tender(s) Nikki Estimated Blood Loss Estimated Blood Loss: 5 Medication(s) Medication(s): Lidocaine 1% Summary of Findings Temporary transvenous pacemaker Indication: Syncope, symptomatic complete heart block Procedure: Local anesthesia with 1% lidocaine Right IJ accessed under ultrasound guidance with micropuncture 6 Fr sheath placed to right IJ 6 Fr transvenous pacemaker navigated under fluoroscopic guidance to RV Pacing confirmed to outputs less than 1 mA Pacer/use sutured and secured in place Final pacer settings: VVI 60 bpm, output 5 mA Summary: 1. Successful placement of transvenous temporary pacemaker. Recommendations: Continue to hold home beta-caryl, Eliquis Repeat echo, trend troponin Likely permanent pacemaker with EP tomorrow Hemodynamics Rest Ao:: -- Final Ao: -- LV: -- Recommendations Recommendations: Management Recommendatons (Permanent pacemaker) Radiation Exposure (mGy) 50 Contrast (mls) -- Anesthesia Local Procedural Complication(s) None Disposition ICU I attest to the content of the Intraoperative Record and any orders documented therein. Any exceptions are noted below. [facility] Card Cath Procedure Codes Therapeutic Services & Ancillary Procedure 1: Cardiovascular Tx and Anc Procedures: 95356 Ultrasonic Guidance Vascular Access Procedure 2: Cardiovascular Tx and Anc Procedures: 90332 Temp Pacer Insert PG Care Time/CCT Total # of Minutes Spent Total Time Spent with Patient: Total time spent is greater than 50% in coordination of care (as documented) at patient's floor/unit and/or counseling patient:
[2025-01-22] MEDS ORDERED: CARBOHYDRATES FOR HYPOGLYCEMIA PO PRN (07:57)
[2025-01-22] MEDS ORDERED: GLUCAGON FOR INJ 1 MG VIAL SQ PRN (07:57)
[2025-01-22] MEDS ORDERED: DEXTROSE 50% 50 ML SYRINGE IV PRN (07:57)
[2025-01-22] MEDS ORDERED: GLUCOSE 10 TAB/TUBE PO PRN (07:57)
[2025-01-22] MEDS ORDERED: GLUCOSE 40% GEL 15 GM TUBE PO PRN (07:57)
[2025-01-22] MEDS: MAGNESIUM SULFATE / D5W 1 GM/100 ML BAG IV ONE (08:37)
[2025-01-22] MEDS: SODIUM CHLORIDE 0.9% 1,000 ML IV ONE (08:37)
[2025-01-22] MEDS: ACETAMINOPHEN 1,000 MG/100 ML VIAL IV STA (08:38)
--- NOTE | 2025-01-22 08:43 | Electrocardiogram Report ---
Test Reason : Blood Pressure : */* mmHG Vent. Rate : 71 BPM Atrial Rate : 71 BPM P-R Int : 168 ms QRS Dur : 142 ms QT Int : 450 ms P-R-T Axes : 59 -61 17 degrees QTcB Int : 489 ms Normal sinus rhythm Left anterior fascicular block Right bundle branch block Possible Old Lateral infarct Nonspecific T wave abnormality Anterior leads Abnormal ECG When compared with ECG of 17-Jul-2019 05:44, Borderline criteria for Lateral infarct are now Present Nonspecific T wave abnormality now present Confirmed by Tamir Zayas ([id number]) on 01/22/2025 8:43:34 AM Referred By: REFERRED SELF Confirmed By: Tamir Zayas
[2025-01-22] MEDS: INSULIN ASPART PER UNIT CHARGE SC SCH (08:53)
[2025-01-22] MEDS: LANTUS PER UNIT CHARGE SQ SCH (08:54)
[2025-01-22] MEDS: LIDOCAINE 2% JELLY 5 ML TUBE EXT ONE (08:58)
[2025-01-22] MEDS ORDERED: CHLOROTHIAZIDE SODIUM 500 MG in DEXTROSE 5% 50 ML IV ONE (09:07)
[2025-01-22] MEDS ORDERED: FUROSEMIDE 100 MG in SODIUM CHLORIDE 0.9% 90 ML IV SCH (09:15)
[2025-01-22] MEDS: CYANOCOBALAMIN (B-12) 500 MCG TABLET PO SCH (09:57)
[2025-01-22] MEDS: ATORVASTATIN 40 MG TAB PO SCH (09:57)
[2025-01-22] MEDS: AMOXICILLIN/CLAVULANATE 875 MG TAB PO SCH (09:57)
[2025-01-22] MEDS: FINASTERIDE 5 MG TAB PO SCH (09:58)
[2025-01-22] MEDS: PANTOprazole 40 MG TAB PO SCH (09:58)
[2025-01-22] MEDS: GABAPENTIN 600 MG TAB PO SCH ×2 (09:58→20:29)
[2025-01-22] MEDS: VIBEGRON 75 MG TAB PO SCH (09:59)
[2025-01-22] MEDS: TAMSULOSIN HCL 0.4 MG CAP PO SCH (09:59)
[2025-01-22] MEDS: FLUTICASONE PROPIONATE NA SPR 16 GM BTL SCH (10:03)
[2025-01-22] MEDS: FUROSEMIDE 40 MG/4 ML VIAL IV ONE (10:06)
[2025-01-22] MEDS: Nursing to Pharmacy Communication SCH (10:07)
--- NOTE | 2025-01-22 11:33 | Critical Care Consultation ---
Date of Consultation January 22, 2025 Assessment & Plan (1) Symptomatic bradycardia: Reason Critically Ill: 84-year-old male with symptomatic bradycardia requiring transvenous pacemaker PLAN: Neuro: Low back pain: Chronic -Patient requested Voltaren gel -Oxycodone as needed for severe pain Resp: Tolerating room air CV: Known coronary artery disease -Lipitor 80 mg daily Moderate aortic stenosis Paroxysmal atrial fibrillation status post ablation Fluids/Renal: Reported history of BPH -Qureshi catheter secondary to inability to move around from transvenous pacemaker -Continue Flomax and Proscar ID: Continued on Augmentin by primary team, this was listed as a home med GI/Nutrition: Heart healthy diet Heme: Baseline anemia DVT prophylaxis: Systemic anticoagulation with Eliquis Endocrine: ICU hyperglycemia protocol Vascular access: Right-sided internal jugular introducer Code Status: Full code Disposition: ICU while pacemaker in place (2) Sinus bradycardia: (3) Spinal stenosis of lumbar region: (4) Lumbar radiculopathy: (5) Hypertension: (6) CAD (coronary artery disease): (7) BPH with obstruction/lower urinary tract symptoms: Supervising Physician Co-Signing Physician Notes I have personally spent 45 minutes of critical care time in the direct management of this patient. This is a life/limb threatening event. This includes time spent evaluating patient, direct bedside care, chart review, placing orders, interpretation of diagnostic studies, discussion with consultants, patient, and/or family members regarding treatment decisions, as well as other required patient management activities. This time is exclusive of all separately billable procedures, and teaching time and separate from and in addition to any other critical care service time. History of Present Illness Reason for Consultation: Symptomatic bradycardia requiring transvenous pacemaker placement Attending Physician: Holly Tidwell MD History of Present Illness ED notes from presentation:This is an 84-year-old male presents emergency department via EMS due to concern for recent dizziness and syncope. Patient reported he has had intermittent dizziness over the course of the last 2 weeks and this weekend had episodes of passing out. EMS reported he apparently sustained a head injury during 1 of these episodes. Patient denied any chest pain, shortness of breath, recent change in medications, or recent illness. On arrival here when patient was transferred over to our bed and telemetry he sustained a prolonged pause and was unresponsive. Patient was emergently taken to the cardiac Dial [facility] for transvenous pacemaker which was successfully placed. Patient feels. Complaining of mild low back pain secondary to positioning. Was unable to urinate: Has issues urinating and sitting in bed. Required catheter placement by myself as nursing unable to pass the initial catheter. Allergies Allergy/AdvReac Type Severity Reaction Status Date / Time lisinopril Allergy Cough Verified 11/16/24 13:00 Home Medications Medication Instructions Recorded Confirmed Type ascorbic acid (vitamin C) 500 mg 1,000 mg PO DAILY 07/17/19 11/16/24 History tablet (Vitamin C) cyanocobalamin (vitamin B-12) 500 500 mcg PO DAILY 07/17/19 11/16/24 History mcg tablet (Vitamin B-12) garlic 500 mg capsule 1,000 mg PO DAILY 07/17/19 11/16/24 History apixaban 5 mg tablet (Eliquis) 5 mg PO BID 11/22/19 11/16/24 History aspirin 81 mg chewable tablet 81 mg PO DAILY #30 tabs 05/30/20 11/16/24 Rx blood sugar diagnostic #100 ea 08/26/21 11/16/24 Rx nitroglycerin 0.4 mg sublingual 0.4 mg sublingual DIRECTED PRN 05/27/22 11/16/24 Rx tablet Chest Pain #20 tabs metformin 1,000 mg tablet 1,000 mg PO BID #180 tabs 01/08/23 11/16/24 Rx magnesium oxide 400 mg PO DAILY #90 tabs 01/16/23 11/16/24 Rx empagliflozin 10 mg tablet 25 mg PO DAILY 05/20/23 11/16/24 History (Jardiance) tizanidine 4 mg tablet See Rx Instructions .Route 06/16/23 11/16/24 Rx .COMPLEX #90 tabs finasteride 5 mg tablet 5 mg PO DAILY #90 tabs 07/13/23 11/16/24 Rx nystatin-triamcinolone 100,000 1 applic topical DAILY #15 grams 08/06/23 11/16/24 Rx unit/gram-0.1 % topical ointment tramadol 50 mg tablet 50 mg PO Q6H PRN Pain #28 tabs 09/04/23 11/16/24 Rx metoprolol succinate 25 mg 25 mg PO DAILY 11/10/23 11/16/24 History tablet,extended release 24 hr atorvastatin 80 mg tablet 80 mg PO DAILY #90 tabs 01/07/24 11/16/24 Rx pantoprazole 40 mg tablet,delayed 40 mg PO BID #180 tabs 02/29/24 11/16/24 Rx release glimepiride 1 mg tablet 1 mg PO BID 07/20/24 11/16/24 History tamsulosin 0.4 mg capsule 0.4 mg PO DAILY #90 caps 11/10/24 11/16/24 Rx fluticasone propionate 50 1 spray intranasal BID dryness #48 12/14/24 Rx mcg/actuation nasal grams spray,suspension (Flonase Allergy Relief) amoxicillin 875 mg-potassium 1 tab PO BID 01/22/25 01/22/25 History clavulanate 125 mg tablet gabapentin 600 mg tablet 600 mg PO TID 01/22/25 History mirabegron 25 mg tablet,extended 50 mg PO DAILY 01/22/25 History release 24 hr (Myrbetriq) Patient History Medical History Urinary frequency Actinic keratosis Arthritis Squamous cell carcinoma of skin Viral warts Dysphagia Supratherapeutic INR Anemia Hx of coronary artery disease Diastolic heart failure Epistaxis Coagulopathy Hip pain Surgical History H/O carpal tunnel repair S/P ablation of atrial fibrillation S/P wisdom tooth extraction History of lithotripsy Family History Father Myocardial infarction Mother Leukemia Denies family history of Ovarian cancer Prostate cancer Breast cancer Colorectal cancer Social History Smoking Status: Never smoker Tobacco Type: Cigarettes Age Started Using Tobacco: 16; Age Quit Using Tobacco: 21; Cigarettes Per Day: a couple a day; Second Hand Exposure: Yes; Do You Dip or Chew Tobacco: No; Hx Alcohol Use: Yes Alcohol type: hard liquor Alcohol Intake Frequency: 2-3 x/Week Hx Substance Use: No Preferred Language: [place] Communication Ability: Effective Visual Impairment: No Limitations Hearing Ability: Use of Hearing Aid Warehouse Administrator Required: No Beliefs That Will Affect Care: None marital status: Current Living Situation: Spouse current occupational status: retired How many Children do You have: 1 Other Information That Helps Us Care for You: No Feels Safe at Home: Yes Safety Concerns: Feels Safe At This Time Childhood Exposure to Second-Hand Smoke: Yes Diet: regular caffeine: No during the past year weight has: remained stable Dental Care, Regularly: Yes Physical Activity Frequency: Daily Seatbelt Use: always Sunscreen Use: Yes Assistive Devices: Cane, Glasses, Hearing Aid - Bilateral and Walker Physical Exam Physical Exam: General: Alert. nontoxic. Skin: Warm, dry, Head: Atraumatic Neck: Transvenous pacemaker present Ears, nose, mouth and throat: airway patent Cardiovascular: Normal peripheral perfusion Respiratory: no respiratory distress Gastrointestinal: Non distended : Uncircumcised male. I placed a Qureshi catheter via standard sterile technique. During insertion I felt with may represent mild stricture which was passed with the application of mild increased pressure catheter alone. Clear yellow urine was obtained. Musculoskeletal: No deformity Results & Data Results & Data Vital Signs (Past 12 Hours) Vital Signs Temp Pulse Pulse Resp BP BP Pulse Ox 01/22/25 10:01 78 20 151/71 H 97 01/22/25 09:39 77 16 161/78 H 97 01/22/25 09:00 61 17 126/60 91 01/22/25 08:30 64 27 H 168/78 H 92 01/22/25 08:02 68 31 H 156/71 H 89 L 01/22/25 08:00 01/22/25 08:00 36.5 C 64 18 147/81 H 90 01/22/25 07:47 67 25 H 147/81 H 89 L 01/22/25 07:33 60 22 143/71 H 90 01/22/25 06:40 01/22/25 06:31 130/51 L 01/22/25 06:26 48 L 01/22/25 06:20 136/83 01/22/25 06:06 88 24 159/75 H 92 01/22/25 05:45 84 28 H 171/104 H 98 01/22/25 05:33 69 171/104 H 01/22/25 05:09 77 25 H 99 01/22/25 05:06 79 27 H 97 01/22/25 04:54 77 22 146/115 H 100 01/22/25 04:42 76 21 100 01/22/25 04:36 72 19 99 01/22/25 04:18 76 22 174/98 H 99 01/22/25 04:13 01/22/25 04:11 77 01/22/25 04:09 0 L 01/22/25 04:07 186/89 H 01/22/25 04:03 78 23 173/94 H 97 01/22/25 03:57 72 20 172/89 H 01/22/25 03:57 0 L 01/22/25 03:55 36.6 C 73 16 172/89 H 91 01/22/25 03:53 73 O2 Del Method O2 Flow Rate 01/22/25 10:01 Nasal Cannula 2 01/22/25 09:39 Nasal Cannula 2 01/22/25 09:00 Room Air 01/22/25 08:30 Room Air 01/22/25 08:02 Room Air 01/22/25 08:00 Room Air 01/22/25 08:00 Room Air 01/22/25 07:47 Room Air 01/22/25 07:33 Room Air 01/22/25 06:40 Room Air 01/22/25 06:31 01/22/25 06:26 01/22/25 06:20 01/22/25 06:06 01/22/25 05:45 01/22/25 05:33 01/22/25 05:09 01/22/25 05:06 01/22/25 04:54 01/22/25 04:42 01/22/25 04:36 01/22/25 04:18 01/22/25 04:13 Nasal Cannula 01/22/25 04:11 01/22/25 04:09 01/22/25 04:07 01/22/25 04:03 01/22/25 03:57 01/22/25 03:57 01/22/25 03:55 Room Air 01/22/25 03:53 Critical Care Results & Data Vital Signs (Past 12 Hours) Vital Signs Temp Pulse Pulse Resp BP BP Pulse Ox 01/22/25 10:01 78 20 151/71 H 97 01/22/25 09:39 77 16 161/78 H 97 01/22/25 09:00 61 17 126/60 91 01/22/25 08:30 64 27 H 168/78 H 92 01/22/25 08:02 68 31 H 156/71 H 89 L 01/22/25 08:00 01/22/25 08:00 36.5 C 64 18 147/81 H 90 01/22/25 07:47 67 25 H 147/81 H 89 L 01/22/25 07:33 60 22 143/71 H 90 01/22/25 06:40 01/22/25 06:31 130/51 L 01/22/25 06:26 48 L 01/22/25 06:20 136/83 01/22/25 06:06 88 24 159/75 H 92 01/22/25 05:45 84 28 H 171/104 H 98 01/22/25 05:33 69 171/104 H 01/22/25 05:09 77 25 H 99 01/22/25 05:06 79 27 H 97 01/22/25 04:54 77 22 146/115 H 100 01/22/25 04:42 76 21 100 01/22/25 04:36 72 19 99 01/22/25 04:18 76 22 174/98 H 99 01/22/25 04:13 01/22/25 04:11 77 01/22/25 04:09 0 L 01/22/25 04:07 186/89 H 01/22/25 04:03 78 23 173/94 H 97 01/22/25 03:57 72 20 172/89 H 01/22/25 03:57 0 L 01/22/25 03:55 36.6 C 73 16 172/89 H 91 01/22/25 03:53 73 O2 Del Method O2 Flow Rate 01/22/25 10:01 Nasal Cannula 2 01/22/25 09:39 Nasal Cannula 2 01/22/25 09:00 Room Air 01/22/25 08:30 Room Air 01/22/25 08:02 Room Air 01/22/25 08:00 Room Air 01/22/25 08:00 Room Air 01/22/25 07:47 Room Air 01/22/25 07:33 Room Air 01/22/25 06:40 Room Air 01/22/25 06:31 01/22/25 06:26 01/22/25 06:20 01/22/25 06:06 01/22/25 05:45 01/22/25 05:33 01/22/25 05:09 01/22/25 05:06 01/22/25 04:54 01/22/25 04:42 01/22/25 04:36 01/22/25 04:18 01/22/25 04:13 Nasal Cannula 01/22/25 04:11 01/22/25 04:09 01/22/25 04:07 01/22/25 04:03 01/22/25 03:57 01/22/25 03:57 01/22/25 03:55 Room Air 01/22/25 03:53 Lab & Micro Results (Past 24 Hours) RBC 4.74 M/uL (4.70-6.10) 01/22/25 WBC 12.62 K/ul (4.8-10.8) H 01/22/25 Hgb 13.1 g/dl (14.0-18.0) L 01/22/25 Hct 42.5 % (42.0-52.0) 01/22/25 MCV 89.7 fL (80.0-100.0) 01/22/25 MCH 27.6 pg (25.0-34.0) 01/22/25 MCHC 30.8 g/dL (32.0-36.0) L 01/22/25 RDW Standard Deviation 51.9 fL (36.4-46.3) H 01/22/25 RDW Coefficient of Variation 15.9 % (11.5-14.5) H 01/22/25 Plt Count 189 K/uL (130-400) 01/22/25 MPV 10.0 fL (9.4-12.4) 01/22/25 Neutrophils (%) (Auto) 72.8 % 01/22/25 Lymphocytes (%) (Auto) 18.5 % 01/22/25 Monocytes # (Auto) 0.81 K/uL (0.11-0.59) H 01/22/25 Eosinophils # (Auto) 0.18 K/uL (0.00-0.50) 01/22/25 Immature Granulocyte % (Auto) 0.6 % 01/22/25 Neutrophils # (Auto) 9.19 K/uL (1.40-6.50) H 01/22/25 Lymphocytes # (Auto) 2.33 K/uL (1.20-3.40) 01/22/25 Monocytes # (Auto) 0.81 K/uL (0.11-0.59) H 01/22/25 Eosinophils # (Auto) 0.18 K/uL (0.00-0.50) 01/22/25 Basophils # (Auto) 0.04 K/uL (0.00-0.20) 01/22/25 Immature Granulocyte # (Auto) 0.07 K/uL (0.01-0.20) 5 Na 137 mmol/L (136-145) 01/22/25 K 3.9 mmol/L (3.5-5.1) 01/22/25 Cl 103 mmol/L (98-107) 01/22/25 CO2 28 mmol/L (21-32) 01/22/25 Anion Gap 6 (3-11) 01/22/25 BUN 22 mg/dl (6-23) 01/22/25 Creatinine 0.69 mg/dl (0.6-1.4) 01/22/25 BUN/Creatinine Ratio 31.9 (10-20) H 01/22/25 Glu 212 mg/dl (70-99(Fasting)) H 01/22/25 Ca 9.7 mg/dl (8.6-10.3) 01/22/25 Total Bilirubin 0.7 mg/dl (0.2-1.0) 01/22/25 AST 26 U/L (13-39) 01/22/25 ALT 19 U/L (7-52) 01/22/25 Alkaline Phosphatase 66 U/L (34-104) 01/22/25 TP 7.3 gm/dl (6.0-8.3) 01/22/25 Albumin 4.4 gm/dl (3.4-5.0) 01/22/25 Globulin 2.9 gm/dl (2.5-4.0) 01/22/25 Albumin/Globulin Ratio 1.5 (0.9-2) 01/22/25 Mg 1.9 mg/dl (1.7-2.4) 01/22/25 03:59 Calcium Level 9.7 mg/dl (8.6-10.3) 01/22/25 03:59 Prothromb Time International Ratio 1.1 (0.9-1.1) 01/22/25 03:5 9 Diagnostic Findings (Past 24 Hours) Cervical Spine CT 01/22/25 04:07 EXAM: CT cervical spine wo con CLINICAL HISTORY: Trauma. TECHNIQUE: CT scan of the cervical spine was performed without the administration of intravenous contrast. Contiguous axial images were obtained from the skull base to the upper thoracic spine. Coronal and sagittal reformatted images were also reviewed. One of the following dose-reduction techniques was utilized for this exam. Automated exposure control, adjustment of the mA and/or kV according to patient size, and use of iterative reconstruction. COMPARISON: No previous studies are available for comparison. FINDINGS: Vertebrae: Apparent mild right-sided cervical scoliosis. Grade 1 anterolisthesis of C4 over C5. Multilevel degenerative changes of the cervical spine are most severe at the C6-C7 level with decreased intervertebral joint space, subchondral sclerosis, subchondral cysts, and marginal osteophytes. Degenerative changes of the facet joints with fusion of C3-C4 facet joints on the left side. Multiple small corticated calcifications are noted adjacent to the spinous processes of C7 and T1, which could represent dystrophic versus ligamentous calcifications. Neural Foramina: Multilevel bony foraminal stenosis, exaggerated by facet joint hypertrophy and uncovertebral complex. Prevertebral Soft Tissues: The prevertebral soft tissues are normal in thickness without evidence of mass or abnormal fluid collection. Additional Findings: Arterial atherosclerotic changes is noted. IMPRESSION: 1. No acute displaced fracture or dislocation. 2. 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 3. Mild right-sided cervical scoliosis with fusion of the left C3-C4 facet joints. Electronically signed by Frankie Wells 01-22-2025 06:32 AM Chest X-Ray 01/22/25 04:07 EXAM: XR chest 1V portable CLINICAL HISTORY: Trauma TECHNIQUE: An X-ray image of the chest is obtained in AP projection. COMPARISON: Compared to the previous study dated 07/17/2019. FINDINGS: Pulmonary Parenchyma: Progressive course regarding multiple reticulonodular opacities are seen with accentuated hilar and broncho vascular lung markings. Lungs are clear bilaterally. No evidence of consolidation, collapse, or focal opacities. No pulmonary nodules are identified. No evidence of pleural effusion or pleural thickening. Heart and Mediastinum: Mediastinal widening is seen No hilar or mediastinal lymphadenopathy. The heart is enlarged in size. Bony Thorax: The bony thorax appears intact without fractures or deformities. 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 IMPRESSION: 1. No traumatic injuries were seen. 2. Progressive course regarding multiple reticulonodular opacities are seen with accentuated hilar and broncho vascular lung markings, suggesting coarsened pulmonary interstitium ( ILD ). 3. Cardiomegaly. 4. No evidence of consolidation or pleural effusion. Electronically signed by Frankie Wells 01-22-2025 05:[address] 01/22/25 04:07 EXAM: CT head/brain wo con CLINICAL HISTORY: Trauma. TECHNIQUE: Axial non-contrast CT scan of the brain was performed from the skull base to the high parietal region. One of the following dose reduction techniques were utilized for this exam: Automated exposure control, adjustment of the mA and/or kV according to patient size, use of iterative reconstruction. DLP: 1393.29 mGy.cm. COMPARISON: 08/07/2020 CT. FINDINGS: Brain Parenchyma: Normal attenuation of the cerebral hemispheres, cerebellum, and brainstem. Age-related parenchymal volume loss with capacious CSF spaces. Faint bilateral basal ganglia calcification. Mild periventricular hypodensities are likely related to periventricular small vessel disease. No acute brain hemorrhage. Ventricular System: Prominent ventricular system. No intraventricular hemorrhage. Subarachnoid Spaces: No evidence of subarachnoid hemorrhage or extra-axial fluid collections. Cerebellum and Brainstem: No masses, lesions, or areas of abnormal signal. Orbits: No evidence of orbital masses or abnormal densities. Sinuses: Minimal mucosal thickening in the maxillary antra (medial sweet) and ethmoid air cells. No air-fluid leveling. Mastoid Air Cells: Clear mastoid air cells. No evidence of mastoiditis. Skull: Normal skull morphology. Apparent mild soft tissue thickening at the high left frontal area is appreciated more on the axial views. IMPRESSION: 1. No acute brain hemorrhage. 2. No significant interval change since the previous study apart from minimal mucosal thickening of the maxillary and ethmoid sinuses. Electronically signed by Frankie Wells 01-22-2025 06:17 AM I & O Totals 24 Hours 01/21/25 01/22/25 01/23/25 06:59 06:59 06:59 Intake Total 14.522 / 310.355 557.773 / 557.773 Output Total 875 / 875 Balance 14.522 / 310.355 -317.227 / -317.227 Cumulative 01/22/25 03:44 thru 01/22/25 10:50 Intake Total 572.295 Output Total 875 Balance -302.705 RT Ventilator Mngmt (Last Documented) Ventilator Ordered Settings Respiratory Rate 20 01/22/25 10:01 Ventilator - PT Measurements Respiratory Rate 20 Coding Level of Care Code 35458 CRITICAL CARE 1ST 30-74M Diagnoses Symptomatic bradycardia R00.1 Sinus bradycardia R00.1 Spinal stenosis of lumbar region M48.061 Lumbar radiculopathy M54.16 Hypertension I10 Coronary artery disease involving [place] coronary artery of [place] heart without angina pectoris I25.10 Coronary Disease-Associated Artery/Lesion type: [place] artery [place] vs. transplanted heart: [place] heart Associated angina: without angina BPH with obstruction/lower urinary tract symptoms N40.1; N13.8 (6) CAD (coronary artery disease) Coronary Disease-Associated Artery/Lesion type: [place] artery [place] vs. transplanted heart: [place] heart Associated angina: without angina Qualified Code(s): I25.10 - Atherosclerotic heart disease of [place] coronary artery without angina pectoris
--- NOTE | 2025-01-22 15:06 | Communication Note ---
Date of Service: January 22, 2025 Patient was seen and examined at bedside. 84-year-old male with PMH of HFpEF [EF 65 to 70%, TTE 2023], CAD sp unsuccessful PCI, PAF sp pulmonary vein isolation on Eliquis, HTN, HLD, T2DM on oral medications, GERD, chronic anemia [baseline hemoglobin of 13], oropharyngeal dysphagia, BPH, Parkinson's disease, past tobacco abuse presented with complaint of dizziness symptoms/lightheadedness accompanied by flashes of light for the last few weeks [employer]. Patient had multiple syncopal events the day prior to arrival, he fell out of chair resulting in bleeding head wound and left-sided chest wall trauma. Syncopal events noted to be coinciding with bradycardic episodes, heart rate in 40s and complete heart block. He is being managed for the following: Symptomatic bradycardia Chronic bifascicular block Syncopal event Fall Head trauma and left-sided chest trauma: 2/2 syncopal events/fall. c/w general care and pain Mx. f/u [address] head later in the day. Patient comes in with signs and symptoms suggestive of symptomatic bradycardia. Admitting EKG with right bundle branch block and left anterior fascicular block. C-spine CT and CXR with no acute fracture. CT head with no acute finding. Status post insertion of temporary transvenous pacer 01/21. Cardiology on board, plan for further evaluation/Permanent pacemaker by EP in AM. Hold home beta-caryl and Eliquis. Pt currently being managed per ICU care. Bronchitis and sinusitis: pt on augmentin from [employer], c/w augmentin course to c ompletion. History PAF status post pulmonary vein isolation on Eliquis: Eliquis as above. Other chronic medical conditions: Continue with/resume home meds as when able. chronic diastolic heart failure (EF 65-70%, TTE 2023), euvolemic hx CAD status post unsuccessful PCI valvular heart disease (moderate , mild MR/TR/CO, TTE 2023) hypertension, elevated secondary discomfort hyperlipidemia, on statin Rx DM 2 on oral medications, suboptimal control as of recent outpatient hemoglobin A1c of 9 December 2024 chronic anemia, hemoglobin at baseline BPH, on multiple bladder medications Parkinson disease Complicated bronchitis, improved cough symptoms on Augmentin Rx past tobacco abuse DVT prophylaxis. SCDs while Eliquis on hold Full code Text document was generated using Footnote recognition software. It may contain grammatical or spelling errors. Kindly contact undersigned for clarification of any documentation item in question. For detailed information on the patient, reported today's H&P note.
--- NOTE | 2025-01-22 17:45 | CT Scan Report ---
Axial images of the brain without contrast. Coronal and sagittal reconstruction. Dose lowering technique were used. No intracranial hemorrhage, mass or subdural collections. Mild atrophy. No shift of midline structures. Posterior fossa appeared unremarkable. Impression No acute process Electronically signed by Karel Chowdhury 01-22-2025 5:45 PM
--- NOTE | 2025-01-22 17:49 | CT Scan Report ---
CT of chest without contrast: Axial images along with coronal and sagittal recon. No mediastinal hematoma. Vascular structures are intact. Moderate cardiac enlargement. No pericardial effusion. No adenopathy. Visualized portion of the upper abdomen appears unremarkable. No pneumothorax. No pleural effusion. No lung contusion. No discrete infiltrate. Increased markings bilaterally likely related to congestion. Severe disc space narrowing of the mid and lower thoracic disc spaces. No sternal fracture. No compression deformities. No rib fracture. Impression No evidence of pneumonia. No pneumothorax or pleural effusion Electronically signed by Karel Chowdhury 01-22-2025 5:49 PM
[2025-01-23 04:30] LABS: Basophils # (auto) 0.03 K/uL (0.00-0.20); Basophils % (auto) 0.3 %; Eosinophils # (auto) 0.19 K/uL (0.00-0.50); Hematocrit (blood only) 37.5 % (42.0-52.0); Immature Granulocytes # (auto) 0.02 K/uL (0.01-0.20); Immature Granulocytes % (auto) 0.2 %; Lymphocytes # (auto) 1.69 K/uL (1.20-3.40); Lymphocytes % (auto) 17.8 %; Mean Corpuscular Hemoglobin 28.4 pg (25.0-34.0); Mean Corpuscular Volume 88.9 fL (80.0-100.0); Monocytes # (auto) 0.83 K/uL (0.11-0.59); Monocytes % (auto) 8.8 %; Neutrophils # (auto) 6.72 K/uL (1.40-6.50); Neutrophils % (auto) 70.9 %; Platelet Count 161 K/uL (130-400); RDW Coefficient of Variation 15.9 % (11.5-14.5); RDW Standard Deviation 52.1 fL (36.4-46.3); Red Blood Count 4.22 M/uL (4.70-6.10); White Blood Count 9.48 K/ul (4.8-10.8)
[2025-01-23 04:42] LABS: Calcium 9.1 mg/dl (8.6-10.3); Creatinine Clr Calc Pharmacy 70.9 ml/min; Magnesium 1.9 mg/dl (1.7-2.4); Phosphorus 2.8 mg/dl (2.5-4.9)
--- NOTE | 2025-01-23 07:17 | Critical Care Progress Note ---
Date of Service January 23, 2025 Assessment & Plan (1) Symptomatic bradycardia: (2) CHI (closed head injury): (3) Syncope: (4) Nephrolithiasis: (5) Moderate aortic stenosis: (6) Lumbar radiculopathy: (7) GERD (gastroesophageal reflux disease): (8) Hyperlipidemia: (9) Hypertension: (10) Type 2 diabetes mellitus: (11) Paroxysmal atrial fibrillation: Plan Reason Critically Ill: 84-year-old male with symptomatic bradycardia requiring transvenous pacemaker PLAN: Neuro: -- Syncopal episode Likely secondary to heart block S/p transvenous pacemaker Low back pain: Chronic -Patient requested Voltaren gel -Oxycodone as needed for severe pain --Parkinson's disease Resp: CT chest 01/22/2025 personally reviewed: Minimal dependent atelectasis bilateral lower lobes Cardiomegaly No significant mediastinal lymphadenopathy Tolerating room air CV: 2D echo 01/17/2024: EF 65-70%, grade 1 diastolic dysfunction, moderate LV H, mild LA dilation, moderate AAS, mild MR, trace TR --Symptomatic bradycardia with syncopal episode S/p transvenous pacemaker Cardiology on board Known coronary artery disease -Lipitor 80 mg daily Moderate aortic stenosis -- Paroxysmal atrial fibrillation status post ablation On Eliquis at home Fluids/Renal: Reported history of BPH -Qureshi catheter secondary to inability to move around from transvenous pacemaker -Continue Flomax and Proscar ID: Continued on Augmentin by primary team, this was listed as a home med GI/Nutrition: Heart healthy diet Heme: Baseline anemia Endocrine: ICU hyperglycemia protocol --Prophylaxis VTE: None GI: Pantoprazole Lines: Right IJ pacemaker wire Diet: N.p.o. Plan: In/out: -1.5 L, urine output 2825 Hypomagnesemia being replaced Patient is for possible pacemaker placement today. Amox-clav for possible bronchitis as an outpatient. Complete the course I have personally spent 35 minutes of critical care time in the direct management of this patient. This is a life/limb threatening event. This includes time spent evaluating patient, direct bedside care, chart review, placing orders, interpretation of diagnostic studies, discussion with consultants, patient, and family members, as well as other required patient management activities. This time is exclusive of all separately billable procedures, and teaching time and separate from and in addition to any other critical care service time. Please note the above document was generated using voice recognition software. It may contain grammatical, syntax or spelling errors. Admission and Anticipated Discharge Date Admission Date: January 22, 2025 Subjective Patient seen and examined at bedside. No acute distress, no adverse events overnight He was saturating 96-97% on 2 L nasal cannula His heart rate was in the high 60s to low 70s. He still had some paced rhythm when I saw him Denied any nausea or vomiting No dizziness He is n.p.o. for possible pacemaker today Did complain of some soreness on the left side that is most likely because of the fall Review of Systems 2 Review of Systems: All systems reviewed & are unremarkable except as noted in Subjective Physical Exam 2 Physical Exam: Constitutional: No acute distress HEENT: EOMI, PERRLA, bruising in the left frontotemporal region Respiratory system: Good air entry bilaterally, no wheeze, no rhonchi, mild crackles bilateral lower lobes CVS: S1-S2 positive, positive 2 out of 6 systolic murmur appreciated best at aorta Abdomen: Soft, nontender, nondistended, positive bowel sounds x4 Extremities: +2 pulses bilaterally radialis/ dorsalis pedis, no cyanosis, no edema Neuro: Awake alert oriented x3 Psych: Normal mood and affect G/U: Positive Qureshi Skin: no rashes, warm and dry Lymphatic: no cervical or axillary lymphadenopathy Results & Data Results & Data Vital Signs (Past 12 Hours) Vital Signs Temp Pulse Resp BP Pulse Ox O2 Del Method O2 Flow Rate 01/23/25 07:00 70 20 150/74 H 96 Nasal Cannula 2 01/23/25 07:00 36.7 C 01/23/25 07:00 70 01/23/25 06:09 71 23 95 01/23/25 06:01 149/108 H 01/23/25 06:01 149/108 H 01/23/25 06:01 149/108 H 01/23/25 06:01 149/108 H 01/23/25 06:01 149/108 H 01/23/25 06:01 149/108 H 01/23/25 05:57 74 21 89 L 01/23/25 05:15 70 22 92 01/23/25 05:00 112/92 01/23/25 05:00 112/92 01/23/25 05:00 112/92 03/24/25 05:00 112/01/23/25 05:00 11201/23/25 05:00 11201/23/25 05:00 11201/23/25 05:00 11201/23/25 05:00 11201/23/25 05:00 11201/23/25 05:00 11201/23/25 04:21 82 25 H 94 01/23/25 04:06 74 25 H 95 01/23/25 04:01 133/65 01/23/25 04:01 133/65 01/23/25 04:01 133/65 01/23/25 04:01 133/65 01/23/25 04:01 133/65 01/23/25 04:01 133/65 01/23/25 04:01 133/65 01/23/25 04:01 133/65 01/23/25 04:01 133/65 01/23/25 04:01 133/65 01/23/25 04:01 133/65 01/23/25 04:01 133/65 01/23/25 04:01 133/65 01/23/25 04:01 133/65 01/23/25 04:01 133/65 01/23/25 04:01 133/65 01/23/25 04:01 133/65 01/23/25 04:00 36.9 C 01/23/25 03:57 65 21 97 01/23/25 03:15 73 22 96 01/23/25 03:01 154/64 H 01/23/25 03:01 154/64 H 01/23/25 03:01 154/64 H 01/23/25 03:01 154/64 H 01/23/25 03:01 154/64 H 01/23/25 03:01 154/64 H 01/23/25 03:01 154/64 H 01/23/25 03:01 154/64 H 01/23/25 03:01 154/64 H 01/23/25 03:01 154/64 H 01/23/25 03:01 154/64 H 01/23/25 03:01 154/64 H 01/23/25 03:01 154/64 H 01/23/25 03:01 154/64 H 01/23/25 03:01 154/64 H 01/23/25 03:01 154/64 H 01/23/25 03:01 154/64 H 01/22/25 23:58 36.7 C 01/22/25 23:57 72 01/22/25 20:12 74 15 95 01/22/25 20:00 151/60 H 01/22/25 20:00 151/60 H 01/22/25 20:00 151/60 H 01/22/25 20:00 151/60 H 01/22/25 20:00 151/60 H 01/22/25 20:00 151/60 H 01/22/25 20:00 151/60 H 01/22/25 20:00 151/60 H 01/22/25 20:00 151/60 H 01/22/25 20:00 151/60 H 01/22/25 20:00 151/60 H 01/22/25 20:00 151/60 H 01/22/25 20:00 151/60 H 01/22/25 20:00 151/60 H 01/22/25 20:00 151/60 H 01/22/25 20:00 151/60 H 01/22/25 20:00 151/60 H 01/22/25 20:00 Room Air 01/22/25 20:00 36.9 C 01/22/25 19:42 72 19 95 01/22/25 19:18 73 23 94 Laboratory Results 01/23/25 03:57 01/23/25 03:57 Coding Level of Care Code 91199 CRITICAL CARE 1ST 30-74M Diagnoses Symptomatic bradycardia R00.1 CHI (closed head injury) S09.90XA Syncope R55 Nephrolithiasis N20.0 Moderate aortic stenosis I35.0 Lumbar radiculopathy M54.16 GERD (gastroesophageal reflux disease) K21.9 Hyperlipidemia E78.5 Hypertension I10 Type 2 diabetes mellitus E11.9 Paroxysmal atrial fibrillation I48.0
[2025-01-23] MEDS: MAGNESIUM SULFATE / D5W 1 GM/100 ML BAG IV SCH (08:10)
[2025-01-23] MEDS: ACETAMINOPHEN 325 MG TAB PO PRN (08:10)
[2025-01-23] MEDS: DICLOFENAC SOD 1% GEL 100 GM TUBE EXT PRN (08:21)
--- NOTE | 2025-01-23 13:55 | Hospitalist Progress Note ---
Date of Service January 23, 2025 Assessment & Plan (1) Symptomatic bradycardia: Plan 84-year-old male with PMH of HFpEF [EF 65 to 70%, TTE 2023], CAD sp unsuccessful PCI, PAF sp pulmonary vein isolation on Eliquis, HTN, HLD, T2DM on oral medications, GERD, chronic anemia [baseline hemoglobin of 13], oropharyngeal dysphagia, BPH, Parkinson's disease, past tobacco abuse presented with complaint of dizziness symptoms/lightheadedness accompanied by flashes of light for the last few weeks [employer]. Patient had multiple syncopal events the day prior to arrival, he fell out of chair resulting in bleeding head wound and left-sided chest wall trauma. Syncopal events noted to be coinciding with bradycardic episodes, heart rate in 40s and complete heart block. He is being managed for the following: Symptomatic bradycardia Chronic bifascicular block Syncopal event Fall Head trauma and left-sided chest trauma: 2/2 syncopal events/fall. c/w general care and pain Mx. f/u [address] head later in the day. Patient comes in with signs and symptoms suggestive of symptomatic bradycardia. Admitting EKG with right bundle branch block and left anterior fascicular block. C-spine CT and CXR with no acute fracture. CT head with no acute finding. Status post insertion of temporary transvenous pacer 01/21. Cardiology on board, plan for further evaluation/Permanent pacemaker by EP, likely maliha. Hold home beta-caryl and Eliquis. Pt currently being managed per ICU care. Bronchitis and sinusitis: pt on augmentin from [employer], c/w augmentin course to completion. completed course 01/23. History PAF status post pulmonary vein isolation on Eliquis: Eliquis as above. Other chronic medical conditions: Continue with/resume home meds as when able. chronic diastolic heart failure (EF 65-70%, TTE 2023), euvolemic hx CAD status post unsuccessful PCI valvular heart disease (moderate , mild MR/TR/PA, TTE 2023) hypertension, elevated secondary discomfort hyperlipidemia, on statin Rx DM 2 on oral medications, suboptimal control as of recent outpatient hemoglobin A1c of 9 last December 2024 chronic anemia, hemoglobin at baseline BPH, on multiple bladder medications Parkinson disease Complicated bronchitis, improved cough symptoms on Augmentin Rx past tobacco abuse DVT prophylaxis. SCDs while Eliquis on hold Full code PT/OT after pacer palcement Text document was generated using [employer] voice recognition software. It may contain grammatical or spelling errors. Kindly contact undersigned for clarification of any documentation item in question. Admission and Anticipated Discharge Date Admission Date: January 22, 2025 Subjective Patient was seen and examined at bedside. Patient was lying in bed, on 2 L oxygen via nasal cannula, NAD, resting comfortably. Patient denies any chest pain, reports his amox-clav course is to complete today. Per RN no new acute event overnight, patient denies any belly pain or chest pain. Patient reports moving gas. Has not moved bowel. Physical Exam Physical Exam: GENERAL: NAD, slightly anxious, no respiratory distress SKIN: Pallor, warm HEENT: Alopecia, abrasion over left forehead/scalp, nl palpebral conjunctivae, no ptosis, moist buccal mucosa. NECK : no LAD CHEST : Decreased breath sounds, left chest wall tenderness HEART : RRR, systolic murmur ABDOMEN: no distention, nontender EXTREMITIES : No LE swelling/tenderness, no other conspicuous deformities noted NEUROLOGIC : Coherent, no facial asymmetry, gait and stance not assessed Results & Data Results & Data Vital Signs (Past 12 Hours) Vital Signs Temp Pulse Resp BP Pulse Ox O2 Del Method O2 Flow Rate 01/23/25 10:03 65 22 143/71 H 95 Nasal Cannula 2 01/23/25 09:00 64 18 157/98 H 96 Nasal Cannula 2 01/23/25 09:00 70 22 157/98 H 96 Nasal Cannula 2 01/23/25 08:00 73 20 145/77 H 97 Nasal Cannula 2 01/23/25 08:00 Nasal Cannula 01/23/25 07:00 70 20 150/74 H 96 Nasal Cannula 2 01/23/25 07:00 Nasal Cannula 2 01/23/25 07:00 36.7 C 01/23/25 07:00 70 01/23/25 06:09 71 23 95 01/23/25 06:01 149/108 H 01/23/25 06:01 149/108 H 01/23/25 06:01 149/108 H 01/23/25 06:01 149/108 H 01/23/25 06:01 149/108 H 01/23/25 06:01 149/108 H 01/23/25 05:57 74 21 89 L 01/23/25 05:15 70 22 92 01/23/25 05:00 112/01/23/25 05:00 11201/23/25 05:00 11201/23/25 05:00 11201/23/25 05:00 11201/23/25 05:00 11201/23/25 05:00 11201/23/25 05:00 11201/23/25 05:00 11201/23/25 05:00 11201/23/25 05:00 11201/23/25 04:21 82 25 H 94 01/23/25 04:06 74 25 H 95 01/23/25 04:01 133/65 01/23/25 04:01 133/65 01/23/25 04:01 133/65 01/23/25 04:01 133/65 01/23/25 04:01 133/65 01/23/25 04:01 133/65 01/23/25 04:01 133/65 01/23/25 04:01 133/65 01/23/25 04:01 133/65 01/23/25 04:01 133/65 01/23/25 04:01 133/65 01/23/25 04:01 133/65 01/23/25 04:01 133/65 01/23/25 04:01 133/65 01/23/25 04:01 133/65 01/23/25 04:01 133/65 01/23/25 04:01 133/65 01/23/25 04:00 36.9 C 01/23/25 03:57 65 21 97 01/23/25 03:15 73 22 96 01/23/25 03:01 154/64 H 01/23/25 03:01 154/64 H 01/23/25 03:01 154/64 H 01/23/25 03:01 154/64 H 01/23/25 03:01 154/64 H 01/23/25 03:01 154/64 H 01/23/25 03:01 154/64 H 01/23/25 03:01 154/64 H 01/23/25 03:01 154/64 H 01/23/25 03:01 154/64 H 01/23/25 03:01 154/64 H 01/23/25 03:01 154/64 H 01/23/25 03:01 154/64 H 01/23/25 03:01 154/64 H 01/23/25 03:01 154/64 H 01/23/25 03:01 154/64 H 01/23/25 03:01 154/64 H
--- NOTE | 2025-01-23 21:46 | XCELERA ---
[id number] \\[id number]
[2025-01-24 05:00] LABS: Basophils # (auto) 0.05 K/uL (0.00-0.20); Basophils % (auto) 0.5 %; Eosinophils # (auto) 0.27 K/uL (0.00-0.50); Eosinophils % (auto) 2.5 %; Hematocrit (blood only) 39.2 % (42.0-52.0); Hemoglobin 12.5 g/dl (14.0-18.0); Immature Granulocytes # (auto) 0.05 K/uL (0.01-0.20); Immature Granulocytes % (auto) 0.5 %; Lymphocytes % (auto) 16.9 %; Mean Corpuscular Hemoglobin 28.2 pg (25.0-34.0); Mean Corpuscular Hgb Conc 31.9 g/dL (32.0-36.0); Mean Corpuscular Volume 88.5 fL (80.0-100.0); Mean Platelet Volume 9.6 fL (9.4-12.4); Monocytes # (auto) 1.01 K/uL (0.11-0.59); Monocytes % (auto) 9.5 %; Neutrophils # (auto) 7.47 K/uL (1.40-6.50); Neutrophils % (auto) 70.1 %; Platelet Count 153 K/uL (130-400); RDW Coefficient of Variation 15.9 % (11.5-14.5); RDW Standard Deviation 51.8 fL (36.4-46.3); Red Blood Count 4.43 M/uL (4.70-6.10); White Blood Count 10.65 K/ul (4.8-10.8)
[2025-01-24 05:13] LABS: BUN Creatinine Ratio 27.4 (10-20); Calcium 9.1 mg/dl (8.6-10.3); Creatinine Clr Calc Pharmacy 61.7 ml/min; Magnesium 1.9 mg/dl (1.7-2.4); Phosphorus 2.6 mg/dl (2.5-4.9)
[2025-01-24] MEDS: ICU ELECTROLYTE REPLACEMENT PROTOCOL SCH (05:59)
[2025-01-24] MEDS: MAGNESIUM SULFATE / D5W 1 GM/100 ML BAG IV SCH (06:47)
--- NOTE | 2025-01-24 07:39 | Critical Care Progress Note ---
Date of Service January 24, 2025 Assessment & Plan (1) Symptomatic bradycardia: (2) CHI (closed head injury): (3) Syncope: (4) Nephrolithiasis: (5) Moderate aortic stenosis: (6) Lumbar radiculopathy: (7) GERD (gastroesophageal reflux disease): (8) Hyperlipidemia: (9) Hypertension: (10) Type 2 diabetes mellitus: (11) Paroxysmal atrial fibrillation: Plan Reason Critically Ill: 84-year-old male with symptomatic bradycardia requiring transvenous pacemaker PLAN: Neuro: -- Syncopal episode Likely secondary to heart block S/p transvenous pacemaker Low back pain: Chronic -Patient requested Voltaren gel -Oxycodone as needed for severe pain --Parkinson's disease Resp: CT chest 01/22/2025 personally reviewed: Minimal dependent atelectasis bilateral lower lobes Cardiomegaly No significant mediastinal lymphadenopathy Tolerating room air CV: 2D echo 01/17/2024: EF 65-70%, grade 1 diastolic dysfunction, moderate LV H, mild LA dilation, moderate AAS, mild MR, trace TR --Symptomatic bradycardia with syncopal episode For permanent pacemaker 01/24/2025 Cardiology on board Known coronary artery disease -Lipitor 80 mg daily Moderate aortic stenosis -- Paroxysmal atrial fibrillation status post ablation On Eliquis at home Fluids/Renal: Reported history of BPH -Qureshi catheter secondary to inability to move around from transvenous pacemaker -Continue Flomax and Proscar ID: Continued on Augmentin by primary team, this was listed as a home med GI/Nutrition: Heart healthy diet Heme: -- Monitor H&H Endocrine: ICU hyperglycemia protocol --Prophylaxis VTE: None GI: Pantoprazole Lines: Right IJ pacemaker wire Diet: N.p.o. Plan: In/out: - 1.1 L, urine output 1425, -2.3 L since coming to the hospital For permanent pacemaker placement today Magnesium being replaced. Disposition as per EP post pacemaker Please note the above document was generated using voice recognition software. It may contain grammatical, syntax or spelling errors.Any formal questions or concerns about the content, text or information contained within the body of this dictation should be directly addressed to the provider for clarification. Admission and Anticipated Discharge Date Admission Date: January 22, 2025 Subjective Patient seen and examined at bedside. No acute distress, no adverse events overnight He was having more issues with bradycardia and the transvenous pacemaker not catching Denied any nausea or vomiting Mild discomfort of the left lower chest. No shortness of breath No cough Review of Systems 2 Review of Systems: All systems reviewed & are unremarkable except as noted in Subjective Physical Exam 2 Physical Exam: Constitutional: No acute distress HEENT: EOMI, PERRLA, bruising in the left frontotemporal region Respiratory system: Good air entry bilaterally, no wheeze, no rhonchi, mild crackles bilateral lower lobes CVS: S1-S2 positive, positive 2 out of 6 systolic murmur appreciated best at aorta, positive left-sided PPM Abdomen: Soft, nontender, nondistended, positive bowel sounds x4 Extremities: +2 pulses bilaterally radialis/ dorsalis pedis, no cyanosis, no edema Neuro: Awake alert oriented x3 Psych: Normal mood and affect G/U: Positive Qureshi Skin: no rashes, warm and dry Lymphatic: no cervical or axillary lymphadenopathy Results & Data Results & Data Vital Signs (Past 12 Hours) Vital Signs Temp Pulse Pulse Resp BP BP Pulse Ox 01/24/25 07:29 36.6 C 79 17 161/113 H 98 01/24/25 07:27 36.4 C L 22 94 01/24/25 07:03 76 22 93 01/24/25 07:01 197/107 H 01/24/25 06:45 65 22 95 01/24/25 06:21 81 21 98 01/24/25 06:01 172/98 H 01/24/25 06:01 172/98 H 01/24/25 06:01 172/98 H 01/24/25 06:01 172/98 H 01/24/25 05:54 77 26 H 97 01/24/25 05:15 75 20 97 01/24/25 05:00 181/110 H 01/24/25 05:00 181/110 H 01/24/25 05:00 181/110 H 01/24/25 05:00 181/110 H 01/24/25 05:00 181/110 H 01/24/25 05:00 181/110 H 01/24/25 05:00 181/110 H 01/24/25 05:00 181/110 H 01/24/25 05:00 181/110 H 01/24/25 05:00 181/110 H 01/24/25 05:00 181/110 H 01/24/25 05:00 181/110 H 01/24/25 05:00 181/110 H 01/24/25 05:00 181/110 H 01/24/25 05:00 181/110 H 01/24/25 05:00 181/110 H 01/24/25 05:00 181/110 H 01/24/25 05:00 181/110 H 01/24/25 05:00 181/110 H 01/24/25 05:00 181/110 H 01/24/25 05:00 181/110 H 01/24/25 05:00 181/110 H 01/24/25 05:00 181/110 H 01/24/25 04:42 88 19 97 01/24/25 04:03 0 L 25 H 92 01/24/25 04:01 169/95 H 01/24/25 04:01 169/95 H 01/24/25 04:01 169/95 H 01/24/25 04:01 169/95 H 01/24/25 04:01 169/95 H 01/24/25 04:01 169/95 H 01/24/25 04:01 169/95 H 01/24/25 04:01 169/95 H 01/24/25 04:01 169/95 H 01/24/25 04:01 169/95 H 01/24/25 04:01 169/95 H 01/24/25 04:01 169/95 H 01/24/25 04:01 169/95 H 01/24/25 04:01 169/95 H 01/24/25 04:01 169/95 H 01/24/25 04:01 169/95 H 01/24/25 04:01 169/95 H 01/24/25 04:01 169/95 H 01/24/25 04:01 169/95 H 01/24/25 04:00 76 23 96 01/24/25 04:00 36.6 C 01/24/25 03:09 72 22 97 01/24/25 03:01 186/65 H 01/24/25 03:01 186/65 H 01/24/25 03:01 186/65 H 01/24/25 03:01 186/65 H 01/24/25 03:01 186/65 H 01/24/25 03:01 186/65 H 01/24/25 03:01 186/65 H 01/24/25 03:01 186/65 H 01/24/25 03:01 186/65 H 01/24/25 03:01 186/65 H 01/24/25 03:01 186/65 H 01/24/25 03:01 186/65 H 01/24/25 03:01 186/65 H 01/24/25 03:01 186/65 H 01/24/25 03:01 186/65 H 01/24/25 03:01 186/65 H 01/24/25 03:01 186/65 H 01/24/25 03:01 186/65 H 01/24/25 03:01 186/65 H 01/24/25 03:01 186/65 H 01/24/25 03:01 186/65 H 01/24/25 03:01 186/65 H 01/24/25 03:01 186/65 H 01/24/25 03:01 186/65 H 01/24/25 03:01 186/65 H 01/24/25 02:57 78 21 96 01/24/25 02:45 0 L 26 H 95 01/24/25 02:02 165/81 H 01/24/25 02:02 165/81 H 01/24/25 02:02 165/81 H 01/24/25 02:02 165/81 H 01/24/25 02:02 165/81 H 01/24/25 02:02 165/81 H 01/24/25 02:02 165/81 H 01/24/25 02:02 165/81 H 01/24/25 02:02 165/81 H 01/24/25 01:09 0 L 23 98 01/24/25 01:00 166/102 H 01/24/25 01:00 166/102 H 01/24/25 01:00 0 L 24 91 01/24/25 01:00 166/102 H 01/24/25 00:06 76 21 94 01/24/25 00:01 167/77 H 01/24/25 00:01 167/77 H 01/24/25 00:01 167/77 H 01/24/25 00:01 167/77 H 01/24/25 00:01 167/77 H 01/24/25 00:01 167/77 H 01/24/25 00:01 167/77 H 01/24/25 00:01 167/77 H 01/24/25 00:01 167/77 H 01/24/25 00:01 167/77 H 01/24/25 00:01 167/77 H 01/24/25 00:01 167/77 H 01/24/25 00:01 167/77 H 01/24/25 00:01 167/77 H 01/24/25 00:01 167/77 H 01/24/25 00:01 167/77 H 01/24/25 00:01 167/77 H 01/24/25 00:01 167/77 H 01/24/25 00:01 167/77 H 01/24/25 00:01 167/77 H 01/24/25 00:01 167/77 H 01/24/25 00:01 167/77 H 01/24/25 00:00 36.8 C 01/23/25 23:57 72 19 97 01/23/25 23:43 71 01/23/25 23:24 80 20 95 01/23/25 23:00 120/86 01/23/25 23:00 120/86 01/23/25 23:00 120/86 01/23/25 23:00 120/86 01/23/25 23:00 120/86 01/23/25 23:00 120/86 01/23/25 23:00 120/86 01/23/25 23:00 120/86 01/23/25 23:00 120/86 01/23/25 23:00 120/86 01/23/25 23:00 120/86 01/23/25 23:00 120/86 01/23/25 23:00 120/86 01/23/25 22:39 77 21 93 01/23/25 22:09 74 20 95 01/23/25 22:01 155/94 H 01/23/25 22:01 155/94 H 01/23/25 22:01 155/94 H 01/23/25 22:01 155/94 H 01/23/25 22:01 155/94 H 01/23/25 22:01 155/94 H 01/23/25 22:01 155/94 H 01/23/25 22:01 155/94 H 01/23/25 22:01 155/94 H 01/23/25 22:01 155/94 H 01/23/25 22:01 155/94 H 01/23/25 22:01 155/94 H 01/23/25 21:57 78 24 95 01/23/25 21:21 75 25 H 95 01/23/25 21:02 168/84 H 01/23/25 21:02 168/84 H 01/23/25 21:02 168/84 H 01/23/25 21:02 168/84 H 01/23/25 21:02 168/84 H 01/23/25 21:02 168/84 H 01/23/25 21:02 168/84 H 01/23/25 21:02 168/84 H 01/23/25 21:02 168/84 H 01/23/25 21:02 168/84 H 01/23/25 21:02 168/84 H 01/23/25 21:02 168/84 H 01/23/25 21:02 168/84 H 01/23/25 21:02 168/84 H 01/23/25 21:02 168/84 H 01/23/25 21:02 168/84 H 01/23/25 21:02 168/84 H 01/23/25 21:02 168/84 H 01/23/25 21:02 168/84 H 01/23/25 21:02 168/84 H 01/23/25 21:02 168/84 H 01/23/25 21:02 168/84 H 01/23/25 21:02 168/84 H 01/23/25 21:02 168/84 H 01/23/25 21:02 168/84 H 01/23/25 21:02 168/84 H 01/23/25 21:02 168/84 H 01/23/25 21:02 168/84 H 01/23/25 21:02 168/84 H 01/23/25 21:02 168/84 H 01/23/25 21:02 168/84 H 01/23/25 21:02 168/84 H 01/23/25 21:02 168/84 H 01/23/25 21:00 66 22 95 01/23/25 20:00 01/23/25 20:00 77 25 H 96 01/23/25 20:00 150/77 H 01/23/25 20:00 150/77 H 01/23/25 20:00 150/77 H 01/23/25 20:00 150/77 H 01/23/25 20:00 150/77 H 01/23/25 20:00 150/77 H 01/23/25 20:00 150/77 H 01/23/25 20:00 150/77 H 01/23/25 20:00 150/77 H 01/23/25 20:00 150/77 H 01/23/25 20:00 150/77 H 01/23/25 20:00 150/77 H 01/23/25 20:00 150/77 H 01/23/25 20:00 150/77 H 01/23/25 20:00 150/77 H 01/23/25 20:00 150/77 H 01/23/25 20:00 150/77 H 01/23/25 20:00 150/77 H 01/23/25 20:00 150/77 H 01/23/25 20:00 150/77 H 01/23/25 20:00 36.9 C O2 Del Method 01/24/25 07:29 Room Air 01/24/25 07:27 Room Air 01/24/25 07:03 01/24/25 07:01 01/24/25 06:45 01/24/25 06:21 01/24/25 06:01 01/24/25 06:01 01/24/25 06:01 01/24/25 06:01 01/24/25 05:54 01/24/25 05:15 01/24/25 05:00 01/24/25 05:00 01/24/25 05:00 01/24/25 05:00 01/24/25 05:00 01/24/25 05:00 01/24/25 05:00 01/24/25 05:00 01/24/25 05:00 01/24/25 05:00 01/24/25 05:00 01/24/25 05:00 01/24/25 05:00 01/24/25 05:00 01/24/25 05:00 01/24/25 05:00 01/24/25 05:00 01/24/25 05:00 01/24/25 05:00 01/24/25 05:00 01/24/25 05:00 01/24/25 05:00 01/24/25 05:00 01/24/25 04:42 01/24/25 04:03 01/24/25 04:01 01/24/25 04:01 01/24/25 04:01 01/24/25 04:01 01/24/25 04:01 01/24/25 04:01 01/24/25 04:01 01/24/25 04:01 01/24/25 04:01 01/24/25 04:01 01/24/25 04:01 01/24/25 04:01 01/24/25 04:01 01/24/25 04:01 01/24/25 04:01 01/24/25 04:01 01/24/25 04:01 01/24/25 04:01 01/24/25 04:01 01/24/25 04:00 01/24/25 04:00 01/24/25 03:09 01/24/25 03:01 01/24/25 03:01 01/24/25 03:01 01/24/25 03:01 01/24/25 03:01 01/24/25 03:01 01/24/25 03:01 01/24/25 03:01 01/24/25 03:01 01/24/25 03:01 01/24/25 03:01 01/24/25 03:01 01/24/25 03:01 01/24/25 03:01 01/24/25 03:01 01/24/25 03:01 01/24/25 03:01 01/24/25 03:01 01/24/25 03:01 01/24/25 03:01 01/24/25 03:01 01/24/25 03:01 01/24/25 03:01 01/24/25 03:01 01/24/25 03:01 01/24/25 02:57 01/24/25 02:45 01/24/25 02:02 01/24/25 02:02 01/24/25 02:02 01/24/25 02:02 01/24/25 02:02 01/24/25 02:02 01/24/25 02:02 01/24/25 02:02 01/24/25 02:02 01/24/25 01:09 01/24/25 01:00 01/24/25 01:00 01/24/25 01:00 01/24/25 01:00 01/24/25 00:06 01/24/25 00:01 01/24/25 00:01 01/24/25 00:01 01/24/25 00:01 01/24/25 00:01 01/24/25 00:01 01/24/25 00:01 01/24/25 00:01 01/24/25 00:01 01/24/25 00:01 01/24/25 00:01 01/24/25 00:01 01/24/25 00:01 01/24/25 00:01 01/24/25 00:01 01/24/25 00:01 01/24/25 00:01 01/24/25 00:01 01/24/25 00:01 01/24/25 00:01 01/24/25 00:01 01/24/25 00:01 01/24/25 00:00 01/23/25 23:57 01/23/25 23:43 01/23/25 23:24 01/23/25 23:00 01/23/25 23:00 01/23/25 23:00 01/23/25 23:00 01/23/25 23:00 01/23/25 23:00 01/23/25 23:00 01/23/25 23:00 01/23/25 23:00 01/23/25 23:00 01/23/25 23:00 01/23/25 23:00 01/23/25 23:00 01/23/25 22:39 01/23/25 22:09 01/23/25 22:01 01/23/25 22:01 01/23/25 22:01 01/23/25 22:01 01/23/25 22:01 01/23/25 22:01 01/23/25 22:01 01/23/25 22:01 01/23/25 22:01 01/23/25 22:01 01/23/25 22:01 01/23/25 22:01 01/23/25 21:57 01/23/25 21:21 01/23/25 21:02 01/23/25 21:02 01/23/25 21:02 01/23/25 21:02 01/23/25 21:02 01/23/25 21:02 01/23/25 21:02 01/23/25 21:02 01/23/25 21:02 01/23/25 21:02 01/23/25 21:02 01/23/25 21:02 01/23/25 21:02 01/23/25 21:02 01/23/25 21:02 01/23/25 21:02 01/23/25 21:02 01/23/25 21:02 01/23/25 21:02 01/23/25 21:02 01/23/25 21:02 01/23/25 21:02 01/23/25 21:02 01/23/25 21:02 01/23/25 21:02 01/23/25 21:02 01/23/25 21:02 01/23/25 21:02 01/23/25 21:02 01/23/25 21:02 01/23/25 21:02 01/23/25 21:02 01/23/25 21:02 01/23/25 21:00 01/23/25 20:00 Room Air 01/23/25 20:00 01/23/25 20:00 01/23/25 20:00 01/23/25 20:00 01/23/25 20:00 01/23/25 20:00 01/23/25 20:00 01/23/25 20:00 01/23/25 20:00 01/23/25 20:00 01/23/25 20:00 01/23/25 20:00 01/23/25 20:00 01/23/25 20:00 01/23/25 20:00 01/23/25 20:00 01/23/25 20:00 01/23/25 20:00 01/23/25 20:00 01/23/25 20:00 01/23/25 20:00 01/23/25 20:00 Laboratory Results 01/24/25 04:31 01/24/25 04:31 Coding Level of Care Code 61753 SUB INP/OBS CARE 50MIN Diagnoses Symptomatic bradycardia R00.1 CHI (closed head injury) S09.90XA Syncope R55 Nephrolithiasis N20.0 Moderate aortic stenosis I35.0 Lumbar radiculopathy M54.16 GERD (gastroesophageal reflux disease) K21.9 Hyperlipidemia E78.5 Hypertension I10 Type 2 diabetes mellitus E11.9 Paroxysmal atrial fibrillation I48.0
--- NOTE | 2025-01-24 08:04 | Pre Anesthesia Assessment ---
Date of Service January 24, 2025 Pre Sedation Assessment Vital Signs Temp Pulse Pulse Resp BP BP BP 01/24/25 07:29 36.6 C 79 17 161/113 H 01/24/25 07:27 36.4 C L 22 01/24/25 07:03 76 22 01/24/25 07:01 197/107 H 01/24/25 07:00 01/24/25 07:00 76 01/24/25 07:00 01/24/25 06:45 65 22 01/24/25 06:21 81 21 01/24/25 06:01 172/98 H 01/24/25 06:01 172/98 H 01/24/25 06:01 172/98 H 01/24/25 06:01 172/98 H 01/24/25 05:54 77 26 H 01/24/25 05:15 75 20 01/24/25 05:00 181/110 H 01/24/25 05:00 181/110 H 01/24/25 05:00 181/110 H 01/24/25 05:00 181/110 H 01/24/25 05:00 181/110 H 01/24/25 05:00 181/110 H 01/24/25 05:00 181/110 H 01/24/25 05:00 181/110 H 01/24/25 05:00 181/110 H 01/24/25 05:00 181/110 H 01/24/25 05:00 181/110 H 01/24/25 05:00 181/110 H 01/24/25 05:00 181/110 H 01/24/25 05:00 181/110 H 01/24/25 05:00 181/110 H 01/24/25 05:00 181/110 H 01/24/25 05:00 181/110 H 01/24/25 05:00 181/110 H 01/24/25 05:00 181/110 H 01/24/25 05:00 181/110 H 01/24/25 05:00 181/110 H 01/24/25 05:00 181/110 H 01/24/25 05:00 181/110 H 01/24/25 04:42 88 19 01/24/25 04:03 0 L 25 H 01/24/25 04:01 169/95 H 01/24/25 04:01 169/95 H 01/24/25 04:01 169/95 H 01/24/25 04:01 169/95 H 01/24/25 04:01 169/95 H 01/24/25 04:01 169/95 H 01/24/25 04:01 169/95 H 01/24/25 04:01 169/95 H 01/24/25 04:01 169/95 H 01/24/25 04:01 169/95 H 01/24/25 04:01 169/95 H 01/24/25 04:01 169/95 H 01/24/25 04:01 169/95 H 01/24/25 04:01 169/95 H 01/24/25 04:01 169/95 H 01/24/25 04:01 169/95 H 01/24/25 04:01 169/95 H 01/24/25 04:01 169/95 H 01/24/25 04:01 169/95 H 01/24/25 04:00 76 23 01/24/25 04:00 36.6 C 01/24/25 03:09 72 22 01/24/25 03:01 186/65 H 01/24/25 03:01 186/65 H 01/24/25 03:01 186/65 H 01/24/25 03:01 186/65 H 01/24/25 03:01 186/65 H 01/24/25 03:01 186/65 H 01/24/25 03:01 186/65 H 01/24/25 03:01 186/65 H 01/24/25 03:01 186/65 H 01/24/25 03:01 186/65 H 01/24/25 03:01 186/65 H 01/24/25 03:01 186/65 H 01/24/25 03:01 186/65 H 01/24/25 03:01 186/65 H 01/24/25 03:01 186/65 H 01/24/25 03:01 186/65 H 01/24/25 03:01 186/65 H 01/24/25 03:01 186/65 H 01/24/25 03:01 186/65 H 01/24/25 03:01 186/65 H 01/24/25 03:01 186/65 H 01/24/25 03:01 186/65 H 01/24/25 03:01 186/65 H 01/24/25 03:01 186/65 H 01/24/25 03:01 186/65 H 01/24/25 02:57 78 21 01/24/25 02:45 0 L 26 H 01/24/25 02:02 165/81 H 01/24/25 02:02 165/81 H 01/24/25 02:02 165/81 H 01/24/25 02:02 165/81 H 01/24/25 02:02 165/81 H 01/24/25 02:02 165/81 H 01/24/25 02:02 165/81 H 01/24/25 02:02 165/81 H 01/24/25 02:02 165/81 H 01/24/25 01:09 0 L 23 01/24/25 01:00 166/102 H 01/24/25 01:00 166/102 H 01/24/25 01:00 0 L 24 01/24/25 01:00 166/102 H 01/24/25 00:06 76 21 01/24/25 00:01 167/77 H 01/24/25 00:01 167/77 H 01/24/25 00:01 167/77 H 01/24/25 00:01 167/77 H 01/24/25 00:01 167/77 H 01/24/25 00:01 167/77 H 01/24/25 00:01 167/77 H 01/24/25 00:01 167/77 H 01/24/25 00:01 167/77 H 01/24/25 00:01 167/77 H 01/24/25 00:01 167/77 H 01/24/25 00:01 167/77 H 01/24/25 00:01 167/77 H 01/24/25 00:01 167/77 H 01/24/25 00:01 167/77 H 01/24/25 00:01 167/77 H 01/24/25 00:01 167/77 H 01/24/25 00:01 167/77 H 01/24/25 00:01 167/77 H 01/24/25 00:01 167/77 H 01/24/25 00:01 167/77 H 01/24/25 00:01 167/77 H 03/25/25 00:00 36.8 C 01/23/25 23:57 72 19 01/23/25 23:43 71 01/23/25 23:24 80 20 01/23/25 23:00 120/86 01/23/25 23:00 120/86 01/23/25 23:00 120/86 01/23/25 23:00 120/86 01/23/25 23:00 120/86 01/23/25 23:00 120/86 01/23/25 23:00 120/86 01/23/25 23:00 120/86 01/23/25 23:00 120/86 01/23/25 23:00 120/86 01/23/25 23:00 120/86 01/23/25 23:00 120/86 01/23/25 23:00 120/86 01/23/25 22:39 77 21 01/23/25 22:09 74 20 01/23/25 22:01 155/94 H 01/23/25 22:01 155/94 H 01/23/25 22:01 155/94 H 01/23/25 22:01 155/94 H 01/23/25 22:01 155/94 H 01/23/25 22:01 155/94 H 01/23/25 22:01 155/94 H 01/23/25 22:01 155/94 H 01/23/25 22:01 155/94 H 01/23/25 22:01 155/94 H 01/23/25 22:01 155/94 H 01/23/25 22:01 155/94 H 01/23/25 21:57 78 24 01/23/25 21:21 75 25 H 01/23/25 21:02 168/84 H 01/23/25 21:02 168/84 H 01/23/25 21:02 168/84 H 01/23/25 21:02 168/84 H 01/23/25 21:02 168/84 H 01/23/25 21:02 168/84 H 01/23/25 21:02 168/84 H 01/23/25 21:02 168/84 H 01/23/25 21:02 168/84 H 01/23/25 21:02 168/84 H 01/23/25 21:02 168/84 H 01/23/25 21:02 168/84 H 01/23/25 21:02 168/84 H 01/23/25 21:02 168/84 H 01/23/25 21:02 168/84 H 01/23/25 21:02 168/84 H 01/23/25 21:02 168/84 H 01/23/25 21:02 168/84 H 01/23/25 21:02 168/84 H 01/23/25 21:02 168/84 H 01/23/25 21:02 168/84 H 01/23/25 21:02 168/84 H 01/23/25 21:02 168/84 H 01/23/25 21:02 168/84 H 01/23/25 21:02 168/84 H 01/23/25 21:02 168/84 H 01/23/25 21:02 168/84 H 01/23/25 21:02 168/84 H 01/23/25 21:02 168/84 H 01/23/25 21:02 168/84 H 01/23/25 21:02 168/84 H 01/23/25 21:02 168/84 H 01/23/25 21:02 168/84 H 01/23/25 21:00 66 22 01/23/25 20:00 01/23/25 20:00 77 25 H 01/23/25 20:00 150/77 H 01/23/25 20:00 150/77 H 01/23/25 20:00 150/77 H 01/23/25 20:00 150/77 H 01/23/25 20:00 150/77 H 01/23/25 20:00 150/77 H 01/23/25 20:00 150/77 H 01/23/25 20:00 150/77 H 01/23/25 20:00 150/77 H 01/23/25 20:00 150/77 H 01/23/25 20:00 150/77 H 01/23/25 20:00 150/77 H 01/23/25 20:00 150/77 H 01/23/25 20:00 150/77 H 01/23/25 20:00 150/77 H 01/23/25 20:00 150/77 H 01/23/25 20:00 150/77 H 01/23/25 20:00 150/77 H 01/23/25 20:00 150/77 H 01/23/25 20:00 150/77 H 01/23/25 20:00 36.9 C 01/23/25 19:18 76 22 01/23/25 19:01 126/66 01/23/25 19:01 126/66 01/23/25 19:01 126/66 01/23/25 19:01 126/66 01/23/25 19:01 126/66 01/23/25 19:01 126/66 01/23/25 19:01 126/66 01/23/25 19:01 126/66 01/23/25 19:01 126/66 01/23/25 19:01 126/66 01/23/25 19:01 126/66 01/23/25 19:01 126/66 01/23/25 19:01 126/66 01/23/25 19:01 126/66 01/23/25 18:00 76 22 142/89 H 01/23/25 17:00 80 21 139/91 01/23/25 16:00 36.5 C 72 22 110/71 01/23/25 15:00 75 20 95/78 L 01/23/25 14:00 72 20 118/60 01/23/25 13:00 70 18 127/103 H 01/23/25 12:00 36.5 C 68 19 143/76 H 01/23/25 11:00 69 19 120/91 01/23/25 10:03 65 22 143/71 H 01/23/25 09:00 64 18 157/98 H 01/23/25 09:00 70 22 157/98 H Pulse Ox O2 Del Method O2 Flow Rate 01/24/25 07:29 98 Room Air 01/24/25 07:27 94 Room Air 01/24/25 07:03 93 01/24/25 07:01 01/24/25 07:00 Room Air 01/24/25 07:00 01/24/25 07:00 Room Air 01/24/25 06:45 95 01/24/25 06:21 98 01/24/25 06:01 01/24/25 06:01 01/24/25 06:01 01/24/25 06:01 01/24/25 05:54 97 01/24/25 05:15 97 01/24/25 05:00 01/24/25 05:00 01/24/25 05:00 01/24/25 05:00 01/24/25 05:00 01/24/25 05:00 01/24/25 05:00 01/24/25 05:00 01/24/25 05:00 01/24/25 05:00 01/24/25 05:00 01/24/25 05:00 01/24/25 05:00 01/24/25 05:00 01/24/25 05:00 01/24/25 05:00 01/24/25 05:00 01/24/25 05:00 01/24/25 05:00 01/24/25 05:00 01/24/25 05:00 01/24/25 05:00 01/24/25 05:00 01/24/25 04:42 97 01/24/25 04:03 92 01/24/25 04:01 01/24/25 04:01 01/24/25 04:01 01/24/25 04:01 01/24/25 04:01 01/24/25 04:01 01/24/25 04:01 01/24/25 04:01 01/24/25 04:01 01/24/25 04:01 01/24/25 04:01 01/24/25 04:01 01/24/25 04:01 01/24/25 04:01 01/24/25 04:01 01/24/25 04:01 01/24/25 04:01 01/24/25 04:01 01/24/25 04:01 01/24/25 04:00 96 01/24/25 04:00 01/24/25 03:09 97 01/24/25 03:01 01/24/25 03:01 01/24/25 03:01 01/24/25 03:01 01/24/25 03:01 01/24/25 03:01 01/24/25 03:01 01/24/25 03:01 01/24/25 03:01 01/24/25 03:01 01/24/25 03:01 01/24/25 03:01 01/24/25 03:01 01/24/25 03:01 01/24/25 03:01 01/24/25 03:01 01/24/25 03:01 01/24/25 03:01 01/24/25 03:01 01/24/25 03:01 01/24/25 03:01 01/24/25 03:01 01/24/25 03:01 01/24/25 03:01 01/24/25 03:01 01/24/25 02:57 96 01/24/25 02:45 95 01/24/25 02:02 01/24/25 02:02 01/24/25 02:02 01/24/25 02:02 01/24/25 02:02 01/24/25 02:02 01/24/25 02:02 01/24/25 02:02 01/24/25 02:02 01/24/25 01:09 98 01/24/25 01:00 01/24/25 01:00 01/24/25 01:00 91 01/24/25 01:00 01/24/25 00:06 94 01/24/25 00:01 01/24/25 00:01 01/24/25 00:01 01/24/25 00:01 01/24/25 00:01 01/24/25 00:01 01/24/25 00:01 01/24/25 00:01 01/24/25 00:01 01/24/25 00:01 01/24/25 00:01 01/24/25 00:01 01/24/25 00:01 01/24/25 00:01 01/24/25 00:01 01/24/25 00:01 01/24/25 00:01 01/24/25 00:01 01/24/25 00:01 01/24/25 00:01 01/24/25 00:01 01/24/25 00:01 01/24/25 00:00 01/23/25 23:57 97 01/23/25 23:43 01/23/25 23:24 95 01/23/25 23:00 01/23/25 23:00 01/23/25 23:00 01/23/25 23:00 01/23/25 23:00 01/23/25 23:00 01/23/25 23:00 01/23/25 23:00 01/23/25 23:00 01/23/25 23:00 01/23/25 23:00 01/23/25 23:00 01/23/25 23:00 01/23/25 22:39 93 01/23/25 22:09 95 01/23/25 22:01 01/23/25 22:01 01/23/25 22:01 01/23/25 22:01 01/23/25 22:01 01/23/25 22:01 01/23/25 22:01 01/23/25 22:01 01/23/25 22:01 01/23/25 22:01 01/23/25 22:01 01/23/25 22:01 01/23/25 21:57 95 01/23/25 21:21 95 01/23/25 21:02 01/23/25 21:02 01/23/25 21:02 01/23/25 21:02 01/23/25 21:02 01/23/25 21:02 01/23/25 21:02 01/23/25 21:02 01/23/25 21:02 01/23/25 21:02 01/23/25 21:02 01/23/25 21:02 01/23/25 21:02 01/23/25 21:02 01/23/25 21:02 01/23/25 21:02 01/23/25 21:02 01/23/25 21:02 01/23/25 21:02 01/23/25 21:02 01/23/25 21:02 01/23/25 21:02 01/23/25 21:02 01/23/25 21:02 01/23/25 21:02 01/23/25 21:02 01/23/25 21:02 01/23/25 21:02 01/23/25 21:02 01/23/25 21:02 01/23/25 21:02 01/23/25 21:02 01/23/25 21:02 01/23/25 21:00 95 01/23/25 20:00 Room Air 01/23/25 20:00 96 01/23/25 20:00 01/23/25 20:00 01/23/25 20:00 01/23/25 20:00 01/23/25 20:00 01/23/25 20:00 01/23/25 20:00 01/23/25 20:00 01/23/25 20:00 01/23/25 20:00 01/23/25 20:00 01/23/25 20:00 01/23/25 20:00 01/23/25 20:00 01/23/25 20:00 01/23/25 20:00 01/23/25 20:00 01/23/25 20:00 01/23/25 20:00 01/23/25 20:00 01/23/25 20:00 01/23/25 19:18 94 01/23/25 19:01 01/23/25 19:01 01/23/25 19:01 01/23/25 19:01 01/23/25 19:01 01/23/25 19:01 01/23/25 19:01 01/23/25 19:01 01/23/25 19:01 01/23/25 19:01 01/23/25 19:01 01/23/25 19:01 01/23/25 19:01 01/23/25 19:01 01/23/25 18:00 96 Nasal Cannula 2 01/23/25 17:00 93 Room Air 01/23/25 16:00 95 Nasal Cannula 2 01/23/25 15:00 94 Nasal Cannula 2 01/23/25 14:00 95 Nasal Cannula 2 01/23/25 13:00 94 Nasal Cannula 2 01/23/25 12:00 93 Nasal Cannula 2 01/23/25 11:00 92 Nasal Cannula 2 01/23/25 10:03 95 Nasal Cannula 2 01/23/25 09:00 96 Nasal Cannula 2 01/23/25 09:00 96 Nasal Cannula 2 Cardiovascular RRR, no murmur, no edema Respiratory normal respiratory effort, lungs clear to auscultation Pre-Sedation Airway Assessment Smoking Status: Never smoker Hx Sleep Apnea: No Short, Thick Neck: Yes Thyromental Distance: > or= 3.5 Finger Breadths Oral Cavity: + Chipped Teeth and + WNL Mallampati Class: III ASA: ASA4 NPO Status Date of Last Intake of Fluids: 01/23/25 Time of Last Intake of Fluids: 18:00 Date of Last Intake of Solid Food: 01/23/25 Time of Last Intake of Solid Foods: 18:00 Notes The planned sedation has been discussed with the patient. Informed Consent was obtained. I have identified the patient, determined the appropriateness of sedation and have assessed the patient immediately prior to the procedure. All medicine(s) and interventions are by my order.
--- NOTE | 2025-01-24 08:05 | History & Physical Bridge Note ---
Date of Service January 24, 2025 History & Physical Bridge Note I have examined the patient, reviewed the History & Physical and in the interval since the performance of the History & Physical I have noted the following changes of clinical significance: no changes noted. I reviewed the indications, procedure, risks and alternatives with the patient, and answered all questions. Patient understands and agrees to the procedure. Consent obtained. I also reviewed the risks and use of sedation, patient understands and consent obtained.
--- NOTE | 2025-01-24 09:52 | Electrophysiology Report ---
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 This was done under fluoroscopy, the temporary pacemaker was in good position but probably had perforated the right ventricle and was no longer capturing. It was withdrawn slightly into the ventricle and repositioned with good capture. After obtaining informed consent for the pacemaker implant procedure, the patient was prepped and draped in the standard sterile manner. The left prepectoral region was anesthetized with 1% lidocaine local anesthetic and left axillary venipuncture was performed by percutaneous technique and a guidewire placed through the left subclavian vein into the superior vena cava. The area was further infiltrated with 1% lidocaine local anesthetic and a 5 cm incision was made parallel to the left clavicle and 2 cm below it and carried down to the anterior pectoralis fascia. A pacemaker pocket was formed by blunt dissection anterior to the pectoralis fascia and a vancomycin-soaked sponge was placed in the pocket. A 9 [place] Med[employer] lead introducer was placed over the guidewire into the left subclavian vein, the dilator and guidewire were removed and a bipolar active fixation steroid tipped atrial lead was advanced through the introducer into the superior vena cava. A guidewire was placed through the introducer and the introducer was stripped from the lead and guidewire. A 7 [place] Med[employer] lead introducer was placed over the guidewire into the left subclavian vein, the dilator and guidewire were removed. A C315 His 02 septal sheath was advanced through the introducer over a guidewire and advanced into the right ventricular outflow tract. The guidewire and dilator were removed and the sheath was positioned in a mid septal location. A bipolar active fixation steroid tipped ventricular lead was advanced through the introducer and rotated to advance the screw into the septum. Septal penetration was confirmed by electrogram morphology. Pacing and sensing thresholds were evaluated in bipolar configuration and are noted on the data sheet. The septal sheath was stripped away from the lead. The introducer was removed over the the lead. Using a curved stylette the atrial lead was positioned in the region of the atrial appendage and the screw extended fixing the lead in position. Pacing and sensing thresholds were evaluated in bipolar configuration and are recorded on the implant data sheet. Once the leads were in position they were attached to the anterior pectoralis fascia using 2 sutures of 2-0 silk around each lead collar. The vancomycin soaked sponge was removed from the pocket, hemostasis was obtained, the pacemaker was attached to the leads and placed in the pocket with the leads coiled beneath it. At this point the temporary pacemaker was removed under fluoroscopic guidance without difficulty. The incision was closed with a running double subcutaneous closure of 3-0 Vicryl absorbable suture, followed by running subcuticular skin closure of 4-0 Vicryl absorbable suture. Bacitracin ointment was placed on the incision and a dressing applied. [facility] [place] Electrophysiology codes Indication for Procedure (1) Intermittent complete heart block: Pacing Procedure 1: Pacin Insert/Replace Pacer A & V PG Moderate Sedation Codes Moderate Sedation Codes Procedure 1: Sedation/Anesthesia: 90164 Mod Sedation by the same physician;Init15 Min Child Age 5 & Up Procedure 2: Sedation/Anesthesia: 03988 Mod Sedation by the same physician; Ea [id number] Minutes
[2025-01-24] MEDS: LIDOCAINE 1% LOCAL 20 ML VIAL ONE (09:59)
[2025-01-24] MEDS: VANCOMYCIN HCL 1000MG/20ML VIAL ONE (09:59)
[2025-01-24] MEDS: MIDAZOLAM HCL 5 MG/ML 1 ML VIAL ONE (10:00)
[2025-01-24] MEDS: ceFAZolin 330 MG/ML 1 GM VIAL ONE ×2 (10:00)
[2025-01-24] MEDS: WATER, STERILE FOR INJ 10 ML VIAL ONE (10:00)
[2025-01-24] MEDS: fentaNYL citrate PF 100 MCG/2 ML VIAL ONE (10:00)
--- NOTE | 2025-01-24 10:12 | Post Anesthesia Assessment ---
Date of Service January 24, 2025 Post Sedation Assessment Vital Signs Temp Pulse Pulse Resp BP BP BP 01/24/25 07:29 36.6 C 79 17 161/113 H 01/24/25 07:27 36.4 C L 22 01/24/25 07:03 76 22 01/24/25 07:01 197/107 H 01/24/25 07:00 01/24/25 07:00 76 01/24/25 07:00 01/24/25 06:45 65 22 01/24/25 06:21 81 21 01/24/25 06:01 172/98 H 01/24/25 06:01 172/98 H 01/24/25 06:01 172/98 H 01/24/25 06:01 172/98 H 01/24/25 05:54 77 26 H 01/24/25 05:15 75 20 01/24/25 05:00 181/110 H 01/24/25 05:00 181/110 H 01/24/25 05:00 181/110 H 01/24/25 05:00 181/110 H 01/24/25 05:00 181/110 H 01/24/25 05:00 181/110 H 01/24/25 05:00 181/110 H 01/24/25 05:00 181/110 H 01/24/25 05:00 181/110 H 01/24/25 05:00 181/110 H 01/24/25 05:00 181/110 H 01/24/25 05:00 181/110 H 01/24/25 05:00 181/110 H 01/24/25 05:00 181/110 H 01/24/25 05:00 181/110 H 01/24/25 05:00 181/110 H 01/24/25 05:00 181/110 H 01/24/25 05:00 181/110 H 01/24/25 05:00 181/110 H 01/24/25 05:00 181/110 H 01/24/25 05:00 181/110 H 01/24/25 05:00 181/110 H 01/24/25 05:00 181/110 H 01/24/25 04:42 88 19 01/24/25 04:03 0 L 25 H 01/24/25 04:01 169/95 H 01/24/25 04:01 169/95 H 01/24/25 04:01 169/95 H 01/24/25 04:01 169/95 H 01/24/25 04:01 169/95 H 01/24/25 04:01 169/95 H 01/24/25 04:01 169/95 H 01/24/25 04:01 169/95 H 01/24/25 04:01 169/95 H 01/24/25 04:01 169/95 H 01/24/25 04:01 169/95 H 01/24/25 04:01 169/95 H 01/24/25 04:01 169/95 H 01/24/25 04:01 169/95 H 01/24/25 04:01 169/95 H 01/24/25 04:01 169/95 H 01/24/25 04:01 169/95 H 01/24/25 04:01 169/95 H 01/24/25 04:01 169/95 H 01/24/25 04:00 76 23 01/24/25 04:00 36.6 C 01/24/25 03:09 72 22 01/24/25 03:01 186/65 H 01/24/25 03:01 186/65 H 01/24/25 03:01 186/65 H 01/24/25 03:01 186/65 H 01/24/25 03:01 186/65 H 01/24/25 03:01 186/65 H 01/24/25 03:01 186/65 H 01/24/25 03:01 186/65 H 01/24/25 03:01 186/65 H 01/24/25 03:01 186/65 H 01/24/25 03:01 186/65 H 01/24/25 03:01 186/65 H 01/24/25 03:01 186/65 H 01/24/25 03:01 186/65 H 01/24/25 03:01 186/65 H 01/24/25 03:01 186/65 H 01/24/25 03:01 186/65 H 01/24/25 03:01 186/65 H 01/24/25 03:01 186/65 H 01/24/25 03:01 186/65 H 01/24/25 03:01 186/65 H 01/24/25 03:01 186/65 H 01/24/25 03:01 186/65 H 01/24/25 03:01 186/65 H 01/24/25 03:01 186/65 H 01/24/25 02:57 78 21 01/24/25 02:45 0 L 26 H 01/24/25 02:02 165/81 H 01/24/25 02:02 165/81 H 01/24/25 02:02 165/81 H 01/24/25 02:02 165/81 H 01/24/25 02:02 165/81 H 01/24/25 02:02 165/81 H 01/24/25 02:02 165/81 H 01/24/25 02:02 165/81 H 01/24/25 02:02 165/81 H 01/24/25 01:09 0 L 23 01/24/25 01:00 166/102 H 01/24/25 01:00 166/102 H 01/24/25 01:00 0 L 24 01/24/25 01:00 166/102 H 01/24/25 00:06 76 21 01/24/25 00:01 167/77 H 01/24/25 00:01 167/77 H 01/24/25 00:01 167/77 H 01/24/25 00:01 167/77 H 01/24/25 00:01 167/77 H 01/24/25 00:01 167/77 H 01/24/25 00:01 167/77 H 01/24/25 00:01 167/77 H 01/24/25 00:01 167/77 H 01/24/25 00:01 167/77 H 01/24/25 00:01 167/77 H 01/24/25 00:01 167/77 H 01/24/25 00:01 167/77 H 01/24/25 00:01 167/77 H 01/24/25 00:01 167/77 H 01/24/25 00:01 167/77 H 01/24/25 00:01 167/77 H 01/24/25 00:01 167/77 H 01/24/25 00:01 167/77 H 01/24/25 00:01 167/77 H 01/24/25 00:01 167/77 H 01/24/25 00:01 167/77 H 03/25/25 00:00 36.8 C 01/23/25 23:57 72 19 01/23/25 23:43 71 01/23/25 23:24 80 20 01/23/25 23:00 120/86 01/23/25 23:00 120/86 01/23/25 23:00 120/86 01/23/25 23:00 120/86 01/23/25 23:00 120/86 01/23/25 23:00 120/86 01/23/25 23:00 120/86 01/23/25 23:00 120/86 01/23/25 23:00 120/86 01/23/25 23:00 120/86 01/23/25 23:00 120/86 01/23/25 23:00 120/86 01/23/25 23:00 120/86 01/23/25 22:39 77 21 01/23/25 22:09 74 20 01/23/25 22:01 155/94 H 01/23/25 22:01 155/94 H 01/23/25 22:01 155/94 H 01/23/25 22:01 155/94 H 01/23/25 22:01 155/94 H 01/23/25 22:01 155/94 H 01/23/25 22:01 155/94 H 01/23/25 22:01 155/94 H 01/23/25 22:01 155/94 H 01/23/25 22:01 155/94 H 01/23/25 22:01 155/94 H 01/23/25 22:01 155/94 H 01/23/25 21:57 78 24 01/23/25 21:21 75 25 H 01/23/25 21:02 168/84 H 01/23/25 21:02 168/84 H 01/23/25 21:02 168/84 H 01/23/25 21:02 168/84 H 01/23/25 21:02 168/84 H 01/23/25 21:02 168/84 H 01/23/25 21:02 168/84 H 01/23/25 21:02 168/84 H 01/23/25 21:02 168/84 H 01/23/25 21:02 168/84 H 01/23/25 21:02 168/84 H 01/23/25 21:02 168/84 H 01/23/25 21:02 168/84 H 01/23/25 21:02 168/84 H 01/23/25 21:02 168/84 H 01/23/25 21:02 168/84 H 01/23/25 21:02 168/84 H 01/23/25 21:02 168/84 H 01/23/25 21:02 168/84 H 01/23/25 21:02 168/84 H 01/23/25 21:02 168/84 H 01/23/25 21:02 168/84 H 01/23/25 21:02 168/84 H 01/23/25 21:02 168/84 H 01/23/25 21:02 168/84 H 01/23/25 21:02 168/84 H 01/23/25 21:02 168/84 H 01/23/25 21:02 168/84 H 01/23/25 21:02 168/84 H 01/23/25 21:02 168/84 H 01/23/25 21:02 168/84 H 01/23/25 21:02 168/84 H 01/23/25 21:02 168/84 H 01/23/25 21:00 66 22 01/23/25 20:00 01/23/25 20:00 77 25 H 01/23/25 20:00 150/77 H 01/23/25 20:00 150/77 H 01/23/25 20:00 150/77 H 01/23/25 20:00 150/77 H 01/23/25 20:00 150/77 H 01/23/25 20:00 150/77 H 01/23/25 20:00 150/77 H 01/23/25 20:00 150/77 H 01/23/25 20:00 150/77 H 01/23/25 20:00 150/77 H 01/23/25 20:00 150/77 H 01/23/25 20:00 150/77 H 01/23/25 20:00 150/77 H 01/23/25 20:00 150/77 H 01/23/25 20:00 150/77 H 01/23/25 20:00 150/77 H 01/23/25 20:00 150/77 H 01/23/25 20:00 150/77 H 01/23/25 20:00 150/77 H 01/23/25 20:00 150/77 H 01/23/25 20:00 36.9 C 01/23/25 19:18 76 22 01/23/25 19:01 126/66 01/23/25 19:01 126/66 01/23/25 19:01 126/66 01/23/25 19:01 126/66 01/23/25 19:01 126/66 01/23/25 19:01 126/66 01/23/25 19:01 126/66 01/23/25 19:01 126/66 01/23/25 19:01 126/66 01/23/25 19:01 126/66 01/23/25 19:01 126/66 01/23/25 19:01 126/66 01/23/25 19:01 126/66 01/23/25 19:01 126/66 01/23/25 18:00 76 22 142/89 H 01/23/25 17:00 80 21 139/91 01/23/25 16:00 36.5 C 72 22 110/71 01/23/25 15:00 75 20 95/78 L 01/23/25 14:00 72 20 118/60 01/23/25 13:00 70 18 127/103 H 01/23/25 12:00 36.5 C 68 19 143/76 H 01/23/25 11:00 69 19 120/91 Pulse Ox O2 Del Method O2 Flow Rate 01/24/25 07:29 98 Room Air 01/24/25 07:27 94 Room Air 01/24/25 07:03 93 01/24/25 07:01 01/24/25 07:00 Room Air 01/24/25 07:00 01/24/25 07:00 Room Air 01/24/25 06:45 95 01/24/25 06:21 98 01/24/25 06:01 01/24/25 06:01 01/24/25 06:01 01/24/25 06:01 01/24/25 05:54 97 01/24/25 05:15 97 01/24/25 05:00 01/24/25 05:00 01/24/25 05:00 01/24/25 05:00 01/24/25 05:00 01/24/25 05:00 01/24/25 05:00 01/24/25 05:00 01/24/25 05:00 01/24/25 05:00 01/24/25 05:00 01/24/25 05:00 01/24/25 05:00 01/24/25 05:00 01/24/25 05:00 01/24/25 05:00 01/24/25 05:00 01/24/25 05:00 01/24/25 05:00 01/24/25 05:00 01/24/25 05:00 01/24/25 05:00 01/24/25 05:00 01/24/25 04:42 97 01/24/25 04:03 92 01/24/25 04:01 01/24/25 04:01 01/24/25 04:01 01/24/25 04:01 01/24/25 04:01 01/24/25 04:01 01/24/25 04:01 01/24/25 04:01 01/24/25 04:01 01/24/25 04:01 01/24/25 04:01 01/24/25 04:01 01/24/25 04:01 01/24/25 04:01 01/24/25 04:01 01/24/25 04:01 01/24/25 04:01 01/24/25 04:01 01/24/25 04:01 01/24/25 04:00 96 01/24/25 04:00 01/24/25 03:09 97 01/24/25 03:01 01/24/25 03:01 01/24/25 03:01 01/24/25 03:01 01/24/25 03:01 01/24/25 03:01 01/24/25 03:01 01/24/25 03:01 01/24/25 03:01 01/24/25 03:01 01/24/25 03:01 01/24/25 03:01 01/24/25 03:01 01/24/25 03:01 01/24/25 03:01 01/24/25 03:01 01/24/25 03:01 01/24/25 03:01 01/24/25 03:01 01/24/25 03:01 01/24/25 03:01 01/24/25 03:01 01/24/25 03:01 01/24/25 03:01 01/24/25 03:01 01/24/25 02:57 96 01/24/25 02:45 95 01/24/25 02:02 01/24/25 02:02 01/24/25 02:02 01/24/25 02:02 01/24/25 02:02 01/24/25 02:02 01/24/25 02:02 01/24/25 02:02 01/24/25 02:02 01/24/25 01:09 98 01/24/25 01:00 01/24/25 01:00 01/24/25 01:00 91 01/24/25 01:00 01/24/25 00:06 94 01/24/25 00:01 01/24/25 00:01 01/24/25 00:01 01/24/25 00:01 01/24/25 00:01 01/24/25 00:01 01/24/25 00:01 01/24/25 00:01 01/24/25 00:01 01/24/25 00:01 01/24/25 00:01 01/24/25 00:01 01/24/25 00:01 01/24/25 00:01 01/24/25 00:01 01/24/25 00:01 01/24/25 00:01 01/24/25 00:01 01/24/25 00:01 01/24/25 00:01 01/24/25 00:01 01/24/25 00:01 01/24/25 00:00 01/23/25 23:57 97 01/23/25 23:43 01/23/25 23:24 95 01/23/25 23:00 01/23/25 23:00 01/23/25 23:00 01/23/25 23:00 01/23/25 23:00 01/23/25 23:00 01/23/25 23:00 01/23/25 23:00 01/23/25 23:00 01/23/25 23:00 01/23/25 23:00 01/23/25 23:00 01/23/25 23:00 01/23/25 22:39 93 01/23/25 22:09 95 01/23/25 22:01 01/23/25 22:01 01/23/25 22:01 01/23/25 22:01 01/23/25 22:01 01/23/25 22:01 01/23/25 22:01 01/23/25 22:01 01/23/25 22:01 01/23/25 22:01 01/23/25 22:01 01/23/25 22:01 01/23/25 21:57 95 01/23/25 21:21 95 01/23/25 21:02 01/23/25 21:02 01/23/25 21:02 01/23/25 21:02 01/23/25 21:02 01/23/25 21:02 01/23/25 21:02 01/23/25 21:02 01/23/25 21:02 01/23/25 21:02 01/23/25 21:02 01/23/25 21:02 01/23/25 21:02 01/23/25 21:02 01/23/25 21:02 01/23/25 21:02 01/23/25 21:02 01/23/25 21:02 01/23/25 21:02 01/23/25 21:02 01/23/25 21:02 01/23/25 21:02 01/23/25 21:02 01/23/25 21:02 01/23/25 21:02 01/23/25 21:02 01/23/25 21:02 01/23/25 21:02 01/23/25 21:02 01/23/25 21:02 01/23/25 21:02 01/23/25 21:02 01/23/25 21:02 01/23/25 21:00 95 01/23/25 20:00 Room Air 01/23/25 20:00 96 01/23/25 20:00 01/23/25 20:00 01/23/25 20:00 01/23/25 20:00 01/23/25 20:00 01/23/25 20:00 01/23/25 20:00 01/23/25 20:00 01/23/25 20:00 01/23/25 20:00 01/23/25 20:00 01/23/25 20:00 01/23/25 20:00 01/23/25 20:00 01/23/25 20:00 01/23/25 20:00 01/23/25 20:00 01/23/25 20:00 01/23/25 20:00 01/23/25 20:00 01/23/25 20:00 01/23/25 19:18 94 01/23/25 19:01 01/23/25 19:01 01/23/25 19:01 01/23/25 19:01 01/23/25 19:01 01/23/25 19:01 01/23/25 19:01 01/23/25 19:01 01/23/25 19:01 01/23/25 19:01 01/23/25 19:01 01/23/25 19:01 01/23/25 19:01 01/23/25 19:01 01/23/25 18:00 96 Nasal Cannula 2 01/23/25 17:00 93 Room Air 01/23/25 16:00 95 Nasal Cannula 2 01/23/25 15:00 94 Nasal Cannula 2 01/23/25 14:00 95 Nasal Cannula 2 01/23/25 13:00 94 Nasal Cannula 2 01/23/25 12:00 93 Nasal Cannula 2 01/23/25 11:00 92 Nasal Cannula 2 Recovery Score Activity: Moves 4 extremities Respiration: Deep Breath/Cough Circulation: +/-20% PreAnes Value Consciousness: Fully Awake Oxygen Saturation: O2 needed for >90% Discharge Sedation Level of Care: Fast Track Phase II Post Sedation Plan On clinical assessment, the patient appears to have tolerated the sedation with out complications. Patient is recovering as anticipated. Patient will continue to be monitored by nursing and may be discharged when sedation discharge criteria are met per below protocol. Upon Completions of procedure up to 15 minutes continue every 5 minute vital signs and the P.A.R. score; then discharge to a Phase I or Fast Track to Phase II per the following guidelines: * Discharge Patient to appropriate Phase II area if PAR is 8 or greater or return to pre- procedure baseline. The post - procedure orders will be as directed. * If PAR score is less than 8 or not return to pre-procedure baseline then patient will follow Phase I monitoring till PAR is reached for Phase II. The Phase I may be done in procedure room or may call to secure a Phase I area. * If naloxone or flumazenil are used for reversal, hold in Phase I for continued monitoring from when last reversal dose was given for a minimum of 60 minutes or longer pending the nurse and/or physician discretion of patient condition before discharge to Phase II. Please call the Sedation Physician to re-evaluate and complete post-note for discharge to Phase II area. Do NOT discharge from procedure sedation or Phase 1 until post- sedation evaluation note is complete by procedure /sedation MD Sedation Discharge Instructions to be given to the patient at discharge to home.
--- NOTE | 2025-01-24 11:44 | XCELERA ---
[id number] [id number]
--- NOTE | 2025-01-24 12:14 | XRay Report ---
XR chest 1V portable CLINICAL HISTORY: S/p PPM COMPARISON STUDY: 01/22/2025 FINDINGS: Within innumerable left-sided dual-lead pacemaker. Stable cardiomegaly with mild pulmonary vascular congestion. No effusion, consolidation, or pneumothorax seen. IMPRESSION: No pneumothorax seen. ACT 112: Negative or not required by law. Electronically signed by: Cristiano Moncada M.D. 01/24/2025 12:12 PM
--- NOTE | 2025-01-24 14:39 | Electrocardiogram Report ---
Test Reason : Blood Pressure : */* mmHG Vent. Rate : 78 BPM Atrial Rate : 78 BPM P-R Int : 162 ms QRS Dur : 136 ms QT Int : 426 ms P-R-T Axes : 33 -44 48 degrees QTcB Int : 485 ms Atrial-sensed ventricular-paced rhythm Abnormal ECG When compared with ECG of 22-Jan-2025 04:27, (unconfirmed) Previous ECG has undetermined rhythm, needs review Confirmed by Иван Hoskins ([id number]) on 01/24/2025 2:38:53 PM Referred By: REFERRED SELF Confirmed By: Иван Hoskins
--- NOTE | 2025-01-24 15:03 | Hospitalist Progress Note ---
Date of Service January 24, 2025 Assessment & Plan (1) Symptomatic bradycardia: Plan 84-year-old male with PMH of HFpEF [EF 65 to 70%, TTE 2023], CAD sp unsuccessful PCI, PAF sp pulmonary vein isolation on Eliquis, HTN, HLD, T2DM on oral medications, GERD, chronic anemia [baseline hemoglobin of 13], oropharyngeal dysphagia, BPH, Parkinson's disease, past tobacco abuse presented with complaint of dizziness symptoms/lightheadedness accompanied by flashes of light for the last few weeks [employer]. Patient had multiple syncopal events the day prior to arrival, he fell out of chair resulting in bleeding head wound and left-sided chest wall trauma. Syncopal events noted to be coinciding with bradycardic episodes, heart rate in 40s and complete heart block. He is being managed for the following: Symptomatic bradycardia Chronic bifascicular block Syncopal event Fall Head trauma and left-sided chest trauma: 2/2 syncopal events/fall. c/w general care and pain Mx. f/u [address] head later in the day. Patient comes in with signs and symptoms suggestive of symptomatic bradycardia. Admitting EKG with right bundle branch block and left anterior fascicular block. C-spine CT and CXR with no acute fracture. CT head with no acute finding. Status post insertion of temporary transvenous pacer 01/21 --> s/p dual chamber pacer placement 01/24/25. Cardiology on board, will follow recs. Currently home beta-caryl and Eliquis on hold. Pt currently being managed per ICU care. Bronchitis and sinusitis: pt on augmentin from [employer], completed course 01/23. History PAF status post pulmonary vein isolation on Eliquis: Eliquis as above. Other chronic medical conditions: Continue with/resume home meds as when able. chronic diastolic heart failure (EF 65-70%, TTE 2023), euvolemic hx CAD status post unsuccessful PCI valvular heart disease (moderate , mild MR/TR/CO, TTE 2023) hypertension, elevated secondary discomfort hyperlipidemia, on statin Rx DM 2 on oral medications, suboptimal control as of recent outpatient hemoglobin A1c of 9 last December 2024 chronic anemia, hemoglobin at baseline BPH, on multiple bladder medications Parkinson disease Complicated bronchitis, improved cough symptoms on Augmentin Rx past tobacco abuse DVT prophylaxis. SCDs while Eliquis on hold Full code PT/OT after pacer placement Dispo: per clearance from cardio, will get PT/OT maliha Text document was generated using [employer] voice recognition software. It may contain grammatical or spelling errors. Kindly contact undersigned for clarification of any documentation item in question. Admission and Anticipated Discharge Date Admission Date: January 22, 2025 Subjective Patient was seen and examined at bedside. Patient was lying in bed, on RA, NAD, resting comfortably. Patient denies any chest pain Patient having issues overnight with bradycardia due to malfunctioning transvenous catheter. Patient reports feeling better after permanent pacemaker placement in the morning. Physical Exam Physical Exam: GENERAL: NAD, slightly anxious, no respiratory distress SKIN: Pallor, warm HEENT: Alopecia, abrasion over left forehead/scalp, nl palpebral conjunctivae, no ptosis, moist buccal mucosa. NECK : no LAD CHEST : Decreased breath sounds, left chest wall tenderness Lt upper chest at pacer site, clean dressing wo soakage. HEART : RRR, systolic murmur ABDOMEN: no distention, nontender EXTREMITIES : No LE swelling/tenderness, no other conspicuous deformities noted NEUROLOGIC : Coherent, no facial asymmetry, gait and stance not assessed Results & Data Results & Data Vital Signs (Past 12 Hours) Vital Signs Temp Pulse Pulse Resp BP BP Pulse Ox 01/24/25 12:45 158/93 H 01/24/25 12:45 158/93 H 01/24/25 12:45 83 25 H 92 01/24/25 12:30 85 30 H 96 01/24/25 12:18 77 21 95 01/24/25 12:15 129/93 01/24/25 12:15 129/93 01/24/25 12:06 80 17 95 01/24/25 12:01 151/88 H 01/24/25 12:01 36.6 C 01/24/25 11:57 72 19 96 01/24/25 11:54 102 H 18 95 01/24/25 11:47 150/88 H 01/24/25 11:47 150/88 H 01/24/25 11:36 87 16 94 01/24/25 11:33 79 20 98 01/24/25 11:31 36.4 C L 01/24/25 11:30 157/91 H 01/24/25 11:30 157/91 H 01/24/25 11:16 162/99 H 01/24/25 11:16 162/99 H 01/24/25 11:09 74 20 93 01/24/25 11:01 145/98 H 01/24/25 11:00 01/24/25 10:35 74 16 151/103 H 93 01/24/25 10:18 76 17 143/84 H 92 01/24/25 07:29 36.6 C 79 17 161/113 H 98 01/24/25 07:27 36.4 C L 22 94 01/24/25 07:03 76 22 93 01/24/25 07:01 197/107 H 01/24/25 07:00 01/24/25 07:00 76 01/24/25 07:00 01/24/25 06:45 65 22 95 01/24/25 06:21 81 21 98 01/24/25 06:01 172/98 H 01/24/25 06:01 172/98 H 01/24/25 06:01 172/98 H 01/24/25 06:01 172/98 H 01/24/25 05:54 77 26 H 97 01/24/25 05:15 75 20 97 01/24/25 05:00 181/110 H 01/24/25 05:00 181/110 H 01/24/25 05:00 181/110 H 01/24/25 05:00 181/110 H 01/24/25 05:00 181/110 H 01/24/25 05:00 181/110 H 01/24/25 05:00 181/110 H 01/24/25 05:00 181/110 H 01/24/25 05:00 181/110 H 01/24/25 05:00 181/110 H 01/24/25 05:00 181/110 H 01/24/25 05:00 181/110 H 01/24/25 05:00 181/110 H 01/24/25 05:00 181/110 H 01/24/25 05:00 181/110 H 01/24/25 05:00 181/110 H 01/24/25 05:00 181/110 H 01/24/25 05:00 181/110 H 01/24/25 05:00 181/110 H 01/24/25 05:00 181/110 H 01/24/25 05:00 181/110 H 01/24/25 05:00 181/110 H 01/24/25 05:00 181/110 H 01/24/25 04:42 88 19 97 01/24/25 04:03 0 L 25 H 92 01/24/25 04:01 169/95 H 01/24/25 04:01 169/95 H 01/24/25 04:01 169/95 H 01/24/25 04:01 169/95 H 01/24/25 04:01 169/95 H 01/24/25 04:01 169/95 H 01/24/25 04:01 169/95 H 01/24/25 04:01 169/95 H 01/24/25 04:01 169/95 H 01/24/25 04:01 169/95 H 01/24/25 04:01 169/95 H 01/24/25 04:01 169/95 H 01/24/25 04:01 169/95 H 01/24/25 04:01 169/95 H 01/24/25 04:01 169/95 H 01/24/25 04:01 169/95 H 01/24/25 04:01 169/95 H 01/24/25 04:01 169/95 H 01/24/25 04:01 169/95 H 01/24/25 04:00 76 23 96 01/24/25 04:00 36.6 C 01/24/25 03:09 72 22 97 01/24/25 03:01 186/65 H 01/24/25 03:01 186/65 H 01/24/25 03:01 186/65 H 01/24/25 03:01 186/65 H 01/24/25 03:01 186/65 H 01/24/25 03:01 186/65 H 01/24/25 03:01 186/65 H 01/24/25 03:01 186/65 H 01/24/25 03:01 186/65 H 01/24/25 03:01 186/65 H 01/24/25 03:01 186/65 H 01/24/25 03:01 186/65 H 01/24/25 03:01 186/65 H 01/24/25 03:01 186/65 H 01/24/25 03:01 186/65 H 01/24/25 03:01 186/65 H 01/24/25 03:01 186/65 H 01/24/25 03:01 186/65 H 01/24/25 03:01 186/65 H 01/24/25 03:01 186/65 H 01/24/25 03:01 186/65 H 01/24/25 03:01 186/65 H 01/24/25 03:01 186/65 H 01/24/25 03:01 186/65 H 01/24/25 03:01 186/65 H O2 Del Method 01/24/25 12:45 01/24/25 12:45 01/24/25 12:45 01/24/25 12:30 01/24/25 12:18 01/24/25 12:15 01/24/25 12:15 01/24/25 12:06 01/24/25 12:01 01/24/25 12:01 01/24/25 11:57 01/24/25 11:54 01/24/25 11:47 01/24/25 11:47 01/24/25 11:36 01/24/25 11:33 01/24/25 11:31 01/24/25 11:30 01/24/25 11:30 01/24/25 11:16 01/24/25 11:16 01/24/25 11:09 01/24/25 11:01 01/24/25 11:00 Room Air 01/24/25 10:35 Room Air 01/24/25 10:18 Room Air 01/24/25 07:29 Room Air 01/24/25 07:27 Room Air 01/24/25 07:03 01/24/25 07:01 01/24/25 07:00 Room Air 01/24/25 07:00 01/24/25 07:00 Room Air 01/24/25 06:45 01/24/25 06:21 01/24/25 06:01 01/24/25 06:01 01/24/25 06:01 01/24/25 06:01 01/24/25 05:54 01/24/25 05:15 01/24/25 05:00 01/24/25 05:00 01/24/25 05:00 01/24/25 05:00 01/24/25 05:00 01/24/25 05:00 01/24/25 05:00 01/24/25 05:00 01/24/25 05:00 01/24/25 05:00 01/24/25 05:00 01/24/25 05:00 01/24/25 05:00 01/24/25 05:00 01/24/25 05:00 01/24/25 05:00 01/24/25 05:00 01/24/25 05:00 01/24/25 05:00 01/24/25 05:00 01/24/25 05:00 01/24/25 05:00 01/24/25 05:00 01/24/25 04:42 01/24/25 04:03 01/24/25 04:01 01/24/25 04:01 01/24/25 04:01 01/24/25 04:01 01/24/25 04:01 01/24/25 04:01 01/24/25 04:01 01/24/25 04:01 01/24/25 04:01 01/24/25 04:01 01/24/25 04:01 01/24/25 04:01 01/24/25 04:01 01/24/25 04:01 01/24/25 04:01 01/24/25 04:01 01/24/25 04:01 01/24/25 04:01 01/24/25 04:01 01/24/25 04:00 01/24/25 04:00 01/24/25 03:09 01/24/25 03:01 01/24/25 03:01 01/24/25 03:01 01/24/25 03:01 01/24/25 03:01 01/24/25 03:01 01/24/25 03:01 01/24/25 03:01 01/24/25 03:01 01/24/25 03:01 01/24/25 03:01 01/24/25 03:01 01/24/25 03:01 01/24/25 03:01 01/24/25 03:01 01/24/25 03:01 01/24/25 03:01 01/24/25 03:01 01/24/25 03:01 01/24/25 03:01 01/24/25 03:01 01/24/25 03:01 01/24/25 03:01 01/24/25 03:01 01/24/25 03:01
[2025-01-24] MEDS: oxyCODONE HCL IR 5 MG TAB (IMMEDIATE RELEASE) PO PRN (20:49)
[2025-01-25 04:28] LABS: BUN Creatinine Ratio 36.6 (10-20); Calcium 9.2 mg/dl (8.6-10.3); Creatinine Clr Calc Pharmacy 63.3 ml/min; Magnesium 1.7 mg/dl (1.7-2.4); Phosphorus 3.1 mg/dl (2.5-4.9); Potassium 4.1 mmol/L (3.5-5.1)
[2025-01-25] MEDS: MAGNESIUM SULFATE / D5W 1 GM/100 ML BAG IV SCH (05:35)
[2025-01-25 07:32] LABS: Estimated Average Glucose 200 mg/dl; Hemoglobin A1C 8.6 % (4.5-5.6)
--- NOTE | 2025-01-25 08:28 | XRay Report ---
XR chest 2V PA/lateral CLINICAL HISTORY: EXACT TIME ORDERED Evaluate for pneumothorax and l COMPARISON STUDY: 01/24/2025 FINDINGS: Stable pacemaker. Stable cardiomegaly without pulmonary vascular congestion. No effusion, c onsolidation, or pneumothorax seen. IMPRESSION: Stable exam. ACT 112: Negative or not required by law. Electronically signed by: Cristiano Moncada M.D. 01/25/2025 8:27 AM
--- NOTE | 2025-01-25 09:27 | Cardiology Progress Note ---
Date of Service January 25, 2025 Assessment & Plan (1) Status post placement of cardiac pacemaker: (2) Intermittent complete heart block: Plan 1. Postop day #1 pacemaker implantation: Doing very well, stable for discharge today if stable from the medical standpoint otherwise. If he goes home today I will arrange follow-up on Thursday in the office. 2. Complete heart block: Controlled by his pacemaker, with current pacer settings he is pacing almost all of the time in the ventricle so we cannot determine his heart block burden. This is appropriate. Admission and Anticipated Discharge Date Admission Date: January 22, 2025 Subjective Patient feels well today, no significant pacemaker incisional discomfort, no further lightheadedness, dizziness or presyncope. No right neck discomfort. Physical Exam Physical Exam: Cardiac rhythm is regular with no rub Lungs are clear Pacemaker site is clean and dry, no drainage, no significant swelling Results & Data Vital Signs (Past 12 Hours) Vital Signs Pulse Resp BP 01/25/25 07:01 159/71 H 01/25/25 07:01 170/113 H 01/25/25 07:01 170/113 H 01/25/25 06:57 84 15 01/25/25 06:06 83 21 01/25/25 06:01 135/90 01/25/25 05:57 83 20 01/25/25 05:15 84 26 H 01/25/25 05:00 152/96 H 01/25/25 05:00 152/96 H 01/25/25 04:54 87 19 01/25/25 04:03 87 20 01/25/25 04:01 156/102 H 01/25/25 04:01 156/102 H 01/25/25 04:01 156/102 H 01/25/25 04:01 156/102 H 01/25/25 04:01 156/102 H 01/25/25 04:01 156/102 H 01/25/25 04:01 156/102 H 01/25/25 04:01 156/102 H 01/25/25 04:01 156/102 H 01/25/25 04:01 156/102 H 01/25/25 04:01 156/102 H 01/25/25 04:01 156/102 H 01/25/25 04:01 156/102 H 01/25/25 04:01 156/102 H 01/25/25 04:01 156/102 H 01/25/25 04:01 156/102 H 01/25/25 04:01 156/102 H 01/25/25 04:01 156/102 H 01/25/25 04:01 156/102 H 01/25/25 04:01 156/102 H 01/25/25 03:57 82 23 01/25/25 03:06 81 21 01/25/25 03:01 167/125 H 01/25/25 03:01 167/125 H 01/25/25 03:01 167/125 H 01/25/25 03:01 167/125 H 01/25/25 03:01 167/125 H 01/25/25 03:01 167/125 H 01/25/25 03:01 167/125 H 01/25/25 03:01 167/125 H 01/25/25 03:01 167/125 H 01/25/25 03:01 167/125 H 01/25/25 03:01 167/125 H 01/25/25 03:01 167/125 H 01/25/25 03:01 167/125 H 01/25/25 03:01 167/125 H 01/25/25 03:01 167/125 H 01/25/25 03:01 167/125 H 01/25/25 03:01 167/125 H 01/25/25 03:01 167/125 H 01/25/25 03:01 167/125 H 01/25/25 03:01 167/125 H 01/25/25 02:15 89 21 01/25/25 02:12 87 19 01/25/25 02:01 193/91 H 01/25/25 02:01 193/91 H 01/25/25 02:01 193/91 H 01/24/25 22:00 147/85 H 01/24/25 22:00 147/85 H 01/24/25 21:54 92 H 24 Laboratory Results Comprehensive Metabolic Panel 01/25/25 Range/Units 03:55 Sodium 135 L (136-145) mmol/L Potassium 4.1 (3.5-5.1) mmol/L Chloride 102 (98-107) mmol/L Carbon Dioxide 28 (21-32) mmol/L BUN 30 H (6-23) mg/dl Creatinine 0.82 (0.6-1.4) mg/dl Glucose 208 H (70-99(Fasting)) mg/dl Calcium 9.2 (8.6-10.3) mg/dl Intake and Output 01/24/25 01/25/25 01/25/25 22:59 06:59 14:59 Intake Total 440 / 1240 300 / 1240 100 / 100 Output Total 2024 Balance -485 / -785 -200 / -785 100 / 100 Intake: IV 100 / 100 Magnesium Sulfate / D5w 1 gm In 100 / 100 100 ml @ 50 mls/hr IV Q2H [facility] Rx#:[id number] Oral 440 / 1140 300 / 1140 Output: Urine Amount (Catheter) 2024 Qureshi/Indwelling 2024 Other: Weight 77.9 kg Weight Measurement Method Built in [facility] Diagnostic Findings Telemetry: Atrial sensing and ventricular pacing, occasional increased atrial rates. ECG: Atrial sensing with appropriate septal pacing. Chest x-ray: Good lead position, no pneumothorax Pacemaker evaluation: Excellent pacing and sensing characteristics, pacing almost all the time appropriately overnight. PG Care Time/CCT Total # of Minutes Spent Total Time Spent with Patient: Total time spent is greater than 50% in coordination of care (as documented) at patient's floor/unit and/or counseling patient: Coding Level of Care Code 81054 Post Operative Follow-Up Diagnoses Status post placement of cardiac pacemaker Z95.0 Intermittent complete heart block I44.2 CPT Codes Dual Lead Pacemaker System - 94921 ([id number])
[2025-01-25] MEDS: oxyCODONE HCL IR 5 MG TAB (IMMEDIATE RELEASE) PO PRN (13:20)
--- NOTE | 2025-01-25 13:31 | Electrocardiogram Report ---
Test Reason : Blood Pressure : */* mmHG Vent. Rate : 83 BPM Atrial Rate : 83 BPM P-R Int : 164 ms QRS Dur : 138 ms QT Int : 416 ms P-R-T Axes : 26 -42 77 degrees QTcB Int : 488 ms Atrial-sensed ventricular-paced rhythm with occasional Premature ventricular complexes Abnormal ECG When compared with ECG of 24-Jan-2025 10:33, Premature ventricular complexes are now Present Vent. rate has increased by 5 bpm Confirmed by Иван Hoskins ([id number]) on 01/25/2025 1:31:25 PM Referred By: REFERRED SELF Confirmed By: Иван Hoskins
--- NOTE | 2025-01-25 14:24 | Hospitalist Progress Note ---
Date of Service January 25, 2025 Assessment & Plan (1) Symptomatic bradycardia: Plan 84-year-old male with PMH of HFpEF [EF 65 to 70%, TTE 2023], CAD sp unsuccessful PCI, PAF sp pulmonary vein isolation on Eliquis, HTN, HLD, T2DM on oral medications, GERD, chronic anemia [baseline hemoglobin of 13], oropharyngeal dysphagia, BPH, Parkinson's disease, past tobacco abuse presented with complaint of dizziness symptoms/lightheadedness accompanied by flashes of light for the last few weeks [employer]. Patient had multiple syncopal events the day prior to arrival, he fell out of chair resulting in bleeding head wound and left-sided chest wall trauma. Syncopal events noted to be coinciding with bradycardic episodes, heart rate in 40s and complete heart block. He is being managed for the following: Symptomatic bradycardia Chronic bifascicular block Syncopal event Fall Head trauma and left-sided chest trauma: 2/2 syncopal events/fall. c/w general care and pain Mx. f/u [address] head later in the day. Patient comes in with signs and symptoms suggestive of symptomatic bradycardia. Admitting EKG with right bundle branch block and left anterior fascicular block. C-spine CT and CXR with no acute fracture. CT head with no acute finding. Status post insertion of temporary transvenous pacer 01/21 --> s/p dual chamber pacer placement 01/24/25. Cardiology on board, will follow recs. Clinically much better and denies any more dizziness and/or syncopal episode Heart rate remains stable without any arrhythmias He has been ambulating and has had physical therapy Discussed with lithopress operator and will restart Eliquis from tomorrow likely discharge tomorrow DM 2 on oral medications, suboptimal control as of recent outpatient hemoglobin A1c of 9 last December 2024 Blood sugar was noted to be very high today more than 300 Will be given insulin coverage and monitor blood sugar Likely discharge tomorrow when the blood sugar is managed Bronchitis and sinusitis: pt on augmentin from [employer], completed course 01/23. History PAF status post pulmonary vein isolation on Eliquis: Eliquis as above. Eliquis will be restarted from tomorrow Other chronic medical conditions: Continue with/resume home meds as when able. chronic diastolic heart failure (EF 65-70%, TTE 2023), euvolemic hx CAD status post unsuccessful PCI valvular heart disease (moderate , mild MR/TR/MN, TTE 2023) hypertension, elevated secondary discomfort hyperlipidemia, on statin Rx chronic anemia, hemoglobin at baseline BPH, on multiple bladder medications Parkinson disease Complicated bronchitis, improved cough symptoms on Augmentin Rx past tobacco abuse DVT prophylaxis. SCDs while Eliquis on hold Will restart Eliquis from tomorrow Full code PT/OT after pacer placement-Appreciate input and recommendation Dispo: per clearance from cardio, will get PT/OT maliha Text document was generated using [employer] voice recognition software. It may contain grammatical or spelling errors. Kindly contact undersigned for clarification of any documentation item in question. Admission and Anticipated Discharge Date Admission Date: January 22, 2025 Subjective 01/25/2025 The patient was seen and examined in ICU with telemetry status He has been feeling much better and wants to go home Denies any cardiac symptoms and has had physical therapy Blood sugar remains elevated at more than 300 Advised to stay in today and monitor blood sugar Review of Systems Review of Systems: All systems reviewed and are unremarkable except as noted below Physical Exam Physical Exam: Sitting on a chair without any acute distress Constitutional: well developed, well nourished, + ill appearing and average body habitus Eyes: PERRL, conjunctivae normal, anicteric sclerae ENMT: external ear and nose normal, oropharynx normal Neck: trachea midline, no thyromegaly Respiratory: no respiratory distress Auscultation: lungs clear to auscultation bilaterally Cardiovascular: Rate/Rhythm: regular rate and regular rhythm; not tachycardic Heart Sounds: normal S1 and normal S2; no murmur Extremities: + edema ( trace edema bilaterally) Gastrointestinal (Abdomen): Inspection/Auscultation: abdomen normal to inspection and normal bowel sounds; abdomen not distended Percussion/Palpation: abdomen soft; abdomen nontender Musculoskeletal: No acute arthritis involvement of the joint Neurologic: normal touch/pain/proprioception and moves all extremities; no focal motor deficits Lymphatic: no cervical or axillary lymphadenopathy Results & Data Results & Data Vital Signs (Past 12 Hours) Vital Signs Pulse Resp BP Pulse Ox 01/25/25 12:06 88 21 01/25/25 11:15 90 21 01/25/25 10:12 84 23 95 01/25/25 10:05 168/91 H 01/25/25 09:58 146/80 H 01/25/25 09:57 88 24 01/25/25 09:56 161/98 H 01/25/25 09:51 93 01/25/25 09:50 159/98 H 01/25/25 09:48 81 19 94 01/25/25 09:18 82 21 88 L 01/25/25 07:55 119/71 01/25/25 07:54 92 H 23 01/25/25 07:33 94 H 23 01/25/25 07:11 159/71 H 01/25/25 07:01 159/71 H 01/25/25 07:01 170/113 H 01/25/25 07:01 170/113 H 01/25/25 06:57 84 15 01/25/25 06:06 83 21 01/25/25 06:01 135/90 01/25/25 05:57 83 20 01/25/25 05:15 84 26 H 01/25/25 05:00 152/96 H 01/25/25 05:00 152/96 H 01/25/25 04:54 87 19 01/25/25 04:03 87 20 01/25/25 04:01 156/102 H 01/25/25 04:01 156/102 H 01/25/25 04:01 156/102 H 01/25/25 04:01 156/102 H 01/25/25 04:01 156/102 H 01/25/25 04:01 156/102 H 01/25/25 04:01 156/102 H 01/25/25 04:01 156/102 H 01/25/25 04:01 156/102 H 01/25/25 04:01 156/102 H 01/25/25 04:01 156/102 H 01/25/25 04:01 156/102 H 01/25/25 04:01 156/102 H 01/25/25 04:01 156/102 H 01/25/25 04:01 156/102 H 01/25/25 04:01 156/102 H 01/25/25 04:01 156/102 H 01/25/25 04:01 156/102 H 01/25/25 04:01 156/102 H 01/25/25 04:01 156/102 H 01/25/25 03:57 82 23 01/25/25 03:06 81 21 01/25/25 03:01 167/125 H 01/25/25 03:01 167/125 H 01/25/25 03:01 167/125 H 01/25/25 03:01 167/125 H 01/25/25 03:01 167/125 H 01/25/25 03:01 167/125 H 01/25/25 03:01 167/125 H 01/25/25 03:01 167/125 H 01/25/25 03:01 167/125 H 01/25/25 03:01 167/125 H 01/25/25 03:01 167/125 H 01/25/25 03:01 167/125 H 01/25/25 03:01 167/125 H 01/25/25 03:01 167/125 H 01/25/25 03:01 167/125 H 01/25/25 03:01 167/125 H 01/25/25 03:01 167/125 H 01/25/25 03:01 167/125 H 01/25/25 03:01 167/125 H 01/25/25 03:01 167/125 H Laboratory Results BMP 01/25/25 03:55 Sodium 135 L Potassium 4.1 Chloride 102 Carbon Dioxide 28 BUN 30 H Creatinine 0.82 Glucose 208 H Calcium 9.2 Medications Administered Current Inpatient Medications Acetaminophen (Acetaminophen 325 Mg Tab) 650 mg PO Q4H PRN PRN Reason: Fever/Mild Pain (Pain 1,2,3) Stop: 02/21/25 11:28 Last Admin: 01/23/25 08:10 Dose: 650 mg Atorvastatin Calcium (Atorvastatin 40 Mg Tab) 80 mg PO DAILY [facility] Stop: 02/21/25 08:59 Last Admin: 01/25/25 08:57 Dose: 80 mg Cyanocobalamin (Cyanocobalamin (B-12) 500 Mcg Tablet) 500 mcg PO DAILY [facility] Stop: 02/21/25 08:59 Last Admin: 01/25/25 08:57 Dose: 500 mcg Dextrose (Dextrose 50% 50 Ml Syringe) 25 - 50 ml IV UD PRN; Protocol PRN Reason: Hypoglycemia Protocol Stop: 02/21/25 07:56 Diclofenac Sodium (Diclofenac Sod 1% Gel 100 Gm Tube) 4 gm EXT QID PRN; Protocol PRN Reason: Calf pain Stop: 02/21/25 10:07 Last Admin: 01/23/25 08:21 Dose: 4 gm Finasteride (Finasteride 5 Mg Tab) 5 mg PO DAILY [facility] Stop: 02/21/25 08:59 Last Admin: 01/25/25 08:56 Dose: 5 mg Fluticasone Propionate (Fluticasone Propionate Na Spr 16 Gm Btl) 1 sprays NA BID [facility] Stop: 02/21/25 08:59 Last Admin: 01/25/25 08:58 Dose: 1 sprays Gabapentin (Gabapentin 600 Mg Tab) 600 mg PO BID [facility] Stop: 02/21/25 20:59 Last Admin: 01/25/25 08:57 Dose: 600 mg Glucagon (Glucagon For Inj 1 Mg Vial) 1 mg SQ UD PRN; Protocol PRN Reason: Hypoglycemia Protocol Stop: 02/21/25 07:56 Glucose (Glucose 40% Gel 15 Gm Tube) 15 - 30 gm PO UD PRN; Protocol PRN Reason: Hypoglycemia Protocol Stop: 02/21/25 07:56 Glucose (Glucose 10 Tab/Tube) 4 - 8 tab PO UD PRN; Protocol PRN Reason: Hypoglycemia Protocol Stop: 02/21/25 07:56 Promethazine HCl (Phenergan) 6.25 mg in 50.25 mls @ 201 mls/hr IV Q6H PRN PRN Reason: Nausea And Vomiting Stop: 02/21/25 06:44 Insulin Aspart (Insulin Aspart Per Unit Charge) 0 units SC ACHS [facility] Stop: 02/21/25 07:56 Last Admin: 01/25/25 12:01 Dose: 13 units Insulin Glargine (Lantus Per Unit Charge) 5 units SQ DAILY [facility] Stop: 02/21/25 08:59 Last Admin: 01/25/25 08:54 Dose: 5 units Miscellaneous (Carbohydrates For Hypoglycemia ) 15 - 30 gm PO UD PRN PRN Reason: Hypoglycemia Protocol Stop: 02/21/25 07:56 Miscellaneous (Icu Electrolyte Replacement Protocol) 1 each N/A BID@06,18 [facility]; Protocol Stop: 01/31/25 05:59 Last Admin: 01/25/25 05:15 Dose: 1 each Oxycodone HCl (Oxycodone Hcl Ir 5 Mg Tab (Immediate Release)) 5 mg PO Q6H PRN PRN Reason: Moderate Pain (4,5,6) on NRS Stop: 02/05/25 11:28 Last Admin: 01/25/25 05:48 Dose: 5 mg Oxycodone HCl (Oxycodone Hcl Ir 5 Mg Tab (Immediate Release)) 10 mg PO Q6H PRN PRN Reason: Severe Pain (7,8,9,10) on NRS Stop: 02/05/25 11:28 Last Admin: 01/25/25 13:20 Dose: 10 mg Pantoprazole Sodium (Pantoprazole 40 Mg Tab) 40 mg PO BID [facility] Stop: 02/21/25 08:59 Last Admin: 01/25/25 08:57 Dose: 40 mg Tamsulosin HCl (Tamsulosin Hcl 0.4 Mg Cap) 0.4 mg PO DAILY [facility] Stop: 02/21/25 08:59 Last Admin: 01/25/25 08:57 Dose: 0.4 mg Vibegron (Vibegron 75 Mg Tab) 75 mg PO DAILY [facility] Stop: 02/21/25 08:59 Last Admin: 01/25/25 08:57 Dose: 75 mg
[2025-01-25] MEDS ORDERED: MAGNESIUM SULFATE / D5W 1 GM/100 ML BAG IV SCH (19:45)
[2025-01-26 05:02] LABS: BUN Creatinine Ratio 35.1 (10-20); Calcium 8.9 mg/dl (8.6-10.3); Creatinine Clr Calc Pharmacy 69.9 ml/min; Magnesium 1.8 mg/dl (1.7-2.4); Phosphorus 3.3 mg/dl (2.5-4.9); Potassium 4.2 mmol/L (3.5-5.1)
[2025-01-26] MEDS: APIXABAN 5 MG TABLET PO SCH (11:30)
--- NOTE | 2025-01-26 11:36 | Hospitalist Progress Note ---
Date of Service January 26, 2025 Assessment & Plan (1) Symptomatic bradycardia: Plan 84-year-old male with PMH of HFpEF [EF 65 to 70%, TTE 2023], CAD sp unsuccessful PCI, PAF sp pulmonary vein isolation on Eliquis, HTN, HLD, T2DM on oral medications, GERD, chronic anemia [baseline hemoglobin of 13], oropharyngeal dysphagia, BPH, Parkinson's disease, past tobacco abuse presented with complaint of dizziness symptoms/lightheadedness accompanied by flashes of light for the last few weeks [employer] WORK[employer]. Patient had multiple syncopal events the day prior to arrival, he fell out of chair resulting in bleeding head wound and left-sided chest wall trauma. Syncopal events noted to be coinciding with bradycardic episodes, heart rate in 40s and complete heart block. He is being managed for the following: Symptomatic bradycardia Chronic bifascicular block Syncopal event Fall Head trauma and left-sided chest trauma: 2/2 syncopal events/fall. c/w general care and pain Mx. f/u [address] head later in the day. Patient comes in with signs and symptoms suggestive of symptomatic bradycardia. Admitting EKG with right bundle branch block and left anterior fascicular block. C-spine CT and CXR with no acute fracture. CT head with no acute finding. Status post insertion of temporary transvenous pacer 01/21 --> s/p dual chamber pacer placement 01/24/25. Cardiology on board, will follow recs. Clinically much better and denies any more dizziness and/or syncopal episode Heart rate remains stable without any arrhythmias He has been ambulating and has had physical therapy Discussed with industrial services worker and will restart Eliquis from tomorrow likely discharge tomorrow His Eliquis has been started from today He has been stable without any significant symptoms and is ambulating without any difficulties He will be discharged home this afternoon DM 2 on oral medications, suboptimal control as of recent outpatient hemoglobin A1c of 9 last December 2024 Blood sugar was noted to be very high today more than 300 Will be given insulin coverage and monitor blood sugar Likely discharge tomorrow when the blood sugar is managed Blood sugar is reasonably controlled Bronchitis and sinusitis: pt on augmentin from [employer], completed course 01/23. No acute respiratory and/or cardiac symptoms Other chronic medical conditions: Continue with/resume home meds as when able. chronic diastolic heart failure (EF 65-70%, TTE 2023), euvolemic hx CAD status post unsuccessful PCI valvular heart disease (moderate , mild MR/TR/CT, TTE 2023) hypertension, elevated secondary discomfort hyperlipidemia, on statin Rx Chronic anemia, hemoglobin at baseline BPH, on multiple bladder medications Parkinson disease Complicated bronchitis, improved cough symptoms on Augmentin Rx past tobacco abuse DVT prophylaxis. SCDs while Eliquis on hold Will restart Eliquis from tomorrow Full code PT/OT after pacer placement-Appreciate input and recommendation Dispo: per clearance from cardio, will get PT/OT maliha Text document was generated using [employer] voice recognition software. It may contain grammatical or spelling errors. Kindly contact undersigned for clarification of any documentation item in question. Admission and Anticipated Discharge Date Admission Date: January 22, 2025 Subjective 01/25/2025 The patient was seen and examined in ICU with telemetry status He has been feeling much better and wants to go home Denies any cardiac symptoms and has had physical therapy Blood sugar remains elevated at more than 300 Advised to stay in today and monitor blood sugar 01/26/2025 The patient was seen and examined in telemetry unit He has been feeling much better and has had physical therapy and did well with that Denies any cardiac symptoms and he will be discharged home this afternoon His blood sugar has been stable Review of Systems Review of Systems: All systems reviewed and are unremarkable except as noted below Physical Exam Physical Exam: Sitting on a chair without any acute distress Constitutional: well developed, well nourished, + ill appearing and average body habitus Eyes: PERRL, conjunctivae normal, anicteric sclerae ENMT: external ear and nose normal, oropharynx normal Neck: trachea midline, no thyromegaly Respiratory: no respiratory distress Auscultation: lungs clear to auscultation bilaterally Cardiovascular: Rate/Rhythm: regular rate and regular rhythm; not tachycardic Heart Sounds: normal S1 and normal S2; no murmur Extremities: + edema ( trace edema bilaterally) Gastrointestinal (Abdomen): Inspection/Auscultation: abdomen normal to inspection and normal bowel sounds; abdomen not distended Percussion/Palpation: abdomen soft; abdomen nontender Neurologic: normal touch/pain/proprioception and moves all extremities; no focal motor deficits Lymphatic: no cervical or axillary lymphadenopathy Results & Data Results & Data Vital Signs (Past 12 Hours) Vital Signs Temp Pulse Pulse Resp BP BP Pulse Ox 01/26/25 07:45 01/26/25 07:38 36.7 C 89 16 138/91 92 01/26/25 02:32 80 18 01/26/25 01:03 90 19 01/26/25 00:00 158/90 H 01/26/25 00:00 158/90 H 01/26/25 00:00 158/90 H 01/26/25 00:00 158/90 H 01/26/25 00:00 158/90 H 01/26/25 00:00 158/90 H 01/26/25 00:00 158/90 H 01/26/25 00:00 158/90 H 01/26/25 00:00 158/90 H 01/26/25 00:00 158/90 H 01/26/25 00:00 158/90 H 01/26/25 00:00 158/90 H 01/26/25 00:00 158/90 H 01/26/25 00:00 158/90 H 01/26/25 00:00 158/90 H 01/26/25 00:00 158/90 H 01/26/25 00:00 158/90 H 01/26/25 00:00 158/90 H 01/26/25 00:00 80 20 O2 Del Method 01/26/25 07:45 Room Air 01/26/25 07:38 Room Air 01/26/25 02:32 01/26/25 01:03 01/26/25 00:00 01/26/25 00:00 01/26/25 00:00 01/26/25 00:00 01/26/25 00:00 01/26/25 00:00 01/26/25 00:00 01/26/25 00:00 01/26/25 00:00 01/26/25 00:00 01/26/25 00:00 01/26/25 00:00 01/26/25 00:00 01/26/25 00:00 01/26/25 00:00 01/26/25 00:00 01/26/25 00:00 01/26/25 00:00 01/26/25 00:00 Laboratory Results BMP 01/26/25 04:22 Sodium 134 L Potassium 4.2 Chloride 100 Carbon Dioxide 29 BUN 26 H Creatinine 0.74 Glucose 197 H Calcium 8.9 Medications Administered Current Inpatient Medications Acetaminophen (Acetaminophen 325 Mg Tab) 650 mg PO Q4H PRN PRN Reason: Fever/Mild Pain (Pain 1,2,3) Stop: 02/21/25 11:28 Last Admin: 01/23/25 08:10 Dose: 650 mg Apixaban (Apixaban 5 Mg Tablet) 5 mg PO BID SELVIN Stop: 02/25/25 09:29 Last Admin: 01/26/25 11:30 Dose: 5 mg Atorvastatin Calcium (Atorvastatin 40 Mg Tab) 80 mg PO DAILY SELVIN Stop: 02/21/25 08:59 Last Admin: 01/26/25 07:54 Dose: 80 mg Cyanocobalamin (Cyanocobalamin (B-12) 500 Mcg Tablet) 500 mcg PO DAILY SELVIN Stop: 02/21/25 08:59 Last Admin: 01/26/25 07:54 Dose: 500 mcg Dextrose (Dextrose 50% 50 Ml Syringe) 25 - 50 ml IV UD PRN; Protocol PRN Reason: Hypoglycemia Protocol Stop: 02/21/25 07:56 Diclofenac Sodium (Diclofenac Sod 1% Gel 100 Gm Tube) 4 gm EXT QID PRN; Protocol PRN Reason: Calf pain Stop: 02/21/25 10:07 Last Admin: 01/23/25 08:21 Dose: 4 gm Finasteride (Finasteride 5 Mg Tab) 5 mg PO DAILY SELVIN Stop: 02/21/25 08:59 Last Admin: 01/26/25 07:54 Dose: 5 mg Fluticasone Propionate (Fluticasone Propionate Na Spr 16 Gm Btl) 1 sprays NA BID SELVIN Stop: 02/21/25 08:59 Last Admin: 01/26/25 07:55 Dose: 1 sprays Gabapentin (Gabapentin 600 Mg Tab) 600 mg PO BID [facility] Stop: 02/21/25 20:59 Last Admin: 01/26/25 07:54 Dose: 600 mg Glucagon (Glucagon For Inj 1 Mg Vial) 1 mg SQ UD PRN; Protocol PRN Reason: Hypoglycemia Protocol Stop: 02/21/25 07:56 Glucose (Glucose 40% Gel 15 Gm Tube) 15 - 30 gm PO UD PRN; Protocol PRN Reason: Hypoglycemia Protocol Stop: 02/21/25 07:56 Glucose (Glucose 10 Tab/Tube) 4 - 8 tab PO UD PRN; Protocol PRN Reason: Hypoglycemia Protocol Stop: 02/21/25 07:56 Promethazine HCl (Phenergan) 6.25 mg in 50.25 mls @ 201 mls/hr IV Q6H PRN PRN Reason: Nausea And Vomiting Stop: 02/21/25 06:44 Insulin Aspart (Insulin Aspart Per Unit Charge) 0 units SC ACHS SELVIN Stop: 02/21/25 07:56 Last Admin: 01/26/25 08:00 Dose: 7 units Insulin Glargine (Lantus Per Unit Charge) 5 units SQ DAILY SELVIN Stop: 02/21/25 08:59 Last Admin: 01/26/25 08:00 Dose: 5 units Miscellaneous (Carbohydrates For Hypoglycemia ) 15 - 30 gm PO UD PRN PRN Reason: Hypoglycemia Protocol Stop: 02/21/25 07:56 Miscellaneous (Icu Electrolyte Replacement Protocol) 1 each N/A BID@06,18 SELVIN; Protocol Stop: 01/31/25 05:59 Last Admin: 01/26/25 05:45 Dose: 1 each Oxycodone HCl (Oxycodone Hcl Ir 5 Mg Tab (Immediate Release)) 5 mg PO Q6H PRN PRN Reason: Moderate Pain (4,5,6) on NRS Stop: 02/05/25 11:28 Last Admin: 01/25/25 21:09 Dose: 5 mg Oxycodone HCl (Oxycodone Hcl Ir 5 Mg Tab (Immediate Release)) 10 mg PO Q6H PRN PRN Reason: Severe Pain (7,8,9,10) on NRS Stop: 02/05/25 11:28 Last Admin: 01/25/25 13:20 Dose: 10 mg Pantoprazole Sodium (Pantoprazole 40 Mg Tab) 40 mg PO BID [facility] Stop: 02/21/25 08:59 Last Admin: 01/26/25 07:54 Dose: 40 mg Tamsulosin HCl (Tamsulosin Hcl 0.4 Mg Cap) 0.4 mg PO DAILY [facility] Stop: 02/21/25 08:59 Last Admin: 01/26/25 07:54 Dose: 0.4 mg Vibegron (Vibegron 75 Mg Tab) 75 mg PO DAILY [facility] Stop: 02/21/25 08:59 Last Admin: 01/26/25 07:54 Dose: 75 mg
[2025-01-26 11:41] VITALS: RESP 22; TEMP 98.2; O2SAT 95
[2025-01-26 15:36] VITALS: BP 142/89; PULSE 89
--- NOTE | 2025-01-27 08:08 | Discharge Summary ---
Date of Service January 27, 2025 Admission HPI Per Admitting Provider History obtained from patient, family, and records. Medical history significant for chronic diastolic heart failure (EF 65-70%, TTE 2023), CAD status post unsuccessful PCI, PAF status post pulmonary vein isolation on Eliquis, valvular heart disease (moderate , mild MR/TR/NC, TTE 2023), hypertension, hyperlipidemia, DM 2 on oral medications, GERD, chronic anemia (baseline hemoglobin of 13), history oropharyngeal dysphagia, BPH, Parkinson disease, past tobacco abuse. Last confinement 2018 for epistaxis in the setting of Coumadin coagulopathy. Few weeks history of dizziness symptoms described as lightheadedness accompanied by flashes of light. Patient later noted chest and sinus congestion symptoms. Patient seen at urgent care last week. Prescribed Augmentin for bronchitis symptoms. Transient improvement of cough and dizziness symptoms on follow-up at PCP's office few days ago. Last night, patient had recurrent syncopal events witnessed by at home. Patient fell out of chair last night resulting in bleeding head wound. Patient complaining of achy left chest wall pain following fall. Some SOB. Patient brought to ER for evaluation. Syncopal events coinciding with bradycardic episodes, heart rate 40s and complete heart block. No improvement with atropine and dopamine infusion. Heart alert called for urgent transvenous pacemaker placement following consultation with oncology physician assistant on-call. Medical History as above Surgical History : Cataract surgery, back surgery, hip surgery, knee surgery, carpal tunnel surgery Family History : Leukemia, heart disease Personal/Social history : Past tobacco abuse, occasional EtOH intake, lives with Admission Exam Per Admitting Provider Physical Exam: GENERAL: uncomfortable, slightly anxious, no respiratory distress SKIN: Pallor, warm HEENT: Alopecia, dried blood over scalp, pale palpebral conjunctivae, no ptosis, dry buccal mucosa with dried blood clots per orem NECK : Cervical collar in place CHEST : Decreased breath sounds, left chest wall tenderness HEART : Bradycardic, systolic murmur ABDOMEN: distention, nontender EXTREMITIES : No LE swelling/tenderness, no other conspicuous deformities noted NEUROLOGIC : Coherent, no facial asymmetry, gait and stance not assessed Principal Diagnosis Symptomatic Bradycardia s/p PPM Discharge Exam Sitting on a chair without any acute distress Constitutional well developed, well nourished, + ill appearing and average body habitus Eyes PERRL, conjunctivae normal, anicteric sclerae ENMT external ear and nose normal, oropharynx normal Neck trachea midline, no thyromegaly Respiratory no respiratory distress Auscultation: lungs clear to auscultation bilaterally Cardiovascular Rate/Rhythm: regular rate and regular rhythm; not tachycardic Heart Sounds: normal S1 and normal S2; no murmur Extremities: + edema ( trace edema bilaterally) Gastrointestinal (Abdomen) Inspection/Auscultation: abdomen normal to inspection and normal bowel sounds; abdomen not distended Percussion/Palpation: abdomen soft; abdomen nontender Neurologic normal touch/pain/proprioception and moves all extremities; no focal motor deficits Lymphatic no cervical or axillary lymphadenopathy Discharge Data Allergies Allergy/AdvReac Type Severity Reaction Status Date / Time lisinopril Allergy Cough Verified 11/16/24 13:00 Consultations 01/22/25 06:42 Consult Cardiology Stat 01/22/25 07:57 Consult Sales Product Specialist Routine Procedures Performed Operation Date: 01/24/25 08:00 Actual Procedures p Pacer with A/V Leads (Dual) - Sonido Pardo MD s Ins/RemTemporary Transvenous Pacer - Sonido Pardo MD Ordered Studies 01/22/25 04:07 CT cervical spine wo con Stat CT head/brain wo con Stat 01/22/25 06:29 CL Cath Imgs for PACS use only Stat 01/22/25 16:00 CT chest diagnostic wo con Urgent CT head/brain wo con Urgent 01/24/25 06:45 EP Lab Images for PACS ONCE Hospital Course (1) Symptomatic bradycardia: Plan 84-year-old male with PMH of HFpEF [EF 65 to 70%, TTE 2023], CAD sp unsuccessful PCI, PAF sp pulmonary vein isolation on Eliquis, HTN, HLD, T2DM on oral medications, GERD, chronic anemia [baseline hemoglobin of 13], oropharyngeal dysphagia, BPH, Parkinson's disease, past tobacco abuse presented with complaint of dizziness symptoms/lightheadedness accompanied by flashes of light for the last few weeks [employer] 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 Patient had multiple syncopal events the day prior to arrival, he fell out of chair resulting in bleeding head wound and left-sided chest wall trauma. Syncopal events noted to be coinciding with bradycardic episodes, heart rate in 40s and complete heart block. He is being managed for the following: Symptomatic bradycardia Chronic bifascicular block Syncopal event Fall Head trauma and left-sided chest trauma: 2/2 syncopal events/fall. c/w general care and pain Mx. f/u [address] head later in the day. Patient comes in with signs and symptoms suggestive of symptomatic bradycardia. Admitting EKG with right bundle branch block and left anterior fascicular block. C-spine CT and CXR with no acute fracture. CT head with no acute finding. Status post insertion of temporary transvenous pacer 01/21 --> s/p dual chamber pacer placement 01/24/25. Cardiology on board, will follow recs. Clinically much better and denies any more dizziness and/or syncopal episode Heart rate remains stable without any arrhythmias He has been ambulating and has had physical therapy Discussed with oncology physician assistant and will restart Eliquis from tomorrow likely discharge tomorrow His Eliquis has been started from today He has been stable without any significant symptoms and is ambulating without any difficulties He will be discharged home this afternoon DM 2 on oral medications, suboptimal control as of recent outpatient hemoglobin A1c of 9 last December 2024 Blood sugar was noted to be very high today more than 300 Will be given insulin coverage and monitor blood sugar Likely discharge tomorrow when the blood sugar is managed Blood sugar is reasonably controlled Bronchitis and sinusitis: pt on augmentin from [employer] 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 No acute respiratory and/or cardiac symptoms Other chronic medical conditions: Continue with/resume home meds as when able. chronic diastolic heart failure (EF 65-70%, TTE 2023), euvolemic hx CAD status post unsuccessful PCI valvular heart disease (moderate , mild MR/TR/NC, TTE 2023) hypertension, elevated secondary discomfort hyperlipidemia, on statin Rx Chronic anemia, hemoglobin at baseline BPH, on multiple bladder medications Parkinson disease Complicated bronchitis, improved cough symptoms on Augmentin Rx past tobacco abuse DVT prophylaxis. SCDs while Eliquis on hold Will restart Eliquis from tomorrow Full code PT/OT after pacer placement-Appreciate input and recommendation Dispo: per clearance from cardio, will get PT/OT maliha Text document was generated using [employer] voice recognition software. It may contain grammatical or spelling errors. Kindly contact undersigned for clarification of any documentation item in question. Total Time Total Time Spent Total Time Spent (In Minutes): 40 minutes Discharge Plan Discharge Items Patient Disposition: Home - Home Health Services Reason For Visit: SYMPTOMATIC BRABYCARDIA, HEART ALERT Discharge Diagnosis: Symptomatic Bradycardia s/p PPM Condition on Discharge: Fair Activity: Resume your previous activity Non-emergency contact: Primary Care Provider Call non-emergency contact if: you have any medication questions and your symptoms worsen Follow-up/Referrals: Sonido Pardo MD [Physician] - 01/27/25 1:30 pm Giacomo Morgan DO [Primary Care Provider] - (The office will call you for a follow up appointment.) Diet: Carb Consistent or DM2 and Heart Healthy Addtl Attending Provider Instructions: Call 911 and go to the Emergency Room if: * You have tightness or pain in your chest that does not go away with rest or Nitroglycerin * You are very short of breath even with rest Call your doctor if any of the following symptoms or problems start or get worse: * Shortness of breath or difficulty breathing * Wake up at night short of breath * Chest pain * Cough * Swelling of your hands, fee, or legs * More fatigued or tired with your normal activity * Palpitations - sudden fast heart beats WEIGHT * Weigh yourself every morning after using the bathroom. * Use the same scale. * Wear the same amount of clothing. * Write your weight down on your chart. * Call your doctor if you gain more than 2-3 pounds in 1-2 days. MEDICATIONS * Use this discharge instruction sheet for instructions. * Take your medications at the time your doctor ordered. * Do not skip a dose of your medicines. * If you miss a dose of medicine, take as soon as possible, but DO NOT DOUBLE A DOSE. * Read your medicine information when you get home. * Know all of the side effects of your medicine. * Call your doctor's office if you have any side effects. * Be sure all of your doctors know what medicine and herbs you take (including cold, flu, and herbal medicine). * Pain Medicine: If you do not get relief from your pain, please call your doctor for help. Take the following with you to your follow-up doctor appointments: * Weight Chart * Medication List * List of questions Do not drink excessive alcohol, beer or wine. Addtl Locker Room Supervisor Provider Instructions: ACTIVITY RECOMMENDATIONS: * Do not raise affected arm over head for 2 weeks. SPECIAL CARE INSTRUCTIONS: * If bleeding occurs, apply direct pressure to area for 5 minutes. * Call your doctor if you have severe pain, fever, drainage or bleeding at site. * Keep dressing on and dry for 48 hours then remove. * Keep any scheduled doctor's appointment. * Implant Card - hand held device with website information given. SKIN IRRITATION: * You may experience some redness and/or swelling in the area where radiation was administered. If any skin irritation occurs, please contact your family physician. FOLLOW UP VISIT: Keep any scheduled doctor appointments. Pending Studies at Discharge: No Stand-Alone Forms: [facility] [employer], Smoking Cessation Medications and DC Order Prescriptions: New diclofenac sodium [Voltaren Arthritis Pain] 1 % Gel 4 g EXT QID PRN (Reason: pain) Qty: 50 0RF Continued Jardiance 10 mg tablet 25 mg PO DAILY (DME) blood sugar diagnostic Strip See Rx Instructions .ROUTE .MEDSUPPLY Qty: 100 5RF Rx Instructions: Test once daily; Dx code- E11.9 metformin 1,000 mg tablet 1,000 mg PO BID Qty: 180 3RF tramadol 50 mg tablet 50 mg PO Q6H PRN (Reason: Pain) Qty: 28 0RF metoprolol succinate 25 mg tablet extended release 24 hr 25 mg PO DAILY atorvastatin 80 mg tablet 80 mg PO DAILY Qty: 90 0RF pantoprazole 40 mg tablet,delayed release (DR/EC) 40 mg PO BID Qty: 180 3RF fluticasone propionate [Flonase Allergy Relief] 50 mcg/actuation spray,suspension 1 spray INTRANASAL BID Qty: 48 3RF aspirin 81 mg tablet,chewable 81 mg PO DAILY Qty: 30 2RF nitroglycerin 0.4 mg tablet, sublingual 0.4 mg sublingual DIRECTED PRN (Reason: Chest Pain) Qty: 20 0RF Rx Instructions: 1 tablet every 5 min. as needed for chest pain up to 3 doses in 15 min. Eliquis 5 mg tablet 5 mg PO BID tamsulosin 0.4 mg capsule 0.4 mg PO DAILY Qty: 90 3RF glimepiride 1 mg tablet 1 mg PO DAILY cyanocobalamin (vitamin B-12) [Vitamin B-12] 500 mcg Tablet 500 mcg PO DAILY ascorbic acid (vitamin C) [Vitamin C] 500 mg Tablet 500 mg PO DAILY gabapentin 600 mg tablet 600 mg PO BID mirabegron [Myrbetriq] 25 mg tablet extended release 24 hr 50 mg PO DAILY multivitamin Tablet 1 tab PO DAILY furosemide 40 mg Tablet 40 mg PO DAILY sildenafil 50 mg Tablet 50 mg PO DAILY PRN (Reason: Erectile Dysfunction) Rx Instructions: administer 30 minutes to 4 hours before activity fluorouracil 5 % Cream 1 applic TOPICAL DAILY spironolactone 25 mg Tablet 25 mg PO DAILY carboxymethylcellulose sodium 0.5 % Drops 1 drp OPHTHALMIC (EYE) TID finasteride 5 mg Tablet 5 mg PO HS carboxymethylcellulose sodium 1 % Drops, Liquid Gel 1 drp OPHTHALMIC (EYE) HS tizanidine 4 mg tablet 4 mg PO 3XD PRN (Reason: Muscle Spasm) nystatin-triamcinolone 100,000-0.1 unit/gram-% ointment 1 applic topical DAILY magnesium oxide 400 mg magnesium tablet 420 mg PO DAILY Discontinued amoxicillin-pot clavulanate 875-125 mg tablet 1 tab PO BID Discharge Orders: Discharge Order (Routine); Ordered 01/26/25 Ordered By: Lorna Webb/Other Patient Handouts: Managing Type 2 Diabetes Admission Data Admit Date/Time: 01/22/25 06:41 Attending Provider: Lorna Ramírez Admit Provider: Raul Huerta Primary Care Provider: Giacomo Morgan Other Providers: [facility]; Lev Holloway; Tylor Pratt; Holly Tidwell Other Interventions: Discharge Summary Assessment (RN) Last Done: 01/26/25 15:34
--- NOTE | 2025-01-27 13:58 | Electrocardiogram Report ---
Test Reason : Blood Pressure : */* mmHG Vent. Rate : 76 BPM Atrial Rate : 36 BPM P-R Int : * ms QRS Dur : 68 ms QT Int : 352 ms P-R-T Axes : * 83 184 degrees QTcB Int : 396 ms Undetermined rhythm Low voltage QRS Cannot rule out Anterior infarct (cited on or before 22-Jan-2025) Abnormal ECG When compared with ECG of 22-Jan-2025 03:55, Current undetermined rhythm precludes rhythm comparison, needs review Right bundle branch block is no longer Present Questionable change in initial forces of Anterolateral leads Confirmed by Иван Hoskins ([id number]) on 01/27/2025 1:58:16 PM Referred By: REFERRED SELF Confirmed By: Иван Hoskins
--- NOTE | 2025-01-27 13:58 | Electrocardiogram Report ---
Test Reason : Blood Pressure : */* mmHG Vent. Rate : 80 BPM Atrial Rate : 77 BPM P-R Int : * ms QRS Dur : 60 ms QT Int : 364 ms P-R-T Axes : * 84 198 degrees QTcB Int : 419 ms Undetermined rhythm Low voltage QRS Cannot rule out Anterior infarct (cited on or before 22-Jan-2025) Abnormal ECG When compared with ECG of 22-Jan-2025 04:21, (unconfirmed) Questionable change in initial forces of Anterior leads Confirmed by Иван Hoskins ([id number]) on 01/27/2025 1:58:31 PM Referred By: REFERRED SELF Confirmed By: Иван Hoskins
== END 2025-01-26 16:45 | disposition home health service (06) | DRG 229 ==
LOC: ED 03:49 → CC 06:40 → SUATTDRO 06:41 → 1E 06:41